=== PATIENT | male | born 1955 | race Caucasian/White ===

== ENCOUNTER 2019-04-22 21:20 | Emergency (ER) | payer MEDICARE, MEDICAID, SELFPAY ==
[2019-04-22 21:21] VITALS: BP 170/96; PULSE 80; RESP 22; TEMP 36.8; O2SAT 97; BMI 23.6
--- NOTE | 2019-04-22 21:23 | ED_ITS ---
Entered by Susana Rosario, acting as scribe for Michell Chu MD HPI - SOB/Dyspnea General: Chief Complaint: Shortness of Breath/Dyspnea Stated Complaint: COPD Time Seen by Provider: 04/22/19 21:22 Source: patient and EMS Mode of arrival: EMS History of Present Illness: HPI Narrative: 64 y/o male presents to the ED with complaint of SOB. Pt states he has chronic COPD and has recently been fighting an upper respiratory infection. He says that he was cleaning his house yesterday with some strong smelling products and today he has tightness in his chest and feels like he cant breathe. MD elicited complaint: shortness of breath Pertinent past history: COPD Onset (ago): day(s) Context: recent illness Timing: progressively worsening Severity: similar to previous episodes Exacerbating factors: strong odors Associated symptoms: Reports chest pain (tightness); Deny abdominal pain, fever(s), nausea or vomiting Review of Systems Const: Denies: fever, chills, body aches or change in appetite Eyes: Denies: blurry vision or eye discomfort ENMT: Denies: throat pain or dental pain Card: Reports: chest pain (tightness) Resp: Reports: shortness of breath GI: Denies: abdominal pain, nausea, vomiting or diarrhea : Denies: painful urination Musc: Denies: neck pain or back pain Skin/Breast: Denies: rash Neuro: Denies: headache Psych: Denies: depression Mario/Lymph: Denies: easy bruising All/Imm: Denies: hives PFS ED PFSH: Social History Smoking and tobacco status: current every day smoker Quit status (tobacco): not considering quitting Second hand smoke exposure: No Smoking risk assessment/counseling performed?: Yes Alcohol intake: never Desire information about alcohol rehabilitation?: No Counseling given: No Desire information about substance/drug rehabilitation?: No Counseling given: No Physical Exam Const: COMMON NORMALS: no apparent distress and oriented x3 HENMT: COMMON NORMALS: normocephalic and head/scalp atraumatic HEAD & SCALP: normocephalic and atraumatic Eye: COMMON NORMALS: PERRL and EOMs intact bilaterally PUPIL: Yes PERRL Neck/C-Spine: COMMON NORMALS: full ROM and supple Chest: COMMONS NORMALS: inspection of chest normal and palpation of chest normal Resp: COMMON NORMALS: normal respiratory effort, no retractions and no use of accessory muscles AUSCULTATION: wheezes (diffuse) Cardio: COMMON NORMALS: regular rate, regular rhythm and no murmurs RATE: regular rate RHYTHM: regular rhythm GI: COMMON NORMALS: normal to inspection, nondistended, normoactive bowel sounds, soft to palpation, non-tender and no masses PALPATION: Yes soft Extremity: COMMON NORMALS: normal to inspection and full ROM Neuro: COMMON NORMALS: oriented x3, moves all extremities and no focal motor deficits Psych: COMMON NORMALS: mental status grossly normal, thought process normal and cooperative THOUGHT PROCESS: normal thought process Skin: COMMON NORMALS: no rashes or lesions noted and no wounds GENERAL SKIN EXAM: no rashes or lesions noted Course Vital Signs: Vital signs: Vital Signs Temperature 98.2 F 04/22/19 21:21 Pulse Rate 62 04/22/19 23:28 Respiratory Rate 20 H 04/22/19 23:28 Blood Pressure 116/64 04/22/19 23:28 Pulse Oximetry 93 04/22/19 23:28 MDM - SOB/Dyspnea MDM Narrative: Medical decision making narrative: Patient presents with COPD exacerbation. He is well-appearing here and x-ray shows no signs of pneumonia and lab work is normal. He is in no distress here and does not require any oxygen. He is to continue steroids and is stable for discharge. Likely had exacerbation from cleaning products he use this morning. He is to return if worsening. Lab Data: Labs: Lab Results 04/22/19 04/22/19 Range/Units 21:40 21:40 WBC 7.4 (4.0-10.0) 10^3/ uL RBC 4.70 (4.1-5.3) 10^6/u L Hgb 13.2 (11.7-16.6) g/dL Hct 41.4 L (42.0-52.0) % MCV 88.1 (80-94) fL MCH 28.1 (28.0-34.0) pg MCHC 31.9 (30.0-36.0) g/dL RDW 14.5 (12.1-15.1) % Plt Count 306 (130-400) 10^3/c mm MPV 10.6 H (7.4-10.4) fL Neut % (Auto) 84.1 % Lymph % (Auto) 13.3 % Bradley % (Auto) 1.8 % Eos % (Auto) 0.0 % Baso % (Auto) 0.1 % Neut # (Auto) 6.2 (1.8-7.7) 10^3/u L Lymph # (Auto) 1.0 (0.8-4.8) 10^3/u L Bradley # (Auto) 0.1 L (0.2-0.9) 10^3/u L Eos # (Auto) 0.0 (0.0-0.8) 10^3/u L Baso # (Auto) 0.0 (0.0-0.1) 10^3/u L Nucleated RBC % (a uto) 0 % Nucleated RBCs # 0.0 /100WBC Sodium 141 (136-145) mmol/L Potassium 4.6 (3.5-5.1) mmol/L Chloride 103 (98-107) mmol/L Carbon Dioxide 25 (22-29) mmol/L Anion Gap 17.6 (5-19) BUN 18 (8-23) mg/dL Creatinine 1.0 (0.7-1.2) mg/dL GFR Calculation 74.8 L (90-130) mL/min Glucose 152 H (65-115) mg/dL Calcium 9.9 (8.5-10.5) mg/dL Total Bilirubin 0.3 (0.15-1.2) mg/dL AST 24 (0-40) U/L ALT 19 (0-41) U/L Alkaline Phosphata se 107 (40-130) IU/L Total Protein 7.3 (6.6-8.7) g/dL Albumin 4.0 (3.5-5.2) g/dL Globulin 3.3 (1.3-4.6) g/dL Imaging Data^: CXR: Radiologist's impression: Ordering Provider/Ordering MD: Michell Chu MD Date of Service: 04/22/19 Procedure(s): XR chest 1V portable [id number] Accession Number(s): [id number] Report Number: [id number] PROCEDURE INFORMATION: Exam: XR Chest, 1 View Exam date and time: 04/22/2019 9:47 PM Age: 64 years old Clinical indication: Shortness of breath; Additional info: SOB TECHNIQUE: Imaging protocol: XR of the chest Views: 1 view. COMPARISON: No relevant prior studies available. FINDINGS: Lungs: COPD/chronic bronchitis/bullous emphysema. Numerous calcified miliary nodules consistent with antecedent granulomatous disease. No radiographic evidence suggesting the presence of active or acute cardiopulmonary/cardiothoracic process. Pleural space: Unremarkable. No pleural effusion. No pneumothorax. Heart/Mediastinum: Arterial sclerosis. No cardiomegaly. Bones/joints: Unremarkable for age XR/XR chest 1V portable [id number] IMPRESSION: 1. COPD/chronic bronchitis/bullous emphysema. 2. Antecedent granulomatous disease. EKG Data^: EKG 1: Attestation: I personally reviewed and interpreted this EKG as follows: EKG Interpretation Date: 04/22/19 EKG interpretation time: 21:37 Interpretation: Normal sinus rhythm heart rate [address] or T wave abnormalities QRS 86 QTc 414 Discharge Plan Discharge Patient Disposition: Home, Self-Care Clinical Impression: COPD with exacerbation Condition: Stable Prescriptions: No Action albuterol sulfate 90 mcg/actuation HFA aerosol inhaler INHALATION RF: 0 Hold Instructions: patient has plenty at home loratadine 10 mg tablet 10 mg PO DAILY 30 Days Qty: 30 RF: 2 promethazine-codeine 6.25-10 mg/5 mL syrup 5 - 10 ml PO Q6H PRN (Reason: cough) Qty: 473 RF: 0 albuterol sulfate 2.5 mg /3 mL (0.083 %) solution for nebulization 2.5 mg continuous nebulization ONCE Qty: 1 RF: 0 ceftriaxone 1 gram recon soln 1 gm IM ONCE Qty: 1 RF: 0 budesonide 0.25 mg/2 mL suspension for nebulization 0.25 mg INHALATION ONCE Qty: 2 RF: 0 dexamethasone sodium phosphate 10 mg/mL solution 10 mg IM ONCE Qty: 1 RF: 0 prednisone 20 mg tablet 40 mg PO DAILY 5 Days Qty: 10 RF: 0 levofloxacin 500 mg tablet 500 mg PO Q24H 7 Days Qty: 7 RF: 0 albuterol sulfate [Ventolin HFA] 90 mcg/actuation HFA aerosol inhaler 2 puff INHALATION Q8H PRN (Reason: shortness of breath or wheezing) Qty: 6.7 RF: 2 aojpfmwveuw-tpqezxbew-ffhuvdzj 100-62.5-25 mcg blister with device 1 inh INHALATION DAILY Qty: 60 RF: 5 lisinopril 20 mg tablet 20 mg PO DAILY Qty: 30 RF: 5 Discharge Orders: Discharge Order (Routine); Ordered 04/22/19 Ordered By: Michell Chu Referrals: Blue Yanez, [facility] [Primary Care Provider] - 4-7 days Discharge Diet: Advance as tolerated Discharge Activity: Resume usual activity Patient Instructions: Chronic Obstructive Pulmonary Disease (ED) Discharge Date/Time: 04/22/19 23:30 Coding Level of Care Code ED Hris Administrator for g Fwd Exam Comprehensive The documentation recorded by the Abraham dominique Ashley, accurately reflects the service I personally performed and the decisions made by Vlad herrera Korby, MD
[2019-04-22 21:38] VITALS: BP 174/97; PULSE 80; RESP 17; O2SAT 96
[2019-04-22 21:50] VITALS: PULSE 66; RESP 18; O2SAT 95
[2019-04-22] MEDS: ipratropium-albuterol 3 mL Neb INHALATION (21:50)
[2019-04-22 21:51] LABS: Basophils % 0.1 %; Hematocrit 41.4 % (42.0-52.0); Hemoglobin 13.2 g/dL (11.7-16.6); Lymphocytes % 13.3 %; Mean Corpuscular HGB Conc 31.9 g/dL (30.0-36.0); Mean Corpuscular Hemoglobin 28.1 pg (28.0-34.0); Mean Corpuscular Volume 88.1 fL (80-94); Mean Platelet Volume 10.6 fL (7.4-10.4); Monocytes # 0.1 10^3/uL (0.2-0.9); Monocytes % 1.8 %; Neutrophils # 6.2 10^3/uL (1.8-7.7); Neutrophils % 84.1 %; Nucleated Red Blood Cells % 0 %; Platelet Count 306 10^3/cmm (130-400); Red Cell Distribution Width 14.5 % (12.1-15.1); White Blood Count 7.4 10^3/uL (4.0-10.0)
[2019-04-22 21:55] VITALS: PULSE 66
[2019-04-22 22:02] VITALS: BP 135/76; PULSE 77; RESP 17; O2SAT 93
[2019-04-22 22:05] LABS: Alanine Aminotransferase 19 U/L (0-41); Alkaline Phosphatase 107 IU/L (40-130); Anion Gap 17.6 (5-19); Aspartate Amino Transferase 24 U/L (0-40); Blood Urea Nitrogen 18 mg/dL (8-23); Calcium 9.9 mg/dL (8.5-10.5); Carbon Dioxide 25 mmol/L (22-29); Chloride 103 mmol/L (98-107); Globulin 3.3 g/dL (1.3-4.6); Glomerular Filtration Rate 74.8 mL/min (90-130); Glucose 152 mg/dL (65-115); Potassium 4.6 mmol/L (3.5-5.1); Sodium 141 mmol/L (136-145); Total Bilirubin 0.3 mg/dL (0.15-1.2); Total Protein 7.3 g/dL (6.6-8.7)
[2019-04-22 23:28] VITALS: BP 116/64; PULSE 62; RESP 20; O2SAT 93
== END 2019-04-22 23:30 | disposition home or self-care (01) ==
PROVIDERS: Emergency Provider Emergency Medicine; Family Provider Nurse Practitioner Family; PCP Nurse Practitioner Family
DX: J44.1 Chronic obstructive pulmonary disease with (acute) exacerbation (principal); F17.200 Nicotine dependence, unspecified, uncomplicated; Z79.51 Long term (current) use of inhaled steroids
CPT/HCPCS: 36415; 71045; 80053; 85025; 94640; 99282; 99283; J7611

== ENCOUNTER 2019-05-05 16:21 | Inpatient (IN) | payer MEDICARE, MEDICAID, SELFPAY ==
[2019-05-05] VITALS (9 sets, daily range): BP systolic 99–179; BP diastolic 60–112; PULSE 78–133; RESP 21–37; TEMP 37.6; O2SAT 91–99; BMI 23.6
--- NOTE | 2019-05-05 16:48 | ED_ITS ---
Entered by Laney Tabor, acting as scribe for Yun Redmond MD, [facility] [place]PI - [place]B/Dyspnea General: Chief Complaint: Shortness of Breath/Dyspnea Stated Complaint: RESP DISTRESS Time Seen by Provider: 05/05/19 16:46 Source: patient Mode of arrival: EMS Limitations: no limitations History of Present Illness: HPI Narrative: 64 yo Male presents to ED with complaint of respiratory distress. Pt states that he can't breathe and his pulse goes up really high. Pt states that he has a horrible pain in his back between his shoulders. Pt states that the pain started last night and got really bad. Pt states that he was seen in the ER in [place] 2 weeks ago. Pt states that his PCP gave him a prescription for steroids and breathing medication but he couldn't take the breathing medication because it makes him sick. Pt states that he would like to be admitted because he feels like he isn't getting better in an outpatient setting. MD elicited complaint: shortness of breath and cough Pertinent past history: COPD Onset (ago): day(s) Context: recent illness Timing: progressively worsening Exacerbating factors: exertion, movement and coughing Relieving factors: oxygen, rest and bronchodilators Known history of: COPD Associated symptoms: Reports chest congestion, cough, fever(s) and orthopnea; Deny abdominal pain, chest pain, nausea, palpitations, polydipsia, polyuria or vomiting Treatment prior to arrival: oxygen and bronchodilator Related Data: Home oxygen amount: none Review of Systems General: Reports: 10 or more systems reviewed and unremarkable except in HPI and below Const: Reports: fever, chills and body aches Eyes: Denies: change in vision or blurry vision ENMT: Denies: throat pain, enlarged tonsils, painful swallowing, hoarseness, mouth pain or swelling of lips/tongue Card: Reports: shortness of breath on exertion and shortness of breath when lying down; Denies: chest pain, palpitations, irregular heart rhythm, edema or swelling of feet/ankles Resp: Reports: shortness of breath, non-productive cough, pain on inspiration and chest congestion GI: Denies: abdominal pain, nausea or vomiting : Denies: flank pain, painful urination, urinary frequency, urinary urgency or urinary hesitancy Musc: Reports: back pain; Denies: neck pain or extremity swelling Skin/Breast: Denies: rash, itching or redness Neuro: Denies: headache, numbness in extremities or weakness in extremities Endo: Denies: excessive urination, excessive thirst or tired all the time PFSH ED PFSH: Medical History COPD (chronic obstructive pulmonary disease) Patient uses daily inhaler Trelegy and rescue inhaler to control symptoms of COPD Hepatitis C, chronic, with coma Patient was treated in 2018 with Epclusa. Followup Hep C viral load have been negative with no viral load. Hypertension Patient remains well controlled. Social History Smoking and tobacco status: former smoker Quit status (tobacco): not considering quitting Second hand smoke exposure: No Smoking risk assessment/counseling performed?: Yes Alcohol intake: never Desire information about alcohol rehabilitation?: No Counseling given: No Desire information about substance/drug rehabilitation?: No Counseling given: No Physical Exam Const: COMMON NORMALS: no apparent distress, average body habitus, oriented x3, no limitations, healthy appearing, alert and well nourished HENMT: COMMON NORMALS: normocephalic, head/scalp atraumatic and moist oral mucous membranes HEAD & SCALP: normocephalic and atraumatic Eye: COMMON NORMALS: PERRL, EOMs intact bilaterally, conjunctivae normal and no scleral icterus CONJUNCTIVA: Yes conjunctivae normal PUPIL: Yes PERRL Neck/C-Spine: COMMON NORMALS: full ROM, supple, no meningeal signs, no JVD and no carotid bruits Chest: COMMONS NORMALS: inspection of chest normal and palpation of chest normal Resp: COMMON NORMALS: no retractions; negative for normal respiratory effort, negative for no use of accessory muscles and negative for clear to auscultation bilaterally EFFORT & INSPECTION: No able to speak in complete sentences, Yes respiratory distress and Yes uses accessory muscles AUSCULTATION: not clear to auscultation bilaterally, diminished lung sounds diffuse and bronchovesicular breath sounds Cardio: COMMON NORMALS: no JVD, regular rate, regular rhythm, S1 normal heart sound, S2 normal heart sound, no gallops, no clicks, no murmurs, no rub and peripheral pulses 2+ throughout RATE: regular rate RHYTHM: regular rhythm HEART SOUNDS: S1 normal and S2 normal PERIPHERAL PULSES: pulses 2+ throughout GI: COMMON NORMALS: normal to inspection, nondistended, normoactive bowel sounds, soft to palpation, non-tender, no hepatosplenomegaly, no masses and no bruits PALPATION: Yes soft and Yes no hepatosplenomegaly : COMMON NORMALS: Yes no CVA tenderness BLADDER/KIDNEY EXAM: Yes no CVA tenderness Back/Pelvis: COMMON NORMALS: no CVA tenderness Extremity: COMMON NORMALS: normal to inspection, full ROM, normal capillary refill, no calf tenderness and no pedal edema Neuro: COMMON NORMALS: oriented x3 SENSORIUM/ORIENTATION: Yes alert MENINGEAL SIGNS: Yes no meningeal signs Skin: COMMON NORMALS: no rashes or lesions noted, no wounds, skin turgor normal, no jaundice, no petechiae and no mottling GENERAL SKIN EXAM: no rashes or lesions noted and turgor normal Course Consultations: Consultation #1: Dr. Galo, hospitalist. She kindly accepted patient to her service. Vital Signs: Vital signs: Vital Signs Temperature 99.7 F H 05/05/19 16:25 Pulse Rate 78 05/05/19 22:44 Respiratory Rate 21 H 05/05/19 22:44 Blood Pressure 110/64 05/05/19 22:44 Pulse Oximetry 96 05/05/19 22:44 MDM - SOB/Dyspnea MDM Narrative: Medical decision making narrative: 64-year-old male patient with a history of COPD who presents to the emergency department with complaints of worsening shortness of breath. Symptoms have been on and off for about 2 weeks but has been getting worse in the last day or 2. In the ED the patient was noted to have a significantly elevated white cell count, question whether it is reactionary from steroids or if it is secondary to pneumonia. CT scan shows bilateral pneumonia. Because he has failed outpatient therapy, he is in respiratory distress he is admitted for IV antibiotics and further work-up. Differential Diagnosis: Shortness of Breath Differential Diagnosis: Likely acute exacerbation of chronic obstructive airways disease, community acquired pneumonia and pulmonary embolism Medical Records: Attestation: I reviewed the patient's medical records. Lab Data: Attestation: I reviewed the patient's lab results. Labs: Lab Results 05/05/19 05/05/19 05/05/19 Range/Units 15:45 15:45 17:20 WBC 31.8 H* (4.0-10.0) 10^3/ uL RBC 5.36 H (4.1-5.3) 10^6/u L Hgb 15.6 (11.7-16.6) g/dL Hct 47.4 (42.0-52.0) % MCV 88.4 (80-94) fL MCH 29.1 (28.0-34.0) pg MCHC 32.9 (30.0-36.0) g/dL RDW 14.0 (12.1-15.1) % Plt Count 165 (130-400) 10^3/c mm MPV 11.7 H (7.4-10.4) fL Neut % (Auto) 86.7 % Lymph % (Auto) 8.8 % Fisher % (Auto) 3.7 % Eos % (Auto) 0.0 % Baso % (Auto) 0.2 % Neut # (Auto) 27.6 H (1.8-7.7) 10^3/u L Lymph # (Auto) 2.8 (0.8-4.8) 10^3/u L Fisher # (Auto) 1.2 H (0.2-0.9) 10^3/u L Eos # (Auto) 0.0 (0.0-0.8) 10^3/u L Baso # (Auto) 0.1 (0.0-0.1) 10^3/u L Nucleated RBC % (a uto) 0 % Nucleated RBCs # 0.0 /100WBC Specimen Type Arterial Sample Site Radial, right ABG pH 7.42 (7.35-7.45) ABG pCO2 32.6 L (35-45) mmHg ABG pO2 77.5 L (80.0-100.0) mmH g ABG HCO3 21.2 L (22-26) mmol/L ABG Base Excess -2.3 L (-2.0-2.0) mmol/ L Suraj Test Pos Hematocrit 44.3 (42-52) % Hgb O2 Saturation 95.1 (95-100) % Carboxyhemoglobin 0.9 (0.4-20.1) %THgb Methemoglobin 0.3 L (0.4-1.5) % Total Hemoglobin 14.5 (14-18) g/dL O2 Delivery Device Nc O2 Liters/Min 4.0 % Scorekeeper ID monro Sodium 135 L (136-145) mmol/L Potassium 4.7 (3.5-5.1) mmol/L Chloride 98 (98-107) mmol/L Carbon Dioxide 23 (22-29) mmol/L Anion Gap 18.7 (5-19) BUN 19 (8-23) mg/dL Creatinine 0.9 (0.7-1.2) mg/dL GFR Calculation 84.4 L (90-130) mL/min Glucose 128 H (65-115) mg/dL Calculated Osmolal ity 278 L (285-295) mOsm/k g Lactic Acid (0.5-2.2) mmol/L Calcium 9.9 (8.5-10.5) mg/dL Total Bilirubin 1.3 H (0.15-1.2) mg/dL AST 23 (0-40) U/L ALT 22 (0-41) U/L Alkaline Phosphata se 103 (40-130) IU/L Total Protein 8.2 (6.6-8.7) g/dL Albumin 4.2 (3.5-5.2) g/dL Globulin 4.0 (1.3-4.6) g/dL 05/05/19 Range/Units 17:30 WBC (4.0-10.0) 10^3/ uL RBC (4.1-5.3) 10^6/u L Hgb (11.7-16.6) g/dL Hct (42.0-52.0) % MCV (80-94) fL MCH (28.0-34.0) pg MCHC (30.0-36.0) g/dL RDW (12.1-15.1) % Plt Count (130-400) 10^3/c mm MPV (7.4-10.4) fL Neut % (Auto) % Lymph % (Auto) % Fisher % (Auto) % Eos % (Auto) % Baso % (Auto) % Neut # (Auto) (1.8-7.7) 10^3/u L Lymph # (Auto) (0.8-4.8) 10^3/u L Fisher # (Auto) (0.2-0.9) 10^3/u L Eos # (Auto) (0.0-0.8) 10^3/u L Baso # (Auto) (0.0-0.1) 10^3/u L Nucleated RBC % (a uto) % Nucleated RBCs # /100WBC Specimen Type Sample Site ABG pH (7.35-7.45) ABG pCO2 (35-45) mmHg ABG pO2 (80.0-100.0) mmH g ABG HCO3 (22-26) mmol/L ABG Base Excess (-2.0-2.0) mmol/ L Suraj Test Hematocrit (42-52) % Hgb O2 Saturation (95-100) % Carboxyhemoglobin (0.4-20.1) %THgb Methemoglobin (0.4-1.5) % Total Hemoglobin (14-18) g/dL O2 Delivery Device O2 Liters/Min % Scorekeeper ID Sodium (136-145) mmol/L Potassium (3.5-5.1) mmol/L Chloride (98-107) mmol/L Carbon Dioxide (22-29) mmol/L Anion Gap (5-19) BUN (8-23) mg/dL Creatinine (0.7-1.2) mg/dL GFR Calculation (90-130) mL/min Glucose (65-115) mg/dL Calculated Osmolal ity (285-295) mOsm/k g Lactic Acid 1.6 (0.5-2.2) mmol/L Calcium (8.5-10.5) mg/dL Total Bilirubin (0.15-1.2) mg/dL AST (0-40) U/L ALT (0-41) U/L Alkaline Phosphata se (40-130) IU/L Total Protein (6.6-8.7) g/dL Albumin (3.5-5.2) g/dL Globulin (1.3-4.6) g/dL Imaging Data^: CTA Chest: Radiologist's impression: [address] [address] [address] Scan Report Signed Patient: Parth Mccracken Jr Kashifrogelio #: [id number] : 4Acct#:[id number] Age/Sex: 64 / MADM Date: 05/05/19 Loc: ERRoom/Bed: Attending Dr: Ordering Provider/Ordering MD: Yun Redmond MD, [facility] [place] Date of Service: 05/05/19 Procedure(s): CT angio chest PE protcl [id number] Accession Number(s): [id number] Report Number: [id number] PROCEDURE INFORMATION: Exam: CT Angiography Chest With Contrast Exam date and time: 05/05/2019 8:39 PM Age: 64 years old Clinical indication: Cough and shortness of breath; Additional info: SOB TECHNIQUE: Imaging protocol: Computed tomographic angiography of the chest with intravenous contrast. 3D rendering: MIP and/or 3D reconstructed images were created by the technologist. Total DLP: 684.99 mGy-cm Radiation optimization: All CT scans at this facility use at least one of these dose optimization techniques: automated exposure control; mA and/or kV adjustment per patient size (includes targeted exams where dose is matched to clinical indication); or iterative reconstruction. Contrast material: OMNI 350; Contrast volume: 95 ml; Contrast route: 20G; COMPARISON: CR XR chest 1V portable [id number] 05/05/2019 5:43 PM FINDINGS: Pulmonary arteries: There is no evidence of filling defects within the pulmonary arterial circulation to suggest pulmonary embolism. Aorta: Unremarkable. No aortic aneurysm. No aortic dissection. Lungs: There are scattered calcifications throughout both lungs in keeping with old granulomatous disease. There are findings of severe emphysema bilaterally with upper lobe predominance. There is a 20 x 36 mm sized masslike area of pleural based consolidation in the left lower lobe such as an image number 352 of series 2. It is uncertain whether this represents infectious or inflammatory disease or is related to malignancy. There are areas of consolidation and infiltrate in the right middle lobe, medial left lower lobe and scattered areas at the right lung base which may represent some areas of acute infection such as bronchopneumonia. In view of the infectious findings elsewhere in the chest, the abnormality at the left lung base may be inflammatory. Further evaluation such as with PET CT scan may be considered, alternatively follow-up is recommended to document resolution following treatment. Pleural space: Unremarkable. No pneumothorax. No pleural effusion. Heart: Unremarkable. No cardiomegaly. No pericardial effusion. Lymph nodes: There are calcified subcarinal, paratracheal and hilar lymph nodes in keeping with old granulomatous disease. Bones/joints: Unremarkable. No acute fracture. Soft tissues: Unremarkable. CT/CT angio chest PE protcl [id number] IMPRESSION: 1. Severe COPD 2. No evidence of pulmonary embolism. 3. Bilateral areas of pneumonia 4. Masslike lesion in the left lower lobe which could represent some focal pneumonic consolidation versus malignant mass. Further evaluation, or short-term follow-up is recommended. Radiation Dose CTDIVOL = (mGy): DLP = 684.99 (mGy-cm) Dictated By:Maico Griffin Signed By:Robert Griffinigned Date/Time:05/05/192136 DD/ 35 Discharge Plan Discharge Patient Disposition: Admitted As Inpatient Admit Provider: Jacquelin Galo Clinical Impression: Pneumonia, Acute respiratory distress, Leukocytosis, COPD with exacerbation Condition: Stable Interventions: ED Discharge Assessment Last Done: 05/05/19 22:44 Discharge Date/Time: 05/05/19 23:12 Coding Level of Care Code ED Personal Injury Litigation Paralegal for Chg Fwd Exam Comprehensive The documentation recorded by the Sharona dominique Carmen, accurately reflects the service I personally performed and the decisions made by Ruy herrera Adegoke I, MD, [facility] [place] May 05, 2019 16:21
--- NOTE | 2019-05-05 17:08 | XR_ITS ---
WS: [id number] XR chest 1V portable [id number] REASON FOR EXAM: Shortness of breath FINDINGS: Patchy alveolar infiltrate in the basilar portion of the right lower lung. The lung ellis are hyper aerated. There are scattered granulomas in the lower lung ellis bilaterally. The heart was normal. XR/XR chest 1V portable [id number] IMPRESSION: Early pneumonia or basilar portion right lower lung Chronic obstructive pulmonary disease Granulomatous changes.
[2019-05-05] MEDS: sodium chloride 0.9% 1,000 ML 999 ML IV ×2 (17:21→20:02)
[2019-05-05 17:27] LABS: Basophils # 0.1 10^3/uL (0.0-0.1); Basophils % 0.2 %; Hematocrit 47.4 % (42.0-52.0); Hemoglobin 15.6 g/dL (11.7-16.6); Lymphocytes # 2.8 10^3/uL (0.8-4.8); Lymphocytes % 8.8 %; Mean Corpuscular HGB Conc 32.9 g/dL (30.0-36.0); Mean Corpuscular Hemoglobin 29.1 pg (28.0-34.0); Mean Corpuscular Volume 88.4 fL (80-94); Mean Platelet Volume 11.7 fL (7.4-10.4); Monocytes # 1.2 10^3/uL (0.2-0.9); Monocytes % 3.7 %; Neutrophils # 27.6 10^3/uL (1.8-7.7); Neutrophils % 86.7 %; Nucleated Red Blood Cells % 0 %; Platelet Count 165 10^3/cmm (130-400); Red Blood Count 5.36 10^6/uL (4.1-5.3)
[2019-05-05] MEDS: ipratropium-albuterol 3 mL Neb INHALATION (17:27)
[2019-05-05 17:33] LABS: ABG PCO2 32.6 mmHg (35-45); ABG PH Result 7.42 (7.35-7.45); Arterial Blood Gas Hematocrit 44.3 % (42-52); Base Excess ABG -2.3 mmol/L (-2.0-2.0); Blood Gas Allen Test Pos; Blood Gas Sample Site Radial, right; Blood Gas Sample Type Arterial; Carboxyhemoglobin 0.9 %THgb (0.4-20.1); HCO3 ABG 21.2 mmol/L (22-26); HGB O2 Sat 95.1 % (95-100); Methemoglobin 0.3 % (0.4-1.5); Oxygen Device NC; PO2 ABG 77.5 mmHg (80.0-100.0); Total Hemoglobin 14.5 g/dL (14-18)
[2019-05-05 17:40] LABS: White Blood Count 31.8 10^3/uL (4.0-10.0)
[2019-05-05] MEDS: morphine 4 mg/mL SDV 1 mL IVP (17:45)
[2019-05-05 17:48] LABS: Alanine Aminotransferase 22 U/L (0-41); Albumin Level 4.2 g/dL (3.5-5.2); Alkaline Phosphatase 103 IU/L (40-130); Anion Gap 18.7 (5-19); Aspartate Amino Transferase 23 U/L (0-40); Blood Urea Nitrogen 19 mg/dL (8-23); Calcium 9.9 mg/dL (8.5-10.5); Carbon Dioxide 23 mmol/L (22-29); Chloride 98 mmol/L (98-107); Glomerular Filtration Rate 84.4 mL/min (90-130); Glucose 128 mg/dL (65-115); Osmolality Calculated 278 mOsm/kg (285-295); Potassium 4.7 mmol/L (3.5-5.1); Sodium 135 mmol/L (136-145); Total Bilirubin 1.3 mg/dL (0.15-1.2); Total Protein 8.2 g/dL (6.6-8.7)
[2019-05-05 18:01] LABS: Lactic Sepsis W/Reflex 1.6 mmol/L (0.5-2.2)
[2019-05-05] MEDS: piperacillin-tazobactam 3.375 GM in sodium chloride 0.9% (plus) 50 ML IV (18:37)
--- NOTE | 2019-05-05 20:01 | CTR_ITS ---
PROCEDURE INFORMATION: Exam: CT Angiography Chest With Contrast Exam date and time: 05/05/2019 8:39 PM Age: 64 years old Clinical indication: Cough and shortness of breath; Additional info: SOB TECHNIQUE: Imaging protocol: Computed tomographic angiography of the chest with intravenous contrast. 3D rendering: MIP and/or 3D reconstructed images were created by the technologist. Total DLP: 684.99 mGy-cm Radiation optimization: All CT scans at this facility use at least one of these dose optimization techniques: automated exposure control; mA and/or kV adjustment per patient size (includes targeted exams where dose is matched to clinical indication); or iterative reconstruction. Contrast material: OMNI 350; Contrast volume: 95 ml; Contrast route: 20G; COMPARISON: CR XR chest 1V portable [id number] 05/05/2019 5:43 PM FINDINGS: Pulmonary arteries: There is no evidence of filling defects within the pulmonary arterial circulation to suggest pulmonary embolism. Aorta: Unremarkable. No aortic aneurysm. No aortic dissection. Lungs: There are scattered calcifications throughout both lungs in keeping with old granulomatous disease. There are findings of severe emphysema bilaterally with upper lobe predominance. There is a 20 x 36 mm sized masslike area of pleural based consolidation in the left lower lobe such as an image number 352 of series 2. It is uncertain whether this represents infectious or inflammatory disease or is related to malignancy. There are areas of consolidation and infiltrate in the right middle lobe, medial left lower lobe and scattered areas at the right lung base which may represent some areas of acute infection such as bronchopneumonia. In view of the infectious findings elsewhere in the chest, the abnormality at the left lung base may be inflammatory. Further evaluation such as with PET CT scan may be considered, alternatively follow-up is recommended to document resolution following treatment. Pleural space: Unremarkable. No pneumothorax. No pleural effusion. Heart: Unremarkable. No cardiomegaly. No pericardial effusion. Lymph nodes: There are calcified subcarinal, paratracheal and hilar lymph nodes in keeping with old granulomatous disease. Bones/joints: Unremarkable. No acute fracture. Soft tissues: Unremarkable. CT/CT angio chest PE protcl [id number] IMPRESSION: 1. Severe COPD 2. No evidence of pulmonary embolism. 3. Bilateral areas of pneumonia 4. Masslike lesion in the left lower lobe which could represent some focal pneumonic consolidation versus malignant mass. Further evaluation, or short-term follow-up is recommended. Radiation Dose CTDIVOL = (mGy): DLP = 684.99 (mGy-cm)
[2019-05-05] MEDS: iohexol 350 mg/mL 100 mL Btl IV (21:04)
[2019-05-05] MEDS: sodium chloride 0.9% 1,000 ML 150 ML IV (21:21)
[2019-05-05 22:29] LABS: Influenza A by IFA Negative (Negative); Influenza B by IFA Negative (Negative)
--- NOTE | 2019-05-05 23:05 | PM.HP ---
Providers/Chief Complaint Admitting Physician: Jacquelin Galo MD Primary Care Provider: EDI Cleary Chief Complaint: RESP DISTRESS History of Present Illness Parth Mccracken Jr is a 64 year old male with a past medical history of COPD and unclear history of being on oxygen in the past. He states he had pneumonia last year after which he was temporarily placed on oxygen. Subsequently underwent an home O2 evaluation with his PCP and reportedly did not qualify at the time. Albuterol and trilogy inhalers. Does not react well to ipratropium, because of tachycardia. He presents today with chief complaints of worsening cough and shortness of breath over the past 1 month. He states that he has been having more frequent coughing spells increased expectoration, especially over the last 1 week or so. Today started to experience subjective chills and diaphoresis. He states his shortness of breath is at the point where minimal movement causes him to become extremely tachypneic and is able to hear audible wheezing. Review of notes showed he had visited his primary care provider on March 03 and received a course of prednisone for 5 days. He has been presented to his primary care provider in March 2017 and the ED on April 21 planes of chest tightness and shortness of breath. He received a prescription for levofloxacin 7 days and prednisone 40 mg for 5 days which did not improve his symptoms. Since yesterday he has been feeling additional palpitations and lightheadedness. Upon presentation to the ER today he has a T-max of 99.7, was initially tachypneic with respiratory rate in the 40s. Initial blood pressure was noted to be in the 90/60 range is requiring supplemental O2 4 L/min which is reportedly new for him. Leukocytosis is at 31.8. ABG showed pH 7 four 230 2.6/70 7.5/21.2. CTA of the chest was performed to rule out PE which showed severe COPD, no evidence of PE, bilateral areas of bronchopneumonia and masslike lesion in the left lower lobe likely to represent consolidation versus mass. No prior CT of the chest to compare this to. .Last echocardiogram was performed on August 2018 which showed normal left ventricular size and function with EF of 55%. No regional wall motion abnormalities. Mild left ventricular hypertrophy and a thickened aortic valve. There is no comment on diastolic function. He does not have any personal history of travel. 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 He often visits an arcade that is frequented by multiple travelers, last visited 4 days ago and noticed several people to be sick with cough and flu . He is concerned about his risk for coronavirus. He has tested negative for flu antigen. Review of Systems General: Reports: 10 or more systems reviewed and unremarkable except in HPI and below Const: Denies: fever, chills or body aches Eyes: Denies: change in vision, blurry vision or photophobia ENMT: Reports: hoarseness; Denies: throat pain, enlarged tonsils, painful swallowing or nasal congestion Card: Denies: chest pain, palpitations, irregular heart rhythm, edema, swelling of feet/ankles, lightheadedness, pre-syncope, shortness of breath on exertion or shortness of breath when lying down Resp: Reports: shortness of breath, productive cough, wheezing and change in phlegm color; Denies: non-productive cough, stridor, pain on inspiration, coughing up blood or chest congestion GI: Denies: abdominal pain, nausea, vomiting, vomiting blood, coffee grounds in vomit, difficulty swallowing, heartburn/indigestion, diarrhea, constipation, cramping, change in stool character, blood in stool or black tarry stool : Denies: flank pain, painful urination, urinary frequency, urinary urgency, urinary hesitancy or blood in urine Musc: Denies: neck pain, back pain, extremity pain, joint swelling, joint warmth or deformity Neuro: Denies: headache, numbness in extremities, weakness in extremities, changes in sensation, difficulty walking, frequent falls, dizziness, vertigo, behavioral changes, slurred speech or seizure-like activity Psych: Denies: anxiety, depression, suicidal ideation or homicidal ideation Endo: Denies: excessive urination, excessive thirst, tired all the time, cold intolerance or hot flashes Mario/Lymph: Denies: easy bruising or easy bleeding Medications/Allergies Home Medications Medication Instructions Recorded Confirmed Last Taken Type albuterol sulfate 2.5 mg INHALATION DAILY 05/05/19 05/05/19 05/05/19 History prednisone 20 mg PO DAILY 05/05/19 05/05/19 Unknown History Allergies Allergy/AdvReac Type Severity Reaction Status Date / Time valdecoxib [From Bextra] Allergy Intermediate unknown Verified 05/05/19 16:37 escitalopram [From Lexapro] AdvReac Intermediate unknown Verified 05/05/19 16:37 PFSH Acute PFSH: Medical History COPD (chronic obstructive pulmonary disease) Patient uses daily inhaler Trelegy and rescue inhaler to control symptoms of COPD Hepatitis C, chronic, with coma Patient was treated in 2018 with Epclusa. Followup Hep C viral load have been negative with no viral load. Hypertension Patient remains well controlled. Social History Smoking and tobacco status: former smoker Quit status (tobacco): not considering quitting Second hand smoke exposure: No Smoking risk assessment/counseling performed?: Yes Alcohol intake: never Desire information about alcohol rehabilitation?: No Counseling given: No Desire information about substance/drug rehabilitation?: No Counseling given: No Vitals/I&O/Wt Last Vital Signs Temp 99.7 F H 05/05/19 16:25 Pulse 78 05/05/19 22:44 Resp 21 H 05/05/19 22:44 BP 110/64 05/05/19 22:44 Pulse Ox 96 05/05/19 22:44 05/05/19 05/05/19 05/06/19 14:59 22:59 06:59 Intake Total 1050 / 1050 Balance 1050 / 1050 Weight last 48 hrs Weight 76.657 kg Physical Exam Narrative: EXAM NARRATIVE: GEN: Awake, alert and oriented, tachypneic on exam, intermitten dry cough, attempting to expectorate without success CVS: S1S2 N RS: B/L scattered coarse crackles lower lung bases Abd: Soft, nt/nd , bs+ OCCUPATIONAL THERAPY MANAGER: no focal neuro deficits Data : 05/05/19 15:45 05/05/19 15:45 Micro: Microbiology 05/05/19 17:24 Gram Stain - Final Sputum - Expectorated Sputum 05/05/19 17:30 Blood Culture - Preliminary Blood SPECIMEN COLLECTED 05/05/19 17:30 Blood Culture - Preliminary Blood SPECIMEN COLLECTED A&P Assessment and plan (1) Pneumonia: Status: Acute Qualifiers: Laterality: bilateral Lung location: unspecified part of lung Pneumonia type: due to unspecified organism Qualified Code(s): J18.9 - Pneumonia, unspecified organism Code(s): J18.9 - Pneumonia, unspecified organism (2) Acute respiratory distress: Status: Acute Code(s): R06.03 - Acute respiratory distress (3) Leukocytosis: Status: Acute Code(s): D72.829 - Elevated white blood cell count, unspecified (4) COPD (chronic obstructive pulmonary disease): Status: Acute Code(s): J44.9 - Chronic obstructive pulmonary disease, unspecified Additional A&P Information Admit to ICU Meets sepsis criteria with fever, leukocytosis, tachycardia 1. Community-acquired pneumonia Start antibiotic empiric treatment with ceftriaxone and azithromycin Normal saline at 75 cc/h pressure is improving after IV fluid resuscitation white blood cell count of 31.8 could potentially be contributed by steroids, will continue to trend Influenza panel is negative Given findings of bronchopneumonia on CAT scan, will acute worsening over the last 3 to 4 days and history of potential exposure to unknown travelers, call was placed to [facility] hotline for covert 19 screening. The test was approved by the RN mobile application development lead. Emergency response center was called for further guidance and obtain order for testing, however they state that they will be called back in the morning hours with further details orders. Until this time we will continue to place patient in contact and droplet precautions. Airborne precautions will be taken for any respiratory specimen collection and potential aerosolization procedures. 2. COPD on multiple rounds of steroids recently without any significant improvement. ABG today without significant hypercapnia, I do not feel very confident at this time is a COPD exacerbation. We will hold off on systemic steroids for now. Duoneb Inhalation every 4 hours. Budesonide inh q12h Patient not on home 02, currently needing 4lpm via [place]. Will need home 02 evaluation 3. C/o palpitations : Obtain EKG, monitor on telemetry for arrhthmias, no h/o Afib, sinus tach on telemetry thus far Troponin baseline check Check BNP last echo 08/2018 Ef 55%, , unknown diastolic function check TSH 4. HTN: Hold lisinopril for now given Bp 90/60 DVT ppx: lovenox Full code Attestations Medical Necessity Statement*: Anticipate > 2 midnight admission for management of pneumonia Coding Level of Care Code Acute Computer Aide for [facility] Fwd Diagnoses Pneumonia J18.9 Laterality: bilateral Lung location: unspecified part of lung Pneumonia type: due to unspecified organism Acute respiratory distress R06.03 Leukocytosis D72.829 COPD (chronic obstructive pulmonary disease) J44.9
[2019-05-06] VITALS (26 sets, daily range): BP systolic 85–119; BP diastolic 48–73; PULSE 59–91; RESP 18–30; TEMP 36–36.7; O2SAT 94–99
--- NOTE | 2019-05-06 00:20 | ECG_ITS ---
Measurements Intervals [place] Rate: 71 P: 87 SD: 159 QRS: 81 QRSD: 95 T: 82 QT: 423 QTc: 461 SINUS RHYTHM ANTERIOR MYOCARDIAL INFARCTION, PROBABLY RECENT No previous ECG available for comparison Electronically Signed On 05-06-2019 13:10:38 CDT by Melissa Franco M.D. [email or web address]
[2019-05-06 00:53] LABS: Lactic Sepsis W/Reflex 1.5 mmol/L (0.5-2.2)
[2019-05-06 00:54] LABS: Troponin T (5th) Once 30 ng/mL (0-15)
[2019-05-06 01:04] LABS: NT Pro B Type Natriuretic Pept 1394 pg/mL (0-125); Thyroid Stimulating Hormone 0.78 uIU/mL (0.27-4.20)
[2019-05-06] MEDS: cefTRIAXone 1,000 MG in sodium chloride 0.9% (plus) 50 ML 100 MG IV ×2 (01:04→23:42)
[2019-05-06] MEDS: enoxaparin 30 mg/0.3 mL Syringe SUBCUT ×2 (01:04→23:42)
[2019-05-06] MEDS: sodium chloride 0.9% 1,000 ML 150 ML IV (04:10)
[2019-05-06 04:18] LABS: Basophils # 0.1 10^3/uL (0.0-0.1); Basophils % 0.2 %; Hematocrit 37.6 % (42.0-52.0); Hemoglobin 12.3 g/dL (11.7-16.6); Lymphocytes # 0.9 10^3/uL (0.8-4.8); Lymphocytes % 3.1 %; Mean Corpuscular HGB Conc 32.7 g/dL (30.0-36.0); Mean Corpuscular Hemoglobin 29.2 pg (28.0-34.0); Mean Corpuscular Volume 89.3 fL (80-94); Mean Platelet Volume 11.1 fL (7.4-10.4); Monocytes # 0.5 10^3/uL (0.2-0.9); Monocytes % 1.7 %; Neutrophils # 28.3 10^3/uL (1.8-7.7); Neutrophils % 94.1 %; Nucleated Red Blood Cells % 0 %; Platelet Count 199 10^3/cmm (130-400); Red Blood Count 4.21 10^6/uL (4.1-5.3); Red Cell Distribution Width 14.2 % (12.1-15.1)
[2019-05-06 04:40] LABS: Anion Gap 13.2 (5-19); Blood Urea Nitrogen 19 mg/dL (8-23); Calcium 8.8 mg/dL (8.5-10.5); Carbon Dioxide 23 mmol/L (22-29); Chloride 108 mmol/L (98-107); Glomerular Filtration Rate 84.4 mL/min (90-130); Glucose 201 mg/dL (65-115); Osmolality Calculated 292 mOsm/kg (285-295); Potassium 4.2 mmol/L (3.5-5.1); Sodium 140 mmol/L (136-145)
[2019-05-06 06:11] LABS: Estmated Average Glucose 120; Hemoglobin A1C 5.8 % (4.0-6.0)
[2019-05-06] MEDS: ipratropium-albuterol 3 mL Neb INHALATION ×4 (07:58→20:56)
[2019-05-06] MEDS: budesonide 0.5 mg/2 mL Neb INHALATION ×2 (07:58→20:56)
[2019-05-06 08:22] LABS: Procalcitonin 5.24 ng/mL (0-0.5)
[2019-05-06] MEDS: azithromycin 250 mg Tablet 500 MG PO (08:32)
[2019-05-06] MEDS: acetaminophen 325 mg Tablet 650 MG PO (08:39)
--- NOTE | 2019-05-06 12:17 | PC.RESP ---
Patient given Pulmonary Rehab/Smoking Cessation information.
[2019-05-06] MEDS: morphine 4 mg/mL SDV 1 mL 1 MG IVP ×3 (13:47→22:07)
--- NOTE | 2019-05-06 15:09 | PM.PN ---
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 [place], does not use oxygen at home, no pets, no recent travel Vitals/I&O/Wt Last Vital Signs Temp 98.0 F 05/06/19 12:00 Pulse 73 05/06/19 14:00 Resp 25 H 05/06/19 14:00 BP 106/67 05/06/19 14:00 Pulse Ox 97 05/06/19 14:00 05/06/19 05/06/19 05/06/19 06:59 14:59 22:59 Intake Total 1050 / 3100 540 / 540 Output Total 250 / 250 650 / 650 Balance 800 / 2850 -110 / -110 Weight last 48 hrs Weight 76.657 kg Physical Exam Const: COMMON NORMALS: no apparent distress and oriented x3 HENMT: COMMON NORMALS: normocephalic HEAD & SCALP: normocephalic Neck/C-Spine: COMMON NORMALS: no JVD Resp: COMMON NORMALS: normal respiratory effort, no retractions and no use of accessory muscles AUSCULTATION: wheezes Cardio: COMMON NORMALS: no JVD, regular rate, regular rhythm, S1 normal heart sound and S2 normal heart sound RATE: regular rate RHYTHM: regular rhythm HEART SOUNDS: S1 normal and S2 normal GI: COMMON NORMALS: normal to inspection, nondistended, normoactive bowel sounds, soft to palpation, non-tender, no hepatosplenomegaly, no masses and no bruits PALPATION: Yes soft and Yes no hepatosplenomegaly Extremity: COMMON NORMALS: normal capillary refill, no clubbing, cyanosis or edema, no calf tenderness and no pedal edema Neuro: COMMON NORMALS: oriented x3 Psych: COMMON NORMALS: mental status grossly normal Data : 05/06/19 04:05 05/06/19 04:05 Micro: Microbiology 05/06/19 09:00 MRSA Culture - Final Nose 05/06/19 09:00 Bacterial Antigens - Final Urine,Voided 05/05/19 17:24 Gram Stain - Final Sputum - Expectorated Sputum 05/05/19 17:30 Blood Culture - Preliminary Blood SPECIMEN COLLECTED 05/05/19 17:30 Blood Culture - Preliminary Blood SPECIMEN COLLECTED A&P Assessment and plan (1) Pneumonia: Status: Acute Qualifiers: Laterality: bilateral Lung location: unspecified part of lung Pneumonia type: due to unspecified organism Qualified Code(s): J18.9 - Pneumonia, unspecified organism Code(s): J18.9 - Pneumonia, unspecified organism (2) Acute respiratory distress: Status: Acute Code(s): R06.03 - Acute respiratory distress (3) Leukocytosis: Status: Acute Code(s): D72.829 - Elevated white blood cell count, unspecified (4) COPD (chronic obstructive pulmonary disease): Status: Acute Code(s): J44.9 - Chronic obstructive pulmonary disease, unspecified Additional A&P Information 1. Community-acquired pneumonia Start antibiotic empiric treatment with ceftriaxone and azithromycin Continue gentle hydration white blood cell count of 31.8, pro-Kobi 5.24,, will continue to trend Influenza panel is negative COVID19 test has been performed, results available tomorrow, continue droplet precautions Review of patient's CT scan shows multifocal bronchopneumonia, high risk of developing acute respiratory distress, high risk of intubation Follow sputum culture respiratory viral panel 2. COPD on multiple rounds of steroids recently without any significant improvement. ABG today without significant hypercapnia, not likely an exacerbation Hold off on steroids Duoneb Inhalation every 4 hours. Budesonide inh q12h Currently on 4 L oxygen Will need home 02 evaluation 3. Diastolic CHF, BNP 1394, hold off on IV hydration -We will consider diuresis 4. HTN: Hold blood pressure medications DVT ppx: lovenox Full code Attestations Medical Necessity Statement*: Patient requires continued hospitalization for pneumonia, multifocal, respiratory failure Coding Level of Care Code Acute Solid State Tester for [facility] Fwd Diagnoses Pneumonia J18.9 Laterality: bilateral Lung location: unspecified part of lung Pneumonia type: due to unspecified organism Acute respiratory distress R06.03 Leukocytosis D72.829 COPD (chronic obstructive pulmonary disease) J44.9
--- NOTE | 2019-05-06 16:59 | USCV_ITS ---
Parth Mccracken Jr Age: 64 Gender: M : 1955 Exam Date: 05/06/2019 17:40 Ordering Phys: Kieran Wiley MD Technologist: Jayda Blakely [place] [facility] [place]: SOB, ELEVATED BMP BP: 106 / 65 HR: 90 Rhythm: Sinus Technical Quality: Adequate MEASUREMENTS (Male / Female) Normal Values 2D ECHO LV Diastolic Diameter PLAX 3.6 cm 4.2 - 5.9 / 3.9 - 5.3 cm LV Systolic Diameter PLAX 2.7 cm LV Chamber Size 2.1 cm IVS Diastolic Thickness 0.8 cm 0.6 - 1.0 / 0.6 - 0.9 cm IVS Systolic Thickness 0.9 cm LVPW Diastolic Thickness 1.7 cm 0.6 - 1.0 / 0.6 - 0.9 cm LVPW Systolic Thickness 1.8 cm RV Chamber Size 2.0 cm LVOT Diameter 2.0 cm LV Ejection Fraction 2D Teich 49.3 % LV Ejection Fraction MOD 2C 54.2 % LV Ejection Fraction 2C AL 53.0 % LA Diameter 4.1 cm LA Width 2.7 cm LA Height 3.8 cm RA Width 3.1 cm RA Height 2.8 cm Aorta at Sinotubular Diameter 2.6 cm M-MODE LV Diastolic Diameter MM 6.3 cm 4.2 - 5.9 / 3.9 - 5.3 cm LV Systolic Diameter MM 3.3 cm LV Ejection Fraction MM Teich 78.2 % IVS Diastolic Thickness MM 0.8 cm 0.6 - 1.0 / 0.6 - 0.9 cm IVS Systolic Thickness MM 1.2 cm LVPW Diastolic Thickness MM 0.7 cm 0.6 - 1.0 / 0.6 - 0.9 cm LVPW Systolic Thickness MM 1.4 cm RV Diastolic Diameter MM 2.1 cm Aortic Annulus Diameter 2.6 cm LA Ao Ratio MM 1.6 MV E Point Septal Separation 0.7 cm DOPPLER AV Peak Velocity 134.0 cm/s LVOT Peak Velocity 111.0 cm/s AV Area Cont Eq vti 2.7 cm squared AV Area Cont Eq pk 2.7 cm squared MV Area PHT 3.7 cm squared Mitral E to A Ratio 1.8 MV E' Velocity 12.0 cm/s Mitral E to MV E' Ratio 8.5 Mitral E to LV E' Lateral Ratio 7.2 Mitral E to LV E' Septal Ratio 10.5 TR Peak Velocity 187.0 cm/s TR Peak Gradient 14.0 mmHg TV Peak E Velocity 42.0 cm/s Right Atrial Pressure 3.0 mmHg Pulmonary Artery Systolic Pressu 17.0 mmHg PV Peak Velocity 77.0 cm/s RV Acceleration Time 0.1 s RV Ejection Time 0.2 s RV AcT/ET 0.2 FINDINGS Left Ventricle Overall LV function appears to be normal normal LV thickness size is noted ejection fraction 65% Right Ventricle Normal right ventricular size and systolic function. Right Atrium Normal RA size Left Atrium Normal left atrial size Mitral Valve Mildly thickened mitral valve. No mitral valve regurgitation. Trace mitral valve regurgitation. Aortic Valve No aortic valve stenosis. Thickened aortic valve. Tricuspid Valve Tricuspid valve not well visualized. Trace tricuspid valve regurgitation. Pulmonic Valve No pulmonary valve stenosis. Structurally normal pulmonic valve. Pulmonic valve not well visualized. Pericardium No pericardial or pleural effusion. Aorta Normal size aortic root and proximal ascending aorta. CONCLUSIONS Amanda Yuen MD (Electronically Signed) Final Date: 07 May 2019 09:58 S
--- NOTE | 2019-05-06 19:40 | PC.NURSE ---
Pt resting in bed alert, pleasant, and oriented X 4. Breathing even and non-labored at rest on 3L NC. Reports shortness of breath with exertion and a moist non-productive cough. Denies fever/chills. Lung sounds diminished but clear throughout. Pt remains on droplet/contact precautions at this time. No concerns or needs voiced at this time, call light within reach.
[2019-05-07] VITALS (20 sets, daily range): BP systolic 89–134; BP diastolic 58–78; PULSE 64–93; RESP 16–28; TEMP 36.5–37.2; O2SAT 2–97
[2019-05-07] MEDS: ipratropium-albuterol 3 mL Neb INHALATION ×5 (04:43→20:08)
[2019-05-07] MEDS: morphine 4 mg/mL SDV 1 mL 1 MG IVP ×2 (06:25→12:20)
--- NOTE | 2019-05-07 07:00 | XR_ITS ---
WS: [id number] XR chest 1V portable [id number] REASON FOR EXAM: sob FINDINGS: Persistent infiltrate in the basilar portion of the right lower lung. Comparisons were made to May 05, 2019. There is evidence of hyperaeration with chronic obstructive pulmonary disease. We again note multiple granulomas in both lung ellis. The heart and mediastinum were normal. XR/XR chest 1V portable [id number] IMPRESSION: Unchanged right lower lung pneumonia Chronic obstructive pulmonary disease. Multiple granulomatous changes.
[2019-05-07 07:41] LABS: Basophils % 0.1 %; Hematocrit 35.1 % (42.0-52.0); Hemoglobin 11.4 g/dL (11.7-16.6); Lymphocytes # 1.6 10^3/uL (0.8-4.8); Lymphocytes % 6.9 %; Mean Corpuscular HGB Conc 32.5 g/dL (30.0-36.0); Mean Corpuscular Hemoglobin 29.5 pg (28.0-34.0); Mean Corpuscular Volume 90.7 fL (80-94); Mean Platelet Volume 11.4 fL (7.4-10.4); Monocytes # 0.6 10^3/uL (0.2-0.9); Monocytes % 2.7 %; Neutrophils # 20.6 10^3/uL (1.8-7.7); Nucleated Red Blood Cells % 0 %; Platelet Count 207 10^3/cmm (130-400); Red Blood Count 3.87 10^6/uL (4.1-5.3); Red Cell Distribution Width 14.6 % (12.1-15.1); White Blood Count 23.1 10^3/uL (4.0-10.0)
[2019-05-07 07:49] LABS: Alanine Aminotransferase 16 U/L (0-41); Albumin Level 2.7 g/dL (3.5-5.2); Alkaline Phosphatase 77 IU/L (40-130); Anion Gap 11.3 (5-19); Aspartate Amino Transferase 25 U/L (0-40); Blood Urea Nitrogen 20 mg/dL (8-23); Calcium 9.1 mg/dL (8.5-10.5); Carbon Dioxide 27 mmol/L (22-29); Chloride 107 mmol/L (98-107); Globulin 3.6 g/dL (1.3-4.6); Glomerular Filtration Rate 112.8 mL/min (90-130); Glucose 140 mg/dL (65-115); Magnesium 2.1 mg/dL (1.7-2.3); Osmolality Calculated 291 mOsm/kg (285-295); Phosphorus 2.6 mg/dL (2.5-4.5); Potassium 4.3 mmol/L (3.5-5.1); Sodium 141 mmol/L (136-145); Total Bilirubin 0.2 mg/dL (0.15-1.2); Total Protein 6.3 g/dL (6.6-8.7)
[2019-05-07] MEDS: azithromycin 250 mg Tablet 500 MG PO (08:32)
[2019-05-07] MEDS: budesonide 0.5 mg/2 mL Neb INHALATION ×2 (08:46→20:08)
--- NOTE | 2019-05-07 12:45 | P.PN_ITS ---
Subjective Subjective: Interval history: Patient states that he feels better this morning, no fevers overnight, is down to 2 L nasal cannula, but does have shortness of breath with minimal exertion, is worried about his call with covid19 testing Vitals/I&O/Wt Last Vital Signs Temp 98.0 F 05/07/19 06:00 Pulse 88 05/07/19 11:38 Resp 22 H 05/07/19 12:20 BP 100/63 05/07/19 06:00 Pulse Ox 96 05/07/19 11:38 05/06/19 05/07/19 05/07/19 22:59 06:59 14:59 Intake Total 1800 / 2340 Output Total 350 / 1000 450 / 1450 Balance 1450 / 1340 -450 / 890 Weight last 48 hrs Weight 76.657 kg Physical Exam Const: COMMON NORMALS: no apparent distress and oriented x3 HENMT: COMMON NORMALS: normocephalic HEAD & SCALP: normocephalic Neck/C-Spine: COMMON NORMALS: no JVD Resp: COMMON NORMALS: normal respiratory effort AUSCULTATION: wheezes and diminished lung sounds Cardio: COMMON NORMALS: no JVD, regular rate, regular rhythm, S1 normal heart sound and S2 normal heart sound RATE: regular rate RHYTHM: regular rhythm HEART SOUNDS: S1 normal and S2 normal GI: COMMON NORMALS: normal to inspection, nondistended, normoactive bowel sounds, soft to palpation, non-tender, no hepatosplenomegaly, no masses and no bruits PALPATION: Yes soft and Yes no hepatosplenomegaly Extremity: COMMON NORMALS: normal capillary refill, no clubbing, cyanosis or edema, no calf tenderness and no pedal edema Neuro: COMMON NORMALS: oriented x3 Psych: COMMON NORMALS: mental status grossly normal Data : 05/07/19 07:17 05/07/19 07:17 Micro: Microbiology 05/05/19 17:24 Gram Stain - Final Sputum - Expectorated Sputum Sputum Culture - Preliminary 05/05/19 17:30 Blood Culture - Preliminary Blood NEGATIVE TO DATE 05/05/19 17:30 Blood Culture - Preliminary Blood NEGATIVE TO DATE 05/06/19 09:00 MRSA Culture - Final Nose 05/06/19 09:00 Bacterial Antigens - Final Urine,Voided A&P Assessment and plan (1) Pneumonia: Status: Acute Qualifiers: Laterality: bilateral Lung location: unspecified part of lung Pneumonia type: due to unspecified organism Qualified Code(s): J18.9 - Pneumonia, unspecified organism Code(s): J18.9 - Pneumonia, unspecified organism (2) Acute respiratory distress: Status: Acute Code(s): R06.03 - Acute respiratory distress (3) Leukocytosis: Status: Acute Code(s): D72.829 - Elevated white blood cell count, unspecified (4) COPD (chronic obstructive pulmonary disease): Status: Acute Code(s): J44.9 - Chronic obstructive pulmonary disease, unspecified Additional A&P Information 1. Community-acquired pneumonia Continue ceftriaxone and azithromycin white blood cell count of 23.1, pro-Kobi 5.24,, will continue to trend Influenza panel is negative COVID19 test has been performed, results available tomorrow, continue droplet precautions Review of patient's CT scan shows multifocal bronchopneumonia, high risk of developing acute respiratory distress, high risk of intubation Follow sputum culture respiratory viral panel 2. COPD on multiple rounds of steroids recently without any significant improvement. ABG today without significant hypercapnia, not likely an exacerbation Hold off on steroids Duoneb Inhalation every 4 hours. Budesonide inh q12h Currently on 2 L oxygen Will need home 02 evaluation 3. Diastolic CHF, BNP 1394, hold off on IV hydration -We will consider diuresis -Echocardiogram shows ejection fraction of 65%, no significant valvular abnormalities 4. HTN: Hold blood pressure medications DVT ppx: lovenox Full code Attestations Medical Necessity Statement*: Requires continued hospitalization for pneumonia Coding Level of Care Code Acute Terrazzo Helper for [facility] Fwd Diagnoses Pneumonia J18.9 Laterality: bilateral Lung location: unspecified part of lung Pneumonia type: due to unspecified organism Acute respiratory distress R06.03 Leukocytosis D72.829 COPD (chronic obstructive pulmonary disease) J44.9
--- NOTE | 2019-05-07 12:45 | PC.NURSE ---
Pt denies pain or needs at this time. Isolation procedure explained. Pt indicated understanding. Pt friendly and seems in good spirits. No concerns noted at this time.
--- NOTE | 2019-05-07 17:44 | PC.OT ---
OT note: Attempted this afternoon but pt was resting and awaiting test results. Will try back again as able.
[2019-05-07] MEDS: cefTRIAXone 1,000 MG in sodium chloride 0.9% (plus) 50 ML 100 MG IV (23:56)
[2019-05-07] MEDS: enoxaparin 40 mg/0.4 mL Syringe SUBCUT (23:58)
[2019-05-08] VITALS (16 sets, daily range): BP systolic 114–178; BP diastolic 61–90; PULSE 70–102; RESP 16–22; TEMP 36.5–36.9; O2SAT 94–98
[2019-05-08] MEDS: ipratropium-albuterol 3 mL Neb INHALATION ×6 (00:13→20:43)
[2019-05-08 06:24] LABS: Basophils % 0.1 %; Eosinophils # 0.1 10^3/uL (0.0-0.8); Eosinophils % 0.6 %; Hematocrit 34.6 % (42.0-52.0); Hemoglobin 11.2 g/dL (11.7-16.6); Lymphocytes # 2.7 10^3/uL (0.8-4.8); Lymphocytes % 21.4 %; Mean Corpuscular HGB Conc 32.4 g/dL (30.0-36.0); Mean Corpuscular Hemoglobin 29.4 pg (28.0-34.0); Mean Corpuscular Volume 90.8 fL (80-94); Mean Platelet Volume 11.2 fL (7.4-10.4); Monocytes # 0.5 10^3/uL (0.2-0.9); Monocytes % 3.6 %; Neutrophils # 9.4 10^3/uL (1.8-7.7); Neutrophils % 73.9 %; Nucleated Red Blood Cells % 0 %; Platelet Count 214 10^3/cmm (130-400); Red Blood Count 3.81 10^6/uL (4.1-5.3); Red Cell Distribution Width 14.8 % (12.1-15.1); White Blood Count 12.7 10^3/uL (4.0-10.0)
[2019-05-08 06:38] LABS: Alanine Aminotransferase 25 U/L (0-41); Albumin Level 2.9 g/dL (3.5-5.2); Alkaline Phosphatase 61 IU/L (40-130); Aspartate Amino Transferase 24 U/L (0-40); Blood Urea Nitrogen 21 mg/dL (8-23); Carbon Dioxide 26 mmol/L (22-29); Chloride 108 mmol/L (98-107); Globulin 2.8 g/dL (1.3-4.6); Glomerular Filtration Rate 96.7 mL/min (90-130); Glucose 105 mg/dL (65-115); Magnesium 1.9 mg/dL (1.7-2.3); Osmolality Calculated 295 mOsm/kg (285-295); Phosphorus 3.5 mg/dL (2.5-4.5); Sodium 144 mmol/L (136-145); Total Bilirubin 0.2 mg/dL (0.15-1.2); Total Protein 5.7 g/dL (6.6-8.7)
[2019-05-08] MEDS: budesonide 0.5 mg/2 mL Neb INHALATION ×2 (07:31→20:43)
[2019-05-08] MEDS: azithromycin 250 mg Tablet 500 MG PO (08:42)
--- NOTE | 2019-05-08 13:58 | PC.OT ---
OT SCREEN COMPLETED. PATIENT DEMONSTRATES NO DEFICITS THAT WOULD REQUIRE CONTINUED SKILLED OT SERVICES. DISCHARGE OT
--- NOTE | 2019-05-08 14:54 | P.PN_ITS ---
Subjective Subjective: Interval history: This morning patient states that he still has some shortness of breath with exertion, has some wheezing, no fevers, no chills, no nausea, no vomiting, no fevers Vitals/I&O/Wt Last Vital Signs Temp 97.7 F 05/08/19 11:28 Pulse 79 05/08/19 11:28 Resp 22 H 05/08/19 11:28 BP 137/80 05/08/19 11:28 Pulse Ox 97 05/08/19 11:28 05/07/19 05/08/19 05/08/19 22:59 06:59 14:59 Intake Total 240 / 600 50 / 650 840 / 840 Output Total 420 / 660 75 / 735 200 / 200 Balance -180 / -60 -25 / -85 640 / 640 Physical Exam Const: COMMON NORMALS: no apparent distress and oriented x3 HENMT: COMMON NORMALS: normocephalic HEAD & SCALP: normocephalic Neck/C-Spine: COMMON NORMALS: no JVD Resp: COMMON NORMALS: normal respiratory effort, no retractions and no use of accessory muscles AUSCULTATION: wheezes Cardio: COMMON NORMALS: no JVD, regular rate, regular rhythm, S1 normal heart sound and S2 normal heart sound RATE: regular rate RHYTHM: regular rhythm HEART SOUNDS: S1 normal and S2 normal GI: COMMON NORMALS: normal to inspection, nondistended, normoactive bowel sounds, soft to palpation, non-tender, no hepatosplenomegaly, no masses and no bruits PALPATION: Yes soft and Yes no hepatosplenomegaly Extremity: COMMON NORMALS: normal capillary refill, no clubbing, cyanosis or edema, no calf tenderness and no pedal edema Neuro: COMMON NORMALS: oriented x3 Psych: COMMON NORMALS: mental status grossly normal Data : 05/08/19 05:59 05/08/19 05:59 Micro: Microbiology 05/05/19 17:24 Gram Stain - Final Sputum - Expectorated Sputum Sputum Culture - Final A&P Assessment and plan (1) Pneumonia: Status: Acute Qualifiers: Laterality: bilateral Lung location: unspecified part of lung Pne umonia type: due to unspecified organism Qualified Code(s): J18.9 - Pneumonia, unspecified organism Code(s): J18.9 - Pneumonia, unspecified organism (2) Acute respiratory distress: Status: Acute Code(s): R06.03 - Acute respiratory distress (3) Leukocytosis: Status: Acute Code(s): D72.829 - Elevated white blood cell count, unspecified (4) COPD (chronic obstructive pulmonary disease): Status: Acute Code(s): J44.9 - Chronic obstructive pulmonary disease, unspecified Additional A&P Information 1. Community-acquired pneumonia Continue ceftriaxone and azithromycin white blood cell count of 12.7, pro-Kobi 5.24,, will continue to trend Influenza panel is negative COVID19 test has been performed, results available tomorrow, continue droplet precautions Review of patient's CT scan shows multifocal bronchopneumonia, high risk of developing acute respiratory distress, high risk of intubation Follow sputum culture respiratory viral panel 2. COPD on multiple rounds of steroids recently without any significant improvement. ABG today without significant hypercapnia, not likely an exacerbation Start steroids today Duoneb Inhalation every 4 hours. Budesonide inh q12h Currently on 2 L oxygen Will need home 02 evaluation 3. Diastolic CHF, BNP 1394, hold off on IV hydration -We will consider diuresis -Echocardiogram shows ejection fraction of 65%, no significant valvular abnormalities 4. 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
[2019-05-09] VITALS (18 sets, daily range): BP systolic 132–144; BP diastolic 74–86; PULSE 64–89; RESP 17–22; TEMP 36.3–36.6; O2SAT 94–99
[2019-05-09] MEDS: ipratropium-albuterol 3 mL Neb INHALATION ×6 (00:43→20:50)
[2019-05-09] MEDS: cefTRIAXone 1,000 MG in sodium chloride 0.9% (plus) 50 ML 100 MG IV (01:47)
[2019-05-09] MEDS: enoxaparin 40 mg/0.4 mL Syringe SUBCUT (01:48)
[2019-05-09 06:03] LABS: Hematocrit 36.5 % (42.0-52.0); Hemoglobin 11.8 g/dL (11.7-16.6); Lymphocytes % 12.9 %; Mean Corpuscular HGB Conc 32.3 g/dL (30.0-36.0); Mean Corpuscular Hemoglobin 28.7 pg (28.0-34.0); Mean Corpuscular Volume 88.8 fL (80-94); Mean Platelet Volume 12.2 fL (7.4-10.4); Monocytes # 0.2 10^3/uL (0.2-0.9); Monocytes % 2.5 %; Neutrophils # 6.5 10^3/uL (1.8-7.7); Neutrophils % 84.2 %; Nucleated Red Blood Cells % 0 %; Platelet Count 180 10^3/cmm (130-400); Red Blood Count 4.11 10^6/uL (4.1-5.3); Red Cell Distribution Width 14.3 % (12.1-15.1); White Blood Count 7.7 10^3/uL (4.0-10.0)
[2019-05-09 06:21] LABS: Alanine Aminotransferase 27 U/L (0-41); Albumin Level 3.2 g/dL (3.5-5.2); Alkaline Phosphatase 68 IU/L (40-130); Anion Gap 15.4 (5-19); Aspartate Amino Transferase 17 U/L (0-40); Blood Urea Nitrogen 20 mg/dL (8-23); Calcium 9.6 mg/dL (8.5-10.5); Carbon Dioxide 25 mmol/L (22-29); Chloride 107 mmol/L (98-107); Glomerular Filtration Rate 96.7 mL/min (90-130); Glucose 155 mg/dL (65-115); Osmolality Calculated 296 mOsm/kg (285-295); Potassium 4.4 mmol/L (3.5-5.1); Sodium 143 mmol/L (136-145); Total Bilirubin 0.2 mg/dL (0.15-1.2); Total Protein 6.2 g/dL (6.6-8.7)
[2019-05-09 06:22] LABS: Magnesium 2.2 mg/dL (1.7-2.3)
[2019-05-09] MEDS: levoFLOXacin 750 mg Tablet PO (10:34)
[2019-05-09] MEDS: predniSONE 20 mg Tablet 40 MG PO (10:36)
[2019-05-09] MEDS: budesonide 0.5 mg/2 mL Neb INHALATION ×2 (11:13→20:50)
--- NOTE | 2019-05-09 11:57 | P.PN_ITS ---
Subjective Subjective: Interval history: Patient does state that he is doing better this morning, afebrile, still has a cough, still shortness of breath with exertion, but is down to 1.5 L, is agreeable for discharge in the next 24 hours Vitals/I&O/Wt Last Vital Signs Temp 97.4 F L 05/09/19 11:13 Pulse 77 05/09/19 11:15 Resp 20 H 05/09/19 11:13 BP 144/85 05/09/19 11:13 Pulse Ox 99 05/09/19 11:13 05/08/19 05/09/19 05/09/19 22:59 06:59 14:59 Intake Total 240 / 1080 Output Total 300 / 500 Balance -60 / 580 Physical Exam Const: COMMON NORMALS: no apparent distress and oriented x3 HENMT: COMMON NORMALS: normocephalic HEAD & SCALP: normocephalic Neck/C-Spine: COMMON NORMALS: no JVD Resp: COMMON NORMALS: normal respiratory effort, no retractions, no use of accessory muscles and clear to auscultation bilaterally AUSCULTATION: clear to auscultation bilaterally Cardio: COMMON NORMALS: no JVD, regular rate, regular rhythm, S1 normal heart sound and S2 normal heart sound RATE: regular rate RHYTHM: regular rhythm HEART SOUNDS: S1 normal and S2 normal GI: COMMON NORMALS: normal to inspection, nondistended, normoactive bowel sounds, soft to palpation, non-tender, no hepatosplenomegaly, no masses and no bruits PALPATION: Yes soft and Yes no hepatosplenomegaly Extremity: COMMON NORMALS: normal capillary refill, no clubbing, cyanosis or edema, no calf tenderness and no pedal edema Neuro: COMMON NORMALS: oriented x3 Psych: COMMON NORMALS: mental status grossly normal Data : 05/09/19 05:19 05/09/19 05:19 Micro: Microbiology 05/05/19 17:24 Gram Stain - Final Sputum - Expectorated Sputum Sputum Culture - Final A&P Assessment and plan (1) Pneumonia: Status: Acute Qualifiers: Laterality: bilateral Lung location: unspecified part of lung Pneumonia type: due to unspecified organism Qualified Code(s): J18.9 - Pneumonia, unspecified organism Code(s): J18.9 - Pneumonia, unspecified organism (2) Acute respiratory distress: Status: Acute Code(s): R06.03 - Acute respiratory distress (3) Leukocytosis: Status: Acute Code(s): D72.829 - Elevated white blood cell count, unspecified (4) COPD (chronic obstructive pulmonary disease): Status: Acute Code(s): J44.9 - Chronic obstructive pulmonary disease, unspecified (5) Mass of lower lobe of left lung: Status: Acute Code(s): R91.8 - Other nonspecific abnormal finding of lung field Additional A&P Information 1. Community-acquired pneumonia De-escalate to Levaquin covid 19 negative Review of patient's CT scan shows multifocal bronchopneumonia, high risk of developing acute respiratory distress, high risk of intubation Follow sputum culture respiratory viral panel 2. COPD on multiple rounds of steroids recently without any significant improvement. continue steroids Duoneb Inhalation every 4 hours. Budesonide inh q12h Currently on 2 L oxygen Will need home 02 evaluation 3. Diastolic CHF, BNP 1394, hold off on IV hydration -Echocardiogram shows ejection fraction of 65%, no significant valvular abnormalities -20 mg Lasix IV today 4. HTN: Hold blood pressure medications #[address] scan showed mass of lower lobe of the lung, left Masslike lesion in the left lower lobe which could represent some focal pneumonic consolidation versus malignant mass. Further evaluation, or short-term follow-up is recommended. -I reviewed scans with Dr. Puri, who agrees that this is likely a pulmonary malignancy -Patient is to follow-up with Dr. 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
[2019-05-09] MEDS: FUROsemide 10 mg/mL SDV 2mL 20 MG IVP (12:23)
[2019-05-10] VITALS (12 sets, daily range): BP systolic 124–156; BP diastolic 76–87; PULSE 63–85; RESP 16–18; TEMP 36.5–36.9; O2SAT 95–99
[2019-05-10] MEDS: ipratropium-albuterol 3 mL Neb INHALATION ×3 (00:06→11:59)
[2019-05-10 06:09] LABS: Hematocrit 34.9 % (42.0-52.0); Hemoglobin 11.4 g/dL (11.7-16.6); Lymphocytes # 2.4 10^3/uL (0.8-4.8); Lymphocytes % 22.2 %; Mean Corpuscular HGB Conc 32.7 g/dL (30.0-36.0); Mean Corpuscular Volume 88.8 fL (80-94); Mean Platelet Volume 10.9 fL (7.4-10.4); Monocytes # 0.6 10^3/uL (0.2-0.9); Neutrophils # 7.9 10^3/uL (1.8-7.7); Neutrophils % 72.4 %; Nucleated Red Blood Cells % 0 %; Platelet Count 214 10^3/cmm (130-400); Red Blood Count 3.93 10^6/uL (4.1-5.3); Red Cell Distribution Width 14.3 % (12.1-15.1); White Blood Count 10.9 10^3/uL (4.0-10.0)
[2019-05-10] MEDS: levoFLOXacin 750 mg Tablet PO (06:11)
[2019-05-10] MEDS: enoxaparin 40 mg/0.4 mL Syringe SUBCUT (06:11)
[2019-05-10 06:38] LABS: Alanine Aminotransferase 31 U/L (0-41); Albumin Level 3.3 g/dL (3.5-5.2); Alkaline Phosphatase 64 IU/L (40-130); Anion Gap 9.2 (5-19); Aspartate Amino Transferase 21 U/L (0-40); Blood Urea Nitrogen 24 mg/dL (8-23); Calcium 9.4 mg/dL (8.5-10.5); Carbon Dioxide 32 mmol/L (22-29); Chloride 104 mmol/L (98-107); Glomerular Filtration Rate 84.4 mL/min (90-130); Glucose 121 mg/dL (65-115); Osmolality Calculated 290 mOsm/kg (285-295); Potassium 4.2 mmol/L (3.5-5.1); Sodium 141 mmol/L (136-145); Total Bilirubin 0.2 mg/dL (0.15-1.2); Total Protein 6.3 g/dL (6.6-8.7)
[2019-05-10] MEDS: predniSONE 20 mg Tablet 40 MG PO (08:45)
[2019-05-10] MEDS: budesonide 0.5 mg/2 mL Neb INHALATION (09:13)
--- NOTE | 2019-05-10 11:56 | PC.SOCIAL ---
* Patient received IM from Medicare. Original is in the chart.
--- NOTE | 2019-05-10 16:22 | PM.DCS ---
Discharge Providers Date of Admission: 05/05/19 20:03 Date of Discharge: May 10, 2019 Attending Provider at Admission: Jacquelin Galo MD Attending Provider at Discharge: Kieran Wiley MD Primary Care Provider: EDI Cleary Diagnoses at Discharge Discharge Diagnosis (1) Pneumonia: Status: Acute Qualifiers: Laterality: bilateral Lung location: unspecified part of lung Pneumonia type: due to unspecified organism Qualified Code(s): J18.9 - Pneumonia, unspecified organism (2) Acute respiratory distress: Status: Acute (3) Leukocytosis: Status: Acute (4) COPD (chronic obstructive pulmonary disease): Status: Acute (5) Mass of lower lobe of left lung: Status: Acute Reason for Visit Reason for Visit: Reason For Visit: RESP DISTRESS Hospital Course Discharge Summary: This is a 64-year-old male with a past medical history of COPD, who presents to the emergency room due to complaints of cough, fever. Patient was admitted to the intensive care unit for a multifocal bronchopneumonia and COPD exacerbation, received broad-spectrum antibiotics, nebulizer treatments, steroids, he clinically improved. Was de-escalate to the general medical floors, his antibiotic therapy was de-escalated, on discharge did not require oxygen. Patient was discharged on a steroid taper, and Levaquin, with close follow-up with primary care provider as outpatient. Patient was advised to quit smoking. In addition patient was found to have a mass of the lower lobe of the left lung, patient has an appoint with Dr. Puri on May 20, 2019, I did go over the studies with Dr. Puri, who advised that patient will likely require bronchoscopy as outpatient, patient was advised of this, will keep appointment. Physical Exam Const: COMMON NORMALS: no apparent distress and oriented x3 HENMT: COMMON NORMALS: normocephalic HEAD & SCALP: normocephalic Neck/C-Spine: COMMON NORMALS: no JVD Resp: COMMON NORMALS: normal respiratory effort, no retractions, no use of accessory muscles and clear to auscultation bilaterally AUSCULTATION: clear to auscultation bilaterally Cardio: COMMON NORMALS: no JVD, regular rate, regular rhythm, S1 normal heart sound and S2 normal heart sound RATE: regular rate RHYTHM: regular rhythm HEART SOUNDS: S1 normal and S2 normal GI: COMMON NORMALS: normal to inspection, nondistended, normoactive bowel sounds, soft to palpation, non-tender, no hepatosplenomegaly, no masses and no bruits PALPATION: Yes soft and Yes no hepatosplenomegaly Extremity: COMMON NORMALS: normal capillary refill, no clubbing, cyanosis or edema, no calf tenderness and no pedal edema Neuro: COMMON NORMALS: oriented x3 Psych: COMMON NORMALS: mental status grossly normal Discharge Data Data Completed and Pending: Completed Studies During Hospitalization Category Date Time Status CT angio chest PE protcl [id number] Stat Cat Scan 05/05/19 20:01 Completed XR chest 1V yasmine ble [id number] Routine Exams 05/07/19 07:00 Completed XR chest 1V yasmine ble [id number] Urgent Exams 05/05/19 17:08 Completed CV echo complete* [id number] Routine Ultrasound 05/06/19 16:59 Completed Pending at discharge Category Date Time Status Blood Culture Sta t Lab 05/05/19 17:30 Results Respiratory Viral Panel PCR Stat Lab 05/06/19 09:00 Received Labs from last 24 hours 05/10/19 05/10/19 05:28 05:28 WBC 10.9 H RBC 3.93 L Hgb 11.4 L Hct 34.9 L MCV 88.8 MCH 29.0 MCHC 32.7 RDW 14.3 Plt Count 214 MPV 10.9 H Neut % (Auto) 72.4 Lymph % (Auto) 22.2 [place] % (Auto) 5.0 Eos % (Auto) 0.0 Baso % (Auto) 0.0 Neut # (Auto) 7.9 H Lymph # (Auto) 2.4 [place] # (Auto) 0.6 Eos # (Auto) 0.0 Baso # (Auto) 0.0 Nucleated RBC % (a uto) 0 Nucleated RBCs # 0.0 Sodium 141 Potassium 4.2 Chloride 104 Carbon Dioxide 32 H Anion Gap 9.2 BUN 24 H Creatinine 0.9 GFR Calculation 84.4 L Glucose 121 H Calculated Osmolal ity 290 Calcium 9.4 Total Bilirubin 0.2 AST 21 ALT 31 Alkaline Phosphata se 64 Total Protein 6.3 L Albumin 3.3 L Globulin 3.0 Vitals: Last Vital Signs Temp 97.8 F 05/10/19 11:45 Pulse 82 05/10/19 12:36 Resp 17 05/10/19 11:59 BP 149/77 05/10/19 11:45 Pulse Ox 95 05/10/19 11:59 Discharge Plan Discharge Patient Disposition: Home, Self-Care Condition: Stable Prescriptions: New Levaquin 750 mg tablet 750 mg PO DAILY 6 Days Qty: 6 RF: 0 prednisone 10 mg tablet See Rx Instructions .ROUTE .COMPLEX Qty: 53 RF: 0 albuterol sulfate 90 mcg/actuation HFA aerosol inhaler 1 inh INHALATION Q6H PRN (Reason: shortness of breath or wheezing) Qty: 18 RF: 0 Continued albuterol sulfate 90 mcg/actuation HFA aerosol inhaler 2 puff INHALATION Q8H PRN (Reason: Shortness Of Breath) RF: 0 Hold Instructions: patient has plenty at home loratadine 10 mg tablet 10 mg PO DAILY 30 Days Qty: 30 RF: 2 budesonide 0.25 mg/2 mL suspension for nebulization 0.25 mg INHALATION ONCE Qty: 2 RF: 0 lisinopril 20 mg tablet 20 mg PO DAILY Qty: 30 RF: 5 ipratropium bromide 0.02 % solution 1.25 ml INHALATION .Q4-6 PRN (Reason: shortness of breath or wheezing) Qty: 150 RF: 5 utluhoqkfwn-kulrcuatl-yjylywho 100-62.5-25 mcg blister with device 1 inh INHALATION DAILY 30 Days Qty: 60 RF: 5 Changed albuterol sulfate 2.5 mg /3 mL (0.083 %) solution for nebulization 2.5 mg continuous nebulization Q4-5H PRN (Reason: sob) 30 Days Qty: 45 RF: 0 Discontinued promethazine-codeine 6.25-10 mg/5 mL syrup 5 - 10 ml PO Q6H PRN (Reason: cough) Qty: 473 RF: 0 ceftriaxone 1 gram recon soln 1 gm IM ONCE Qty: 1 RF: 0 dexamethasone sodium phosphate 10 mg/mL solution 10 mg IM ONCE Qty: 1 RF: 0 methylprednisolone acetate 40 mg/mL suspension 40 mg IM ONCE Qty: 1 RF: 0 methylprednisolone [Medrol ([place])] 4 mg tablets,dose pack See Rx Instructions PO PER PKG DIR Qty: 21 RF: 0 prednisone 20 mg Tablet 20 mg PO DAILY RF: 0 albuterol sulfate 2.5 mg/0.5 mL Solution For Nebulization 2.5 mg inhalation DAILY RF: 0 Discharge Orders: Discharge Order (Routine); Ordered 05/10/19 Ordered By: Kieran Wiley Referrals: [facility] ([facility]) [Outside] [employer]ane[employer], [employer] [Primary Care Provider] - 4-7 days (Please call Sunday to set up a follow up apppointment) Sangeeta Puri MD [Physician] - 05/20/19 (Please call Sunday to confirm your appointment for left lower lung mass) Discharge Diet: Cardiac Discharge Activity: Resume usual activity Patient Instructions: Albuterol (By breathing), Prednisone (By mouth), Levofloxacin (By mouth), Emphysema (GEN), Community-acquired Pneumonia (GEN), Pneumonia Stoplight Activity Restrictions/Additional Instructions: -Please take steroids as prescribed -Please take antibiotics as prescribed -Please use nebulizer as needed -Please stay away from public places, handwashing, stay away from people who have fevers Discharge Date/Time: 05/10/19 13:09 Discharge Attestations Time Spent in Discharge Care*: less than 30 min Quality Metrics Clinical Quality Measures During this hospital stay, did patient experience: None Coding Level of Care Code Acute Artist Color Separation for g Fwd Diagnoses Pneumonia J18.9 Laterality: bilateral Lung location: unspecified part of lung Pneumonia type: due to unspecified organism Acute respiratory distress R06.03 Leukocytosis D72.829 COPD (chronic obstructive pulmonary disease) J44.9 Mass of lower lobe of left lung R91.8
[2019-05-15 12:31] LABS: Adenovirus Not Detected (Not Detected); Human Metapneumovirus Not Detected (Not Detected); Human Parainflu Virus 1 Not Detected (Not Detected); Human Parainflu Virus 2 Not Detected (Not Detected); Human Parainflu Virus 3 Not Detected (Not Detected); Human Rsv A Not Detected (Not Detected); Influenza A Not Detected (Not Detected); Influenza B Not Detected (Not Detected); Rhinovirus/Enterovirus Not Detected (Not Detected)
== END 2019-05-10 13:09 | disposition home or self-care (01) | DRG 194 ==
LOC: ER 20:00 → ICU 22:45 → MEDSURG 05-07 18:57
PROVIDERS: Admitting Provider Student in an Organized Health Care Education/Training Program; Emergency Provider Family Medicine; Family Provider Nurse Practitioner Family; PCP Nurse Practitioner Family; Visit Provider Family Medicine
DX: J18.9 Pneumonia, unspecified organism (principal); I13.0 Hypertensive heart and chronic kidney disease with heart failure and stage 1 through stage 4 chronic kidney disease, or unspecified chronic kidney disease; I50.30 Unspecified diastolic (congestive) heart failure; J44.9 Chronic obstructive pulmonary disease, unspecified; D72.829 Elevated white blood cell count, unspecified; Z87.891 Personal history of nicotine dependence; Z79.52 Long term (current) use of systemic steroids; Z79.2 Long term (current) use of antibiotics
CPT/HCPCS: 12345; 36415; 36600; 71045; 71275; 80048; 80053; 82805; 83036; 83605; 83735; 83880; 84100; 84145; 84443; 84484; 85025; 86403; 87040; 87070; 87205; 87635; 87641; 87804; 93005; 93306; 94640; 96372; 96374; 96375; 97116; 97162; 99283; J0696; J1650; J1940; J2270; J2543; J2920; J2930; J7030; J7512; J7626; Q0144; Q9967

== ENCOUNTER → 2019-10-24 11:46 | Outpatient (BNVA) | payer MEDICARE, MEDICAID, SELFPAY | PROVIDERS: Family Provider Nurse Practitioner Family; PCP Nurse Practitioner Family; Visit Provider Nurse Practitioner Family | DX: N40.0 Benign prostatic hyperplasia without lower urinary tract symptoms (principal); Z12.5 Encounter for screening for malignant neoplasm of prostate; I10 Essential (primary) hypertension; E78.2 Mixed hyperlipidemia; Z79.899 Other long term (current) drug therapy; L73.9 Follicular disorder, unspecified; E55.9 Vitamin D deficiency, unspecified | CPT/HCPCS: 80053; 80061; 81003; 82306; 83036; 84443; 85025; G0103 ==

== ENCOUNTER → 2019-10-29 11:04 | Outpatient (BNVA) | payer MEDICARE, MEDICAID, SELFPAY | PROVIDERS: Family Provider Nurse Practitioner Family; PCP Nurse Practitioner Family; Visit Provider Nurse Practitioner Family | DX: I10 Essential (primary) hypertension (principal); E78.2 Mixed hyperlipidemia; N40.1 Benign prostatic hyperplasia with lower urinary tract symptoms; R39.11 Hesitancy of micturition; R53.83 Other fatigue; E55.9 Vitamin D deficiency, unspecified; Z12.5 Encounter for screening for malignant neoplasm of prostate | CPT/HCPCS: 80053; 80061; 82306; 84443; G0103 ==

== ENCOUNTER → 2020-04-12 15:09 | Outpatient (BNVA) | payer MEDICARE, MEDICAID, SELFPAY | PROVIDERS: Family Provider Nurse Practitioner Family; PCP Nurse Practitioner Family; Visit Provider Nurse Practitioner Family | DX: R06.02 Shortness of breath (principal); J44.1 Chronic obstructive pulmonary disease with (acute) exacerbation; I10 Essential (primary) hypertension; E78.2 Mixed hyperlipidemia; Z79.899 Other long term (current) drug therapy; E55.9 Vitamin D deficiency, unspecified; R09.02 Hypoxemia | CPT/HCPCS: 71046; 80053; 80061; 81003; 82306; 83036; 84443; 85025 ==

== ENCOUNTER → 2020-05-20 09:37 | Outpatient (BNVA) | payer MEDICARE, MEDICAID, SELFPAY | PROVIDERS: Family Provider Nurse Practitioner Family; PCP Nurse Practitioner Family; Visit Provider Internal Medicine Pulmonary Disease | DX: J44.9 Chronic obstructive pulmonary disease, unspecified (principal); R06.02 Shortness of breath; R94.4 Abnormal results of kidney function studies | CPT/HCPCS: 80053; 87635 ==

== ENCOUNTER 2020-05-24 09:30 | Outpatient (CLI) | payer MEDICARE, MEDICAID, SELFPAY ==
--- NOTE | 2020-05-24 09:47 | CT_ITS ---
WS: [id number] LDCT LUNG CANCER SCREENING TECHNIQUE: Noncontrast CT of the chest with coronal and sagittal reformatted images. CLINICAL INFORMATION: HX OF TOBACCO USE COMPARISON: CTA May 05, 2019 DLP: 69.63 mGy.cm DIvol: 1.[address] scans at [facility] use at least one of these dose optimization techniques: automat ed exposure control; mA and/or kV adjustment per patient size (includes targeted exams where dose is matched to clinical indication); or iterative reconstruction. FINDINGS: Advanced chronic emphysematous changes. Bulla formation in the lung apices. Calcified granulomas. Sub segmental atelectasis in the lung bases. Noncalcified nodules in the left lower lobe posteriorly the largest measuring 8 mm. A few additional tiny satellite nodules with a small amount of infiltrate. Th ere was a larger area of irregular consolidation in this area in 2019. Recommend 3 month follow-up. Vascular calcification including coronary. Aortic calcification. Calcified hilar nodes. Calcified med iastinal lymph nodes. Adrenal glands are normal. Moderate thoracic kyphosis. Cholelithiasis. Partiall y visualized right renal cyst. CT/CT lung screening [id number] IMPRESSION: LUNG-RADS: 4A-Probably Suspicious FOLLOW UP: 3 Month LDCT
--- NOTE | 2020-05-24 10:29 | PFTS_ITS ---
Date of Study:05/24/20 Date of Dictation: MECHANICS: Forced vital capacity (FVC) is reduced. Forced expiratory volume in one second (FEV1) is reduced. FEV1/FVC is reduced. FLOW VOLUME LOOP: Reduced flow at all lung volumes with significant scooping. LUNG VOLUMES: Total lung capacity (TLC) is increased. Residual volume (RV) is increased. DIFFUSING CAPACITY FOR CARBON MONOXIDE: Mildly reduced. INTERPRETATION: The prebronchodilator spirometry is consistent with severe airflow obstruction. Lung volumes are consistent with hyperinflation and air trapping. Gas exchange (DLCO) is mildly reduced. MTDD
[2020-05-24 10:41] VITALS: BP 140/77; BP 152/98
== END 2020-05-24 09:31 | disposition home or self-care (01) ==
PROVIDERS: Family Provider Nurse Practitioner Family; PCP Nurse Practitioner Family; Visit Provider Internal Medicine Pulmonary Disease
DX: Z12.2 Encounter for screening for malignant neoplasm of respiratory organs (principal); R06.02 Shortness of breath; Z87.891 Personal history of nicotine dependence; I25.10 Atherosclerotic heart disease of native coronary artery without angina pectoris; I70.0 Atherosclerosis of aorta; M40.294 Other kyphosis, thoracic region; K80.20 Calculus of gallbladder without cholecystitis without obstruction; N28.1 Cyst of kidney, acquired
CPT/HCPCS: 71271; 94010; 94618; 94726; 94729

== ENCOUNTER 2020-09-10 10:47 | Outpatient (CLI) | payer MEDICARE, MEDICAID, SELFPAY ==
--- NOTE | 2020-09-10 11:30 | CT_ITS ---
WS: [id number] CT CHEST TECHNIQUE: Noncontrast CT of the chest with coronal and sagittal reformatted images. CLINICAL INFORMATION: J44.9 - Chronic obstructive pulmonary disease, unspecified COMPARISON: May 24, 2020 DLP: 623.[address] scans at [facility] use at least one of these dose optimization techniques: automat ed exposure control; mA and/or kV adjustment per patient size (includes targeted exams where dose is matched to clinical indication); or iterative reconstruction. FINDINGS: Previously described nodule in the left lower lobe measuring 7.1 mm is unchanged. Small amount of dez rounding micronodular infiltrate is unchanged. Numerous tiny calcified granulomas. One or 2 additiona l tiny subpleural nodules not definitely calcified. Advanced chronic emphysematous changes with paraseptal emphysema. Calcified anterior mediastinal [place] bronchial and hilar lymph nodes. Normal caliber thoracic aorta. No axillary lymphadenopathy. Adrenal glands are normal. Right renal cysts. Mild thoracic kyphosis with chronic anterior wedging in the mid thoracic spine. CT/CT chest wo con [id number] IMPRESSION: 1. Advanced chronic emphysematous changes with paraseptal emphysema and bulla formation in the lung apices. 2. Noncalcified nodule left lower lobe measuring 7 mm is unchanged. Recommend 6 month follow-up. 3. Calcified granulomatous disease. 4. No mediastinal or hilar lymphadenopathy.
[2020-09-10 11:56] VITALS: BMI 24.2
--- NOTE | 2020-09-10 12:24 | PC.NURSE ---
pt only able to hit 53 seconds of test before he said to stop. will call dr datar office to let them know
== END 2020-09-10 10:48 | disposition home or self-care (01) ==
LOC: RAD 10:54 → CDL 11:45
PROVIDERS: PCP Nurse Practitioner Family; Visit Provider Internal Medicine Pulmonary Disease
DX: J44.9 Chronic obstructive pulmonary disease, unspecified (principal); R91.1 Solitary pulmonary nodule
CPT/HCPCS: 71250

== ENCOUNTER 2020-10-06 07:50 | Outpatient (CLI) | payer MEDICARE, MEDICAID, SELFPAY ==
--- NOTE | 2020-10-06 08:00 | ECG_ITS ---
[facility] Test Date: 2020-10-06 Pat Name: Parth Mccracken Department: Room: Gender: Male Dietetic Aide: : 1955 Requested By: Trey Irizarryr Jaswinder Order Number: [id number] Elie MD: Selvin Arroyo M.D. Interpretive Statements NAME OF STUDY: LEXISCAN SESTAMIBI STRESS TEST INDICATION: [Shortness of Breath, ] Procedure: At the baseline, the blood pressure was 157/81 mmHg with a heart rate of 64 bpm. The electrocardiogram showed normal sinus rhythm, normal axis with normal ST and T's. The Lexiscan was infused over a period of 20 seconds. A total of 0.4 mg of Lexiscan was infused. The stress phase was continued for a total of 5 minutes. Heart rate was at the end of stress phase was 89 bpm and a blood pressure of 125/74 mmHg. The EKG at the peak infusion revealed since normal sinus rhythm with no significant ST-T wave changes. Sestamibi was injected 20 seconds after the Lexiscan infusion. Blood pressure at the end of recovery phase was 131/74mmHg with a heart rate of 75 bpm. Conclusion: 1. Normal EKG response to Lexiscan infusion 2. No Lexiscan induced chest pain or cardiac arrhythmia. 3. Normal blood pressure and heart rate response. 4. Sestamibi/sestamibi perfusion scan pending; see separate report. Electronically Signed On 10-31-2020 12:31:46 CDT by Selvin Arroyo M.D. [id number]
--- NOTE | 2020-10-06 08:01 | NMCV_ITS ---
NM siddharth perf SPECT r/s* [id number] Parth Mccracken Age: 65 Gender: M : 1955 Exam Date: 10/06/2020 09:04 Ordering Phys: Trey Pena MD Technologist: DARIEL Irwin Exam Location: [facility] Indications: SHORTNESS OF BREATH STRESS TEST Please see separate stress test report in [facility] for full findings IMAGE PROTOCOL Rest/Stress 1 Lexiscan Day Radiopharmaceutical Dose (mCi) Administration Site Administered by Rest: Tc-99m 11.0 IV DARIEL Christianson Sestamibi Stress:Tc-99m 32.7 IV DARIEL Christianson Sestamibi Rest: 06-Oct-2020 60 Discovery 630 Stress: 06-Oct-2020 0 Discovery 630 0.4mg Lexiscan. Images obtained in supine and prone position. SPECT RESULTS Technical Quality: Excellent Raw Data Analysis: Normal Image Corrections: No attenuation or motion correction applied Summed Stress Score: 0 Summed Rest Score: 8 Summed Difference Score: 0 PERFUSION FINDINGS There is reduced radiotracer uptake in the inferior, apical and apical inferior guerra that resolves on stress images. Likely attenuation artifact. No evidence of ischemia is noted FUNCTIONAL RESULTS (calculated via Gated SPECT) Stress Image LV EF (%): 88 Stress EDV (mL):57 TID: 1.13 Stress ESV (mL):7 FUNCTIONAL FINDINGS: There is normal left ventricular systolic function. IMPRESSIONS 1. Normal myocardial perfusion imaging with no evidence of ischemia. There is attenuation artifact noted in the inferior, apical and apical inferior guerra. 2. LV systolic function is normal Selvin Arroyo MD (Electronically Signed) Final Date: 06 October 2020 12:44 S
[2020-10-06 08:14] VITALS: BMI 23.3
[2020-10-06] MEDS: regadenoson 0.4 Mg/5 ml Syringe IVP (09:48)
[2020-10-06 10:18] VITALS: BP 131/74; PULSE 76
== END 2020-10-06 07:51 | disposition home or self-care (01) ==
LOC: CDL 07:52
PROVIDERS: PCP Nurse Practitioner Family; Visit Provider Internal Medicine Pulmonary Disease
DX: R06.02 Shortness of breath (principal)
CPT/HCPCS: 78452; 93017; A9500; J2785

== ENCOUNTER 2020-11-26 13:07 | Inpatient (IN) | payer MEDICARE, MEDICAID, SELFPAY ==
[2020-11-26] VITALS (9 sets, daily range): BP systolic 93–162; BP diastolic 61–94; PULSE 79–119; RESP 12–32; TEMP 36.4–36.8; O2SAT 93–96; BMI 23.6
--- NOTE | 2020-11-26 13:40 | XR_ITS ---
WS: [id number] XR chest 1V portable [id number] REASON FOR EXAM: dyspnea/cough FINDINGS: The heart and mediastinum are within normal limits. Extensive calcified granulomatous changes in both hemithoraces. Extensive bullous disease in the upper lungs. Compared to previous examination of 04/12/2020 there is increased density in the right lower hemithora x. This is in part due to an anterior chest wall fat density mass at the level of the right hemidiaph ragm, demonstrated on CT of the chest 09/10/2020. There also appears to be an infiltrate in the right lower lung, right lower lobe or right middle lobe. XR/XR chest 1V portable [id number] IMPRESSION: Severe bullous emphysema. Abnormal right lower hemithorax which in part is felt to indicate infiltrate in right lower lung or right middle lobe. Infiltrate would be of unknown chronici ty or was no infiltrate present on the CT of the chest 09/10/2020. Findings coul d represent acute or subacute pneumonitis.
[2020-11-26 13:54] LABS: Basophils # 0.1 10^3/uL (0.0-0.1); Basophils % 0.3 %; Eosinophils % 0.1 %; Hematocrit 44.9 % (42.0-52.0); Hemoglobin 14.7 g/dL (11.7-16.6); Lymphocytes # 2.9 10^3/uL (0.8-4.8); Lymphocytes % 15.2 %; Mean Corpuscular HGB Conc 32.7 g/dL (30.0-36.0); Mean Corpuscular Hemoglobin 29.3 pg (28.0-34.0); Mean Corpuscular Volume 89.6 fl (80-94); Mean Platelet Volume 11.4 fL (7.4-10.4); Monocytes # 0.8 10^3/uL (0.2-0.9); Monocytes % 4.3 %; Neutrophils % 79.6 %; Nucleated Red Blood Cells % 0 %; Platelet Count 273 10^3/cmm (130-400); Red Blood Count 5.01 10^6/uL (4.1-5.3); White Blood Count 18.8 10^3/uL (4.0-10.0)
[2020-11-26 14:07] LABS: Alanine Aminotransferase 9 U/L (0-41); Albumin Level 4.3 g/dL (3.5-5.2); Alkaline Phosphatase 128 IU/L (40-130); Anion Gap 19.1 (5-19); Aspartate Amino Transferase 18 U/L (0-40); Blood Urea Nitrogen 14 mg/dL (8-23); Calcium 9.4 mg/dL (8.5-10.5); Carbon Dioxide 23 mmol/L (22-29); Chloride 102 mmol/L (98-107); Creatinine Clr Calc Pharmacy 93.4517; Globulin 3.7 g/dL (1.3-4.6); Glomerular Filtration Rate 96.4 mL/min (90-130); Glucose 136 mg/dL (65-115); Osmolality Calculated 293 mOsm/kg (285-295); Potassium 4.1 mmol/L (3.5-5.1); Sodium 140 mmol/L (136-145); Total Bilirubin 0.5 mg/dL (0.15-1.2)
--- NOTE | 2020-11-26 14:22 | W.ED.SOB ---
HPI - SOB/Dyspnea General: Chief Complaint: Shortness of Breath/Dyspnea Stated Complaint: SOB X 3 DAYS Time Seen by Provider: 11/26/20 13:34 History of Present Illness: HPI Narrative: 65-year-old male with a history of severe COPD. Earlier this year he had a pneumonia after which he required home oxygen who recovered from that and improved to the point where he no longer needed the home oxygen it was stopped the last approximately 15 to 18 hours he has had increasing shortness of breath productive cough difficulty breathing is now requiring 3 L by nasal cannula to maintain sats in the low 90s. He has had low-grade fever and some diarrhea as well. MD elicited complaint: shortness of breath and cough Pertinent past history: COPD Onset (ago): hour(s) (15-18) Context: occurred during exertion Timing: constant Severity: moderate Exacerbating factors: exertion and coughing Relieving factors: oxygen and rest Associated symptoms: Reports chest congestion and cough; Deny abdominal pain, chest pain, diaphoresis, dizziness, extremity pain, fever(s), hemoptysis, lightheadedness, myalgias, nausea, orthopnea, palpitations, paresthesias, polydipsia, polyuria, rash, sense of impending doom, syncope or vomiting Treatment prior to arrival: oxygen Review of Systems Const: Denies: fever(s) or diaphoresis Eyes: Denies: change in vision or blurry vision ENMT: Denies: throat pain, oral sores, dental pain, nasal discharge or nasal congestion Card: Denies: chest pain, palpitations, lightheadedness, syncope or orthopnea Resp: Reports: chest congestion; Denies: hemoptysis GI: Denies: abdominal pain, nausea or vomiting : Denies: flank pain, difficulty urinating, dysuria, urinary frequency, urinary urgency, urinary incontinence or hematuria Musc: Denies: extremity pain Skin/Breast: Denies: rash, pruritus or erythema Neuro: Denies: dizziness Psych: Denies: anxiety, depression, loss of interest, visual hallucinations, auditory hallucinations, suicidal ideation or homicidal ideation Endo: Denies: polyuria or polydipsia Mario/Lymph: Denies: easy bruising, easy bleeding, petechiae, enlarged lymph nodes or tender lymph nodes [facility] PFSH: Medical History BPH (benign prostatic hyperplasia) COPD (chronic obstructive pulmonary disease) DDD (degenerative disc disease), lumbar Decreased GFR Essential hypertension Folliculitis Hepatitis C, chronic, with coma Patient was treated in 2018 with Epclusa. Followup Hep C viral load have been negative with no viral load. Hypertension Patient remains well controlled. Lumbar back pain with radiculopathy affecting right lower extremity Mixed hyperlipidemia Shortness of breath Vitamin D deficiency Social History Smoking and tobacco status: former smoker Quit status (tobacco): has quit using tobacco Year quit tobacco: Mar 2019 [id number] Second hand smoke exposure: No Smoking risk assessment/counseling performed?: Yes Alcohol intake: former Desire information about alcohol rehabilitation?: No Counseling given: No Desire information about substance/drug rehabilitation?: No Counseling given: No Lives independently: Yes Household members: none Marital status: service: No Current occupational status: disabled Pets and animals: No History of recent travel: No Current gender identity: Male Physical Exam Const: COMMON NORMALS: no acute distress GENERAL APPEARANCE: cooperative and comfortable ORIENTATION/CONSCIOUSNESS: Yes awake, Yes oriented to person, Yes oriented to place and Yes oriented to time HENMT: COMMON NORMALS: normocephalic, atraumatic and hearing grossly normal bilaterally HEAD & SCALP: normocephalic and atraumatic Neck/C-Spine: COMMON NORMALS: no JVD Resp: COMMON NORMALS: normal respiratory effort, No retractions, No use of accessory muscles and clear to auscultation bilaterally AUSCULTATION: clear to auscultation bilaterally Cardio: COMMON NORMALS: no JVD, regular rate, regular rhythm and No murmurs present (Cardio) RATE: regular rate RHYTHM: regular rhythm GI: COMMON NORMALS: Soft to palpation and No hepatosplenomegaly present AUSCULTATION: Yes normoactive bowel sounds PALPATION: Yes Soft to palpation, No Tenderness to palpation present (GI), No Guarding due to palpation present (GI) and Yes No hepatosplenomegaly present Extremity: COMMON NORMALS: normal to inspection, capillary refill normal, no clubbing, cyanosis or edema, no calf tenderness and no pedal edema Neuro: SENSORIUM/ORIENTATION: Yes oriented to person, Yes oriented to place and Yes oriented to time Skin: COMMON NORMALS: no rashes or lesions noted GENERAL SKIN EXAM: no rashes or lesions noted Course Vital Signs: Vital signs: Vital Signs Temperature 97.8 F 11/29/20 15:32 Pulse Rate 72 11/29/20 15:32 Respiratory Rate 18 11/29/20 15:32 Blood Pressure 115/70 11/29/20 15:32 Pulse Oximetry 98 11/29/20 15:32 MDM - SOB/Dyspnea MDM Narrative: Medical decision making narrative: Labs, EKG and imaging reviewed on the chart. Patient has acute exacerbation COPD and right lower lobe pneumonia. Will start antibiotics discussed with hospitalist orders written. Lab Data: Labs: Lab Results 11/26/20 11/26/20 11/26/20 13:35 13:35 13:35 WBC 18.8 10^3/uL H 10 ^3/uL (4.0-10.0) RBC 5.01 10^6/uL 10^6 /uL (4.1-5.3) Hgb 14.7 g/dL g/dL (11.7-16.6) Hct 44.9 % % (42.0-52.0) MCV 89.6 fl fl (80-94) MCH 29.3 pg pg (28.0-34.0) MCHC 32.7 g/dL g/dL (30.0-36.0) RDW 13.0 % % (12.1-15.1) Plt Count 273 10^3/cmm 10^3 /cmm (130-400) MPV 11.4 fL H fL (7.4-10.4) Neut % (Auto) 79.6 % % Lymph % (Auto) 15.2 % % [place] % (Auto) 4.3 % % Eos % (Auto) 0.1 % % Baso % (Auto) 0.3 % % Neut # (Auto) 15.00 10^3/uL H 1 0^3/uL (1.8-7.7) Lymph # (Auto) 2.9 10^3/uL 10^3/ uL (0.8-4.8) [place] # (Auto) 0.8 10^3/uL 10^3/ uL (0.2-0.9) Eos # (Auto) 0.0 10^3/uL 10^3/ uL (0.0-0.8) Baso # (Auto) 0.1 10^3/uL 10^3/ uL (0.0-0.1) Nucleated RBC % (a uto) 0 % % Nucleated RBCs # 0.0 /100WBC /100W BC D-Dimer 0.68 ug/mIFEU H u g/mIFEU (0-0.59) Specimen Type Sample Site ABG pH ABG pCO2 ABG pO2 ABG HCO3 ABG O2 Saturation ABG Base Excess Suraj Test A-a O2 Gradient Hematocrit Hgb O2 Saturation Carboxyhemoglobin Methemoglobin Total Hemoglobin Ionized Calcium O2 Delivery Device O2 Liters/Min FiO2 Leave Coordinator ID Sodium 140 mmol/L mmol/L (136-145) Potassium 4.1 mmol/L mmol/L (3.5-5.1) Chloride 102 mmol/L mmol/L (98-107) Carbon Dioxide 23 mmol/L mmol/L (22-29) Anion Gap 19.1 H (5-19) BUN 14 mg/dL mg/dL (8-23) Creatinine 0.8 mg/dL mg/dL (0.7-1.2) GFR Calculation 96.4 mL/min mL/mi n (90-130) Glucose 136 mg/dL H mg/dL (65-115) Calculated Osmolal ity 293 mOsm/kg mOsm/ kg (285-295) Calcium 9.4 mg/dL mg/dL (8.5-10.5) Total Bilirubin 0.5 mg/dL mg/dL (0.15-1.2) AST 18 U/L U/L (0-40) ALT 9 U/L U/L (0-41) Alkaline Phosphata se 128 IU/L IU/L (40-130) Total Protein 8.0 g/dL g/dL (6.6-8.7) Albumin 4.3 g/dL g/dL (3.5-5.2) Globulin 3.7 g/dL g/dL (1.3-4.6) Procalcitonin Nasal/Oral COVID-1 9 PCR SARS-CoV-2 RNA (RT -PCR) SARS-CoV-2 Ag (Rap id) 11/26/20 11/26/20 11/26/20 13:35 14:21 14:46 WBC RBC Hgb Hct MCV MCH MCHC RDW Plt Count MPV Neut % (Auto) Lymph % (Auto) [place] % (Auto) Eos % (Auto) Baso % (Auto) Neut # (Auto) Lymph # (Auto) [place] # (Auto) Eos # (Auto) Baso # (Auto) Nucleated RBC % (a uto) Nucleated RBCs # D-Dimer Specimen Type Arterial Sample Site Brachial, left ABG pH 7.44 (7.35-7.45) ABG pCO2 32.9 mmHg L mmHg (35-45) ABG pO2 66.6 mmHg L mmHg (80.0-100.0) ABG HCO3 22.3 mmol/L mmol/ L (22-26) ABG O2 Saturation 94.4 ABG Base Excess -1.1 mmol/L mmol/ L (-2.0-2.0) Suraj Test Pos A-a O2 Gradient 15.6 mmHg H mmHg (5-10) Hematocrit 44.1 % % (42-52) Hgb O2 Saturation 92.7 % L % (95-100) Carboxyhemoglobin 1.1 %THgb %THgb (0.4-20.1) Methemoglobin 0.6 % % (0.4-1.5) Total Hemoglobin 14.4 g/dL g/dL (14-18) Ionized Calcium 1.2 mmol/L mmol/L (1.1-1.4) O2 Delivery Device Nc O2 Liters/Min 3.0 % % FiO2 32.0 % % Leave Coordinator ID Monro Sodium 141.0 mmol/L mmol /L (131-143) Potassium 4.4 mmol/L mmol/L (3.5-5.0) Chloride Carbon Dioxide Anion Gap BUN Creatinine GFR Calculation Glucose 142.0 mg/dL H mg/ dL (70-115) Calculated Osmolal ity Calcium Total Bilirubin AST ALT Alkaline Phosphata se Total Protein Albumin Globulin Procalcitonin 0.08 ng/mL ng/mL (0-0.5) Nasal/Oral COVID-1 9 PCR Cancelled SARS-CoV-2 RNA (RT -PCR) SARS-CoV-2 Ag (Rap id) 11/26/20 11/26/20 14:46 14:46 WBC RBC Hgb Hct MCV MCH MCHC RDW Plt Count MPV Neut % (Auto) Lymph % (Auto) [place] % (Auto) Eos % (Auto) Baso % (Auto) Neut # (Auto) Lymph # (Auto) [place] # (Auto) Eos # (Auto) Baso # (Auto) Nucleated RBC % (a uto) Nucleated RBCs # D-Dimer Specimen Type Sample Site ABG pH ABG pCO2 ABG pO2 ABG HCO3 ABG O2 Saturation ABG Base Excess Suraj Test A-a O2 Gradient Hematocrit Hgb O2 Saturation Carboxyhemoglobin Methemoglobin Total Hemoglobin Ionized Calcium O2 Delivery Device O2 Liters/Min FiO2 Leave Coordinator ID Sodium Potassium Chloride Carbon Dioxide Anion Gap BUN Creatinine GFR Calculation Glucose Calculated Osmolal ity Calcium Total Bilirubin AST ALT Alkaline Phosphata se Total Protein Albumin Globulin Procalcitonin Nasal/Oral COVID-1 9 PCR SARS-CoV-2 RNA (RT -PCR) Not detected (NOT DETECTED) SARS-CoV-2 Ag (Rap id) Negative (Negative) Discharge Plan Discharge Patient Disposition: Admitted As Inpatient Admit Provider: Refugio Najera Clinical Impression: Pneumonia, COPD exacerbation Condition: Stable Discharge Diet: Cardiac Discharge Activity: Increase activity as tolerated and Oxygen as instructed Coding Level of Care Code ED Nuclear Operator for Chg Fwd Exam Comprehensive
[2020-11-26 14:33] LABS: ABG PCO2 32.9 mmHg (35-45); ABG PH Result 7.44 (7.35-7.45); Alveolar-Arterial Oxygen Gradi 15.6 mmHg (5-10); Arterial Blood Gas Hematocrit 44.1 % (42-52); Base Excess ABG -1.1 mmol/L (-2.0-2.0); Blood Gas Allen Test Pos; Blood Gas Operator Identificat MONRO; Blood Gas Sample Site Brachial, left; Blood Gas Sample Type Arterial; Carboxyhemoglobin 1.1 %THgb (0.4-20.1); HCO3 ABG 22.3 mmol/L (22-26); HGB O2 Sat 92.7 % (95-100); Ionized Calcium Level - ABG 1.2 mmol/L (1.1-1.4); Methemoglobin 0.6 % (0.4-1.5); Oxygen Device NC; Oxygen Saturation ABG 94.4; PO2 ABG 66.6 mmHg (80.0-100.0); Potassium Level - ABG 4.4 mmol/L (3.5-5.0); Total Hemoglobin 14.4 g/dL (14-18)
--- NOTE | 2020-11-26 15:08 | PC.PHAR ---
pt states he takes care of his own medications-pt states he hasnt used pulmicort,perforomist,or yupelri in months pt states he just uses his trelegy,xopenex and ventolin inhaler pt states he has another inhaler he uses but is unsure what it is called [facility] and office states they dont show another inhaler-pt states he did use the ipratropium-albuterol in the neb this am-pt states he takes 10mg po qam of lisinopril- rx was filled on 11/19/20 for 20mg daily-notes are made in the pharmacy comments-
[2020-11-26 15:12] LABS: D Dimer 0.68 ug/mIFEU (0-0.59)
[2020-11-26 15:23] LABS: Procalcitonin 0.08 ng/mL (0-0.5)
--- NOTE | 2020-11-26 16:46 | PM.HP ---
Providers/Chief Complaint Primary Care Provider: EDI Cleary Chief Complaint: SOB X 3 DAYS History of Present Illness Parth Mccracken Jr is a 65 year old male who carries a history of chronic smoking(now smokes marijuana), advanced chronic emphysematous COPD bullae formation in the lung apices calcified granuloma subsegmental atelectasis in the lung bases noncalcified nodule in the left lower lobe 8 mm , [id number] smoking history, follows up with Dr. Pena, was on oxygen in the past presented today with chief plan of worsening shortness of breath. Patient does take Yupelri, Pulmicort and Perforomist. 10/06 - stress test, 65% EF Patient is stating that his symptoms started with dry hacking cough few days ago, he has not noticed any fever, chest pain, today he woke up from his sleep around 1:30 AM with shortness of breath, he did try his inhalers which did not help relieve his symptoms, his heart rate was fluctuant between 95 to 140/min at home. He did not notice any palpitation or chest pain. No febrile episodes. He decided to call EMS because of worsening shortness of breath, in route to the hospital he was giving breathing regimen and steroids. In the ER he was saturating 92% on 3 L nasal cannula, he was tachypneic D-dimer slightly high 0.6 procalcitonin unremarkable He was given Levaquin in the ER Review of Systems Const: Reports: chills, body aches, change in weight and fatigue Eyes: Denies: change in vision ENMT: Denies: throat pain Card: Denies: chest pain Resp: Reports: dyspnea, non-productive cough and pain on inspiration GI: Denies: abdominal pain : Denies: flank pain Musc: Denies: neck pain Skin/Breast: Denies: rash Neuro: Denies: headache(s) Psych: Reports: anxiety Endo: Denies: polyuria Mario/Lymph: Denies: easy bruising All/Imm: Denies: urticaria Medications/Allergies Home Medications Medication Instructions Recorded Confirmed Last Taken Type nebulizers #1 each 05/14/19 11/26/20 Unknown Rx levalbuterol tartrate 45 2 inh INHALATION Q6H PRN #15 g 09/07/20 11/26/20 Unknown Rx mcg/actuation aerosol inhaler fluticasone fur. 100 mcg-umeclid 1 inh INHALATION DAILY #90 ea 11/23/20 11/26/20 11/26/20 09:30 Rx 62.5 mcg-vilant 25 mcg inhalat.powder Flomax 0.4 mg PO QAM 11/26/20 11/26/20 11/26/20 History Flonase Allergy Relief 1 spray INTRANASAL BID PRN 11/26/20 11/26/20 Unknown History albuterol sulfate [Ventolin HFA] 2 puff INHALATION Q4H PRN 11/26/20 11/26/20 Unknown History cyclobenzaprine 10 mg PO BEDTIME 11/26/20 11/26/20 Unknown History ipratropium-albuterol 3 ml INHALATION .Q4-6 PRN 11/26/20 11/26/20 11/26/20 History lisinopril 10 mg PO QAM 11/26/20 11/26/20 11/26/20 History 10 mg multivitamin 1 tab PO DAILY 11/26/20 11/26/20 Unknown History omega-3 fatty acids [Fish Oil] 2 cap PO DAILY 11/26/20 11/26/20 Unknown History paroxetine HCl 10 mg PO QAM 11/26/20 11/26/20 11/26/20 History Allergies Allergy/AdvReac Type Severity Reaction Status Date / Time valdecoxib [From Bextra] Allergy Intermediate unknown Verified 11/26/20 14:29 sofosbuvir [From Epclusa] Allergy Unknown Verified 11/26/20 14:29 velpatasvir [From Epclusa] Allergy Unknown Verified 11/26/20 14:29 escitalopram [From Lexapro] AdvReac Intermediate unknown Verified 11/26/20 14:29 PFSH Acute PFSH: Medical History BPH (benign prostatic hyperplasia) COPD (chronic obstructive pulmonary disease) DDD (degenerative disc disease), lumbar Decreased GFR Essential hypertension Folliculitis Hepatitis C, chronic, with coma Patient was treated in 2018 with Epclusa. Followup Hep C viral load have been negative with no viral load. Hypertension Patient remains well controlled. Lumbar back pain with radiculopathy affecting right lower extremity Mixed hyperlipidemia Shortness of breath Vitamin D deficiency Social History Smoking and tobacco status: former smoker Quit status (tobacco): has quit using tobacco Year quit tobacco: Mar 2019 [id number] Second hand smoke exposure: No Smoking risk assessment/counseling performed?: Yes Alcohol intake: former Desire information about alcohol rehabilitation?: No Counseling given: No Desire information about substance/drug rehabilitation?: No Counseling given: No Lives independently: Yes Household members: none Marital status: service: No Current occupational status: disabled Pets and animals: No History of recent travel: No Current gender identity: Male Vitals/I&O/Wt Last Vital Signs Temp 98.1 F 11/26/20 13:16 Pulse 98 11/26/20 15:05 Resp 12 11/26/20 15:05 BP 104/70 11/26/20 15:05 Pulse Ox 93 11/26/20 15:05 Weight last 48 hrs Weight 74.843 kg Physical Exam Narrative: EXAM NARRATIVE: Cachectic malnourished male, appears stated age Tachypneic Conversational dyspnea Saturating well 92% on 3 L nasal cannula No active cyanosis or gangrene S1, S2 sinus tachycardia Looks euvolemic Abdomen soft Bilateral breath sounds with crackles at the bases Nonfocal neuro exam No leg edema noted Data : 11/26/20 13:35 11/26/20 13:35 A&P Assessment and plan (1) COPD exacerbation: Status: Acute (2) Pneumonia: Status: Acute (3) Acute respiratory failure with hypoxia: Status: Acute Additional A&P Information Acute copd exacerbation Right LL Pneumonia Check Antigen Covid pcr MRSA nares Start azithromycin and cefepime Methylprednisone IV q12h Bipap at HS to decrease work of breathing CTA to rule out PE Acute hypoxia Secondary to pneumonia Underlying copd, rule out PE NO signs of chf Full code cardiac diet Dvt ppx:lovenox 40mg Attestations Medical Necessity Statement*: Anticipating stay to cross more than 2 midnight Time Spent in Patient Care: Greater than 35 minutes Coding Level of Care Code Acute Control Operator for Luke Fwd Diagnoses COPD exacerbation J44.1 Pneumonia J18.9 Acute respiratory failure with hypoxia J96.01
[2020-11-26 17:05] LABS: SARS Covid-2 Antigen Negative (Negative)
[2020-11-26] MEDS: levofloxacin-dextrose 5 % 750 MG/150 ML PREMIX 100 MG IV (17:31)
[2020-11-26] MEDS: morphine 4 mg/mL SDV 1 mL 2 MG IVP ×3 (17:59→21:48)
--- NOTE | 2020-11-26 18:03 | CTR_ITS ---
PROCEDURE INFORMATION: Exam: CTA Chest With Contrast Exam date and time: 11/26/2020 6:03 PM Age: 65 years old Clinical indication: Shortness of breath; Additional info: Hypoxia new onset TECHNIQUE: Imaging protocol: Computed tomographic angiography of the chest with contrast. 3D rendering (Not supervised by radiologist): MIP and/or 3D reconstructed images were created by the technologist. Radiation optimization: All CT scans at this facility use at least one of these dose optimization techniques: automated exposure control; mA and/or kV adjustment per patient size (includes targeted exams where dose is matched to clinical indication); or iterative reconstruction. Contrast material: OMNI 350; Contrast volume: 68 ml; Contrast route: INTRAVENOUS (IV); COMPARISON: 1. CT angio chest PE protcl [id number] 05/05/2019 9:[address] chest wo con [id number] 09/10/2020 11:12:36 AM RADIATION DOSE METRICS: Total DLP (mGy-cm): 600.81 FINDINGS: Pulmonary arteries: Normal. No pulmonary emboli. Aorta: Unremarkable. No aortic aneurysm. No aortic dissection. Lungs: Hyperinflated lungs. Calcified granulomas throughout the lung parenchyma. Mild diffuse bronchial wall thickening. Spiculated opacity in the central perihilar aspect of the right upper lobe is redemonstrated. There is convincing growth in the lesion since 05/05/2019. For example the lesion measures 1.9 cm craniocaudad height current Anahy; 1.0 cm on 05/05/2019. On the 09/10/2020 scan lesion is 1.7 cm craniocaudad height. There is a smoothly marginated noncalcified pulmonary nodule in the posterior left lower lobe measuring 7 mm which is stable from prior. Pleural spaces: Unremarkable. No pneumothorax. No pleural effusion. Heart: Unremarkable. Mediastinal space: Calcified granulomas in the subcarinal space of the mediastinum and bilateral torres. Additional calcified lymph nodes in the AP window of the mediastinum. Lymph nodes: Negative for mediastinal lymphadenopathy. Spleen: Numerous calcified granulomas in the spleen. Negative for splenomegaly. Kidneys and ureters: Simple right renal upper pole cortical cyst. No dedicated follow-up recommended. Bones/joints: Exaggerated thoracic kyphosis. No acute thoracic fractures. Soft tissues: Unremarkable. Other findings: Severe emphysema. Slightly greater volume is suspected in the lesion also conspicuous on sagittal image 50 compared with previous sagittal image 55. CT/CT angio chest PE protcl [id number] IMPRESSION: 1. Negative for pulmonary embolism. 2. Suspicious perihilar right upper lobe pulmonary nodule shows growth from prior imaging suspicious for pulmonary neoplasm. 3. No focal pneumonia identified. 4. Severe emphysema features. 5. Stable left lower lobe pulmonary nodule. 6. Healed granulomatous disease. COMMENTS: Consistent with the [employer]'s Incidental Findings Committee white paper (J Am Reena Radiol 2018): Any incidental renal lesion less than 1 cm or classified as too small to characterize, or any incidental cystic renal lesion characterized as simple-appearing, is likely benign. No follow-up imaging is recommended for these lesions per consensus recommendations based on imaging criteria. Radiation Dose CTDIVOL = (mGy): DLP = 600.81 (mGy-cm)
[2020-11-26] MEDS: iohexol 350 mg/mL 100 mL Btl IV (19:31)
[2020-11-26] MEDS: budesonide 0.5 mg/2 mL Neb INHALATION (21:16)
[2020-11-26] MEDS: ipratropium-albuterol 3 mL Neb INHALATION (21:16)
[2020-11-26] MEDS: cyclobenzaprine 10 mg Tablet PO (21:39)
[2020-11-26] MEDS: enoxaparin 40 mg/0.4 mL Syringe SUBCUT (21:40)
[2020-11-26] MEDS: cefepime 2,000 MG in sodium chloride 0.9% (plus) 50 ML 100 MG IV (21:45)
[2020-11-27] VITALS (12 sets, daily range): BP systolic 105–122; BP diastolic 63–80; PULSE 62–104; RESP 18–24; TEMP 36.4–36.9; O2SAT 93–98
[2020-11-27] MEDS: ipratropium-albuterol 3 mL Neb INHALATION ×4 (04:07→20:18)
[2020-11-27] MEDS: tamsulosin 0.4 mg Capsule PO (06:12)
[2020-11-27 06:20] LABS: Basophils % 0.1 %; Hematocrit 40.8 % (42.0-52.0); Hemoglobin 13.1 g/dL (11.7-16.6); Lymphocytes % 5.2 %; Mean Corpuscular HGB Conc 32.1 g/dL (30.0-36.0); Mean Corpuscular Hemoglobin 29.2 pg (28.0-34.0); Mean Corpuscular Volume 90.9 fl (80-94); Mean Platelet Volume 10.6 fL (7.4-10.4); Monocytes # 0.4 10^3/uL (0.2-0.9); Monocytes % 1.9 %; Neutrophils # 17.96 10^3/uL (1.8-7.7); Nucleated Red Blood Cells % 0 %; Platelet Count 292 10^3/cmm (130-400); Red Blood Count 4.49 10^6/uL (4.1-5.3); Red Cell Distribution Width 13.1 % (12.1-15.1); White Blood Count 19.5 10^3/uL (4.0-10.0)
[2020-11-27 06:46] LABS: Anion Gap 14.5 (5-19); Blood Urea Nitrogen 21 mg/dL (8-23); C Reactive Protein 93.5 mg/L (0.0-4.9); Calcium 9.2 mg/dL (8.5-10.5); Carbon Dioxide 22 mmol/L (22-29); Chloride 105 mmol/L (98-107); Creatinine Clr Calc Pharmacy 83.0681; Glomerular Filtration Rate 84.2 mL/min (90-130); Glucose 165 mg/dL (65-115); Osmolality Calculated 291 mOsm/kg (285-295); Potassium 4.5 mmol/L (3.5-5.1); Sodium 137 mmol/L (136-145)
[2020-11-27 07:31] LABS: Procalcitonin 0.15 ng/mL (0-0.5)
[2020-11-27] MEDS: budesonide 0.5 mg/2 mL Neb INHALATION ×2 (09:17→20:17)
[2020-11-27] MEDS: azithromycin 250 mg Tablet 500 MG PO (09:34)
[2020-11-27] MEDS: cefepime 2,000 MG in sodium chloride 0.9% (plus) 50 ML 100 MG IV ×2 (09:35→20:19)
--- NOTE | 2020-11-27 12:12 | PM.PN ---
Subjective Subjective: Interval history: Patient was seen and examined this morning, he was saturating well on 2 L nasal cannula, noticing slight improvement in his respiratory distress, this morning we did discuss possibility of cancer related to increasing growth size of right pulmonary nodule, he wants to discuss with his biztalk consultant outpatient regarding bronchoscopy and PET scan and does not want any aggressive intervention during this hospitalization he has been afebrile CTA rule out PE Vitals/I&O/Wt Last Vital Signs Temp 98.2 F 11/27/20 07:04 Pulse 97 11/27/20 08:52 Resp 18 11/27/20 08:45 BP 112/68 11/27/20 07:04 Pulse Ox 98 11/27/20 08:45 11/26/20 11/27/20 11/27/20 22:59 06:59 14:59 Intake Total 200 / 200 290 / 290 Output Total 150 / 150 Balance 200 / 200 -150 / 50 290 / 290 Weight last 48 hrs Weight 74.843 kg Physical Exam Narrative: EXAM NARRATIVE: male who was saturating well on 2 L nasal cannula Bilateral breath sounds with rhonchi and crackles at the bases Abdomen soft No signs of edema EOMI, PERRLA S1, S2 variable Nonfocal neuro exam Data : 11/27/20 06:05 11/27/20 06:05 Micro: Microbiology 11/27/20 04:15 Legionella Urinary Antigen - Final Urine,Voided Bacterial Antigens - Final 11/26/20 16:50 Blood Culture - Preliminary Blood SPECIMEN COLLECTED 11/26/20 16:52 Blood Culture - Preliminary Blood SPECIMEN COLLECTED A&P Assessment and plan (1) Acute respiratory failure with hypoxia: Status: Acute (2) Pneumonia: Status: Acute (3) COPD exacerbation: Status: Acute (4) Lumbar back pain with radiculopathy affecting right lower extremity: Status: Acute (5) DDD (degenerative disc disease), lumbar: Status: Acute Additional A&P Information Acute hypoxic respiratory failure COPD exacerbation Increasing right pulmonary nodule size Concern for malignancy End-stage COPD Smokes marijuana Lives alone Plan Continue empirical antibiotics for acute COPD exacerbation causing acute hypoxia currently saturating well on 2 L nasal cannula, no signs of PE, for increasing size of right-sided perihilar pulmonary nodule patient wants PET scan and bronchoscopy outpatient, does not want any histopathological diagnosis at this point during this hospitalization, plan to discharge him tomorrow with outpatient follow-up Continue Scooby Full code DVT prophylaxis Lovenox Cardiac diet Attestations Medical Necessity Statement*: Planning discharge tomorrow Time Spent in Patient Care: 16 - 35 minutes Coding Level of Care Code Acute First Aid Instructor for Chg Fwd Diagnoses Acute respiratory failure with hypoxia J96.01 Pneumonia J18.9 COPD exacerbation J44.1 Lumbar back pain with radiculopathy affecting right lower extremity M54.16 DDD (degenerative disc disease), lumbar M51.36
[2020-11-27 13:47] LABS: Quest SARS-CoV-2 RNA NOT DETECTED (NOT DETECTED)
[2020-11-27] MEDS: cyclobenzaprine 10 mg Tablet PO (20:18)
[2020-11-27] MEDS: enoxaparin 40 mg/0.4 mL Syringe SUBCUT (20:18)
[2020-11-27] MEDS: sennosides-docusate Tablet 1 TAB PO (20:18)
[2020-11-27] MEDS: morphine 4 mg/mL SDV 1 mL 2 MG IVP (20:35)
[2020-11-28] VITALS (13 sets, daily range): BP systolic 97–169; BP diastolic 62–87; PULSE 73–103; RESP 16–24; TEMP 36.4–36.6; O2SAT 88–97
[2020-11-28 05:12] LABS: Basophils % 0.2 %; Hematocrit 39.7 % (42.0-52.0); Hemoglobin 12.8 g/dL (11.7-16.6); Lymphocytes # 1.5 10^3/uL (0.8-4.8); Lymphocytes % 6.3 %; Mean Corpuscular HGB Conc 32.2 g/dL (30.0-36.0); Mean Corpuscular Hemoglobin 29.7 pg (28.0-34.0); Mean Corpuscular Volume 92.1 fl (80-94); Mean Platelet Volume 11.9 fL (7.4-10.4); Monocytes # 0.6 10^3/uL (0.2-0.9); Monocytes % 2.4 %; Neutrophils % 89.9 %; Nucleated Red Blood Cells % 0 %; Platelet Count 248 10^3/cmm (130-400); Red Blood Count 4.31 10^6/uL (4.1-5.3); Red Cell Distribution Width 13.6 % (12.1-15.1)
[2020-11-28] MEDS: lisinopril 10 mg Tablet PO (05:16)
[2020-11-28] MEDS: tamsulosin 0.4 mg Capsule PO (05:16)
[2020-11-28 05:42] LABS: Blood Urea Nitrogen 37 mg/dL (8-23); Calcium 9.3 mg/dL (8.5-10.5); Carbon Dioxide 20 mmol/L (22-29); Chloride 105 mmol/L (98-107); Creatinine Clr Calc Pharmacy 74.7613; Glomerular Filtration Rate 74.5 mL/min (90-130); Glucose 127 mg/dL (65-115); Osmolality Calculated 294 mOsm/kg (285-295); Sodium 137 mmol/L (136-145)
[2020-11-28 05:47] LABS: Anion Gap 17.3 (5-19); Potassium 5.3 mmol/L (3.5-5.1)
[2020-11-28 05:56] LABS: ABG PCO2 37.4 mmHg (35-45); ABG PH Result 7.41 (7.35-7.45); Arterial Blood Gas Hematocrit 44.3 % (42-52); Base Excess ABG -0.8 mmol/L (-2.0-2.0); Blood Gas Sample Type Arterial; HCO3 ABG 23.6 mmol/L (22-26); PO2 ABG 95.7 mmHg (80.0-100.0)
[2020-11-28 05:57] LABS: Blood Gas Sample Site Brachial, right; Oxygen Device NC
[2020-11-28] MEDS: azithromycin 250 mg Tablet 500 MG PO (08:40)
[2020-11-28] MEDS: cefepime 2,000 MG in sodium chloride 0.9% (plus) 50 ML 100 MG IV ×2 (08:46→21:13)
[2020-11-28] MEDS: ipratropium-albuterol 3 mL Neb INHALATION ×2 (09:23→20:33)
[2020-11-28] MEDS: budesonide 0.5 mg/2 mL Neb INHALATION ×2 (09:23→20:33)
--- NOTE | 2020-11-28 12:21 | PM.PN ---
Subjective Subjective: Interval history: Patient was seen and examined this morning, worsening leukocytosis on steroids, afebrile, cultures negative to date, saturating well on 2 L nasal cannula, Wants to follow-up with his pet caregiver outpatient He is not very keen to undergo any histopathological diagnosis or chemoradiotherapy We will request home O2 evaluation today Vitals/I&O/Wt Last Vital Signs Temp 97.5 F L 11/28/20 11:52 Pulse 82 11/28/20 11:52 Resp 16 11/28/20 11:52 BP 97/62 11/28/20 11:52 Pulse Ox 94 11/28/20 11:52 11/27/20 11/28/20 11/28/20 22:59 06:59 14:59 Intake Total 290 / 1060 60 / 1120 530 / 530 Output Total 800 / 800 Balance -510 / 260 60 / 320 530 / 530 Weight last 48 hrs Weight 74.843 kg Physical Exam Narrative: EXAM NARRATIVE: Patient was resting comfortably in his bed Saturating well on 2 L No active chest pain No focal deficit Bilateral breath sounds without wheezing Mild crackles at the bases No neurological focal exam Data : 11/28/20 04:10 11/28/20 04:10 Micro: Microbiology 11/27/20 19:00 Gram Stain - Final Sputum - Expectorated Sputum 11/26/20 16:50 Blood Culture - Preliminary Blood NEGATIVE TO DATE 11/26/20 16:52 Blood Culture - Preliminary Blood NEGATIVE TO DATE 11/26/20 22:45 MRSA Culture - Final Nose 11/27/20 04:15 Legionella Urinary Antigen - Final Urine,Voided Bacterial Antigens - Final A&P Assessment and plan (1) Acute respiratory failure with hypoxia: Status: Acute (2) COPD exacerbation: Status: Acute (3) Pulmonary nodule seen on imaging study: Status: Acute (4) Shortness of breath: Status: Acute (5) Acute respiratory distress: Status: Acute Additional A&P Information COPD exacerbation Acute hypoxic resp failure Concern for lung cancer Increasing pulmonary nodule size Plan Home O2 evaluation today Currently saturating well on 2 L Worsening leukocytosis however cultures negative, afebrile, discontinue steroids today no active wheezing Patient wants to follow-up with his pet caregiver outpatient, I did discuss briefly with pet caregiver who might do PET scan, patient is not keen to undergo histopathological diagnosis chemoradiotherapy Plan to discharge him tomorrow after home O2 evaluation During this hospitalization he was kept on cefepime and azithromycin however no active source of infection has been identified, his worsening shortness of breath is most likely related to possible malignancy, he is endorsing weight loss, chills Full code Recent stress test negative, preserved ejection fraction, shortness of breath is related to underlying pulmonary pathology Attestations Medical Necessity Statement*: Plan to discharge home tomorrow Time Spent in Patient Care: 16 - 35 minutes Coding Level of Care Code 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
[2020-11-28] MEDS: morphine 4 mg/mL SDV 1 mL 2 MG IVP ×2 (13:30→21:11)
[2020-11-28] MEDS: enoxaparin 40 mg/0.4 mL Syringe SUBCUT (21:11)
[2020-11-28] MEDS: cyclobenzaprine 10 mg Tablet PO (21:11)
[2020-11-29 03:00] VITALS: BP 125/65; PULSE 65; RESP 18; TEMP 36.7; O2SAT 99
[2020-11-29 05:49] LABS: Basophils % 0.1 %; Hematocrit 37.8 % (42.0-52.0); Hemoglobin 12.3 g/dL (11.7-16.6); Mean Corpuscular HGB Conc 32.5 g/dL (30.0-36.0); Mean Corpuscular Hemoglobin 29.9 pg (28.0-34.0); Mean Corpuscular Volume 91.7 fl (80-94); Monocytes # 0.8 10^3/uL (0.2-0.9); Monocytes % 4.7 %; Neutrophils # 13.67 10^3/uL (1.8-7.7); Neutrophils % 77.7 %; Nucleated Red Blood Cells % 0 %; Platelet Count 263 10^3/cmm (130-400); Red Blood Count 4.12 10^6/uL (4.1-5.3); Red Cell Distribution Width 13.5 % (12.1-15.1); White Blood Count 17.6 10^3/uL (4.0-10.0)
[2020-11-29] MEDS: lisinopril 10 mg Tablet PO (06:23)
[2020-11-29] MEDS: tamsulosin 0.4 mg Capsule PO (06:23)
[2020-11-29 06:34] LABS: Anion Gap 12.2 (5-19); Blood Urea Nitrogen 38 mg/dL (8-23); Carbon Dioxide 24 mmol/L (22-29); Chloride 110 mmol/L (98-107); Creatinine Clr Calc Pharmacy 83.0681; Glomerular Filtration Rate 84.2 mL/min (90-130); Glucose 93 mg/dL (65-115); Osmolality Calculated 303 mOsm/kg (285-295); Potassium 4.2 mmol/L (3.5-5.1); Sodium 142 mmol/L (136-145)
[2020-11-29 07:00] VITALS: BP 118/76; PULSE 67; RESP 18; TEMP 36.4; O2SAT 98
[2020-11-29 08:26] VITALS: PULSE 88; RESP 17; O2SAT 99
[2020-11-29] MEDS: budesonide 0.5 mg/2 mL Neb INHALATION (08:26)
[2020-11-29] MEDS: ipratropium-albuterol 3 mL Neb INHALATION (08:26)
[2020-11-29 08:33] VITALS: PULSE 81
[2020-11-29] MEDS: azithromycin 250 mg Tablet 500 MG PO (08:54)
[2020-11-29] MEDS: cefepime 2,000 MG in sodium chloride 0.9% (plus) 50 ML 100 MG IV (08:54)
[2020-11-29] MEDS: sennosides-docusate Tablet 1 TAB PO (08:54)
[2020-11-29 11:00] VITALS: BP 115/70; PULSE 72; RESP 18; TEMP 36.6; O2SAT 98
--- NOTE | 2020-11-29 11:10 | PC.SOCIAL ---
Pg 2 IMM Explained to pt pg 2 IMM. No questions voiced. Provided pt a copy. Initialed, dated, & timed a copy & placed in chart.
--- NOTE | 2020-11-29 13:02 | PM.DCS ---
Discharge Providers Date of Admission: 11/26/20 17:27 Date of Discharge: November 29, 2020 Attending Provider at Admission: Refugio Najera MD Attending Provider at Discharge: Grace Celis MD Primary Care Provider: EDI Cleary Diagnoses at Discharge Discharge Diagnosis (1) Acute respiratory failure with hypoxia: Status: Resolved (2) COPD exacerbation: Status: Acute (3) Pulmonary nodule seen on imaging study: Status: Acute (4) Shortness of breath: Status: Resolved (5) Acute respiratory distress: Status: Resolved Reason for Visit Reason for Visit: SOB X 3 DAYS Hospital Course Hospital Course Parth Mccracken Jr is a 65 year old male who carries a history of chronic smoking(now smokes marijuana), 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 Pena, was on oxygen in the past presented today with chief plan of worsening shortness of breath. Patient does take Yupelri, Pulmicort and Perforomist. 10/06 - stress test, 65% EF Patient is stating that his symptoms started with dry hacking cough few days ago, he has not noticed any fever, chest pain, today he woke up from his sleep around 1:30 AM with shortness of breath, he did try his inhalers which did not help relieve his symptoms, his heart rate was fluctuant between 95 to 140/min at home. He did not notice any palpitation or chest pain. No febrile episodes. He decided to call EMS because of worsening shortness of breath, in route to the hospital he was giving breathing regimen and steroids. In the ER he was saturating 92% on 3 L nasal cannula, he was tachypneic D-dimer slightly high 0.6 procalcitonin unremarkable He was given Levaquin in the ER Hospital course Patient admitted for COPD exacerbation and right lower lobe pneumonia. He was started on azithromycin and cefepime. There was concern of increasing size of right-sided perihilar pulmonary nodule. Patient wants a PET scan and bronchoscopy as an outpatient. Case was discussed briefly with measurement specialist. It was decided to give patient appointment for follow-up as an outpatient for further work-up. Patient was discharged on antibiotics for pneumonia with outpatient follow-up with pulmonology. Home O2 evaluation was done and patient did qualify for home oxygen. Patient also required a walker on discharge and that was set up for him before he left. Physical Exam Narrative: EXAM NARRATIVE: Patient was resting comfortably in his bed Saturating well on 2 L No active chest pain No focal deficit Bilateral breath sounds without wheezing Lungs clear to auscultation with very mild crackles at right lower lobe. No neurological focal exam Discharge Data Data Completed and Pending: Completed Studies During Hospitalization Category Date Time Status CT angio chest PE protcl 08135 Urge nt Cat Scan 11/26/20 18:03 Completed XR chest 1V yasmine ble [id number] Stat Exams 11/26/20 13:40 Completed Pending at discharge Category Date Time Status Blood Culture Sta t Lab 11/26/20 16:50 Results Sputum Culture an d Gram Stain Stat Lab 11/27/20 19:00 Results Labs from last 24 hours 11/29/20 11/29/20 04:05 04:05 WBC 17.6 H RBC 4.12 Hgb 12.3 Hct 37.8 L MCV 91.7 MCH 29.9 MCHC 32.5 RDW 13.5 Plt Count 263 MPV 12.0 H Neut % (Auto) 77.7 Lymph % (Auto) 17.0 [place] % (Auto) 4.7 Eos % (Auto) 0.0 Baso % (Auto) 0.1 Neut # (Auto) 13.67 H Lymph # (Auto) 3.0 [place] # (Auto) 0.8 Eos # (Auto) 0.0 Baso # (Auto) 0.0 Nucleated RBC % (a uto) 0 Nucleated RBCs # 0.0 Sodium 142 Potassium 4.2 Chloride 110 H Carbon Dioxide 24 Anion Gap 12.2 BUN 38 H Creatinine 0.9 GFR Calculation 84.2 L Glucose 93 Calculated Osmolal ity 303 H Calcium 9.0 Procalcitonin 0.10 Vitals: Last Vital Signs Temp 97.5 F L 11/29/20 07:00 Pulse 81 11/29/20 08:33 Resp 17 11/29/20 08:26 BP 118/76 11/29/20 07:00 Pulse Ox 99 11/29/20 08:26 Discharge Plan Discharge Patient Disposition: Home Condition: Stable Prescriptions: New Stool Softener-Laxative 8.6-50 mg Tablet 1 tab PO DAILY Qty: 30 RF: 0 Augmentin 875-125 mg tablet 1 tab PO BID 7 Days Qty: 14 RF: 0 Continued (DME) Aeroneb Go Nebulizer [facility] [place], [place] See Rx Instructions .ROUTE .MEDSUPPLY Qty: 1 RF: 0 levalbuterol tartrate [Xopenex HFA] 45 mcg/actuation HFA aerosol inhaler 2 inh inhalation Q6H PRN (Reason: shortness of breath or wheezing) Qty: 15 RF: 3 Trelegy Ellipta 100-62.5-25 mcg blister with device 1 inh inhalation DAILY Qty: 90 RF: 1 cyclobenzaprine 10 mg tablet 10 mg PO BEDTIME RF: 0 Flonase Allergy Relief 50 mcg/actuation spray,suspension 1 spray INTRANASAL BID PRN (Reason: Allergy Symptoms) RF: 0 multivitamin Tablet 1 tab PO DAILY RF: 0 ipratropium-albuterol 0.5 mg-3 mg(2.5 mg base)/3 mL Solution For Nebulization 3 ml INHALATION .Q4-6 PRN (Reason: Shortness Of Breath) RF: 0 Ventolin HFA 90 mcg/actuation HFA aerosol inhaler 2 puff INHALATION Q4H PRN (Reason: Shortness Of Breath) RF: 0 omega-3 fatty acids Capsule 2 cap PO DAILY RF: 0 paroxetine HCl 10 mg tablet 10 mg PO QAM RF: 0 lisinopril 20 mg tablet 10 mg PO QAM RF: 0 Flomax 0.4 mg capsule 0.4 mg PO QAM RF: 0 Discharge Orders: Discharge Order (Routine); Ordered 11/29/20 Ordered By: Grace Celis Other Ambulatory Orders: DME: Oxygen (Order) Location: None Selected Ordered By: Grace Celis DME: Walker (Order) Location: None Selected Ordered By: Grace Celis Referrals: [facility] [place] [Outside] Datar,Trey San MD [Physician] - 12/06/20 10:15 am (Follow up for Pet scan and outpatient bronchoscopy) Discharge Diet: Cardiac Discharge Activity: Increase activity as tolerated and Oxygen as instructed Patient Instructions: Laxative, Stool Softeners (By mouth), Pneumonia (GEN), Opioid Safety, Pneumonia Stoplight, Using Oxygen at Home Discharge Attestations Time Spent in Discharge Care*: less than 30 min Quality Metrics Clinical Quality Measures During this hospital stay, did patient experience: None Coding Level of Care Code Acute Chg FW DC note Diagnoses Acute respiratory failure with hypoxia J96.01 COPD exacerbation J44.1 Pulmonary nodule seen on imaging study R91.1 Shortness of breath R06.02 Acute respiratory distress R06.03
[2020-11-29 15:32] VITALS: BP 115/70; PULSE 72; RESP 18; TEMP 36.6; O2SAT 98
--- NOTE | 2020-11-29 17:43 | PC.RESP ---
PULMONARY REHAB INFORMATION SENT TO PATIENT.
--- NOTE | 2020-11-29 21:34 | P.DS_ITS ---
Discharge Providers Date of Admission: 11/26/20 17:27 Date of Discharge: November 29, 2020 Attending Provider at Admission: Refugio Najera MD Attending Provider at Discharge: Grace Celis MD Primary Care Provider: EDI Cleary Diagnoses at Discharge Discharge Diagnosis (1) Acute respiratory failure with hypoxia: Status: Acute (2) COPD exacerbation: Status: Acute (3) Pulmonary nodule seen on imaging study: Status: Acute (4) Shortness of breath: Status: Acute (5) Acute respiratory distress: Status: Acute Reason for Visit Reason for Visit: SOB X 3 DAYS Discharge Data Data Completed and Pending: Completed Studies During Hospitalization Category Date Time Status CT angio chest PE protcl 01501 Urge nt Cat Scan 11/26/20 18:03 Completed XR chest 1V yasmine ble [id number] Stat Exams 11/26/20 13:40 Completed Pending at discharge Category Date Time Status Blood Culture Sta t Lab 11/26/20 16:50 Results Sputum Culture an d Gram Stain Stat Lab 11/27/20 19:00 Results Labs from last 24 hours 11/29/20 11/29/20 04:05 04:05 WBC 17.6 H RBC 4.12 Hgb 12.3 Hct 37.8 L MCV 91.7 MCH 29.9 MCHC 32.5 RDW 13.5 Plt Count 263 MPV 12.0 H Neut % (Auto) 77.7 Lymph % (Auto) 17.0 [place] % (Auto) 4.7 Eos % (Auto) 0.0 Baso % (Auto) 0.1 Neut # (Auto) 13.67 H Lymph # (Auto) 3.0 [place] # (Auto) 0.8 Eos # (Auto) 0.0 Baso # (Auto) 0.0 Nucleated RBC % (a uto) 0 Nucleated RBCs # 0.0 Sodium 142 Potassium 4.2 Chloride 110 H Carbon Dioxide 24 Anion Gap 12.2 BUN 38 H Creatinine 0.9 GFR Calculation 84.2 L Glucose 93 Calculated Osmolal ity 303 H Calcium 9.0 Procalcitonin 0.10 Vitals: Last Vital Signs Temp 97.8 F 11/29/20 15:32 Pulse 72 11/29/20 15:32 Resp 18 11/29/20 15:32 BP 115/70 11/29/20 15:32 Pulse Ox 98 10/11/21 15:32 Discharge Plan Discharge Patient Disposition: Home Condition: Stable Prescriptions: New Stool Softener-Laxative 8.6-50 mg Tablet 1 tab PO DAILY Qty: 30 RF: 0 Augmentin 875-125 mg tablet 1 tab PO BID 7 Days Qty: 14 RF: 0 Continued (DME) Aeroneb Go Nebulizer [facility] [place] See Rx Instructions .ROUTE .MEDSUPPLY Qty: 1 RF: 0 levalbuterol tartrate [Xopenex HFA] 45 mcg/actuation HFA aerosol inhaler 2 inh inhalation Q6H PRN (Reason: shortness of breath or wheezing) Qty: 15 RF: 3 Trelegy Ellipta 100-62.5-25 mcg blister with device 1 inh inhalation DAILY Qty: 90 RF: 1 cyclobenzaprine 10 mg tablet 10 mg PO BEDTIME RF: 0 Flonase Allergy Relief 50 mcg/actuation spray,suspension 1 spray INTRANASAL BID PRN (Reason: Allergy Symptoms) RF: 0 multivitamin Tablet 1 tab PO DAILY RF: 0 ipratropium-albuterol 0.5 mg-3 mg(2.5 mg base)/3 mL Solution For Nebulization 3 ml INHALATION .Q4-6 PRN (Reason: Shortness Of Breath) RF: 0 Ventolin HFA 90 mcg/actuation HFA aerosol inhaler 2 puff INHALATION Q4H PRN (Reason: Shortness Of Breath) RF: 0 omega-3 fatty acids Capsule 2 cap PO DAILY RF: 0 paroxetine HCl 10 mg tablet 10 mg PO QAM RF: 0 lisinopril 20 mg tablet 10 mg PO QAM RF: 0 Flomax 0.4 mg capsule 0.4 mg PO QAM RF: 0 Discharge Orders: Discharge Order (Routine); Ordered 11/29/20 Ordered By: Grace Celis Other Ambulatory Orders: DME: Oxygen (Order) Location: None Selected Ordered By: Grace Celis DME: Walker (Order) Location: None Selected Ordered By: Grace Celis Referrals: [facility] [place] [Outside] Datar,Trey San MD [Physician] - 12/06/20 10:15 am (Follow up for Pet scan and outpatient bronchoscopy) Discharge Diet: Cardiac Discharge Activity: Increase activity as tolerated and Oxygen as instructed Patient Instructions: Laxative, Stool Softeners (By mouth), Pneumonia (GEN), Opioid Safety, Pneumonia Stoplight, Using Oxygen at Home Coding Level of Care Code Acute Chg DC note Diagnoses Acute respiratory failure with hypoxia J96.01 COPD exacerbation J44.1 Pulmonary nodule seen on imaging study R91.1 Shortness of breath R06.02 Acute respiratory distress R06.03
--- NOTE | 2020-12-01 15:01 | PC.SOCIAL ---
discharge follow up call made, spoke with patient. patient is taking augmentin as directed along with other home medications. patient reports diarrhea so he hasn't need the stool softener. patient is using o2 at 2L, spo2 94%, he is using he walker with ambulation. patient is aware of follow up appointment with dr. preston. patient will make his own follow up appointment with yoly mayorga. patient denies questions or concerns.
== END 2020-11-29 15:33 | disposition home or self-care (01) | DRG 190 ==
LOC: ER 17:33 → MEDSURG 18:37
PROVIDERS: Admitting Provider Internal Medicine; Emergency Provider Family Medicine; PCP Nurse Practitioner Family; Visit Provider Internal Medicine
DX: J44.1 Chronic obstructive pulmonary disease with (acute) exacerbation (principal); J96.01 Acute respiratory failure with hypoxia; Z87.01 Personal history of pneumonia (recurrent); N40.0 Benign prostatic hyperplasia without lower urinary tract symptoms; M54.16 Radiculopathy, lumbar region; I10 Essential (primary) hypertension; Z86.19 Personal history of other infectious and parasitic diseases; E78.2 Mixed hyperlipidemia; Z87.891 Personal history of nicotine dependence; F12.90 Cannabis use, unspecified, uncomplicated; R91.8 Other nonspecific abnormal finding of lung field
CPT/HCPCS: 36415; 36600; 71045; 71275; 80048; 80051; 80053; 82330; 82803; 82805; 84145; 85025; 85378; 86140; 86403; 87040; 87070; 87205; 87426; 87449; 87635; 87641; 94640; 96365; 96372; 96375; 99285; J0692; J1650; J1956; J2270; J2920; J7626; Q0144; Q9967

== ENCOUNTER → 2020-12-14 08:51 | Outpatient (BNVA) | payer MEDICARE, MEDICAID, SELFPAY | PROVIDERS: PCP Nurse Practitioner Family; Visit Provider Internal Medicine Pulmonary Disease | DX: R91.1 Solitary pulmonary nodule (principal); Z20.822 Contact with and (suspected) exposure to COVID-19 | CPT/HCPCS: 87635 ==

== ENCOUNTER → 2021-02-14 00:01 | Outpatient (BNVA) | payer MEDICARE, MEDICAID, SELFPAY | PROVIDERS: PCP Nurse Practitioner Family; Visit Provider Nurse Practitioner Family | DX: R05.9 Cough, unspecified (principal) | CPT/HCPCS: 87635 ==

== ENCOUNTER 2021-12-02 09:06 | Emergency (ER) | payer MEDICARE, MEDICAID, SELFPAY ==
[2021-12-02] VITALS (15 sets, daily range): BP systolic 93–120; BP diastolic 58–82; PULSE 77–93; RESP 12–27; TEMP 36.6–36.9; O2SAT 93–98; BMI 25.1
--- NOTE | 2021-12-02 09:20 | ECG_ITS ---
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 Measurements Intervals [place] Rate: 82 P: 78 CA: 170 QRS: 52 QRSD: 93 T: 66 QT: 361 QTc: 423 Interpretive Statements SINUS RHYTHM POSSIBLE LEFT ATRIAL ENLARGEMENT [-0.1mV P-WAVE IN V1/V2] Compared to ECG 05/06/2019 01:29:48 Myocardial infarct finding no longer present Electronically Signed On 12-02-2021 16:34:42 CDT by Davina Alcala M.D. [id number]
--- NOTE | 2021-12-02 09:20 | XR_ITS ---
WS: [id number] Portable AP upright chest, 12/02/2021 Clinical Data: chest pain Comparison: Portable chest, 11/26/2020, CTA chest for pulmonary embolus Findings: There is a poorly defined mass extending from the right hilum into the right upper lobe joe suring 2.7 cm. This mass was seen on a CT chest 11/26/2020 but was not apparent on a prior chest x-ray . There are calcified granulomas throughout the lungs. The diaphragms are flattened. The heart is nor mal. No pneumonia or pneumothorax is present. The pulmonary vascularity is not increased. Monitor jordon ds are on the chest wall. XR/XR chest 1V portable [id number] Impression: 1. Poorly defined mass with indeterminate borders consistent with cancer of the lung. 2. Hyperinflation and old granulomatous disease.
[2021-12-02 09:29] LABS: Basophils # 0.1 10^3/uL (0.0-0.1); Basophils % 0.3 %; Eosinophils % 0.1 %; Hemoglobin 13.2 g/dL (11.7-16.6); Lymphocytes # 2.2 10^3/uL (0.8-4.8); Lymphocytes % 10.6 %; Mean Corpuscular Hemoglobin 29.6 pg (28.0-34.0); Mean Corpuscular Volume 89.7 fl (80-94); Mean Platelet Volume 12.5 fL (7.4-10.4); Monocytes # 1.2 10^3/uL (0.2-0.9); Monocytes % 5.8 %; Neutrophils # 16.74 10^3/uL (1.8-7.7); Nucleated Red Blood Cells % 0 %; Platelet Count 169 10^3/cmm (130-400); Red Blood Count 4.46 10^6/uL (4.1-5.3); Red Cell Distribution Width 13.5 % (12.1-15.1); White Blood Count 20.4 10^3/uL (4.0-10.0)
[2021-12-02] MEDS: acetaminophen 500 mg Tablet 1000 MG PO (09:55)
[2021-12-02 09:56] LABS: Alanine Aminotransferase 12 U/L (0-41); Albumin Level 4.1 g/dL (3.5-5.2); Alkaline Phosphatase 111 U/L (40-130); Aspartate Amino Transferase 18 U/L (0-40); Blood Urea Nitrogen 20 mg/dL (8-23); Calcium 9.8 mg/dL (8.5-10.5); Carbon Dioxide 22 mmol/L (22-29); Chloride 97 mmol/L (98-107); Globulin 4.1 g/dL (1.3-4.6); Glomerular Filtration Rate 66.6 mL/min (90-130); Glucose 124 mg/dL (65-115); Osmolality Calculated 284 mOsm/kg (285-295); Sodium 135 mmol/L (136-145); Total Protein 8.2 g/dL (6.6-8.7)
[2021-12-02] MEDS: ketorolac 30 mg/mL INJ 15 MG IVP (09:56)
[2021-12-02 09:58] LABS: Troponin(5th) Baseline 13 ng/L (0-15)
--- NOTE | 2021-12-02 09:58 | CT_ITS ---
WS: [id number] CT CHEST ANGIOGRAPHY WITH REFORMATS HISTORY: sob, lung mass TECHNIQUE: Contiguous axial images are obtained through the chest during arterial injection of intrav enous contrast. Images are reconstructed to evaluate the pulmonary arteries. MIP imaging also reviewe d. All CT scans at [facility] use at least one of these dose optimization techniques: automat ed exposure control; mA and/or kV adjustment per patient size (includes targeted exams where dose is matched to clinical indication); or iterative reconstruction. CONTRAST: Omnipaque 350; 75 mL IV. DLP: 423.55 mGy.cm COMPARISON: 11/26/2020 and prior PET/CT 12/11/2020 Very good opacification of the pulmonary arteries. No filling defects or pulmonary embolism identifie d. Moderate atherosclerotic plaque within the thoracic aorta. Intimal thickening surface irregularity and calcification. No aneurysm. No dissection. Heart size is normal. No pericardial or pleural effus ions. Severe centrilobular emphysema. Patient has a known RIGHT hilar neoplasm which has increased in size since 11/26/2020. This mass now measures 5.6 x 4.3 and extends over a length of 3.7 cm. Encasement and partial obstruction of the RIGHT upper lobe bronchus. Additional soft tissue extends from the centra l mass towards the pylorus probably combination of tumor and atelectasis. All these findings have pro gressed since the prior study. Scattered calcifications are noted in the soft tissue mass. Additional solid mass in the anterior LEFT upper lobe measures 3.5 x 2.2 cm and extends over length of 4.1 cm. This mass was not present on the prior study. Benign bilateral calcified granulomata. Slight enlargement of the paratracheal and hilar lymph nodes. Largest paratracheal lymph node measure s 1.2 cm. Bilateral hilar lymph nodes have increased in size with the largest measuring 12 mm. Some o f the lymph nodes are partially calcified. Heart is normal size. No pericardial effusion. Partially visualized cystic mass in the RIGHT kidney m easures 2.8 cm. The visualized liver is negative. Moderate increase in thoracic kyphosis. No osteoblastic or osteolytic bone disease identified. IMPRESSION: 1. No pulmonary embolism. 2. Significant progression of the known neoplasm centered over the RIGHT hilum extending into the RI GHT upper lobe since 11/26/2020. Mass now measures 5.6 x 4.3 x 3.7 cm. 3. New masslike consolidation anterior LEFT upper lobe measuring 3.5 x 2.2 x 4.1 cm. Suspicious for additional neoplasm. 4. Slight increase in size of the paratracheal and hilar lymph nodes. 5. Severe centrilobular emphysema. 6. No adrenal mass.
[2021-12-02 10:29] LABS: Lactate (Lactic Acid level) 1.4 mmol/L (0.5-2.2)
[2021-12-02] MEDS: iohexol 350 mg/mL 100 mL Btl IV (10:34)
--- NOTE | 2021-12-02 11:01 | W.ED.CHESTPA ---
HPI - Chest Pain General: Chief Complaint: Chest Pain Stated Complaint: Chest Pain Time Seen by Provider: 12/02/21 09:20 History of Present Illness: 66-year-old male presenting today with cough productive for sputum increasing shortness of breath. Patient notes the symptoms of been getting worse for least 48 hours. Feels like he has pneumonia. Has a history of chronic bronchitis. Was an every day smoker until 3 years ago. He denies fevers or chills. He denies body aches. He is requesting antibiotics today for suspected COPD exacerbation. He denies pain or swelling in his lower extremities. He denies recent travel or recent surgeries. Review of Systems General: Reports: 10 or more systems reviewed and unremarkable except in HPI and below PFSH ED PFSH: Medical History BPH (benign prostatic hyperplasia) COPD (chronic obstructive pulmonary disease) DDD (degenerative disc disease), lumbar Decreased GFR Essential hypertension Folliculitis Hepatitis C, chronic, with coma Patient was treated in 2018 with Epclusa. Followup Hep C viral load have been negative with no viral load. Hypertension Patient remains well controlled. Lumbar back pain with radiculopathy affecting right lower extremity Mixed hyperlipidemia Shortness of breath Vitamin D deficiency Social History Smoking and tobacco status: former smoker Quit status (tobacco): has quit using tobacco Year quit tobacco: Mar 2019 [id number] Second hand smoke exposure: No Smoking risk assessment/counseling performed?: Yes Alcohol intake: former Desire information about alcohol rehabilitation?: No Counseling given: No Desire information about substance/drug rehabilitation?: No Counseling given: No Lives independently: Yes Household members: none Marital status: service: No Current occupational status: disabled Pets and animals: No History of recent travel: No Current gender identity: Male Physical Exam Const: COMMON NORMALS: no acute distress, patient oriented x3 and alert GENERAL APPEARANCE: cooperative ORIENTATION/CONSCIOUSNESS: Yes awake, Yes oriented to person, Yes oriented to place and Yes oriented to time HENMT: COMMON NORMALS: normocephalic, atraumatic, external ears normal, Normal external nose present and moist oral mucous membranes HEAD & SCALP: normal to inspection, normocephalic and atraumatic NOSE: Normal external nose present GENERAL EAR: hearing grossly impaired EXTERNAL EAR: Yes external ears normal Eye: COMMON NORMALS: Equal, round and reactive pupils present, EOMs intact bilaterally, conjunctivae normal and no scleral icterus GENERAL EYE: appearance normal, both eyes and all related structures EYELID: eyelids normal CONJUNCTIVA: Yes conjunctivae normal SCLERA: sclerae normal PUPIL: Yes Equal, round and reactive pupils present Neck/C-Spine: COMMON NORMALS: full ROM, supple and no JVD GENERAL: Yes normal visual inspection Lymph: LYMPHATIC: no lymphadenopathy noted and no lymphedema noted Chest: COMMONS NORMALS: normal inspection of the chest (Prolonged expiratory phase throughout.) Resp: COMMON NORMALS: normal respiratory effort, No retractions and No use of accessory muscles Cardio: COMMON NORMALS: no JVD, regular rate and regular rhythm RATE: regular rate RHYTHM: regular rhythm GI: COMMON NORMALS: Normal to inspection, nondistended, normoactive bowel sounds present : COMMON NORMALS: Yes no CVA tenderness BLADDER/KIDNEY EXAM: Yes no CVA tenderness Back/Pelvis: COMMON NORMALS: no CVA tenderness and thoracic and lumbar spine normal to inspection Extremity: COMMON NORMALS: normal to inspection, full ROM and capillary refill normal GENERAL: Yes normal exam except as noted Neuro: COMMON NORMALS: patient oriented x3, CN's II-XII intact bilaterally, moves all extremities, no focal motor deficits, no sensory deficits noted and gait normal SENSORIUM/ORIENTATION: Yes alert, Yes oriented to person, Yes oriented to place and Yes oriented to time Psych: COMMON NORMALS: mental status grossly normal, Normal thought process present, cooperative and normal affect THOUGHT PROCESS: Normal thought process present Skin: COMMON NORMALS: no rashes or lesions noted and no wounds GENERAL SKIN EXAM: no rashes or lesions noted Course Vital Signs: Vital signs: Vital Signs Temperature 97.9 F 12/02/21 09:09 Pulse Rate 80 12/02/21 10:15 Respiratory Rate 12 12/02/21 10:15 Blood Pressure 99/65 12/02/21 10:30 Pulse Oximetry 97 12/02/21 10:15 Oxygen Delivery Me thod 12/02/21 09:09 MDM - Chest Pain Medical Decision Making 66-year-old male presenting today with shortness of breath. X-ray with evidence of possible lung mass. CT with bilateral lung masses. This was detailed to patient. Patient requesting no referral. That he is 66 years old and does not want to undergo chemotherapy radiation or treatment. Offered referral to oncology. Patient declining. We will start patient on azithromycin, prednisone for suspected COPD exacerbation. Patient was given strict return precautions and recommended routine outpatient follow-up. Lab Data : 12/02/21 09:21 12/02/21 09:21 Radiology Impressions Chest X-Ray 12/02/21 09:20 Impression: 1. Poorly defined mass with indeterminate borders consistent with cancer of the lung. 2. Hyperinflation and old granulomatous disease. Laboratory Results WBC 20.4 10^3/uL (4.0-10.0) H 12/02/21 09:21 RBC 4.46 10^6/uL (4.1-5.3) 12/02/21 09:21 Hgb 13.2 g/dL (11.7-16.6) 12/02/21 09:21 Hct 40.0 % (42.0-52.0) L 12/02/21 09:21 MCV 89.7 fl (80-94) 12/02/21 09:21 MCH 29.6 pg (28.0-34.0) 12/02/21 09:21 MCHC 33.0 g/dL (30.0-36.0) 12/02/21 09:21 RDW 13.5 % (12.1-15.1) 12/02/21 09:21 Plt Count 169 10^3/cmm (130-400) 12/02/21 09:21 MPV 12.5 fL (7.4-10.4) H 12/02/21 09:21 Neut % (Auto) 82.0 % 12/02/21 09:21 Lymph % (Auto) 10.6 % 12/02/21 09:21 Dawson % (Auto) 5.8 % 12/02/21 09:21 Eos % (Auto) 0.1 % 12/02/21 09:21 Baso % (Auto) 0.3 % 12/02/21 09:21 Neut # (Auto) 16.74 10^3/uL (1.8-7.7) H 12/02/21 09:21 Lymph # (Auto) 2.2 10^3/uL (0.8-4.8) 12/02/21 09:21 Dawson # (Auto) 1.2 10^3/uL (0.2-0.9) H 12/02/21 09:21 Eos # (Auto) 0.0 10^3/uL (0.0-0.8) 12/02/21 09:21 Baso # (Auto) 0.1 10^3/uL (0.0-0.1) 12/02/21 09:21 Nucleated RBC % (auto) 0 % 12/02/21 09: Nucleated RBCs # 0.0 /100WBC 12/02/21 09:21 Sodium 135 mmol/L (136-145) L 12/02/21 09:21 Potassium 4.0 mmol/L (3.5-5.1) 12/02/21 09:21 Chloride 97 mmol/L (98-107) L 12/02/21 09:21 Carbon Dioxide 22 mmol/L (22-29) 12/02/21 09:21 Anion Gap 20.0 (5-19) H 12/02/21 09:21 BUN 20 mg/dL (8-23) 12/02/21 09:21 Creatinine 1.1 mg/dL (0.7-1.2) 12/02/21 09:21 GFR Calculation 66.6 mL/min (90-130) L 12/02/21 09:21 Glucose 124 mg/dL (65-115) H 12/02/21 09:21 Calculated Osmolality 284 mOsm/kg (285-295) L 12/02/21 09:21 Lactate 1.4 mmol/L (0.5-2.2) 12/02/21 10:05 Calcium 9.8 mg/dL (8.5-10.5) 12/02/21 09:21 Total Bilirubin 1.0 mg/dL (0.15-1.2) 12/02/21 09:21 AST 18 U/L (0-40) 12/02/21 09:21 ALT 12 U/L (0-41) 12/02/21 09:21 Alkaline Phosphatase 111 U/L (40-130) 12/02/21 09:21 Troponin T Baseline 13 ng/L (0-15) 12/02/21 09:21 Total Protein 8.2 g/dL (6.6-8.7) 12/02/21 09:21 Albumin 4.1 g/dL (3.5-5.2) 12/02/21 09:21 Globulin 4.1 g/dL (1.3-4.6) 12/02/21 09:21 Discharge Plan Discharge Patient Disposition: Home Clinical Impression: COPD exacerbation, Bilateral lung cancer Condition: Stable Prescriptions: New Zithromax Z-Kelby 250 mg tablet See Rx Instructions .ROUTE .COMPLEX Qty: 6 0RF Rx Instructions: For 250 mg dose pack: take 500 mg today (day 1), then 250 mg for 4 days (days 2-5) prednisone 50 mg tablet 50 mg PO DAILY 7 Days Qty: 5 0RF oxycodone 5 mg tablet 5 mg PO Q6H Qty: 20 0RF No Action (DME) Aeroneb Go Nebulizer Misc See Rx Instructions .ROUTE .MEDSUPPLY Qty: 1 0RF Rx Instructions: Q6 hours as needed cyclobenzaprine 10 mg tablet 10 mg PO BEDTIME Qty: 30 1RF Flomax 0.4 mg capsule 0.4 mg PO QAM Qty: 30 5RF fluticasone propionate [Flonase Allergy Relief] 50 mcg/actuation spray,suspension 1 spray INTRANASAL BID PRN (Reason: Allergy Symptoms) Rx Instructions: administer into each nostril multivitamin Tablet 1 tab PO QAM Aleve 220 mg Tablet 220 mg PO BEDTIME PRN (Reason: Sleep) Vitamin D3 25 mcg (1,000 unit) Capsule 2,000 unit PO QAM Fish Oil 1,000 mg (120 mg-180 mg) Capsule 1 cap PO QAM lisinopril 20 mg tablet 10 - 20 mg PO QAM paroxetine HCl 20 mg tablet 20 mg PO QAM Xopenex HFA 45 mcg/actuation HFA aerosol inhaler 2 puff inhalation Q6H PRN (Reason: shortness of breath or wheezing) Trelegy Ellipta 100-62.5-25 mcg blister with device 1 inh inhalation QAM Discharge Orders: Discharge ED (Routine); Ordered 12/02/21 Ordered By: Louis Rosen Referrals: FLACO Yanez, BLOOD BANK TECHNICIAN [Primary Care Provider] - Patient Instructions: Opioid Safety, Pain Management, Chronic Bronchitis (ED), Lung Cancer (DC) Coding Level of Care Code ED Home Health Care Provider for Luke Ward
[2021-12-02 11:57] LABS: Troponin 5 2HR 12.62 ng/L (0-15)
[2021-12-02 12:50] LABS: Troponin 5 2HR Delta -0.38 ABS# (0-10)
== END 2021-12-02 12:20 | disposition home or self-care (01) ==
PROVIDERS: Emergency Provider Emergency Medicine; PCP Nurse Practitioner Family
DX: J44.1 Chronic obstructive pulmonary disease with (acute) exacerbation (principal); C34.92 Malignant neoplasm of unspecified part of left bronchus or lung; C34.91 Malignant neoplasm of unspecified part of right bronchus or lung; I10 Essential (primary) hypertension; Z86.19 Personal history of other infectious and parasitic diseases; E78.2 Mixed hyperlipidemia; Z87.891 Personal history of nicotine dependence
CPT/HCPCS: 71045; 71275; 80053; 83605; 84484; 85025; 93005; 96374; 99285; J1885; Q9967

== ENCOUNTER → 2021-12-12 13:41 | Outpatient (BNVA) | payer MEDICARE, MEDICAID, SELFPAY | PROVIDERS: Visit Provider Nurse Practitioner | DX: J18.9 Pneumonia, unspecified organism (principal) | CPT/HCPCS: 85025 ==

== ENCOUNTER → 2022-05-24 11:09 | Outpatient (BNVA) | payer MEDICARE, MEDICAID, SELFPAY | PROVIDERS: PCP Nurse Practitioner; Visit Provider Nurse Practitioner | DX: J18.9 Pneumonia, unspecified organism (principal); C34.91 Malignant neoplasm of unspecified part of right bronchus or lung | CPT/HCPCS: 71046 ==

== ENCOUNTER → 2022-07-13 11:07 | Outpatient (BNVA) | payer MEDICARE, MEDICAID, SELFPAY | PROVIDERS: PCP Nurse Practitioner; Visit Provider Nurse Practitioner | DX: R06.02 Shortness of breath (principal) | CPT/HCPCS: 71046 ==

== ENCOUNTER → 2022-11-21 09:58 | Outpatient (BNVA) | payer MEDICARE, MEDICAID, SELFPAY | PROVIDERS: PCP Nurse Practitioner; Visit Provider Nurse Practitioner Family | DX: E78.2 Mixed hyperlipidemia (principal); I10 Essential (primary) hypertension; Z00.00 Encounter for general adult medical examination without abnormal findings; E55.9 Vitamin D deficiency, unspecified | CPT/HCPCS: 80053; 80061; 84443; 85025 ==

== ENCOUNTER 2023-10-28 08:15 | Inpatient (IN) | payer MEDICARE, MEDICAID, SELFPAY ==
[2023-10-28] VITALS (20 sets, daily range): BP systolic 101–150; BP diastolic 64–83; PULSE 75–118; RESP 15–42; TEMP 36.3–36.6; O2SAT 97–100; BMI 23.7
--- NOTE | 2023-10-28 08:17 | ECG_ITS ---
[facility] Test Date: 2023-10-28 Pat Name: Parth Mccracken Jr Department: Room: Gender: Male Program Coordinator Executive Education: : 1955 Requested By: Michell Chu Order Number: [id number] Elie MD: EMANUEL CARROLL Measurements Intervals [place] Rate: 119 P: 71 SD: 132 QRS: 54 QRSD: 88 T: 73 QT: 340 QTc: 478 Interpretive Statements SINUS TACHYCARDIA POSSIBLE LEFT ATRIAL ENLARGEMENT [-0.1mV P-WAVE IN V1/V2] SEPTAL MYOCARDIAL INFARCTION , OF INDETERMINATE AGE [40+ ms Q WAVE IN V1/V2] Compared to ECG 12/02/2021 09:28:29 Myocardial infarct finding now present Sinus rhythm no longer present Electronically Signed On 10-28-2023 18:50:18 CDT by EMANUEL CARROLL [id number]
--- NOTE | 2023-10-28 08:22 | XRR_ITS ---
PROCEDURE INFORMATION: Exam: XR Chest Exam date and time: 10/28/2023 8:33 AM Age: 68 years old Clinical indication: Shortness of breath; Additional info: SOB TECHNIQUE: Imaging protocol: Radiologic exam of the chest. Views: 1 view. COMPARISON: CR XR chest 2V* [id number] 07/13/2022 12:04 PM FINDINGS: Lungs: Increase in size of right hilar/right upper lobe mass with dense opacification of the right upper lobe. This could reflect bronchial obstruction with postobstructive atelectasis. Numerous calcified granulomata bilaterally. Pleural spaces: No pleural effusion. No pneumothorax. Heart/Mediastinum: The cardiac silhouette is approximately unchanged. No gross evidence of pneumomediastinum. Bones/joints: No gross fracture. XR/XR chest 1V portable [id number] IMPRESSION: Increase in size of right hilar/right upper lobe mass with dense opacification of the right upper lobe. This could reflect bronchial obstruction with postobstructive atelectasis. Recommend CT chest with contrast to further assess.
--- NOTE | 2023-10-28 08:23 | ED_ITS ---
HPI - SOB/Dyspnea 2 General: Chief Complaint: Shortness of Breath/Dyspnea Stated Complaint: sob; diarrhea Time Seen by Provider: 10/28/23 08:17 Source: patient and EMS Mode of arrival: EMS Limitations: no limitations History of Present Illness: HPI Narrative: 68-year-old male states he been having i ncreasing shortness of breath over the last 3 to 4 days states has had a cough with some wheezing he states he has been having to wear oxygen at all times typically is only on oxygen at night. Patient is also had some diarrhea has had some weakness denies any worsening proving factors. Associated symptoms: Deny abdominal pain, chest pain, fever(s), nausea or vomiting Related Data Home Medications Medication Instructions Recorded Confirmed omega 8-bsp-fgi-fish oil 1,000 mg 1 cap PO QAM 12/02/21 03/14/23 (120 mg-180 mg) capsule (Fish Oil) Previous Rx's Medication Instructions Recorded nebulizers (Aeroneb Go Nebulizer) #1 ea 05/14/19 cholecalciferol (vitamin D3) 25 2,000 unit PO QAM #90 caps 11/07/22 mcg (1,000 unit) capsule (Vitamin D3) fluticasone propionate 50 1 spray intranasal BID PRN Allergy 11/07/22 mcg/actuation nasal Symptoms #16 grams spray,suspension (Flonase Allergy Relief) prednisone 20 mg tablet 20 mg PO DAILY #20 tabs 03/14/23 sulfamethoxazole 800 1 tab PO BID 14 days #28 tabs 03/14/23 mg-trimethoprim 160 mg tablet (Bactrim DS) cyclobenzaprine 10 mg tablet See Rx Instructions .Route 04/12/23 .COMPLEX #30 tabs levalbuterol tartrate 45 See Rx Instructions .Route 08/22/23 mcg/actuation aerosol inhaler .COMPLEX #15 grams meloxicam 7.5 mg tablet 7.5 mg PO BID #180 tabs 08/22/23 paroxetine HCl 20 mg tablet 20 mg PO QAM #90 tabs 08/22/23 tamsulosin 0.4 mg capsule (Flomax) 0.4 mg PO QAM #90 caps 08/22/23 fluticasone fur. 100 mcg-umeclid See Rx Instructions .Route 10/26/23 62.5 mcg-vilant 25 mcg .COMPLEX #28 ea inhalat.powder (Trelegy Ellipta) Allergies Allergy/AdvReac Type Severity Reaction Status Date / Time valdecoxib [From Bextra] Allergy Intermediate unknown Verified 10/28/23 08:25 sofosbuvir [From Epclusa] Allergy Unknown Verified 10/28/23 08:25 velpatasvir [From Epclusa] Allergy Unknown Verified 10/28/23 08:25 escitalopram [From Lexapro] AdvReac Intermediate unknown Verified 10/28/23 08:25 Review of Systems 2 Const: Denies: fever(s), chills, body aches or change in appetite ENMT: Denies: throat pain or dental pain Card: Denies: chest pain Resp: Reports: dyspnea and productive cough GI: Reports: diarrhea; Denies: abdominal pain, nausea or vomiting : Denies: dysuria Musc: Denies: neck pain or back pain Skin/Breast: Denies: rash Neuro: Denies: headache(s) PFSH ED 2 PFSH: Medical History (Updated 10/28/23 @ 10:33 by Michell Chu MD) Acute lower respiratory infection Lumbar back pain with radiculopathy affecting right lower extremity DDD (degenerative disc disease), lumbar Decreased GFR Shortness of breath Folliculitis Mixed hyperlipidemia Vitamin D deficiency BPH (benign prostatic hyperplasia) Essential hypertension Hepatitis C, chronic, with coma Patient was treated in 2018 with Epclusa. Followup Hep C viral load have been negative with no viral load. Hypertension Patient remains well controlled. COPD (chronic obstructive pulmonary disease) Social History Smoking and tobacco/nicotine status: former use of tobacco/nicotine Quit status (tobacco/nicotine): has quit using Year quit tobacco: Mar 2019 1- [id number] Second hand smoke exposure: No Alcohol intake: former Substance/Drug Use: current Substance/Drug use frequency: few times a month Lives independently: Yes Household members: none Marital status: service: No Current occupational status: disabled Pets and animals: No Do you think of yourself as: Straight/Heterosexual Current gender identity: Male Physical Exam 2 Const: COMMON NORMALS: patient oriented x3 HENMT: COMMON NORMALS: normocephalic and atraumatic HEAD & SCALP: n ormocephalic and atraumatic Eye: COMMON NORMALS: Equal, round and reactive pupils present and EOMs intact bilaterally PUPIL: Yes Equal, round and reactive pupils present Neck/C-Spine: COMMON NORMALS: full ROM and supple Chest: COMMONS NORMALS: normal inspection of the chest Resp: COMMON NORMALS: No retractions and No use of accessory muscles A USCULTATION: wheezes Cardio: COMMON NORMALS: regular rhythm and No murmurs present (Cardio) R ATE: tachycardic RHYTHM: regular rhythm GI: COMMON NORMALS: Normal to inspection, nondistended, normoactive bowel sounds present, Soft to palpation, non-tender and no masses PALPATION: Yes Soft to palpation Extremity: COMMON NORMALS: normal to inspection and full ROM Neuro: COMMON NORMALS: patient oriented x3, moves all extremities and no focal motor deficits Psych: COMMON NORMALS: mental status grossly normal, Normal thought process present and cooperative THOUGHT PROCESS: Normal thought process present Skin: COMMON NORMALS: no rashes or lesions noted and no wounds GENERAL SKIN EXAM: no rashes or lesions noted Course 2 Vital Signs: Vital signs: Vital Signs Temperature 97.8 F 10/28/23 08:15 Pulse Rate 104 H 10/28/23 10:00 Respiratory Rate 22 H 10/28/23 10:00 Blood Pressure 134/66 10/28/23 10:00 Pulse Oximetry 100 10/28/23 10:00 Oxygen Delivery Me thod Nasal Cannula 10/28/23 08:15 Oxygen Flow Rate 3 10/28/23 08:15 MDM - SOB/Dyspnea Medical Decision Making Patient presents with shortness of breath he is found to have large lung mass on the right side with possible pneumonia he does have an elevated white count he is requiring oxygen here I spoke to the hospitalist will admit at this time Medical Records I reviewed the patient's medical records. Lab Data I reviewed the patient's lab results. 10/28/23 07:20 10/28/23 07:20 Labs/Radiology: Radiology Impressions Chest X-Ray 10/28/23 08:22 IMPRESSION: Increase in size of right hilar/right upper lobe mass with dense opacification of the right upper lobe. This could reflect bronchial obstruction with postobstructive atelectasis. Recommend CT chest with contrast to further assess. Chest CT 10/28/23 08:58 IMPRESSION: 1. Markedly enlarging mass in the right upper lobe extending from the hilum that is compatible with primary pulmonary malignancy until proven otherwise. 2. Occlusion of the right upper lobe bronchus. Encase of the right upper lobe pulmonary artery without alysha occlusion. 3. Satellite nodules in the right upper lobe measuring up to 6.2 mm; query metastases. Fleischner Society guidelines do not apply in the setting of malignancy. 4. Possible lymphangitic spread of tumor into the anterior right upper lobe. 5. Cholelithiasis without definite gallbladder wall thickening. 6. Severe centrilobular and paraseptal emphysema. COMMENTS: Consistent with the [place] [employer]'s Incidental Findings Committee white paper (J Am Reena Radiol 2018): Any incidental renal lesion less than 1 cm or classified as too small to characterize, or any incidental cystic renal lesion characterized as simple-appearing, is likely benign. No follow-up imaging is recommended for these lesions per consensus recommendations based on imaging criteria. Laboratory Results WBC 17.25 10^3/uL (3.29-11.43) H 10/28/23 07:20 RBC 4.08 10^6/uL (3.85-5.65) 10/28/23 07:20 Hgb 10.90 g/dL (11.27-16.99) L 10/28/23 07:20 Hct 33.9 % (37-53) L 10/28/23 07:20 MCV 83.1 fl (82-101) 10/28/23 07:20 MCH 26.7 pg (27-33) L 10/28/23 07:20 MCHC 32.2 g/dL (30-55) 10/28/23 07:20 RDW 15.6 % (12.1-15.1) H 10/28/23 07:20 Plt Count 337 10^3/cmm (157-399) 10/28/23 07:20 MPV 10.6 fL (7.4-10.4) H 10/28/23 07:20 Neut % (Auto) 83.1 % 10/28/23 07:20 Lymph % (Auto) 11.3 % 10/28/23 07:20 Dor[place] % (Auto) 4.3 % 10/28/23 07:20 Eos % (Auto) 0.5 % 10/28/23 07:20 Baso % (Auto) 0.2 % 10/28/23 07:20 Neut # (Auto) 14.34 10^3/uL (1.8-7.7) H 10/28/23 07:20 Lymph # (Auto) 2.0 10^3/uL (0.8-4.8) 10/28/23 07:20 [place] # (Auto) 0.8 10^3/uL (0.2-0.9) 10/28/23 07:20 Eos # (Auto) 0.1 10^3/uL (0.0-0.8) 10/28/23 07:20 Baso # (Auto) 0.0 10^3/uL (0.0-0.1) 10/28/23 07:20 Nucleated RBC % (auto) 0 % 10/28/23 07:20 Nucleated RBCs # 0.0 /100WBC 10/28/23 07:20 Sodium 135 mmol/L (136-145) L 10/28/23 07:20 Potassium 4.0 mmol/L (3.5-5.1) 10/28/23 07:20 Chloride 97 mmol/L (98-107) L 10/28/23 07:20 Carbon Dioxide 20 mmol/L (22-29) L 10/28/23 07:20 Anion Gap 22.0 (5-19) H 10/28/23 07:20 BUN 27 mg/dL (8-23) H 10/28/23 07:20 Creatinine 1.5 mg/dL (0.7-1.2) H 10/28/23 07:20 GFR Calculation 46.3 mL/min (90-130) L 10/28/23 07:20 Glucose 145 mg/dL (65-115) H 10/28/23 07:20 Calculated Osmolality 288 mOsm/kg (285-295) 10/28/23 07:20 Calcium 9.5 mg/dL (8.5-10.5) 10/28/23 07:20 Total Bilirubin 0.9 mg/dL (0.15-1.2) 10/28/23 07:20 AST 58 U/L (0-40) H 10/28/23 07:20 ALT 17 U/L (0-41) 10/28/23 07:20 Alkaline Phosphatase 117 U/L (40-130) 10/28/23 07:20 NT-Pro-B Natriuret Pep 607 pg/mL (0-125) H 10/28/23 07:20 Total Protein 8.3 g/dL (6.6-8.7) 10/28/23 07:20 Albumin 3.9 g/dL (3.5-5.2) 10/28/23 07:20 Globulin 4.4 g/dL (1.3-4.6) 10/28/23 07:20 SARS-CoV-2 Ag (Rapid) negative (Negative) 10/28/23 09:10 All radiology interpretation(s) finalized by discharge EKG Data EKG 1: I personally reviewed and interpreted this EKG as follows: EKG Interpretation Date: 10/28/23 EKG interpretation time: 08:17 Interpretation: sinus tach hr [address] or twave abnormalities qrs 88 qtc 410 Discharge Plan Discharge Patient Disposition: Admitted As Inpatient Clinical Impression: Mass of left lung, Pneumonia, Dyspnea Condition: Stable Prescriptions: No Action (DME) Aeroneb Go Nebulizer Misc See Rx Instructions .ROUTE .MEDSUPPLY Qty: 1 0RF Rx Instructions: Q6 hours as needed Vitamin D3 25 mcg (1,000 unit) capsule 2,000 unit PO QAM Qty: 90 3RF fluticasone propionate [Flonase Allergy Relief] 50 mcg/actuation spray,suspension 1 spray INTRANASAL BID PRN (Reason: Allergy Symptoms) Qty: 16 11RF Rx Instructions: administer into each nostril ceftriaxone 1 gram recon soln 1 g IM ONCE Qty: 1 0RF dexamethasone sodium phosphate 10 mg/mL solution 10 mg IM ONCE Qty: 1 0RF prednisone 20 mg tablet 20 mg PO DAILY Qty: 20 0RF Rx Instructions: 3 tabs a day for 3 days then 2 tabs a day for 3 days then 1 tab a day for 5 days sulfamethoxazole-trimethoprim [Bactrim DS] 800-160 mg tablet 1 tab PO BID 14 Days Qty: 28 0RF cyclobenzaprine 10 mg tablet See Rx Instructions .ROUTE .COMPLEX Qty: 30 8RF Dose Instruction: TAKE 1 TABLET BY MOUTH ONCE EVERY NIGHT AT BEDTIME Rx Instructions: TAKE 1 TABLET BY MOUTH ONCE EVERY NIGHT AT BEDTIME levalbuterol tartrate 45 mcg/actuation HFA aerosol inhaler See Rx Instructions .ROUTE .COMPLEX Qty: 15 3RF Dose Instruction: USE 2 INHALATIONS BY MOUTH EVERY 6 HOURS NEEDED FOR SHORTNESS OF BREATH OR WHEEZING Rx Instructions: USE 2 INHALATIONS BY MOUTH EVERY 6 HOURS NEEDED FOR SHORTNESS OF BREATH OR WHEEZING meloxicam 7.5 mg tablet 7.5 mg PO BID Qty: 180 3RF Rx Instructions: pt can take ibuprofen without problems paroxetine HCl 20 mg tablet 20 mg PO QAM Qty: 90 3RF Flomax 0.4 mg capsule 0.4 mg PO QAM Qty: 90 3RF Trelegy Ellipta 100-62.5-25 mcg blister with device See Rx Instructions .ROUTE .COMPLEX Qty: 28 11RF Dose Instruction: USE ONE INHALATION EVERY DAY Rx Instructions: USE ONE INHALATION EVERY DAY Fish Oil 1,000 mg (120 mg-180 mg) Capsule 1 cap PO QAM Referrals: Billie Spears FNP [Primary Care Provider] - Coding Level of Care Code ED Open End Spinning Operator for Luke Ward
[2023-10-28 08:30] LABS: Basophils % 0.2 %; Eosinophils # 0.1 10^3/uL (0.0-0.8); Eosinophils % 0.5 %; Hematocrit 33.9 % (37-53); Lymphocytes % 11.3 %; Mean Corpuscular HGB Conc 32.2 g/dL (30-55); Mean Corpuscular Hemoglobin 26.7 pg (27-33); Mean Corpuscular Volume 83.1 fl (82-101); Mean Platelet Volume 10.6 fL (7.4-10.4); Monocytes # 0.8 10^3/uL (0.2-0.9); Monocytes % 4.3 %; Neutrophils # 14.34 10^3/uL (1.8-7.7); Neutrophils % 83.1 %; Nucleated Red Blood Cells % 0 %; Platelet Count 337 10^3/cmm (157-399); Red Blood Count 4.08 10^6/uL (3.85-5.65); Red Cell Distribution Width 15.6 % (12.1-15.1); White Blood Count 17.25 10^3/uL (3.29-11.43)
[2023-10-28] MEDS: methylPREDNISolone sod succ 125 mg/2 mL INJ IV (08:53)
[2023-10-28] MEDS: azithromycin 500 MG in sodium chloride 0.9% 250 ML 250 MG IV (08:53)
--- NOTE | 2023-10-28 08:58 | CTR_ITS ---
PROCEDURE INFORMATION: Exam: CT Chest With Contrast; Diagnostic Exam date and time: 10/28/2023 9:25 AM Age: 68 years old Clinical indication: Abnormal findings; Lung mass or nodule; Not specified; Shortness of breath TECHNIQUE: Imaging protocol: Diagnostic computed tomography of the chest with contrast. Radiation optimization: All CT scans at this facility use at least one of these dose optimization techniques: automated exposure control; mA and/or kV adjustment per patient size (includes targeted exams where dose is matched to clinical indication); or iterative reconstruction. Contrast material: OMNIPAQUE 350; Contrast volume: 100 ml; Contrast route: INTRAVENOUS (IV); COMPARISON: CT angio chest PE protcl [id number] 12/02/2021 10:22 AM RADIATION DOSE METRICS: Total DLP (mGy-cm): 487.41 FINDINGS: Lungs: There are numerous scattered granulomata in the lungs, bilaterally. Severe centrilobular and paraseptal emphysema. There is an enlarging mass in the right upper lobe extending from the hilum that measures 14.4 x 9.5 x 15.1 cm. This is compatible with primary pulmonary malignancy until proven otherwise. There is occlusion of the right upper lobe bronchus. There is encasement of the right upper lobe pulmonary artery without alysha occlusion. There are satellite nodules in the right upper lobe measuring up to 6.2 mm; query metastases. Possible lymphangitic spread of tumor into the anterior right upper lobe. Pleural spaces: No pleural effusion. No pneumothorax. Heart: No pericardial effusion. Coronary arteries: Coronary arterial calcifications are noted. Lymph nodes: Partially calcified mediastinal lymph nodes appears similar to prior. Vasculature: No thoracic aortic aneurysm. No thoracic aortic dissection. No main or central pulmonary embolus. Diaphragm: No hiatal hernia. Gallbladder and biliary ducts: Cholelithiasis without definite gallbladder wall thickening. Kidneys: A simple right renal cyst measures 3 cm. Nonobstructive right renal stone. Bones/joints: No acute fracture is seen. Soft tissues: No significant subcutaneous soft tissue swelling. CT/CT chest w con* [id number] IMPRESSION: 1. Markedly enlarging mass in the right upper lobe extending from the hilum that is compatible with primary pulmonary malignancy until proven otherwise. 2. Occlusion of the right upper lobe bronchus. Encase of the right upper lobe pulmonary artery without alysha occlusion. 3. Satellite nodules in the right upper lobe measuring up to 6.2 mm; query metastases. Fleischner Society guidelines do not apply in the setting of malignancy. 4. Possible lymphangitic spread of tumor into the anterior right upper lobe. 5. Cholelithiasis without definite gallbladder wall thickening. 6. Severe centrilobular and paraseptal emphysema. COMMENTS: Consistent with the [employer]'s Incidental Findings Committee white paper (J Am Reena Radiol 2018): Any incidental renal lesion less than 1 cm or classified as too small to characterize, or any incidental cystic renal lesion characterized as simple-appearing, is likely benign. No follow-up imaging is recommended for these lesions per consensus recommendations based on imaging criteria.
[2023-10-28 09:07] LABS: Alanine Aminotransferase 17 U/L (0-41); Albumin Level 3.9 g/dL (3.5-5.2); Alkaline Phosphatase 117 U/L (40-130); Aspartate Amino Transferase 58 U/L (0-40); Blood Urea Nitrogen 27 mg/dL (8-23); Calcium 9.5 mg/dL (8.5-10.5); Carbon Dioxide 20 mmol/L (22-29); Chloride 97 mmol/L (98-107); Globulin 4.4 g/dL (1.3-4.6); Glomerular Filtration Rate 46.3 mL/min (90-130); Glucose 145 mg/dL (65-115); NT Pro B Type Natriuretic Pept 607 pg/mL (0-125); Osmolality Calculated 288 mOsm/kg (285-295); Sodium 135 mmol/L (136-145); Total Bilirubin 0.9 mg/dL (0.15-1.2); Total Protein 8.3 g/dL (6.6-8.7)
[2023-10-28 09:10] LABS: Creatinine Clr Calc Pharmacy 49.2751
[2023-10-28] MEDS: iohexol 350 mg/mL 500 mL Btl (per mL) IV (09:33)
[2023-10-28 09:51] LABS: SARS Covid-2 Antigen negative (Negative)
[2023-10-28] MEDS: cefTRIAXone 1,000 mg SDV 1000 MG IVP (10:12)
[2023-10-28] MEDS: enoxaparin 40 mg/0.4 mL Syringe SUBCUT (14:40)
[2023-10-28] MEDS: pantoprazole 40 mg SDV IVP (14:40)
[2023-10-28] MEDS: HYDROcodone-acetaminophen 5-325 mg Tablet 1 TAB PO ×2 (14:41→23:10)
--- NOTE | 2023-10-28 17:36 | P.HP_ITS ---
Providers/Chief Complaint 2 Admitting Physician: Nilton Bishop DO Primary Care Provider: Billie Spears APN Chief Complaint: sob; diarrhea History of Present Illness Parth Mccracken Jr is a 68 year old male with past medical history of hypertension, COPD, hyperlipidemia, BPH, hepatitis C s/p treatment (2018 with Epclusa), who presented to the emergency room with increasing shortness of breath over the last 3 to 4 days. Patient reports that he began having some wheezing a few days ago, and began coughing. He reports that he began wearing his oxygen at all times. He typically only wears it at night. He says that he began having episodes of nausea, vomiting, and diarrhea soon after. He says that he was trying to stay hydrated during this time, but it was difficult due to his frequent nausea and vomiting. Patient reports that he began coughing up greenish sputum, and he decided to come to the ER. Patient admits that he has had a previous history of lung nodules that were worked up by Dr. Pena. he says that on multiple occasions he was told that he had masses in his lungs and his abdomen, but all these resolved prior to biopsies. On presentation to the ER, he was noted to have an elevated respiratory rate. He also reported having some right sided chest pain, that worsened with cough. Aside from the elevated respiratory rate, his vitals were otherwise unremarkable. Chest x-ray obtained, and demonstrated a right high alar prominence, and right upper lobe mass with dense opacification. CT chest was then obtained which showed a mass in the right upper lobe. Occlusion of the right upper lobe bronchus was seen encasing the right pulmonary artery. Satellite nodules in the right upper lobe were also seen with the largest measuring up to 6.2 mm. Was also noted that patient has severe centrilobular emphysema. EKG showed sinus tach. Labs were obtained and significant for a neutrophilic leukocytosis with a white count of 17. He had an elevation of his renal markers including a BUN of 27 and a creatinine of 1.5. His baseline is usually normal. COVID testing was negative. He was given a dose of ceftriaxone and azithromycin in the ER. Hospitalist was called for admission. Review of Systems 2 General: Reports: 10 or more systems reviewed and unremarkable except in HPI and below Medications/Allergies Home Medications Medication Instructions Recorded Confirmed Last Taken Type nebulizers (Aeroneb Go Nebulizer) #1 ea 05/14/19 03/14/23 Unknown Rx omega 4-cnh-otp-fish oil 1,000 mg 1 cap PO QAM 12/02/21 03/14/23 12/01/21 History (120 mg-180 mg) capsule (Fish Oil) cholecalciferol (vitamin D3) 25 2,000 unit PO QAM #90 caps 11/07/22 03/14/23 Unknown Rx mcg (1,000 unit) capsule (Vitamin D3) fluticasone propionate 50 1 spray intranasal BID PRN Allergy 11/07/22 03/14/23 Unknown Rx mcg/actuation nasal Symptoms #16 grams spray,suspension (Flonase Allergy Relief) prednisone 20 mg tablet 20 mg PO DAILY #20 tabs 03/14/23 03/14/23 Unknown Rx sulfamethoxazole 800 1 tab PO BID 14 days #28 tabs 03/14/23 03/14/23 Unknown Rx mg-trimethoprim 160 mg tablet (Bactrim DS) cyclobenzaprine 10 mg tablet See Rx Instructions .Route 04/12/23 Unknown Rx .COMPLEX #30 tabs levalbuterol tartrate 45 See Rx Instructions .Route 08/22/23 Unknown Rx mcg/actuation aerosol inhaler .COMPLEX #15 grams meloxicam 7.5 mg tablet 7.5 mg PO BID #180 tabs 08/22/23 Unknown Rx paroxetine HCl 20 mg tablet 20 mg PO QAM #90 tabs 08/22/23 Unknown Rx tamsulosin 0.4 mg capsule (Flomax) 0.4 mg PO QAM #90 caps 08/22/23 Unknown Rx fluticasone fur. 100 mcg-umeclid See Rx Instructions .Route 10/26/23 Unknown Rx 62.5 mcg-vilant 25 mcg .COMPLEX #28 ea inhalat.powder (Trelegy Ellipta) Allergies Allergy/AdvReac Type Severity Reaction Status Date / Time valdecoxib [From Bextra] Allergy Intermediate unknown Verified 10/28/23 08:25 sofosbuvir [From Epclusa] Allergy Unknown Verified 10/28/23 08:25 velpatasvir [From Epclusa] Allergy Unknown Verified 10/28/23 08:25 escitalopram [From Lexapro] AdvReac Intermediate unknown Verified 10/28/23 08:25 PFSH Acute 2 PFSH: Medical History (Updated 10/28/23 @ 17:57 by Nilton Bishop DO) Acute lower respiratory infection Lumbar back pain with radiculopathy affecting right lower extremity DDD (degenerative disc disease), lumbar Decreased GFR Shortness of breath Folliculitis Mixed hyperlipidemia Vitamin D deficiency BPH (benign prostatic hyperplasia) Essential hypertension Hepatitis C, chronic, with coma Patient was treated in 2018 with Epclusa. Followup Hep C viral load have been negative with no viral load. Hypertension Patient remains well controlled. COPD (chronic obstructive pulmonary disease) Social History Smoking and tobacco/nicotine status: former use of tobacco/nicotine Quit status (tobacco/nicotine): has quit using Year quit tobacco: Mar 2019 1- [id number] Second hand smoke exposure: No Alcohol intake: former Substance/Drug Use: current Substance/Drug use frequency: few times a month Lives independently: Yes Household members: none Marital status: service: No Current occupational status: disabled Pets and animals: No Do you think of yourself as: Straight/Heterosexual Current gender identity: Male Vitals/I&O/Wt Last Vital Signs Temp 97.8 F 10/28/23 08:15 Pulse 79 10/28/23 16:58 Resp 31 H 10/28/23 16:00 BP 113/72 10/28/23 16:58 Pulse Ox 98 10/28/23 16:58 O2 Del Method Nasal Cannula 10/28/23 14:39 O2 Flow Rate 3 10/28/23 14:39 10/28/23 10/28/23 10/28/23 06:59 14:59 22:59 Intake Total 250 / 250 Balance 250 / 250 Weight last 48 hrs Weight 184 lb 5 oz Weight 170 lb Physical Exam 2 Narrative: General: Cooperative patient in no apparent distress. Well developed. HEENT: Normocephalic, Atraumatic. External ears normal. Nasal passages patent without drainage. MMM. Heart: RRR. Resp: Scattered wheezes and rales throughout the lung ellis. There is decreased air movement in the right middle and upper lobes. Coarse crackles are heard in the right upper lobe. Abd: Soft, non-tender. Non-distended. Extremities: No edema. Skin: No rash or lesions on exposed areas. Data 10/28/23 07:20 10/28/23 07:20 Micro: Microbiology 10/28/23 08:53 Blood Culture - Preliminary Blood SPECIMEN COLLECTED 10/28/23 08:49 Blood Culture - Preliminary Blood SPECIMEN COLLECTED A&P Assessment and plan (1) Community acquired pneumonia: (2) Mass of upper lobe of right lung: (3) Neutrophilic leukocytosis: (4) Acute kidney injury: (5) Transaminitis: (6) Hyponatremia: (7) Hyperglycemia: (8) Essential hypertension: (9) Mixed hyperlipidemia: (10) Vitamin D deficiency: (11) BPH (benign prostatic hyperplasia): Qualifiers: Lower urinary tract symptom presence: symptoms present Lower urinary tract symptom detail: urinary hesitancy Qualified Code(s): N40.1 - Benign prostatic hyperplasia with lower urinary tract symptoms; R39.11 - Hesitancy of micturition (12) COPD (chronic obstructive pulmonary disease): Qualifiers: COPD type: emphysema Emphysema type: centrilobular Qualified Code(s): J43.2 - Centrilobular emphysema (13) Anemia: Plan Mr. Alberto martinez is a 68-year-old male admitted for pneumonia and right upper lobe mass. Admit to [facility]. Patient with leukocytosis of 17.3. Chest x-ray and CT scan demonstrate right upper lobe mass and likely pneumonia. Patient does see a convention services manager in [facility]. He is unsure as to the last time he had his lung nodules evaluated, but he did undergo some workup with Dr. Pena previously. He will need pulmonology referral to have this further evaluated. No coverage available over the weekend without transfer. Will pass on to attending physician to discuss this on Sunday. Received a dose of Rocephin and azithromycin in the ER. Will continue. Received dose of solumedrol in ER. Will start oral prednisone. O2 protocol. RAAT. Duonebs q6h as needed. Recheck AM labs. Received fluid bolus prior to admission. Continue IVF's and recheck renal function in the am. Blood pressure is currently controlled. Will continue home medications. Iron studies in am. His hyponatremia is mild, sodium is at 135. Recheck in the morning. Continue IV fluids. Transaminitis may be related to the duration given that he has had nausea and vomiting. Will recheck tomorrow after he has had IV fluids. Zofran for nausea. Will continue other medications for chronic medical needs. Code Status: Full IVF: NS at 75 DVT PPx: Lovenox GI PPx: Protonix ABx: Rocephin, azithromycin Diet: Regular diet Discharge plan: Home when appropriate Attestations 2 Medical Necessity Statement*: Patient will need greater than 2 midnight stay for treatment of pneumonia, workup for right upper lobe mass, IV fluids, anemia workup, blood cultures, and correction of electrolyte discrepancies. Coding Level of Care Code Acute Code for Chg Fwd Moderate MDM includes number and complexity of problems actively addressed during encounter, amount and/or complexity of data reviewed/ordered and described risk of complication, morbidity or mortality of management as documented Diagnoses Community acquired pneumonia J18.9 Mass of upper lobe of right lung R91.8 Neutrophilic leukocytosis D72.9 Acute kidney injury N17.9 Transaminitis R74.01 Hyponatremia E87.1 Hyperglycemia R73.9 Essential hypertension I10 Mixed hyperlipidemia E78.2 Vitamin D deficiency E55.9 Benign prostatic hyperplasia with urinary hesitancy N40.1; R39.11 Lower urinary tract symptom presence: symptoms present Lower urinary tract symptom detail: urinary hesitancy Centrilobular emphysema J43.2 COPD type: emphysema Emphysema type: centrilobular Anemia D64.9
[2023-10-28] MEDS: sodium chloride 0.9% 1,000 ML 75 ML IV (18:10)
--- NOTE | 2023-10-28 18:15 | PC.NURSE ---
patient educated on SCD's and the importance of wearing them-refused.
[2023-10-29] VITALS (8 sets, daily range): BP systolic 105–145; BP diastolic 60–86; PULSE 70–93; RESP 14–18; TEMP 36.4–36.8; O2SAT 96–100
[2023-10-29 04:11] LABS: Basophils # 0.1 10^3/uL (0.0-0.1); Basophils % 0.3 %; Hematocrit 36.2 % (37-53); Lymphocytes # 1.1 10^3/uL (0.8-4.8); Lymphocytes % 5.4 %; Mean Corpuscular HGB Conc 31.2 g/dL (30-55); Mean Corpuscular Hemoglobin 26.3 pg (27-33); Mean Corpuscular Volume 84.4 fl (82-101); Mean Platelet Volume 11.1 fL (7.4-10.4); Monocytes # 0.7 10^3/uL (0.2-0.9); Monocytes % 3.6 %; Neutrophils # 17.26 10^3/uL (1.8-7.7); Neutrophils % 89.6 %; Nucleated Red Blood Cells % 0 %; Platelet Count 366 10^3/cmm (157-399); Red Blood Count 4.29 10^6/uL (3.85-5.65); White Blood Count 19.28 10^3/uL (3.29-11.43)
[2023-10-29 04:41] LABS: Alanine Aminotransferase 38 U/L (0-41); Albumin Level 3.9 g/dL (3.5-5.2); Alkaline Phosphatase 125 U/L (40-130); Anion Gap 23.1 (5-19); Aspartate Amino Transferase 78 U/L (0-40); Blood Urea Nitrogen 33 mg/dL (8-23); Carbon Dioxide 21 mmol/L (22-29); Chloride 101 mmol/L (98-107); Creatinine Clr Calc Pharmacy 58.0007; Globulin 3.6 g/dL (1.3-4.6); Glomerular Filtration Rate 54.6 mL/min (90-130); Glucose 125 mg/dL (65-115); Magnesium 2.5 mg/dL (1.7-2.3); Osmolality Calculated 301 mOsm/kg (285-295); Phosphorus 2.5 mg/dL (2.5-4.5); Potassium 4.1 mmol/L (3.5-5.1); Sodium 141 mmol/L (136-145); Total Bilirubin 0.3 mg/dL (0.15-1.2); Total Protein 7.5 g/dL (6.6-8.7)
[2023-10-29 04:47] LABS: Procalcitonin 3.16 ng/mL (0-0.5)
[2023-10-29 05:02] LABS: Ferritin 544 ng/mL (30-400); Iron 17 ug/dL (59-158); Percent Saturation 10.4 % (20-50); Total Iron Binding Capacity 163 mcg/dl; Unsaturated Iron Binding 146 ug/dL (112-347)
[2023-10-29] MEDS: sodium chloride 0.9% 1,000 ML 75 ML IV (05:55)
[2023-10-29] MEDS: PARoxetine 20 mg Tablet PO (05:55)
[2023-10-29] MEDS: HYDROcodone-acetaminophen 5-325 mg Tablet 1 TAB PO ×2 (05:56→18:05)
[2023-10-29] MEDS: tamsulosin 0.4 mg Capsule PO (05:56)
[2023-10-29] MEDS: predniSONE 20 mg Tablet 40 MG PO (08:27)
[2023-10-29] MEDS: azithromycin 500 MG in sodium chloride 0.9% 250 ML 250 MG IV (08:27)
--- NOTE | 2023-10-29 10:09 | PC.CHAP ---
Pastoral Care Encounter/Spiritual Assessment Type of Contact [] Declined carpet cutter visit [] Patient/Family/Request visit [] Outpatient visit [] Follow-up visit [] Physician referral [] Code/Alert [x] Routine visit [] Staff referral [] Actively dying [] Patient sleeping [] Family support [] [] Out of room [] Palliative care [] [] Receiving care in room [] Pre-surgical visit [] Trauma [] Long length of stay [] ICU visit [] Other: Relational/Emotional Strength [] Patient feels connected with others/family/visitors/staff [] Distress [] Loneliness/isolation [] Abandonment Spirituality of Patient [x] Person of Fabi [] Attends Mandaeism of their Fabi [x] Believes in Prayer [] Reads Bible or Lutheran materials [] There are Spiritual issues to be addressed Cutlery Grinder Interventions [x] Prayer [x] Active listening [] Non-anxious presence [] Spiritual/emotional support [] Crisis/trauma care [] Spiritual counseling [] Bereavement support [] Provided bereavement packet [x] Provided Bible/devotional materials [] Provided toy/stuffed animal, coloring book to patient or family member [] Provided Communion [] Anointing/[place] [] Salvation [x] Completed spiritual assessment [] Other: Impact on Illness or Injury [] Angry [] Fearful [] Anxious [] Often cries [] Exhaustion [] Unable to work [] Unable to attend holiness [] Unable to walk/stand [] Unable to read [] Unable to drive [] Unable to eat/drink [] Unable to sleep [] Unable to be with family [] Patient intubated [] Other: Summary Time spent with patient 5 min
[2023-10-29] MEDS: cefTRIAXone 1,000 mg SDV 1000 MG IVP (11:03)
--- NOTE | 2023-10-29 11:46 | P.PN_ITS ---
Subjective 2 Subjective: Patient is stating that he would not pursue any chemotherapy or radiotherapy in case he gets diagnosis of cancer He is willing to stay 1 more day for treatment of pneumonia He is not requiring oxygen No fever at this point Complaining of shortness of breath on minimal exertion At this point he is thinking going home Vitals/I&O/Wt Last Vital Signs Temp 97.7 F 10/29/23 11:05 Pulse 93 10/29/23 11:05 Resp 18 10/29/23 11:05 BP 137/77 10/29/23 11:05 Pulse Ox 100 10/29/23 11:05 O2 Del Method Room Air 10/29/23 11:05 O2 Flow Rate 2 10/28/23 20:00 10/28/23 10/29/23 10/29/23 22:59 06:59 14:59 Intake Total 75 / 325 881.25 / 1206.25 608 / 608 Balance 75 / 325 881.25 / 1206.25 608 / 608 Weight last 48 hrs Weight 80.938 kg Weight 83.603 kg Weight 77.111 kg Physical Exam 2 Narrative: Currently on room air No active wheezing Bilateral breath sounds with rhonchi Abdomen soft No active sign of heart failure Pleasant cooperative Nonfocal neuroexam Dyspnea on exertion Data 10/29/23 02:52 10/29/23 02:52 Micro: Microbiology 10/28/23 08:53 Blood Culture - Preliminary Blood NEGATIVE TO DATE 10/28/23 08:49 Blood Culture - Preliminary Blood NEGATIVE TO DATE A&P Assessment and plan (1) Essential hypertension: (2) Anemia: (3) Neutrophilic leukocytosis: (4) BPH (benign prostatic hyperplasia): Qualifiers: Lower urinary tract symptom presence: symptoms present Lower urinary tract symptom detail: urinary hesitancy Qualified Code(s): N40.1 - Benign prostatic hyperplasia with lower urinary tract symptoms; R39.11 - Hesitancy of micturition (5) Pneumonia: (6) Right upper lobe pulmonary nodule: (7) Mass of upper lobe of right lung: Plan Continue antibiotic treatment for pneumonia Patient is not interested in histopathological diagnosis of bronchoscopy Patient is stating that he is well aware that his COPD is advanced today to get him before cancer takes and affect he is stating that he was diagnosed with possible lung cancer 6 years ago but no lesion was biopsied will he has history of histoplasmosis in the past I have counseled my ultrasound related biopsy request Family was present in the room Patient is wanting to go home with hospice referral Will do home oxygen evaluation before discharge tomorrow Patient is also stating that in case of cardiac or respiratory arrest he does not want aggressive resuscitative measures changes CODE STATUS DNR/DNI, his brother and [id number] were present in the room Attestations 2 Medical Necessity Statement*: Discharge likely tomorrow Diagnoses Essential hypertension I10 Anemia D64.9 Neutrophilic leukocytosis D72.9 Benign prostatic hyperplasia with urinary hesitancy N40.1; R39.11 Lower urinary tract symptom presence: symptoms present Lower urinary tract symptom detail: urinary hesitancy Pneumonia J18.9 Right upper lobe pulmonary nodule R91.1 Mass of upper lobe of right lung R91.8
[2023-10-29] MEDS: enoxaparin 40 mg/0.4 mL Syringe SUBCUT (15:25)
[2023-10-29] MEDS: pantoprazole 40 mg SDV IVP (15:26)
[2023-10-29] MEDS: doxycycline 100 mg Tablet PO (18:04)
[2023-10-30 06:00] VITALS: PULSE 81
[2023-10-30] MEDS: PARoxetine 20 mg Tablet PO (06:54)
[2023-10-30] MEDS: acetaminophen 325 mg Tablet 650 MG PO (06:54)
[2023-10-30] MEDS: tamsulosin 0.4 mg Capsule PO (06:55)
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
[2023-10-30 07:44] VITALS: BP 150/85; PULSE 87; RESP 17; TEMP 36.5; O2SAT 97
[2023-10-30 09:09] LABS: Basophils % 0.1 %; Hematocrit 35.8 % (37-53); Lymphocytes % 5.1 %; Mean Corpuscular HGB Conc 31.8 g/dL (30-55); Mean Corpuscular Hemoglobin 26.6 pg (27-33); Mean Corpuscular Volume 83.6 fl (82-101); Monocytes # 0.6 10^3/uL (0.2-0.9); Neutrophils # 17.64 10^3/uL (1.8-7.7); Neutrophils % 91.3 %; Nucleated Red Blood Cells % 0 %; Platelet Count 472 10^3/cmm (157-399); Red Blood Count 4.28 10^6/uL (3.85-5.65); Red Cell Distribution Width 16.3 % (12.1-15.1); White Blood Count 19.32 10^3/uL (3.29-11.43)
--- NOTE | 2023-10-30 09:17 | PM.DCS ---
Discharge Providers Date of Admission: 10/28/23 10:19 Date of Discharge: October 30, 2023 Attending Provider at Admission: Nilton Bishop DO Attending Provider at Discharge: Refugio Najera MD Primary Care Provider: Billie Spears APN Diagnoses at Discharge Discharge Diagnosis (1) Essential hypertension: Status: Acute (2) Anemia: Status: Acute (3) Neutrophilic leukocytosis: Status: Acute (4) BPH (benign prostatic hyperplasia): Status: Acute Qualifiers: Lower urinary tract symptom detail: urinary hesitancy Lower urinary tract symptom presence: symptoms present Qualified Code(s): N40.1 - Benign prostatic hyperplasia with lower urinary tract symptoms; R39.11 - Hesitancy of micturition (5) Pneumonia: Status: Acute (6) Right upper lobe pulmonary nodule: Status: Acute (7) Mass of upper lobe of right lung: Status: Acute Reason for Visit Reason for Visit: sob; diarrhea Hospital Course Hospital Course Parth Mccracken Jr is a 68 year old male who carries a history of, hepatitis C s/p treatment (2018 with Epclusa) chronic smoking advanced chronic emphysematous COPD bullae formation in the lung apices calcified granuloma subsegmental atelectasis in the lung bases noncalcified nodule in the left lower lobe, [id number] smoking history, who presented to hospital with chief complaint of worsening shortness of breath. In the ER CT scan showed changes concerning to lung cancer with mets CT/CT chest w con IMPRESSION: 1. Markedly enlarging mass in the right upper lobe extending from the hilum that is compatible with primary pulmonary malignancy until proven otherwise. 2. Occlusion of the right upper lobe bronchus. Encase of the right upper lobe pulmonary artery without alysha occlusion. 3. Satellite nodules in the right upper lobe measuring up to 6.2 mm; query metastases. Fleischner Society guidelines do not apply in the setting of malignancy. 4. Possible lymphangitic spread of tumor into the anterior right upper lobe. 5. Cholelithiasis without definite gallbladder wall thickening. 6. Severe centrilobular and paraseptal emphysema Patient was admitted to the hospital, he was put on antibiotics for pneumonia, patient is stating that he would not pursue any chemo or radiotherapy for his cancer, he also decided against histopathological diagnosis and biopsy. Stating that he would like to go home and get hospice referral in case he gets worse. He is DNR/DNI. CODE STATUS was changed during this hospitalization. His brother and [id number] are present in the room. Patient remained on room air at rest requires oxygen only on exertion. He has Inogen at home. Physical Exam Narrative: Sarcopenia Awake and alert GCS 15 Currently room air No audible stridor or wheezing Discharge Data Studies Completed and Pending Completed Studies During Hospitalization Category Date Time Status CT chest w con* [id number] Stat Cat Scan 10/28/23 08:58 Completed XR chest 1V portable [id number] Stat Exams 10/28/23 08:22 Completed Pending at discharge Category Date Time Status Blood Culture Stat Lab 10/28/23 08:53 Results C.Diff PCR (Lab) Routine Lab 10/28/23 08:21 Uncollected Complete Blood Count w/Auto AM LABS Lab 10/31/23 04:00 Ordered Comprehensive Metabolic Panel AM LABS Lab 10/30/23 08:43 Received Comprehensive Metabolic Panel AM LABS Lab 10/31/23 04:00 Ordered Immunochemical Fecal OCB Routine Lab 10/28/23 08:21 Uncollected Lactoferrin Routine Lab 10/28/23 08:21 Uncollected OVA and Parasites, Conc and PE Routine Lab 10/28/23 08:21 Uncollected Salmonella / Shigella / Campy Routine Lab 10/28/23 08:21 Uncollected Radiology Impressions Chest X-Ray 10/28/23 08:22 IMPRESSION: Increase in size of right hilar/right upper lobe mass with dense opacification of the right upper lobe. This could reflect bronchial obstruction with postobstructive atelectasis. Recommend CT chest with contrast to further assess. Chest CT 10/28/23 08:58 IMPRESSION: 1. Markedly enlarging mass in the right upper lobe extending from the hilum that is compatible with primary pulmonary malignancy until proven otherwise. 2. Occlusion of the right upper lobe bronchus. Encase of the right upper lobe pulmonary artery without alysha occlusion. 3. Satellite nodules in the right upper lobe measuring up to 6.2 mm; query metastases. Fleischner Society guidelines do not apply in the setting of malignancy. 4. Possible lymphangitic spread of tumor into the anterior right upper lobe. 5. Cholelithiasis without definite gallbladder wall thickening. 6. Severe centrilobular and paraseptal emphysema. COMMENTS: Consistent with the [employer]'s Incidental Findings Committee white paper (J Am Reena Radiol 2018): Any incidental renal lesion less than 1 cm or classified as too small to characterize, or any incidental cystic renal lesion characterized as simple-appearing, is likely benign. No follow-up imaging is recommended for these lesions per consensus recommendations based on imaging criteria. Laboratory Results WBC 19.32 10^3/uL (3.29-11.43) H 10/30/23 08:43 RBC 4.28 10^6/uL (3.85-5.65) 10/30/23 08:43 Hgb 11.40 g/dL (11.27-16.99) 10/30/23 08:43 Hct 35.8 % (37-53) L 10/30/23 08:43 MCV 83.6 fl (82-101) 10/30/23 08:43 MCH 26.6 pg (27-33) L 10/30/23 08:43 MCHC 31.8 g/dL (30-55) 10/30/23 08:43 RDW 16.3 % (12.1-15.1) H 10/30/23 08:43 Plt Count 472 10^3/cmm (157-399) H 10/30/23 08:43 MPV 10.0 fL (7.4-10.4) 10/30/23 08:43 Neut % (Auto) 91.3 % 10/30/23 08:43 Lymph % (Auto) 5.1 % 10/30/23 08:43 [place] % (Auto) 3.0 % 10/30/23 08:43 Eos % (Auto) 0.0 % 10/30/23 08:43 Baso % (Auto) 0.1 % 10/30/23 08:43 Neut # (Auto) 17.64 10^3/uL (1.8-7.7) H 10/30/23 08:43 Lymph # (Auto) 1.0 10^3/uL (0.8-4.8) 10/30/23 08:43 [place] # (Auto) 0.6 10^3/uL (0.2-0.9) 10/30/23 08:43 Eos # (Auto) 0.0 10^3/uL (0.0-0.8) 10/30/23 08:43 Baso # (Auto) 0.0 10^3/uL (0.0-0.1) 10/30/23 08:43 Nucleated RBC % (auto) 0 % 10/30/23 08:43 Nucleated RBCs # 0.0 /100WBC 10/30/23 08:43 Sodium 141 mmol/L (136-145) 10/29/23 02:52 Potassium 4.1 mmol/L (3.5-5.1) 10/29/23 02:52 Chloride 101 mmol/L (98-107) 10/29/23 02:52 Carbon Dioxide 21 mmol/L (22-29) L 10/29/23 02:52 Anion Gap 23.1 (5-19) H 10/29/23 02:52 BUN 33 mg/dL (8-23) H 10/29/23 02:52 Creatinine 1.3 mg/dL (0.7-1.2) H 10/29/23 02:52 GFR Calculation 54.6 mL/min (90-130) L 10/29/23 02:52 Glucose 125 mg/dL (65-115) H 10/29/23 02:52 Calculated Osmolality 301 mOsm/kg (285-295) H 10/29/23 02:52 Calcium 10.0 mg/dL (8.5-10.5) 10/29/23 02:52 Phosphorus 2.5 mg/dL (2.5-4.5) 10/29/23 02:52 Magnesium 2.5 mg/dL (1.7-2.3) H 10/29/23 02:52 Iron 17 ug/dL (59-158) L 10/29/23 02:52 TIBC 163 mcg/dl 10/29/23 02:52 % Saturation 10.4 % (20-50) L 10/29/23 02:52 Unsat Iron Binding 146 ug/dL (112-347) 10/29/23 02:52 Ferritin 544 ng/mL (30-400) H 10/29/23 02:52 Total Bilirubin 0.3 mg/dL (0.15-1.2) 10/29/23 02:52 AST 78 U/L (0-40) H 10/29/23 02:52 ALT 38 U/L (0-41) 10/29/23 02:52 Alkaline Phosphatase 125 U/L (40-130) 10/29/23 02:52 NT-Pro-B Natriuret Pep 607 pg/mL (0-125) H 10/28/23 07:20 Total Protein 7.5 g/dL (6.6-8.7) 10/29/23 02:52 Albumin 3.9 g/dL (3.5-5.2) 10/29/23 02:52 Globulin 3.6 g/dL (1.3-4.6) 10/29/23 02:52 Procalcitonin 3.16 ng/mL (0-0.5) H 10/29/23 02:52 SARS-CoV-2 Ag (Rapid) negative (Negative) 10/28/23 09:10 Vitals Last Vital Signs Temp 97.7 F 10/30/23 07:44 Pulse 87 10/30/23 07:44 Resp 17 10/30/23 07:44 BP 150/85 10/30/23 07:44 Pulse Ox 97 10/30/23 07:44 O2 Del Method Room Air 10/30/23 07:44 O2 Flow Rate 2 10/28/23 20:00 Discharge Plan Discharge Patient Disposition: Home Condition: Stable Prescriptions: New doxycycline monohydrate 100 mg Tablet 100 mg PO BID Qty: 10 0RF amoxicillin-pot clavulanate 875-125 mg tablet 1 tab PO BID Qty: 10 0RF Ativan 0.5 mg tablet 0.25 mg PO Q8H PRN (Reason: dyspnea) Qty: 14 0RF morphine 15 mg tablet 15 mg PO BID PRN (Reason: pain) Qty: 10 0RF Continued (DME) Aeroneb Go Nebulizer [facility] See Rx Instructions .ROUTE .MEDSUPPLY Qty: 1 0RF Rx Instructions: Q6 hours as needed Vitamin D3 25 mcg (1,000 unit) capsule 2,000 unit PO QAM Qty: 90 3RF fluticasone propionate [Flonase Allergy Relief] 50 mcg/actuation spray,suspension 1 spray INTRANASAL BID PRN (Reason: Allergy Symptoms) Qty: 16 11RF Rx Instructions: administer into each nostril cyclobenzaprine 10 mg tablet See Rx Instructions .ROUTE .COMPLEX Qty: 30 8RF Dose Instruction: TAKE 1 TABLET BY MOUTH ONCE EVERY NIGHT AT BEDTIME Rx Instructions: TAKE 1 TABLET BY MOUTH ONCE EVERY NIGHT AT BEDTIME levalbuterol tartrate 45 mcg/actuation HFA aerosol inhaler See Rx Instructions .ROUTE .COMPLEX Qty: 15 3RF Dose Instruction: USE 2 INHALATIONS BY MOUTH EVERY 6 HOURS NEEDED FOR SHORTNESS OF BREATH OR WHEEZING Rx Instructions: USE 2 INHALATIONS BY MOUTH EVERY 6 HOURS NEEDED FOR SHORTNESS OF BREATH OR WHEEZING paroxetine HCl 20 mg tablet 20 mg PO QAM Qty: 90 3RF Flomax 0.4 mg capsule 0.4 mg PO QAM Qty: 90 3RF Trelegy Ellipta 100-62.5-25 mcg blister with device See Rx Instructions .ROUTE .COMPLEX Qty: 28 11RF Dose Instruction: USE ONE INHALATION EVERY DAY Rx Instructions: USE ONE INHALATION EVERY DAY omega 4-ibu-nht-fish oil [Fish Oil] 1,000 mg (120 mg-180 mg) Capsule 1 cap PO QAM Discontinued meloxicam 7.5 mg tablet 7.5 mg PO BID Qty: 180 3RF Rx Instructions: pt can take ibuprofen without problems Discharge Orders: Discharge Order (Routine); Ordered 10/30/23 Ordered By: Refugio Najera Referrals: Billie Spears FNP [Primary Care Provider] - 4-7 days (We have notified your physician's clinic of the need for a follow-up appointment to be scheduled. If you have not heard from them within the next 2 business days, please call them directly. ) Patient Instructions: COPD, Doxycycline (By mouth), Lorazepam (By mouth), Amoxicillin/Clavulanate Potassium (By mouth), Acute Kidney Injury (GEN), Pneumonia (GEN), COPD Stoplight, Opioid Safety, Pneumonia Stoplight Discharge Attestations Time Spent in Discharge Care*: greater than 30 min Quality Metrics Clinical Quality Measures [ No reported AMI, CVA or VTE this stay] Coding Level of Care Code Acute Code for Chg Fwd Diagnoses Essential hypertension I10 Anemia D64.9 Neutrophilic leukocytosis D72.9 Benign prostatic hyperplasia with urinary hesitancy N40.1; R39.11 Lower urinary tract symptom detail: urinary hesitancy Lower urinary tract symptom presence: symptoms present Pneumonia J18.9 Right upper lobe pulmonary nodule R91.1 Mass of upper lobe of right lung R91.8
[2023-10-30 09:24] LABS: Alanine Aminotransferase 65 U/L (0-41); Albumin Level 3.5 g/dL (3.5-5.2); Alkaline Phosphatase 112 U/L (40-130); Aspartate Amino Transferase 70 U/L (0-40); Blood Urea Nitrogen 41 mg/dL (8-23); Calcium 9.8 mg/dL (8.5-10.5); Carbon Dioxide 24 mmol/L (22-29); Chloride 102 mmol/L (98-107); Creatinine Clr Calc Pharmacy 68.5463; Globulin 4.4 g/dL (1.3-4.6); Glomerular Filtration Rate 66.2 mL/min (90-130); Glucose 140 mg/dL (65-115); Osmolality Calculated 300 mOsm/kg (285-295); Sodium 139 mmol/L (136-145); Total Bilirubin 0.2 mg/dL (0.15-1.2); Total Protein 7.9 g/dL (6.6-8.7)
[2023-10-30] MEDS: doxycycline 100 mg Tablet PO (09:48)
[2023-10-30 10:00] VITALS: PULSE 84; RESP 24; O2SAT 96
[2023-10-30 10:50] VITALS: O2SAT 82; O2SAT 92
[2023-10-30 11:39] VITALS: BP 140/83; PULSE 98; RESP 20; TEMP 36.5; O2SAT 95
[2023-10-30 11:55] VITALS: BP 140/83; PULSE 98; RESP 20; TEMP 36.5; O2SAT 95
== END 2023-10-30 11:45 | disposition home or self-care (01) | DRG 194 ==
LOC: ER 10:33 → MEDSURG 15:46
PROVIDERS: Admitting Provider Family Medicine; Emergency Provider Emergency Medicine; PCP Nurse Practitioner; Visit Provider Internal Medicine
DX: J18.9 Pneumonia, unspecified organism (principal); E87.1 Hypo-osmolality and hyponatremia; N17.9 Acute kidney failure, unspecified; I10 Essential (primary) hypertension; D64.9 Anemia, unspecified; N40.0 Benign prostatic hyperplasia without lower urinary tract symptoms; R91.8 Other nonspecific abnormal finding of lung field; R73.9 Hyperglycemia, unspecified; E78.2 Mixed hyperlipidemia; E55.9 Vitamin D deficiency, unspecified; J43.2 Centrilobular emphysema; Z66 Do not resuscitate; Z87.891 Personal history of nicotine dependence; Z99.81 Dependence on supplemental oxygen
CPT/HCPCS: 36415; 71045; 71260; 80053; 82728; 83540; 83550; 83735; 83880; 84100; 84145; 85025; 87040; 87077; 87205; 87426; 93005; 94664; 94760; 96365; 96372; 96375; 97161; 99285; J0456; J0696; J1650; J2470; J2919; J7030; J7050; J7512

== ENCOUNTER 2024-03-09 10:28 | Inpatient (IN) | payer MEDICARE, MEDICAID, SELFPAY ==
[2024-03-09] VITALS (32 sets, daily range): BP systolic 133–188; BP diastolic 76–110; PULSE 87–122; RESP 10–37; TEMP 36.4–36.8; O2SAT 87–98; BMI 25.7
--- NOTE | 2024-03-09 10:30 | ECG_ITS ---
[email or web address] Test Date: 2024-03-09 Pat Name: Parth Mccracken Jr Department: Room: Gender: Male Residential Counselor: : 1955 Requested By: Kehinde Gamez Order Number: [id number] Elie MD: EMANUEL CARROLL Measurements Intervals [place] Rate: 103 P: 74 GA: 155 QRS: 47 QRSD: 93 T: 74 QT: 337 QTc: 443 Interpretive Statements SINUS TACHYCARDIA RIGHT ATRIAL ENLARGEMENT [0.3mV P-WAVE] POSSIBLE LEFT ATRIAL ENLARGEMENT [-0.1mV P-WAVE IN V1/V2] POSSIBLE ANTERIOR MYOCARDIAL INFARCTION , OF INDETERMINATE AGE [30 ms Q WAVE IN V3/V4, OR R < 0.2 mV IN V4] Compared to ECG 10/28/2023 08:17:28 No significant changes Electronically Signed On 03-10-2024 23:13:45 MOBILE APPLICATION TESTER by EMANUEL CARROLL [email or web address]
--- NOTE | 2024-03-09 10:46 | XRR_ITS ---
PROCEDURE INFORMATION: Exam: XR Chest Exam date and time: 03/09/2024 11:07 AM Age: 68 years old Clinical indication: Shortness of breath; Additional info: SOB TECHNIQUE: Imaging protocol: Radiologic exam of the chest. Views: 1 view. COMPARISON: CT chest w con* [id number] 10/28/2023 9:25 AM FINDINGS: Lungs: Right apical opacity persists. This does appear to be smaller on today's exam when compared to prior chest x-ray. Lungs are otherwise hyperinflated. No focal consolidation is appreciated. Pleural spaces: Unremarkable. No pleural effusion. No pneumothorax. Heart/Mediastinum: The heart is slightly enlarged. Vasculature: There is calcified plaque involving the aorta. Bones/joints: Unremarkable. XR/XR chest 1V portable [id number] IMPRESSION: 1. Right apical opacity/lung mass slightly smaller on today's exam. 2. Lung hyperinflation.
[2024-03-09 10:50] LABS: Basophils # 0.1 10^3/uL (0.0-0.1); Basophils % 0.4 %; Eosinophils # 0.3 10^3/uL (0.0-0.8); Hematocrit 41.9 % (37-53); Lymphocytes % 17.8 %; Mean Corpuscular HGB Conc 30.8 g/dL (30-55); Mean Corpuscular Hemoglobin 26.5 pg (27-33); Monocytes # 0.8 10^3/uL (0.2-0.9); Monocytes % 4.9 %; Neutrophils % 74.1 %; Nucleated Red Blood Cells % 0 %; Platelet Count 425 10^3/cmm (157-399); Red Blood Count 4.87 10^6/uL (3.85-5.65); Red Cell Distribution Width 15.3 % (12.1-15.1); White Blood Count 16.87 10^3/uL (3.29-11.43)
[2024-03-09 11:27] LABS: Anion Gap 20.3 (5-19); Blood Urea Nitrogen 20 mg/dL (8-23); Calcium 9.8 mg/dL (8.5-10.5); Carbon Dioxide 24 mmol/L (22-29); Chloride 97 mmol/L (98-107); Creatinine Clr Calc Pharmacy 58.8912; Glomerular Filtration Rate 54.6 mL/min (90-130); Glucose 108 mg/dL (65-115); NT Pro B Type Natriuretic Pept 6982 pg/mL (0-125); Osmolality Calculated 287 mOsm/kg (285-295); Potassium 4.3 mmol/L (3.5-5.1); Sodium 137 mmol/L (136-145)
[2024-03-09] MEDS: morphine 4 mg/mL SDV 1 mL 2 MG IVP ×2 (12:24→20:26)
[2024-03-09] MEDS: ondansetron 2 mg/ML SDV 2 mL 4 MG IVP (12:25)
--- NOTE | 2024-03-09 12:54 | ED_ITS ---
HPI - SOB/Dyspnea 2 General: Chief Complaint: Shortness of Breath/Dyspnea Stated Complaint: sob Time Seen by Provider: 03/09/24 10:32 History of Present Illness: HPI Narrative: This patient is a 68-year-old white male who presents to the emergency department with shortness of breath and cough. Patient has been coughing up copious amounts of mucus which has been occasionally blood-tinged. Patient does have a history of COPD and a right lung mass. Patient states he has declined having the lung mass worked up stating that he does not want to be treated for cancer due to his severe COPD. Patient is normally on 2 L of oxygen at home. He does have a home nebulizer with albuterol and did use it once yesterday. He was brought in by EMS and they did administer a DuoNeb and gave him 125 mg of Solu-Medrol IV. Upon arrival we were able to decrease his oxygen down to 2 L and he is satting 94% on the 2 L at this point feeling much better. He has not had a fever. Patient states when he does get up and walk he becomes dizzy and very tachycardic. States he lives alone and does not have any help and does not think he can take care of himself at home. Associated symptoms: Reports dizziness Related Data Home Medications Medication Instructions Recorded Confirmed cyclobenzaprine 10 mg tablet 10 mg PO QPM 03/09/24 03/09/24 fluticasone fur. 100 mcg-umeclid 1 inh inhalation DAILY 03/09/24 03/09/24 62.5 mcg-vilant 25 mcg inhalat.powder (Trelegy Ellipta) levalbuterol tartrate 45 2 inh inhalation Q6H 03/09/24 03/09/24 mcg/actuation aerosol inhaler meloxicam 7.5 mg tablet 7.5 mg PO BID 03/09/24 03/09/24 Previous Rx's Medication Instructions Recorded nebulizers (Aeroneb Go Nebulizer) #1 ea 05/14/19 paroxetine HCl 20 mg tablet 20 mg PO QAM #90 tabs 08/22/23 tamsulosin 0.4 mg capsule (Flomax) 0.4 mg PO QAM #90 caps 08/22/23 fluticasone propionate 50 1 spray intranasal BID PRN Allergy 11/20/23 mcg/actuation nasal Symptoms #16 grams spray,suspension (Flonase Allergy Relief) Allergies Allergy/AdvReac Type Severity Reaction Status Date / Time valdecoxib [From Bextra] Allergy Intermediate unknown Verified 02/26/24 14:40 sofosbuvir [From Epclusa] Allergy Unknown Verified 02/26/24 14:40 velpatasvir [From Epclusa] Allergy Unknown Verified 02/26/24 14:40 escitalopram [From Lexapro] AdvReac Intermediate unknown Verified 02/26/24 14:40 Review of Systems 2 General: Reports: 10 or more systems reviewed and unremarkable except in HPI and below Resp: Reports: dyspnea and productive cough Neuro: Reports: dizziness PFS ED 2 PFSH: Medical History (Updated 03/09/24 @ 12:53 by Kehinde Gamez MD) Encounter for screening for cardiovascular disorders Medication management Lung cancer Right upper lobe pulmonary nodule Medicare annual wellness visit, subsequent Right-sided chest pain COPD exacerbation Mass of right lung Anemia Hyperglycemia Hyponatremia Transaminitis Acute kidney injury Neutrophilic leukocytosis Mass of upper lobe of right lung Community acquired pneumonia Dyspnea Pneumonia Mass of left lung Acute lower respiratory infection Lumbar back pain with radiculopathy affecting right lower extremity DDD (degenerative disc disease), lumbar Decreased GFR Shortness of breath Folliculitis Mixed hyperlipidemia Vitamin D deficiency BPH (benign prostatic hyperplasia) Essential hypertension Hepatitis C, chronic, with coma Patient was treated in 2018 with Epclusa. Followup Hep C viral load have been negative with no viral load. Hypertension Patient remains well controlled. COPD (chronic obstructive pulmonary disease) Social History Smoking and tobacco/nicotine status: former use of tobacco/nicotine Quit status (tobacco/nicotine): has quit using Year quit tobacco: Mar 2019 1- [id number] Second hand smoke exposure: No Alcohol intake: former Substance/Drug Use: current Substance/Drug use frequency: few times a month Lives independently: Yes Household members: none Marital status: service: No Current occupational status: disabled Pets and animals: No Do you think of yourself as: Straight/Heterosexual Current gender identity: Male Physical Exam 2 Const: COMMON NORMALS: no acute distress, patient oriented x3 and no limitations GENERAL APPEARANCE: cooperative and comfortable OTHER: Cachectic HENMT: COMMON NORMALS: normocephalic, atraumatic, Normal nasal mucous membranes and turbinates present, moist oral mucous membranes and oropharynx normal HEAD & SCALP: normal to inspection, normocephalic and atraumatic F SHAYNE & SINUS: normal facial exam NOSE: Normal nasal mucous membranes and turbinates present Eye: COMMON NORMALS: Equal, round and reactive pupils present, EOMs intact bilaterally and conjunctivae normal GENERAL EYE: appearance normal, both eyes and all related structures CONJUNCTIVA: Yes conjunctivae normal PUPIL: Yes Equal, round and reactive pupils present Neck/C-Spine: COMMON NORMALS: supple and no JVD Chest: COMMONS NORMALS: normal inspection of the chest Resp: COMMON NORMALS: normal respiratory effort AUSCULTATION: rhonchi and wheezes Cardio: COMMON NORMALS: no JVD, regular rate, regular rhythm, No gallops present (Cardio), No murmurs present (Cardio) and No rub (Cardio) RATE: r egular rate RHYTHM: regular rhythm GI: COMMON NORMALS: Normal to inspection, nondistended, normoactive bowel sounds present, Soft to palpation and non-tender AUSCULTATION: Yes normoactive bowel sounds PALPATION: Yes Soft to palpation : COMMON NORMALS: Yes no CVA tenderness BLADDER/KIDNEY EXAM: Yes no CVA tenderness Back/Pelvis: COMMON NORMALS: no CVA tenderness and thoracic and lumbar spine normal to inspection Extremity: COMMON NORMALS: normal to inspection Neuro: COMMON NORMALS: patient oriented x3 and CN's II-XII intact bilaterally Psych: COMMON NORMALS: mental status grossly normal, Normal thought process present and cooperative THOUGHT PROCESS: Normal thought process present Skin: COMMON NORMALS: no rashes or lesions noted, turgor normal and no jaundice GENERAL SKIN EXAM: no rashes or lesions noted and turgor normal Course 2 Vital Signs: Vital signs: Vital Signs Temperature 97.6 F 03/09/24 10:29 Pulse Rate 96 03/09/24 12:15 Respiratory Rate 17 03/09/24 12:24 Blood Pressure 165/93 03/09/24 12:15 Pulse Oximetry 93 03/09/24 12:24 Oxygen Delivery Me thod Nasal Cannula 03/09/24 10:29 Oxygen Flow Rate 2 03/09/24 10:29 MDM - SOB/Dyspnea Medical Decision Making Patient remained stable throughout his ER stay satting 94% on 2 L of oxygen. His EKG did not reveal any acute ST segment abnormalities. He is in sinus tach at 103. CBC reveals an elevated white blood cell count of 16.9. BMP was normal. BNP was 6982. Chest x-ray does reveal a mass in the right upper lobe which does appear aggressive. Radiologist read states that that has decreased somewhat in size from previous exam. Patient was given a walk test by respiratory therapy and his heart rate did increase to 130 with short walk. He did become dizzy as well. I did discuss this case with Dr. Wiley, hospitalist. We will admit the patient. Patient did request some pain medication for back pain so I did give him 2 mg of morphine and 4 mg of Zofran. I also gave him 500 mg of Levaquin IV for presumed pneumonia. Patient will be admitted shortly. He is stable. Lab Data 03/09/24 09:36 03/09/24 09:36 Labs/Radiology: Radiology Impressions Chest X-Ray 03/09/24 10:46 IMPRESSION: 1. Right apical opacity/lung mass slightly smaller on today's exam. 2. Lung hyperinflation. Laboratory Results WBC 16.87 10^3/uL (3.29-11.43) H 03/09/24 09:36 RBC 4.87 10^6/uL (3.85-5.65) 03/09/24 09:36 Hgb 12.90 g/dL (11.27-16.99) 03/09/24 09:36 Hct 41.9 % (37-53) 03/09/24 09:36 MCV 86.0 fl (82-101) 03/09/24 09:36 MCH 26.5 pg (27-33) L 03/09/24 09:36 MCHC 30.8 g/dL (30-55) 03/09/24 09:36 RDW 15.3 % (12.1-15.1) H 03/09/24 09:36 Plt Count 425 10^3/cmm (157-399) H 03/09/24 09:36 MPV 11.0 fL (7.4-10.4) H 03/09/24 09:36 Neut % (Auto) 74.1 % 03/09/24 09:36 Lymph % (Auto) 17.8 % 03/09/24 09:36 [place] % (Auto) 4.9 % 03/09/24 09:36 Eos % (Auto) 2.0 % 03/09/24 09:36 Baso % (Auto) 0.4 % 03/09/24 09:36 Neut # (Auto) 12.50 10^3/uL (1.8-7.7) H 03/09/24 09:36 Lymph # (Auto) 3.0 10^3/uL (0.8-4.8) 03/09/24 09:36 [place] # (Auto) 0.8 10^3/uL (0.2-0.9) 03/09/24 09:36 Eos # (Auto) 0.3 10^3/uL (0.0-0.8) 03/09/24 09:36 Baso # (Auto) 0.1 10^3/uL (0.0-0.1) 03/09/24 09:36 Nucleated RBC % (auto) 0 % 03/09/24 09:36 Nucleated RBCs # 0.0 /100WBC 03/09/24 09:36 Sodium 137 mmol/L (136-145) 03/09/24 09:36 Potassium 4.3 mmol/L (3.5-5.1) 03/09/24 09:36 Chloride 97 mmol/L (98-107) L 03/09/24 09:36 Carbon Dioxide 24 mmol/L (22-29) 03/09/24 09:36 Anion Gap 20.3 (5-19) H 03/09/24 09:36 BUN 20 mg/dL (8-23) 03/09/24 09:36 Creatinine 1.3 mg/dL (0.7-1.2) H 03/09/24 09:36 GFR Calculation 54.6 mL/min (90-130) L 03/09/24 09:36 Glucose 108 mg/dL (65-115) 03/09/24 09:36 Calculated Osmolality 287 mOsm/kg (285-295) 03/09/24 09:36 Calcium 9.8 mg/dL (8.5-10.5) 03/09/24 09:36 NT-Pro-B Natriuret Pep 6982 pg/mL (0-125) H 03/09/24 09:36 All radiology interpretation(s) finalized by discharge Discharge Plan Discharge Patient Disposition: Admitted As Inpatient Clinical Impression: COPD exacerbation, Mass of right lung Pneumonia Qualifiers: Pneumonia type: due to unspecified organism Laterality: right Lung location: u pper lobe of lung Qualified Code(s): J18.9 - Pneumonia, unspecified organism Condition: Stable Coding Level of Care Code ED Yard Clerk for Luke Ward
[2024-03-09] MEDS: levofloxacin-dextrose 5 % 500 MG/100 ML PREMIX 100 MG IV (12:57)
--- NOTE | 2024-03-09 14:25 | CTR_ITS ---
PROCEDURE INFORMATION: Exam: CT Abdomen And Pelvis Without Contrast Exam date and time: 03/09/2024 2:34 PM Age: 68 years old Clinical indication: Abdominal pain; Generalized; Additional info: Swelling TECHNIQUE: Imaging protocol: Computed tomography of the abdomen and pelvis without contrast. Radiation optimization: All CT scans at this facility use at least one of these dose optimization techniques: automated exposure control; mA and/or kV adjustment per patient size (includes targeted exams where dose is matched to clinical indication); or iterative reconstruction. COMPARISON: CT chest w con* [id number] 10/28/2023 9:25 AM RADIATION DOSE METRICS: Total DLP (mGy-cm): 565.26 FINDINGS: Liver: Normal. No mass. Gallbladder and biliary ducts: Multiple calcified gallstones are present. Pancreas: Normal. No ductal dilation. Spleen: There are multiple calcified granulomas of the spleen. Adrenal glands: Normal. No mass. Kidneys and ureters: There are multiple right renal collecting system calcifications. Simple cyst in the interpolar region of the right kidney measuring 2.7 cm. There is no evidence of hydronephrosis. Stomach and bowel: Unremarkable. No obstruction. No mucosal thickening. Appendix: No evidence of appendicitis. Intraperitoneal space: Unremarkable. No free air. No significant fluid collection. Vasculature: Calcified atheromas of the visualized arteries. There are numerous benign phleboliths in the pelvis. Lymph nodes: Unremarkable. No enlarged lymph nodes. Urinary bladder: Over distended bladder. Reproductive: Unremarkable as visualized. Bones/joints: There are mild degenerative changes of the hip joints. The pubic symphysis demonstrates mild degenerative changes. There are mild degenerative changes of the sacroiliac joints. The lumbar spine demonstrates mild degenerative changes at multiple levels. Soft tissues: Left fat containing inguinal hernias. Right inguinal hernia containing a segment of the ileum with no bowel obstruction. There is a fat-containing umbilical hernia. CT/CT abdomen pelvis wo con [id number] IMPRESSION: 1. Over distended bladder suggestive of urinary retention. 2. Cholelithiasis with no changes of acute cholecystitis. 3. Nonobstructive right renal stones. 4. Right inguinal hernia containing a segment of the terminal ileum with no bowel obstruction. COMMENTS: Consistent with the [employer]'s Incidental Findings Committee white paper (J Am Reena Radiol 2018): Any incidental renal lesion less than 1 cm or classified as too small to characterize, or any incidental cystic renal lesion characterized as simple-appearing, is likely benign. No follow-up imaging is recommended for these lesions per consensus recommendations based on imaging criteria.
--- NOTE | 2024-03-09 14:25 | CTR_ITS ---
PROCEDURE INFORMATION: Exam: CTA Chest With Contrast Exam date and time: 03/09/2024 2:38 PM Age: 68 years old Clinical indication: Shortness of breath; Additional info: SOB TECHNIQUE: Imaging protocol: Computed tomographic angiography of the chest with contrast. Exam focused on the arteries. 3D rendering (Not supervised by radiologist): MIP and/or 3D reconstructed images were created by the technologist. Radiation optimization: All CT scans at this facility use at least one of these dose optimization techniques: automated exposure control; mA and/or kV adjustment per patient size (includes targeted exams where dose is matched to clinical indication); or iterative reconstruction. Contrast material: OMNI 350; Contrast volume: 66 ml; Contrast route: INTRAVENOUS (IV); COMPARISON: CT angio chest PE protcl [id number] 12/02/2021 10:22 AM RADIATION DOSE METRICS: Total DLP (mGy-cm): 465.81 FINDINGS: Pulmonary arteries: Similar encasement of the right upper lobe pulmonary artery branch. Aorta: Unremarkable. No aortic aneurysm. No aortic dissection. Lungs: Emphysema severe scattered bilateral pulmonary calcified granulomas. Mild decrease in the size of the right hilar mass measuring 9.5 x 5.5 cm with central calcifications encasing the right upper lobe bronchus with postobstructive right upper lobe collapse. Pleural spaces: Unremarkable. No pneumothorax. No pleural effusion. Heart: Unremarkable. No cardiomegaly. No pericardial effusion. Lymph nodes: Calcified bilateral hilar and mediastinal lymph nodes. Bones/joints: The thoracic spine demonstrates moderate degenerative changes at multiple levels. Soft tissues: Unremarkable. CT/CT angio chest PE protcl [id number] IMPRESSION: 1. Mild decrease in the size of the right hilar mass with decrease in the right upper lobe postobstructive collapse. 2. No pulmonary embolism. COMMENTS: The presence of pulmonary emphysema on CT is an independent risk factor for lung cancer. In the absence of a history or active diagnosis of lung cancer, it is recommended that this patient with emphysema be evaluated for enrollment in a low dose CT lung cancer screening program.
--- NOTE | 2024-03-09 14:26 | ECG_ITS ---
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1955 Requested By: Kieran Wiley Order Number: [id number] Reading MD: EMANUEL CARROLL Measurements Intervals [place] Rate: 106 P: 79 [place]: 161 QRS: 43 QRSD: 88 T: 63 QT: 345 QTc: 458 Interpretive Statements SINUS TACHYCARDIA RIGHT ATRIAL ENLARGEMENT [0.3mV P-WAVE] POSSIBLE LEFT ATRIAL ENLARGEMENT [-0.1mV P-WAVE IN V1/V2] POSSIBLE ANTERIOR MYOCARDIAL INFARCTION , OF INDETERMINATE AGE [30 ms Q WAVE IN V3/V4, OR R < 0.2 mV IN V4] Compared to ECG 03/09/2024 10:30:50 No significant changes Electronically Signed On 03-10-2024 23:13:31 SENIOR FIRE PROTECTION ENGINEER by EMANUEL CARROLL [id number]
--- NOTE | 2024-03-09 14:31 | P.HP_ITS ---
Providers/Chief Complaint 2 Admitting Physician: Kieran Wiley MD Primary Care Provider: EDI Cleary Chief Complaint: sob History of Present Illness Parth Mccracken Jr is a 68 year old male with a past medical history of COPD, hypertension, BPH, hyperlipidemia history of right upper lobe lung mass suspicious for malignancy patient declines any interventions or biopsy, hepatitis C s/p treatment, smoking, who presents [facility] due to progressive shortness of breath, productive cough, denies any falls, no nausea, no vomiting, no lightheadedness, dizziness, does report his cough has become having scant hemoptysis, does report fatigue, malaise, chills, Review of Systems 2 Const: Reports: chills, fatigue and malaise; Denies: fever(s) Card: Denies: chest pain Resp: Reports: dyspnea GI: Denies: abdominal pain : Denies: flank pain Neuro: Denies: headache(s) Medications/Allergies Home Medications Medication Instructions Recorded Confirmed Last Taken Type nebulizers (Aeroneb Go Nebulizer) #1 ea 05/14/19 03/09/24 Unknown Rx paroxetine HCl 20 mg tablet 20 mg PO QAM #90 tabs 08/22/23 03/09/24 Unknown Rx tamsulosin 0.4 mg capsule (Flomax) 0.4 mg PO QAM #90 caps 08/22/23 03/09/24 10/24/23 Rx fluticasone propionate 50 1 spray intranasal BID PRN Allergy 11/20/23 03/09/24 Unknown Rx mcg/actuation nasal Symptoms #16 grams spray,suspension (Flonase Allergy Relief) cyclobenzaprine 10 mg tablet 10 mg PO QPM 03/09/24 03/09/24 Unknown History fluticasone fur. 100 mcg-umeclid 1 inh inhalation DAILY 03/09/24 03/09/24 Unknown History 62.5 mcg-vilant 25 mcg inhalat.powder (Trelegy Ellipta) levalbuterol tartrate 45 2 inh inhalation Q6H 03/09/24 03/09/24 Unknown History mcg/actuation aerosol inhaler meloxicam 7.5 mg tablet 7.5 mg PO BID 03/09/24 03/09/24 Unknown History Allergies Allergy/AdvReac Type Severity Reaction Status Date / Time valdecoxib [From Bextra] Allergy Intermediate unknown Verified 02/26/24 14:40 sofosbuvir [From Epclusa] Allergy Unknown Verified 02/26/24 14:40 velpatasvir [From Epclusa] Allergy Unknown Verified 02/26/24 14:40 escitalopram [From Lexapro] AdvReac Intermediate unknown Verified 02/26/24 14:40 PFSH Acute 2 PFSH: Medical History Encounter for screening for cardiovascular disorders Medication management Lung cancer Right upper lobe pulmonary nodule Medicare annual wellness visit, subsequent Right-sided chest pain COPD exacerbation Mass of right lung Anemia Hyperglycemia Hyponatremia Transaminitis Acute kidney injury Neutrophilic leukocytosis Mass of upper lobe of right lung Community acquired pneumonia Dyspnea Pneumonia Mass of left lung Acute lower respiratory infection Lumbar back pain with radiculopathy affecting right lower extremity DDD (degenerative disc disease), lumbar Decreased GFR Shortness of breath Folliculitis Mixed hyperlipidemia Vitamin D deficiency BPH (benign prostatic hyperplasia) Essential hypertension Hepatitis C, chronic, with coma Patient was treated in 2018 with Epclusa. Followup Hep C viral load have been negative with no viral load. Hypertension Patient remains well controlled. COPD (chronic obstructive pulmonary disease) Social History Smoking and tobacco/nicotine status: former use of tobacco/nicotine Quit status (tobacco/nicotine): has quit using Year quit tobacco: Mar 2019 1- [id number] Second hand smoke exposure: No Alcohol intake: former Substance/Drug Use: current Substance/Drug use frequency: few times a month Lives independently: Yes Household members: none Marital status: service: No Current occupational status: disabled Pets and animals: No Do you think of yourself as: Straight/Heterosexual Current gender identity: Male Vitals/I&O/Wt Last Vital Signs Temp 97.6 F 03/09/24 10:29 Pulse 105 H 03/09/24 12:45 Resp 19 H 03/09/24 12:45 BP 159/83 03/09/24 12:45 Pulse Ox 96 03/09/24 12:45 O2 Del Method Nasal Cannula 03/09/24 10:29 O2 Flow Rate 2 03/09/24 12:40 Weight last 48 hrs Weight 83.915 kg Physical Exam 2 Const: COMMON NORMALS: patient oriented x3 ORIENTATION/CONSCIOUSNESS: Yes awake, Yes oriented to person, Yes oriented to place and Yes oriented to time OTHER: Appears short of breath, mild respiratory distress HENMT: COMMON NORMALS: normocephalic HEAD & SCALP: normocephalic Eye: COMMON NORMALS: Equal, round and reactive pupils present Neck/C-Spine: COMMON NORMALS: no JVD Lymph: LYMPHATIC: no lymphadenopathy noted Resp: OTHER: Tachypnea, tachycardia, nasal flaring, intercostal retractions short of breath after a few words, mild respiratory distress Cardio: COMMON NORMALS: no JVD, regular rate, regular rhythm, S1 normal heart sound present and S2 normal heart sound present RATE: tachycardic RHYTHM: regular rhythm HEART SOUNDS: S1 normal heart sound present and S2 normal heart sound present GI: COMMON NORMALS: Normal to inspection, nondistended, normoactive bowel sounds present, Soft to palpation and non-tender PALPATION: Yes Soft to palpation and Yes No hepatosplenomegaly present : COMMON NORMALS: Yes no CVA tenderness Extremity: COMMON NORMALS: no calf tenderness and no pedal edema Neuro: COMMON NORMALS: patient oriented x3, CN's II-XII intact bilaterally and moves all extremities Psych: COMMON NORMALS: mental status grossly normal Data 03/09/24 09:36 03/09/24 09:36 A&P Assessment and plan (1) Acute respiratory failure with hypoxia: (2) Pneumonia: Qualifiers: Laterality: right Lung location: upper lobe of lung Pneumonia type: d ue to unspecified organism Qualified Code(s): J18.9 - Pneumonia, unspecified organism (3) Sepsis: (4) COPD exacerbation: (5) Mass of right lung: (6) Acute respiratory distress: (7) Acute kidney injury: Plan Acute hypoxic respiratory failure ? With evidence of acute respiratory distress ? Likely sec to pneumonia, concerns for postobstructive morning with right upper lung mass ? With COPD exacerbation - with concerns for CHF ? Plan ? Patient is DNR/DNI, he does not want to have interventions for his lung cancer, does not want any aggressive interventions, wants medical interventions for now, ? Monitor on MedSurg closely -Will consider BiPAP based on clinical progress ? DuoNeb ?budesonide -Sputum cultures ? Blood cultures ? Respiratory viral panel ? Vancomycin ? Zosyn ? Solu-Medrol 125 followed by 40 mg IV every 8 hours ? Monitor respiratory status closely -Will consider Lasix based on clinical progress -CT angiogram of the chest -ABG -CT abdomen pelvis -CRP, Pro-Kobi Sepsis -Sepsis features met given pneumonia, leukocytosis, MICHAEL, respiratory distress, sinus tachycardia MICHAEL, likely sec to sepsis, monitor History of mass of right lung with -Patient declines any interventions -He is DNR/DNI -Tells me that he wants to be an organ donor -Lovenox for DVT prophylaxis Attestations 2 Medical Necessity Statement*: Patient requires hospitalization, inpatient, greater than 2 midnights, for acute respiratory distress, acute hypoxic respiratory failure, pneumonia, sepsis, MICHAEL, COPD exacerbation Diagnoses Acute respiratory failure with hypoxia J96.01 Pneumonia J18.9 Laterality: right Lung location: upper lobe of lung Pneumonia type: due to unspecified organism Sepsis A41.9 COPD exacerbation J44.1 Mass of right lung R91.8 Acute respiratory distress R06.03 Acute kidney injury N17.9
--- NOTE | 2024-03-09 14:37 | PHA.VACGOAL ---
Vancomycin Goal - Goal Vancomycin Goal:: 15-20 mg/L Vancomycin Indication:: Pneumonia - Therapy Current therapy:: Pip/Tazo Day of therpy:: Day []of [] . Actual body weight (kg): 185 lb - Data Labs: WBC 16.87 10^3/uL (3.29-11.43) H 03/09/24 09:36 RBC 4.87 10^6/uL (3.85-5.65) 03/09/24 09:36 Hgb 12.90 g/dL (11.27-16.99) 03/09/24 09:36 Hct 41.9 % (37-53) 03/09/24 09:36 MCV 86.0 fl (82-101) 03/09/24 09:36 MCH 26.5 pg (27-33) L 03/09/24 09:36 MCHC 30.8 g/dL (30-55) 03/09/24 09:36 RDW 15.3 % (12.1-15.1) H 03/09/24 09:36 Sodium 137 mmol/L (136-145) 03/09/24 09:36 Potassium 4.3 mmol/L (3.5-5.1) 03/09/24 09:36 Chloride 97 mmol/L (98-107) L 03/09/24 09:36 Carbon Dioxide 24 mmol/L (22-29) 03/09/24 09:36 Anion Gap 20.3 (5-19) H 03/09/24 09:36 BUN 20 mg/dL (8-23) 03/09/24 09:36 Creatinine 1.3 mg/dL (0.7-1.2) H 03/09/24 09:36 GFR Calculation 54.6 mL/min (90-130) L 03/09/24 09:36 Last dialysis session:: N/A Treatment plan:: new consult Regimen:: LOADING DOSE 2500 MG ONCE PER DOSING PROTOCOL. MAINTENANCE DOSE 750 MG Q12H Follow up:: WILL CONTINUE TO MONITOR AND FOLLOW UP DAILY
[2024-03-09] MEDS: iohexol 350 mg/mL 500 mL Btl (per mL) IV (14:40)
[2024-03-09 14:54] LABS: ABG PCO2 36.3 mmHg (35-45); ABG PH Result 7.42 (7.35-7.45); Arterial Blood Gas Hematocrit 37.6 % (42-52); Base Excess ABG -0.3 mmol/L (-2.0-2.0); Blood Gas Allen Test Pos; Blood Gas Sample Type Arterial; HCO3 ABG 23.8 mmol/L (22-26); PO2 ABG 78.5 mmHg (80.0-100.0)
[2024-03-09 14:55] LABS: Blood Gas Operator Identificat MONRO; Blood Gas Sample Site Radial, left; Oxygen Device NC; PO2 FiO2 Ratio Arterial Blood 280
[2024-03-09 15:23] LABS: INR 1.01 (0.8-1.2)
[2024-03-09 15:24] LABS: Partial Thromboplastin Time 27.9 SECONDS (23.9-36.7)
[2024-03-09 15:29] LABS: Troponin(5th) Baseline 63 ng/L (0-15)
[2024-03-09 15:35] LABS: Estmated Average Glucose 126
[2024-03-09 15:39] LABS: Procalcitonin 0.07 ng/mL (0-0.5)
[2024-03-09 15:50] LABS: C Reactive Protein 54.3 mg/L (0.0-4.9); Chol HDL Ratio 3.51 mg/dL (1.0-5.00); Cholesterol 200 mg/dL (0-200); HDL Cholesterol 57 mg/dL (60-100); LDL Cholesterol Calculated 121 mg/dL (50-129); LDL HDL Ratio 2.12 RATIO (0.00-3.22); Triglycerides 112 mg/dL (0-150)
--- NOTE | 2024-03-09 16:26 | ECG_ITS ---
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1955 Requested By: Kieran Wiley Order Number: [id number] Elie MD: EMANUEL CARROLL Measurements Intervals [place] Rate: 99 P: 74 GA: 156 QRS: 56 QRSD: 90 T: 71 QT: 346 QTc: 444 Interpretive Statements SINUS RHYTHM RIGHT ATRIAL ENLARGEMENT [0.3mV P-WAVE] POSSIBLE LEFT ATRIAL ENLARGEMENT [-0.1mV P-WAVE IN V1/V2] POSSIBLE ANTERIOR MYOCARDIAL INFARCTION , OF INDETERMINATE AGE [30 ms Q WAVE IN V3/V4, OR R < 0.2 mV IN V4] Compared to ECG 03/09/2024 14:50:50 Sinus tachycardia no longer present Myocardial infarct finding still present Electronically Signed On 03-10-2024 23:21:04 PEARL GLUE DRIER by EMANUEL CARROLL [id number]
[2024-03-09] MEDS: enoxaparin 40 mg/0.4 mL Syringe SUBCUT (16:55)
[2024-03-09] MEDS: pantoprazole 40 mg SDV IVP (16:56)
[2024-03-09] MEDS: piperacillin-tazobactam 3.375 GM in sodium chloride 0.9% (plus) 50 ML IV ×2 (16:56→22:55)
[2024-03-09 17:35] LABS: Troponin 5 2HR 55.21 ng/L (0-15); Troponin 5 2HR Delta -7.79 ABS# (0-10)
[2024-03-09 18:01] LABS: Bilirubin Urine Negative (Negative); Blood Urine Negative (Negative); Glucose Urine UA Negative (Normal); Ketones Urine 1+ (Negative); Leukocyte Esterase Urine Negative (Negative); Nitrate Urine Negative (Negative); Protein Urine Trace (Negative); Specific Gravity, Urine 1.022 (1.005-1.030); Urine Appearance Cloudy (CLEAR); Urine Color Yellow (Yellow); Urobilinogen Urine 0.2 mg/dL (Negative); pH Urine 7.5 (5-7)
[2024-03-09 18:04] LABS: Add Urine Microscopic? YES; Bacteria Urine None Seen /hpf; RBC Urine 0-2 /hpf (0-2); Squamous Epithelial Cell Urine 0-5 /hpf (0-5); WBC Urine 0-5 /hpf (0-5)
[2024-03-09 18:49] LABS: Covid PCR NEGATIVE (Negative); Influenza A NEGATIVE (Negative); Influenza B NEGATIVE (Negative); Respiratory Syncytial Virus Ce NEGATIVE (Negative)
[2024-03-09] MEDS: methylPREDNISolone sod succ 125 mg/2 mL INJ IVP (19:41)
[2024-03-09] MEDS: trazodone 50 mg Tablet 25 MG PO (21:06)
[2024-03-09 21:49] LABS: Troponin 5 6HR 99.44 ng/L (0-15)
[2024-03-09 21:52] LABS: Troponin 5 6HR Delta 36.44 ng/L (0-12)
[2024-03-10] VITALS (13 sets, daily range): BP systolic 118–166; BP diastolic 63–92; PULSE 81–110; RESP 16–20; TEMP 36.4–36.8; O2SAT 93–98
[2024-03-10] MEDS: ipratropium-albuterol 3 mL Neb INHALATION ×4 (00:29→20:50)
[2024-03-10] MEDS: VANCOMYCIN ADD-Vantage 750 MG in 0.9% NaCl ADD-Vantage 250 ML 250 MG IV ×2 (03:06→15:31)
[2024-03-10 05:11] LABS: Basophils % 0.1 %; Hematocrit 39.2 % (37-53); Lymphocytes # 1.2 10^3/uL (0.8-4.8); Lymphocytes % 8.1 %; Mean Corpuscular HGB Conc 29.6 g/dL (30-55); Mean Corpuscular Hemoglobin 26.6 pg (27-33); Mean Corpuscular Volume 89.9 fl (82-101); Mean Platelet Volume 9.8 fL (7.4-10.4); Monocytes # 0.2 10^3/uL (0.2-0.9); Neutrophils # 13.04 10^3/uL (1.8-7.7); Neutrophils % 90.2 %; Nucleated Red Blood Cells % 0 %; Platelet Count 371 10^3/cmm (157-399); Red Blood Count 4.36 10^6/uL (3.85-5.65); Red Cell Distribution Width 15.2 % (12.1-15.1); White Blood Count 14.48 10^3/uL (3.29-11.43)
[2024-03-10 05:30] LABS: Alanine Aminotransferase 17 U/L (0-41); Albumin Level 3.5 g/dL (3.5-5.2); Alkaline Phosphatase 84 U/L (40-130); Anion Gap 15.8 (5-19); Aspartate Amino Transferase 29 U/L (0-40); Blood Urea Nitrogen 27 mg/dL (8-23); Calcium 9.2 mg/dL (8.5-10.5); Carbon Dioxide 23 mmol/L (22-29); Chloride 103 mmol/L (98-107); Creatinine Clr Calc Pharmacy 58.4841; Globulin 3.5 g/dL (1.3-4.6); Glomerular Filtration Rate 54.6 mL/min (90-130); Glucose 151 mg/dL (65-115); Magnesium 2.2 mg/dL (1.7-2.3); Osmolality Calculated 292 mOsm/kg (285-295); Phosphorus 3.3 mg/dL (2.5-4.5); Potassium 4.8 mmol/L (3.5-5.1); Sodium 137 mmol/L (136-145); Total Bilirubin 0.3 mg/dL (0.15-1.2)
[2024-03-10 05:42] LABS: NT Pro B Type Natriuretic Pept 4861 pg/mL (0-125)
--- NOTE | 2024-03-10 05:52 | PC.RESP ---
At 0029 when neb was given, pt was asked to allow me to do an ekg. he said to do it in the morning.
[2024-03-10] MEDS: piperacillin-tazobactam 3.375 GM in sodium chloride 0.9% (plus) 50 ML IV ×2 (06:15→17:09)
[2024-03-10] MEDS: methylPREDNISolone sod succ 40 mg/mL INJ IVP ×3 (06:15→21:46)
[2024-03-10] MEDS: budesonide 0.5 mg/2 mL Neb INHALATION ×2 (08:20→20:50)
--- NOTE | 2024-03-10 08:29 | USCV_ITS ---
Mccracken Parth Milton Age: 68 Gender: M : 1955 Exam Date: 03/10/2024 09:46 Ordering Phys: Kieran Wiley MD Technologist: CT Exam Location: [facility] [place] Indication: nstemi BP: 140 / 82 HR: 100 Rhythm: Sinus Technical Quality: Technically difficult study, poor acoustic windows MEASUREMENTS (Male / Female) Normal Values 2D ECHO LVOT Diameter 2.0 cm LV Ejection Fraction MOD 4C 67.8 % LV Ejection Fraction MOD 2C 58.3 % LV Ejection Fraction 2C AL 59.5 % LA Diameter 4.2 cm RA Systolic Volume 4C AL 57.1 ml RA Systolic Volume 4C MOD 56.4 ml LA Sys Volume AL 35.0 cm cubed LA Sys Volume Index AL 17.0 cm cubed/m squared Aorta at Sinotubular Diameter 2.8 cm M-MODE LA Ao Ratio MM 0.9 AV Cusp Separation MM 1.6 cm DOPPLER AV Peak Velocity 132.0 cm/s LVOT Peak Velocity 136.0 cm/s AV Area Cont Eq vti 4.8 cm squared AV Area Cont Eq pk 3.3 cm squared MV Peak Velocity 99.0 cm/s MV Area PHT 4.6 cm squared Mitral E to A Ratio 0.7 TV Peak E Velocity 45.0 cm/s PV Peak Velocity 80.5 cm/s FINDINGS Left Ventricle Normal left ventricular size, systolic function and wall thickness, with no regional wall motion abnormalities. Left ventricular ejection fraction is estimated at 60 %. Grade I/IV diastolic dysfunction (abnormal relaxation filling pattern), normal to mildly elevated filling pressures. Right Ventricle The right ventricle is normal in size and function. Right Atrium The right atrium is normal in size. Left Atrium The left atrium is normal in size. Mitral Valve Structurally normal mitral valve without significant stenosis or prolapse. There is no mitral regurgitation. Aortic Valve Structurally normal aortic valve without significant sclerosis or stenosis. There is no aortic regurgitation. Tricuspid Valve Structurally normal tricuspid valve without significant stenosis or regurgitation. Pulmonary artery systolic pressure is normal. Pulmonic Valve Structurally normal pulmonic valve without significant stenosis. There is no pulmonic regurgitation. Pericardium Normal pericardium without effusion. Aorta Normal ascending aorta dimension. IVC The inferior vena cava appears normal. CONCLUSIONS Normal left ventricular size, systolic function and wall thickness, with no regional wall motion abnormalities. Left ventricular ejection fraction is estimated at 60 %. Grade I/IV diastolic dysfunction (abnormal relaxation filling pattern), normal to mildly elevated filling pressures. No significant valve abnormalities. There is no pericardial effusion. Right atrial pressure is around 5 mm of mercury. Refugio Yuen MD (Electronically Signed) Final Date: 10 March 2024 23:07 S
--- NOTE | 2024-03-10 09:21 | PC.CHAP ---
Pastoral Care Encounter/Spiritual Assessment Type of Contact [] Declined welding equipment repairer visit [] Patient/Family/Request visit [] Outpatient visit [] Follow-up visit [] Physician referral [] Code/Alert [x] Routine visit [] Staff referral [] Actively dying [] Patient sleeping [] Family support [] [] Out of room [] Palliative care [] [] Receiving care in room [] Pre-surgical visit [] Trauma [] Long length of stay [] ICU visit [] Other: Relational/Emotional Strength [] Patient feels connected with others/family/visitors/staff [] Distress [] Loneliness/isolation [] Abandonment Spirituality of Patient [x] Person of Fabi [] Attends Taoist of their Fabi [x] Believes in Prayer [] Reads Bible or Sikh materials [] There are Spiritual issues to be addressed Community Support Worker Interventions [x] Prayer [x] Active listening [] Non-anxious presence [] Spiritual/emotional support [] Crisis/trauma care [] Spiritual counseling [] Bereavement support [] Provided bereavement packet [x] Provided Bible/devotional materials [] Provided toy/stuffed animal, coloring book to patient or family member [] Provided Communion [] Anointing/[place] [] Salvation [x] Completed spiritual assessment [] Other: Impact on Illness or Injury [] Angry [] Fearful [] Anxious [] Often cries [] Exhaustion [] Unable to work [] Unable to attend advent [] Unable to walk/stand [] Unable to read [] Unable to drive [] Unable to eat/drink [] Unable to sleep [] Unable to be with family [] Patient intubated [] Other: Summary Time spent with patient 10 min
[2024-03-10] MEDS: morphine 4 mg/mL SDV 1 mL 2 MG IVP (10:02)
[2024-03-10 11:00] LABS: Lactate Dehydrogenase 199 U/L (135-225)
[2024-03-10 11:25] LABS: HIV 1 & 2 Antibody Non-Reactive (Non-Reactiv); HIV 1 & 2 Antigen Non-Reactive (Non-Reactiv); Hepatitis A Antibody IgM Non-Reactive (Nonreactive); Hepatitis B Core IgM Non-Reactive (Nonreactive); Hepatitis B Surface Antigen Non-Reactive (Nonreactive)
[2024-03-10 12:18] LABS: Hepatitis C Virus Antibody Reactive (Nonreactive)
[2024-03-10] MEDS: pantoprazole 40 mg SDV IVP (13:30)
[2024-03-10] MEDS: enoxaparin 40 mg/0.4 mL Syringe SUBCUT (13:31)
--- NOTE | 2024-03-10 17:23 | P.PN_ITS ---
Subjective 2 Subjective: Patient was seen this morning, does report shortness of breath and wheezing does complain of pain in his upper back, does have a cough, does report intermittent chronic scant hemoptysis, recurrent infections, recurrent cough, recurrent steroid use for pneumonias, and cough throughout the last few years, we discussed his CT scan findings, given the persistence of this right upper lobe mass, and it has been there since at least November 2020, there significant suspicion that this might be a latent infection rather than a malignancy, however he will need to have further testing which currently is pending, even possibly a bronchoscopy unfortunately was capabilities are not available here, he is agreeable to bronchoscopy and biopsy if needed, discussed continued IV antibiotics monitoring his respiratory status, he is agreeable, Vitals/I&O/Wt Last Vital Signs Temp 98.2 F 03/10/24 16:00 Pulse 99 03/10/24 16:00 Resp 17 03/10/24 16:00 BP 136/78 03/10/24 16:00 Pulse Ox 97 03/10/24 16:00 O2 Del Method Nasal Cannula 03/10/24 16:00 O2 Flow Rate 3 03/10/24 15:20 03/10/24 03/10/24 03/10/24 06:59 14:59 22:59 Intake Total 300 / 950 770 / 770 250 / 1020 Output Total 400 / 1000 350 / 350 Balance -100 / -50 420 / 420 250 / 670 Weight last 48 hrs Weight 82.554 kg Weight 83.915 kg Physical Exam 2 Const: COMMON NORMALS: no acute distress and patient oriented x3 Resp: COMMON NORMALS: normal respiratory effort, No retractions, No use of accessory muscles and clear to auscultation bilaterally AUSCULTATION: clear to auscultation bilaterally Cardio: COMMON NORMALS: regular rate, regular rhythm, S1 normal heart sound present and S2 normal heart sound present RATE: regular rate RHYTHM: r egular rhythm HEART SOUNDS: S1 normal heart sound present and S2 normal heart sound present GI: COMMON NORMALS: Normal to inspection, nondistended, normoactive bowel sounds present Extremity: COMMON NORMALS: no pedal edema Neuro: COMMON NORMALS: patient oriented x3 Psych: COMMON NORMALS: mental status grossly normal Data 03/10/24 04:33 03/10/24 04:33 Micro: Microbiology 03/09/24 15:01 Blood Culture - Preliminary Blood NEGATIVE TO DATE 03/09/24 14:58 Blood Culture - Preliminary Blood NEGATIVE TO DATE A&P Assessment and plan (1) Acute respiratory failure with hypoxia: (2) Pneumonia: Qualifiers: Laterality: right Lung location: upper lobe of lung Pneumonia type: d ue to unspecified organism Qualified Code(s): J18.9 - Pneumonia, unspecified organism (3) Sepsis: (4) COPD exacerbation: (5) Mass of right lung: (6) Acute respiratory distress: (7) Acute kidney injury: Plan Acute hypoxic respiratory failure ? With evidence of acute respiratory distress ? Likely sec to pneumonia, concerns for postobstructive morning with right upper lung mass, concerning for postobstructive pneumonia ? With COPD exacerbation - with concerns for CHF CT lung FINDINGS: Pulmonary arteries: Similar encasement of the right upper lobe pulmonary artery branch. Aorta: Unremarkable. No aortic aneurysm. No aortic dissection. Lungs: Emphysema severe scattered bilateral pulmonary calcified granulomas. Mild decrease in the size of the right hilar mass measuring 9.5 x 5.5 cm with central calcifications encasing the right upper lobe bronchus with postobstructive right upper lobe collapse. Pleural spaces: Unremarkable. No pneumothorax. No pleural effusion. Heart: Unremarkable. No cardiomegaly. No pericardial effusion. Lymph nodes: Calcified bilateral hilar and mediastinal lymph nodes. ? Plan ? Patient is DNR/DNI, this morning he said he would consider a biopsy ? Monitor on MedSurg closely -Will consider BiPAP based on clinical progress ? DuoNeb ?budesonide -Sputum cultures ? Blood cultures ? Respiratory viral panel ? Vancomycin ? Zosyn ? Solu-Medrol 125 followed by 40 mg IV every 8 hours ? Monitor respiratory status closely -Elevated BNP, 1 dose IV Lasix today 40 mg IV push Sepsis -Sepsis features met given pneumonia, leukocytosis, MICHAEL, respiratory distress, sinus tachycardia MICHAEL, likely sec to sepsis, monitor NSTEMI -Serial EKGs, short troponins, telemetry monitoring -Aspirin, statin, beta-christie History of mass of right lung -Patient initially has declined interventions -He is DNR/DNI FINDINGS: Pulmonary arteries: Similar encasement of the right upper lobe pulmonary artery branch. Aorta: Unremarkable. No aortic aneurysm. No aortic dissection. Lungs: Emphysema severe scattered bilateral pulmonary calcified granulomas. Mild decrease in the size of the right hilar mass measuring 9.5 x 5.5 cm with central calcifications encasing the right upper lobe bronchus with postobstructive right upper lobe collapse. Pleural spaces: Unremarkable. No pneumothorax. No pleural effusion. Heart: Unremarkable. No cardiomegaly. No pericardial effusion. Lymph nodes: Calcified bilateral hilar and mediastinal lymph nodes. -He has a history of mass of lower lobe of left lung back in April 2019, largest measuring 8 mm -Underwent PET/CT 12/13/2020 showed FDG +6 x 3.2 cm right upper lobe nodule suv 20 likely suspicious for malignancy, suspicious intake right hilar nodes consistent with local metastatic disease, more equivocal activity mediastinal nodes -Patient declined bronchoscopy, biopsy at that time roughly 01/10/2021 -Imaging findings as above -Given his complaints of chronic cough, intermittent chronic hemoptysis, -Question is is this slow-growing malignancy versus a latent infection such as mycobacterial infection or fungal infection -Patient is agreeable on biopsy Plan -Placed on airborne precautions -Order 3 AFB smears -Fungal sputum smears -QuantiFERON gold -Mycobacterium PCR -LD H -Beta-1 3D glucan -Aspergillus -Blastomycosis -Coccidioidomycosis -Monitor respiratory status closely Intermittent hemoptysis complaints monitor closely Attestations 2 Medical Necessity Statement*: Patient requires hospitalization for acute hypoxic respiratory failure, sepsis, pneumonia, CHF Diagnoses Acute respiratory failure with hypoxia J96.01 Pneumonia J18.9 Laterality: right Lung location: upper lobe of lung Pneumonia type: due to unspecified organism Sepsis A41.9 COPD exacerbation J44.1 Mass of right lung R91.8 Acute respiratory distress R06.03 Acute kidney injury N17.9
--- NOTE | 2024-03-10 17:42 | CTR_ITS ---
PROCEDURE INFORMATION: Exam: CT Thoracic Spine Without Contrast Exam date and time: 03/10/2024 9:12 PM Age: 68 years old Clinical indication: Pain in thoracic spine; With radiculopathy; Bilateral TECHNIQUE: Imaging protocol: Computed tomography of the thoracic spine without contrast. Radiation optimization: All CT scans at this facility use at least one of these dose optimization techniques: automated exposure control; mA and/or kV adjustment per patient size (includes targeted exams where dose is matched to clinical indication); or iterative reconstruction. COMPARISON: CT angio chest PE protcl [id number] 03/09/2024 2:38 PM RADIATION DOSE METRICS: Total DLP (mGy-cm): 605.25 FINDINGS: Bones/joints: No acute fracture. Normal alignment. No significant disc bulge or herniation. No severe spinal canal stenosis. No significant neural foraminal narrowing. Fvec-fv-zmyqoler thoracic degenerative change with loss of disc space and osteophyte formation and facet arthropathy. Exaggerated kyphosis. No aggressive bone lesion. Mild osteopenia. If pain persists, an MRI should be considered. Soft tissues: See the prior day chest CT for those details. CT/CT thoracic spin wo con* [id number] IMPRESSION: 1. No acute fracture or other acute process identified. 2. Cvwj-iy-cnccatgl thoracic degenerative change. A few other chronic/incidental findings above. 3. See the prior day chest CT for those details including known RUL large mass.
[2024-03-10] MEDS: potassium chloride ER 20 mEq Tablet PO (18:01)
[2024-03-10] MEDS: FUROsemide 10 mg/mL SDV 4mL 40 MG IVP (18:01)
[2024-03-10] MEDS: atorvastatin 40 mg Tablet PO (21:46)
[2024-03-11] VITALS (15 sets, daily range): BP systolic 119–177; BP diastolic 54–90; PULSE 85–118; RESP 16–22; TEMP 36.5–36.7; O2SAT 95–99
[2024-03-11] MEDS: piperacillin-tazobactam 3.375 GM in sodium chloride 0.9% (plus) 50 ML IV ×3 (01:31→17:46)
[2024-03-11] MEDS: morphine 4 mg/mL SDV 1 mL 2 MG IVP ×2 (01:31→21:37)
[2024-03-11] MEDS: VANCOMYCIN ADD-Vantage 750 MG in 0.9% NaCl ADD-Vantage 250 ML 250 MG IV (05:10)
[2024-03-11] MEDS: methylPREDNISolone sod succ 40 mg/mL INJ IVP ×3 (05:10→20:28)
[2024-03-11 05:24] LABS: Basophils % 0.1 %; Hematocrit 36.5 % (37-53); Lymphocytes # 1.3 10^3/uL (0.8-4.8); Lymphocytes % 5.7 %; Mean Corpuscular HGB Conc 31.2 g/dL (30-55); Mean Corpuscular Hemoglobin 27.1 pg (27-33); Mean Corpuscular Volume 86.7 fl (82-101); Mean Platelet Volume 9.3 fL (7.4-10.4); Monocytes # 0.6 10^3/uL (0.2-0.9); Monocytes % 2.8 %; Neutrophils # 20.09 10^3/uL (1.8-7.7); Neutrophils % 90.8 %; Nucleated Red Blood Cells % 0 %; Platelet Count 411 10^3/cmm (157-399); Red Blood Count 4.21 10^6/uL (3.85-5.65); Red Cell Distribution Width 15.6 % (12.1-15.1); White Blood Count 22.13 10^3/uL (3.29-11.43)
[2024-03-11 05:58] LABS: Alanine Aminotransferase 33 U/L (0-41); Albumin Level 3.7 g/dL (3.5-5.2); Alkaline Phosphatase 82 U/L (40-130); Anion Gap 18.1 (5-19); Aspartate Amino Transferase 54 U/L (0-40); Blood Urea Nitrogen 39 mg/dL (8-23); Calcium 9.5 mg/dL (8.5-10.5); Carbon Dioxide 24 mmol/L (22-29); Chloride 103 mmol/L (98-107); Creatinine Clr Calc Pharmacy 41.9445; Globulin 3.2 g/dL (1.3-4.6); Glomerular Filtration Rate 37.5 mL/min (90-130); Glucose 150 mg/dL (65-115); Magnesium 2.3 mg/dL (1.7-2.3); Osmolality Calculated 304 mOsm/kg (285-295); Phosphorus 3.6 mg/dL (2.5-4.5); Potassium 4.1 mmol/L (3.5-5.1); Sodium 141 mmol/L (136-145); Total Bilirubin 0.2 mg/dL (0.15-1.2); Total Protein 6.9 g/dL (6.6-8.7)
[2024-03-11 06:01] LABS: NT Pro B Type Natriuretic Pept 2166 pg/mL (0-125); Procalcitonin 0.07 ng/mL (0-0.5)
[2024-03-11 06:03] LABS: C Reactive Protein 16.1 mg/L (0.0-4.9)
[2024-03-11] MEDS: budesonide 0.5 mg/2 mL Neb INHALATION ×2 (07:27→19:44)
[2024-03-11] MEDS: ipratropium-albuterol 3 mL Neb INHALATION ×4 (07:27→19:44)
[2024-03-11] MEDS: aspirin 81 mg EC Tablet PO (09:57)
[2024-03-11] MEDS: polyethylene glycol 3350 Pkt 17 gm PO (12:07)
[2024-03-11 13:11] LABS: Anion Gap 20.4 (5-19); Blood Urea Nitrogen 42 mg/dL (8-23); Calcium 9.6 mg/dL (8.5-10.5); Carbon Dioxide 23 mmol/L (22-29); Chloride 102 mmol/L (98-107); Creatinine Clr Calc Pharmacy 44.4118; Glucose 122 mg/dL (65-115); Osmolality Calculated 304 mOsm/kg (285-295); Potassium 4.4 mmol/L (3.5-5.1); Sodium 141 mmol/L (136-145)
[2024-03-11] MEDS: pantoprazole 40 mg SDV IVP (14:51)
[2024-03-11] MEDS: enoxaparin 40 mg/0.4 mL Syringe SUBCUT (14:52)
[2024-03-11 15:46] LABS: Vancomycin Trough 25.7 ug/mL (10-15)
--- NOTE | 2024-03-11 15:52 | P.PN_ITS ---
Subjective 2 Subjective: Patient was seen this morning, he is sitting up beside the bed, reports that he feels constipated, denies any fevers, no chills, continues to have scant hemoptysis and productive cough Vitals/I&O/Wt Last Vital Signs Temp 98.0 F 03/11/24 12:00 Pulse 117 H 03/11/24 15:28 Resp 20 H 03/11/24 15:28 BP 143/63 03/11/24 12:00 Pulse Ox 95 03/11/24 15:28 O2 Del Method Nasal Cannula 03/11/24 15:28 O2 Flow Rate 2 03/11/24 15:28 03/11/24 03/11/24 03/11/24 06:59 14:59 22:59 Intake Total 416.458 / 2186.458 1010 / 1010 Output Total 725 / 2575 200 / 200 Balance -308.542 / -388.542 810 / 810 Weight last 48 hrs Weight 81.193 kg Weight 82.554 kg Physical Exam 2 Const: COMMON NORMALS: no acute distress and patient oriented x3 Resp: COMMON NORMALS: normal respiratory effort, No retractions and No use of accessory muscles AUSCULTATION: crackles and wheezes Cardio: COMMON NORMALS: regular rate, regular rhythm, S1 normal heart sound present and S2 normal heart sound present RATE: regular rate RHYTHM: r egular rhythm HEART SOUNDS: S1 normal heart sound present and S2 normal heart sound present GI: COMMON NORMALS: Normal to inspection, nondistended, normoactive bowel sounds present and non-tender Extremity: COMMON NORMALS: no pedal edema Neuro: COMMON NORMALS: patient oriented x3 Psych: COMMON NORMALS: mental status grossly normal Data 03/11/24 05:07 03/11/24 12:02 Micro: Microbiology 03/11/24 10:03 Gram Stain - Final Sputum - Expectorated Sputum 03/09/24 15:01 Blood Culture - Preliminary Blood NEGATIVE TO DATE 03/09/24 14:58 Blood Culture - Preliminary Blood NEGATIVE TO DATE A&P Assessment and plan (1) Acute respiratory failure with hypoxia: (2) Pneumonia: Qualifiers: Laterality: right Lung location: upper lobe of lung Pneumonia type: d ue to unspecified organism Qualified Code(s): J18.9 - Pneumonia, unspecified organism (3) Sepsis: (4) COPD exacerbation: (5) Mass of right lung: (6) Acute respiratory distress: (7) Acute kidney injury: Plan Acute hypoxic respiratory failure ? With evidence of acute respiratory distress ? Likely sec to pneumonia, concerns for postobstructive morning with right upper lung mass, concerning for postobstructive pneumonia ? With COPD exacerbation - with concerns for CHF CT lung FINDINGS: Pulmonary arteries: Similar encasement of the right upper lobe pulmonary artery branch. Aorta: Unremarkable. No aortic aneurysm. No aortic dissection. Lungs: Emphysema severe scattered bilateral pulmonary calcified granulomas. Mild decrease in the size of the right hilar mass measuring 9.5 x 5.5 cm with central calcifications encasing the right upper lobe bronchus with postobstructive right upper lobe collapse. Pleural spaces: Unremarkable. No pneumothorax. No pleural effusion. Heart: Unremarkable. No cardiomegaly. No pericardial effusion. Lymph nodes: Calcified bilateral hilar and mediastinal lymph nodes. ? Plan ? Patient is DNR/DNI, this morning he said he would consider a biopsy ? Monitor on MedSurg closely -Will consider BiPAP based on clinical progress ? DuoNeb ?budesonide -Sputum cultures ? Blood cultures ? Respiratory viral panel ? Vancomycin ? Zosyn ? Solu-Medrol 125 followed by 40 mg IV every 8 hours ? Monitor respiratory status closely -Hold Lasix therapy for now Sepsis -Sepsis features met given pneumonia, leukocytosis, MICHAEL, respiratory distress, sinus tachycardia MICHAEL, likely sec to sepsis, monitor NSTEMI -Serial EKGs, short troponins, telemetry monitoring -Aspirin, statin, beta-christie History of mass of right lung -Patient initially has declined interventions -He is DNR/DNI FINDINGS: Pulmonary arteries: Similar encasement of the right upper lobe pulmonary artery branch. Aorta: Unremarkable. No aortic aneurysm. No aortic dissection. Lungs: Emphysema severe scattered bilateral pulmonary calcified granulomas. Mild decrease in the size of the right hilar mass measuring 9.5 x 5.5 cm with central calcifications encasing the right upper lobe bronchus with postobstructive right upper lobe collapse. Pleural spaces: Unremarkable. No pneumothorax. No pleural effusion. Heart: Unremarkable. No cardiomegaly. No pericardial effusion. Lymph nodes: Calcified bilateral hilar and mediastinal lymph nodes. -He has a history of mass of lower lobe of left lung back in April 2019, largest measuring 8 mm -Underwent PET/CT 12/13/2020 showed FDG +6 x 3.2 cm right upper lobe nodule suv 20 likely suspicious for malignancy, suspicious intake right hilar nodes consistent with local metastatic disease, more equivocal activity mediastinal nodes -Patient declined bronchoscopy, biopsy at that time roughly 01/10/2021 -Imaging findings as above -Given his complaints of chronic cough, intermittent chronic hemoptysis, -Question is is this slow-growing malignancy versus a latent infection such as mycobacterial infection or fungal infection -Patient is agreeable on biopsy if needed Plan -Placed on airborne precautions -Order 3 AFB smears -Fungal sputum smears -QuantiFERON gold -Mycobacterium PCR -LD H -Beta-1 3D glucan -Aspergillus -Blastomycosis -Coccidioidomycosis -Monitor respiratory status closely Intermittent hemoptysis complaints monitor closely Attestations 2 Medical Necessity Statement*: Patient requires hospitalization for pneumonia, lung mass, Diagnoses Acute respiratory failure with hypoxia J96.01 Pneumonia J18.9 Laterality: right Lung location: upper lobe of lung Pneumonia type: due to unspecified organism Sepsis A41.9 COPD exacerbation J44.1 Mass of right lung R91.8 Acute respiratory distress R06.03 Acute kidney injury N17.9
[2024-03-11] MEDS: atorvastatin 40 mg Tablet PO (20:28)
[2024-03-11] MEDS: trazodone 50 mg Tablet PO (21:37)
--- NOTE | 2024-03-11 22:37 | ECG_ITS ---
[facility]: 2024-03-11 Pat Name: Parth Mccracken Jr Department: Room: 271 Gender: Male Access Services Representative: : 1955 Requested By: Hailey Benavidez Order Number: [id number] Elie MD: Selvin Arroyo M.D. Measurements Intervals [place] Rate: 138 P: 0 VT: 0 QRS: 54 QRSD: 87 T: 88 QT: 295 QTc: 447 Interpretive Statements ATRIAL FIBRILLATION WITH RAPID VENTRICULAR RESPONSE NONSPECIFIC ST & T-WAVE ABNORMALITY Compared to ECG 03/09/2024 17:55:44 T-wave abnormality now present Sinus rhythm no longer present Atrial abnormality no longer present Myocardial infarct finding no longer present Electronically Signed On 03-15-2024 23:16:00 MANAGER IMAGE by Selvin Arroyo M.D. [email or web address]
[2024-03-11] MEDS: metoprolol tartrate 1 mg/1 mL SDV 5 mL 5 MG IVP (22:59)
[2024-03-12] VITALS (16 sets, daily range): BP systolic 100–211; BP diastolic 50–105; PULSE 81–127; RESP 16–29; TEMP 36.7–37.3; O2SAT 93–99
[2024-03-12] MEDS: dilTIAZem 5 mg/mL SDV 5 mL 15 MG IVP (00:08)
[2024-03-12] MEDS: piperacillin-tazobactam 3.375 GM in sodium chloride 0.9% (plus) 50 ML IV ×3 (00:08→16:57)
[2024-03-12] MEDS: dilTIAZem 100 MG in sodium chloride 0.9% (add-van) 100 ML IV (02:56)
[2024-03-12 03:08] LABS: Basophils % 0.1 %; Eosinophils % 0.1 %; Hematocrit 34.5 % (37-53); Lymphocytes # 1.1 10^3/uL (0.8-4.8); Mean Corpuscular HGB Conc 31.3 g/dL (30-55); Mean Corpuscular Hemoglobin 27.6 pg (27-33); Mean Platelet Volume 10.1 fL (7.4-10.4); Monocytes # 0.5 10^3/uL (0.2-0.9); Monocytes % 2.9 %; Neutrophils % 90.3 %; Nucleated Red Blood Cells % 0 %; Platelet Count 373 10^3/cmm (157-399); Red Blood Count 3.92 10^6/uL (3.85-5.65); Red Cell Distribution Width 15.7 % (12.1-15.1); White Blood Count 17.81 10^3/uL (3.29-11.43)
--- NOTE | 2024-03-12 03:42 | PC.NURSE ---
Approximately 22:30, patient noted to be in A-fib with RVR on telemetry. EKG obtained. Dr. Noble notified. IVP Metoprolol x1 ordered. Heart rate improved some, but patient was still in A-fib with RVR. Dr. Noble notified. IVP Cardizem x1 ordered. Heart rate improved some, but patient was still in A-fib with RVR. Dr. Noble notified and ordered Cardizem drip and transfer to [facility]. Report given to nurse Cervantes and patient transferred to [facility].
[2024-03-12 03:45] LABS: Alanine Aminotransferase 40 U/L (0-41); Albumin Level 3.6 g/dL (3.5-5.2); Alkaline Phosphatase 74 U/L (40-130); Anion Gap 15.4 (5-19); Aspartate Amino Transferase 45 U/L (0-40); Blood Urea Nitrogen 41 mg/dL (8-23); Calcium 9.4 mg/dL (8.5-10.5); Carbon Dioxide 27 mmol/L (22-29); Chloride 104 mmol/L (98-107); Creatinine Clr Calc Pharmacy 47.1875; Globulin 2.7 g/dL (1.3-4.6); Glomerular Filtration Rate 42.9 mL/min (90-130); Glucose 151 mg/dL (65-115); Magnesium 2.4 mg/dL (1.7-2.3); Osmolality Calculated 307 mOsm/kg (285-295); Phosphorus 3.3 mg/dL (2.5-4.5); Potassium 4.4 mmol/L (3.5-5.1); Sodium 142 mmol/L (136-145); Total Bilirubin 0.2 mg/dL (0.15-1.2); Total Protein 6.3 g/dL (6.6-8.7)
[2024-03-12 03:55] LABS: Procalcitonin 0.06 ng/mL (0-0.5)
[2024-03-12 03:56] LABS: NT Pro B Type Natriuretic Pept 1314 pg/mL (0-125)
[2024-03-12 04:08] LABS: C Reactive Protein 7.2 mg/L (0.0-4.9)
[2024-03-12] MEDS: methylPREDNISolone sod succ 40 mg/mL INJ IVP (05:22)
[2024-03-12] MEDS: vancomycin 1,250 MG/250 ML PIGGYBACK 166.67 MG IV (05:24)
[2024-03-12] MEDS: ipratropium-albuterol 3 mL Neb INHALATION ×4 (07:39→21:23)
[2024-03-12] MEDS: budesonide 0.5 mg/2 mL Neb INHALATION ×2 (07:39→21:23)
[2024-03-12] MEDS: aspirin 81 mg EC Tablet PO (09:32)
[2024-03-12] MEDS: dilTIAZem 30 mg Tablet PO ×3 (09:50→22:01)
[2024-03-12] MEDS: bisacodyl 10 mg Supp PR (11:18)
--- NOTE | 2024-03-12 11:43 | PC.SOCIAL ---
IMM Update pg 2 of IMM updated and reviewed w/ patient. Copy provided and copy dated, initialed and placed in chart.
--- NOTE | 2024-03-12 14:27 | P.PN_ITS ---
Subjective 2 Subjective: Patient was seen this morning, he reports that his abdomen feels distended as he has not had a bowel movement, no nausea, no vomiting he is passing gas Vitals/I&O/Wt Last Vital Signs Temp 98.5 F 03/12/24 12:00 Pulse 92 03/12/24 12:00 Resp 16 03/12/24 12:00 BP 154/98 03/12/24 12:00 Pulse Ox 96 03/12/24 12:00 O2 Del Method Nasal Cannula 03/12/24 12:00 O2 Flow Rate 2 03/12/24 12:00 03/11/24 03/12/24 03/12/24 22:59 06:59 14:59 Intake Total 410 / 1420 50 / 1470 610 / 610 Output Total 1200 / 1400 800 / 2200 Balance -790 / 20 -750 / -730 610 / 610 Weight last 48 hrs Weight 81.193 kg Weight 81.193 kg Physical Exam 2 Const: COMMON NORMALS: no acute distress and patient oriented x3 Resp: COMMON NORMALS: normal respiratory effort, No retractions, No use of accessory muscles and clear to auscultation bilaterally AUSCULTATION: clear to auscultation bilaterally Cardio: COMMON NORMALS: regular rate, regular rhythm, S1 normal heart sound present and S2 normal heart sound present RATE: regular rate RHYTHM: r egular rhythm HEART SOUNDS: S1 normal heart sound present and S2 normal heart sound present GI: COMMON NORMALS: Normal to inspection, nondistended, normoactive bowel sounds present and non-tender Extremity: COMMON NORMALS: no pedal edema Neuro: COMMON NORMALS: patient oriented x3 Psych: COMMON NORMALS: mental status grossly normal Data 03/12/24 02:34 03/12/24 02:34 Micro: Microbiology 03/11/24 10:03 Gram Stain - Final Sputum - Expectorated Sputum A&P Assessment and plan (1) Acute respiratory failure with hypoxia: (2) Pneumonia: Qualifiers: Laterality: right Lung location: upper lobe of lung Pneumonia type: d ue to unspecified organism Qualified Code(s): J18.9 - Pneumonia, unspecified organism (3) Sepsis: (4) COPD exacerbation: (5) Mass of right lung: (6) Acute respiratory distress: (7) Acute kidney injury: Plan Acute hypoxic respiratory failure ? With evidence of acute respiratory distress ? Likely sec to pneumonia, concerns for postobstructive pneumonia with right upper lung mass ? With COPD exacerbation - with concerns for CHF CT lung FINDINGS: Pulmonary arteries: Similar encasement of the right upper lobe pulmonary artery branch. Aorta: Unremarkable. No aortic aneurysm. No aortic dissection. Lungs: Emphysema severe scattered bilateral pulmonary calcified granulomas. Mild decrease in the size of the right hilar mass measuring 9.5 x 5.5 cm with central calcifications encasing the right upper lobe bronchus with postobstructive right upper lobe collapse. Pleural spaces: Unremarkable. No pneumothorax. No pleural effusion. Heart: Unremarkable. No cardiomegaly. No pericardial effusion. Lymph nodes: Calcified bilateral hilar and mediastinal lymph nodes. ? Plan ? Patient is DNR/DNI, ? Monitor on MedSurg closely -Will consider BiPAP based on clinical progress ? DuoNeb ?budesonide -Sputum cultures ? Blood cultures ? Respiratory viral panel ? Vancomycin ? Zosyn ? Prednisone 40 mg daily ? Monitor respiratory status closely -Hold Lasix therapy for now Sepsis -Sepsis features met given pneumonia, leukocytosis, MICHAEL, respiratory distress, sinus tachycardia MICHAEL, likely sec to sepsis, monitor NSTEMI -Serial EKGs, short troponins, telemetry monitoring -Aspirin, statin, beta-christie History of mass of right lung -Patient initially has declined interventions -He is DNR/DNI FINDINGS: Pulmonary arteries: Similar encasement of the right upper lobe pulmonary artery branch. Aorta: Unremarkable. No aortic aneurysm. No aortic dissection. Lungs: Emphysema severe scattered bilateral pulmonary calcified granulomas. Mild decrease in the size of the right hilar mass measuring 9.5 x 5.5 cm with central calcifications encasing the right upper lobe bronchus with postobstructive right upper lobe collapse. Pleural spaces: Unremarkable. No pneumothorax. No pleural effusion. Heart: Unremarkable. No cardiomegaly. No pericardial effusion. Lymph nodes: Calcified bilateral hilar and mediastinal lymph nodes. -He has a history of mass of lower lobe of left lung back in April 2019, largest measuring 8 mm -Underwent PET/CT 12/13/2020 showed FDG +6 x 3.2 cm right upper lobe nodule suv 20 likely suspicious for malignancy, suspicious intake right hilar nodes consistent with local metastatic disease, more equivocal activity mediastinal nodes -Patient declined bronchoscopy, biopsy at that time roughly 01/10/2021 -Imaging findings as above -Given his complaints of chronic cough, intermittent chronic hemoptysis, -Question is is this slow-growing malignancy versus a latent infection such as mycobacterial infection or fungal infection -Patient is agreeable on biopsy if needed Plan -Placed on airborne precautions -Order 3 AFB smears -Fungal sputum smears -QuantiFERON gold -Mycobacterium PCR -LD H -Beta-1 3D glucan -Aspergillus -Blastomycosis -Coccidioidomycosis -Monitor respiratory status closely Intermittent hemoptysis complaints monitor closely Attestations 2 Medical Necessity Statement*: Patient requires hospitalization for pneumonia, right lung mass requiring IV antibiotics Diagnoses Acute respiratory failure with hypoxia J96.01 Pneumonia J18.9 Laterality: right Lung location: upper lobe of lung Pneumonia type: due to unspecified organism Sepsis A41.9 COPD exacerbation J44.1 Mass of right lung R91.8 Acute respiratory distress R06.03 Acute kidney injury N17.9
[2024-03-12] MEDS: bisacodyl 5 mg Tablet 10 MG PO (16:56)
[2024-03-12] MEDS: pantoprazole 40 mg SDV IVP (16:56)
[2024-03-12] MEDS: enoxaparin 40 mg/0.4 mL Syringe SUBCUT (16:56)
[2024-03-12] MEDS: Fleet Enema 133 mL Enema PR (16:57)
[2024-03-12] MEDS: atorvastatin 40 mg Tablet PO (22:01)
[2024-03-13] VITALS (11 sets, daily range): BP systolic 146–180; BP diastolic 85–99; PULSE 70–104; RESP 16–29; TEMP 36.5–37.2; O2SAT 94–97
[2024-03-13] MEDS: piperacillin-tazobactam 3.375 GM in sodium chloride 0.9% (plus) 50 ML IV ×3 (00:44→17:11)
[2024-03-13 04:15] LABS: Basophils % 0.1 %; Eosinophils % 0.2 %; Hematocrit 37.3 % (37-53); Lymphocytes # 2.1 10^3/uL (0.8-4.8); Lymphocytes % 16.1 %; Mean Corpuscular HGB Conc 31.4 g/dL (30-55); Mean Corpuscular Hemoglobin 27.1 pg (27-33); Mean Corpuscular Volume 86.3 fl (82-101); Mean Platelet Volume 9.8 fL (7.4-10.4); Monocytes # 0.9 10^3/uL (0.2-0.9); Monocytes % 6.4 %; Neutrophils % 76.7 %; Nucleated Red Blood Cells % 0 %; Platelet Count 336 10^3/cmm (157-399); Red Blood Count 4.32 10^6/uL (3.85-5.65); Red Cell Distribution Width 15.5 % (12.1-15.1); White Blood Count 13.29 10^3/uL (3.29-11.43)
[2024-03-13] MEDS: dilTIAZem 30 mg Tablet PO ×2 (04:18→08:27)
[2024-03-13 04:38] LABS: Alanine Aminotransferase 42 U/L (0-41); Albumin Level 3.7 g/dL (3.5-5.2); Alkaline Phosphatase 79 U/L (40-130); Anion Gap 13.9 (5-19); Aspartate Amino Transferase 39 U/L (0-40); Blood Urea Nitrogen 33 mg/dL (8-23); Calcium 9.2 mg/dL (8.5-10.5); Carbon Dioxide 29 mmol/L (22-29); Chloride 101 mmol/L (98-107); Creatinine Clr Calc Pharmacy 53.9286; Globulin 2.9 g/dL (1.3-4.6); Glomerular Filtration Rate 50.1 mL/min (90-130); Glucose 120 mg/dL (65-115); Magnesium 2.2 mg/dL (1.7-2.3); Osmolality Calculated 298 mOsm/kg (285-295); Phosphorus 2.6 mg/dL (2.5-4.5); Potassium 3.9 mmol/L (3.5-5.1); Sodium 140 mmol/L (136-145); Total Bilirubin 0.5 mg/dL (0.15-1.2); Total Protein 6.6 g/dL (6.6-8.7)
[2024-03-13 04:51] LABS: NT Pro B Type Natriuretic Pept 1661 pg/mL (0-125); Procalcitonin 0.08 ng/mL (0-0.5)
[2024-03-13] MEDS: vancomycin 1,250 MG/250 ML PIGGYBACK 166.67 MG IV (05:06)
--- NOTE | 2024-03-13 08:24 | XR_ITS ---
WS: [id number] KUB, AP portable supine view, 03/13/2024 Clinical Data: constipation Comparison: IVP, 09/20/2007. Findings: No abnormal intraabdominal masses or calcifications are seen. There is no dilatated small bowel or ev idence of obstruction. There is a large amount of fecal material throughout the colon. 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 XR/XR KUB portable [id number] Impression: Large amount of fecal material throughout the colon.
[2024-03-13] MEDS: aspirin 81 mg EC Tablet PO (08:27)
[2024-03-13] MEDS: predniSONE 20 mg Tablet 40 MG PO (08:28)
[2024-03-13] MEDS: morphine 4 mg/mL SDV 1 mL 2 MG IVP (08:46)
[2024-03-13] MEDS: bisacodyl 5 mg Tablet 10 MG PO (08:47)
--- NOTE | 2024-03-13 08:59 | PC.NURSE ---
Patient is still c/o constipation. and he is refusing the breathing treatments. He says the tx are making him feel worse. Informed Dr Wiley. placed orders.
[2024-03-13] MEDS: magnesium citrate Btl 296 mL 150 ML PO (09:35)
[2024-03-13] MEDS: CLONazepam 0.5 mg Tablet PO ×2 (09:35→20:15)
--- NOTE | 2024-03-13 14:45 | P.PN_ITS ---
Subjective 2 Subjective: Patient was seen this morning, he tells me that he has not had a bowel movement this morning, he is passing gas, no nausea, no vomiting, no fevers, no chills he feels constipated, does report shortness of breath with exertion did report episode of palpitations elevated heart rate during the night Vitals/I&O/Wt Last Vital Signs Temp 98.0 F 03/13/24 11:13 Pulse 85 03/13/24 14:00 Resp 29 H 03/13/24 11:13 BP 159/99 03/13/24 11:13 Pulse Ox 97 03/13/24 11:13 O2 Del Method Nasal Cannula 03/13/24 11:13 O2 Flow Rate 4 03/13/24 11:04 03/12/24 03/13/24 03/13/24 22:59 06:59 14:59 Intake Total 1270 / 1912.833 50 / 1962.833 780 / 780 Output Total 900 / 900 750 / 1650 Balance 370 / 1012.833 -700 / 312.833 780 / 780 Weight last 48 hrs Weight 81.193 kg Weight 81.193 kg Physical Exam 2 Const: COMMON NORMALS: no acute distress and patient oriented x3 Resp: COMMON NORMALS: normal respiratory effort, No retractions and No use of accessory muscles AUSCULTATION: crackles and wheezes Cardio: COMMON NORMALS: regular rate, regular rhythm, S1 normal heart sound present and S2 normal heart sound present RATE: regular rate RHYTHM: r egular rhythm HEART SOUNDS: S1 normal heart sound present and S2 normal heart sound present GI: COMMON NORMALS: Normal to inspection, nondistended, normoactive bowel sounds present and non-tender Extremity: COMMON NORMALS: no pedal edema Neuro: COMMON NORMALS: patient oriented x3 Psych: COMMON NORMALS: mental status grossly normal Data 03/13/24 03:53 03/13/24 03:53 Micro: Microbiology 03/12/24 14:08 Mycobacterial Smear - Preliminary Sputum - Expectorated Sputum 03/11/24 10:03 Gram Stain - Final Sputum - Expectorated Sputum Sputum Culture - Final 03/11/24 09:30 Fungal Smear - Preliminary Sputum - Expectorated Sputum A&P Assessment and plan (1) Acute respiratory failure with hypoxia: (2) Pneumonia: Qualifiers: Laterality: right Lung location: upper lobe of lung Pneumonia type: d ue to unspecified organism Qualified Code(s): J18.9 - Pneumonia, unspecified organism (3) Sepsis: (4) COPD exacerbation: (5) Mass of right lung: (6) Acute respiratory distress: (7) Acute kidney injury: (8) Atrial fibrillation with RVR: Plan Acute hypoxic respiratory failure ? With evidence of acute respiratory distress ? Likely sec to pneumonia, concerns for postobstructive pneumonia with right upper lung mass ? With COPD exacerbation - with concerns for CHF CT lung FINDINGS: Pulmonary arteries: Similar encasement of the right upper lobe pulmonary artery branch. Aorta: Unremarkable. No aortic aneurysm. No aortic dissection. Lungs: Emphysema severe scattered bilateral pulmonary calcified granulomas. Mild decrease in the size of the right hilar mass measuring 9.5 x 5.5 cm with central calcifications encasing the right upper lobe bronchus with postobstructive right upper lobe collapse. Pleural spaces: Unremarkable. No pneumothorax. No pleural effusion. Heart: Unremarkable. No cardiomegaly. No pericardial effusion. Lymph nodes: Calcified bilateral hilar and mediastinal lymph nodes. ? Plan ? Patient is DNR/DNI, ? Monitor on MedSurg closely -Will consider BiPAP based on clinical progress ? DuoNeb ?budesonide -Sputum cultures ? Blood cultures ? Respiratory viral panel ? Vancomycin ? Zosyn ? Prednisone 40 mg daily ? Monitor respiratory status closely -Hold Lasix therapy for now A-fib with RVR, -Converted to normal sinus rhythm -Increase Cardizem to 60 every 6h -Will start Eliquis tonight Sepsis -Sepsis features met given pneumonia, leukocytosis, MICHAEL, respiratory distress, sinus tachycardia MICHAEL, likely sec to sepsis, monitor NSTEMI -Serial EKGs, short troponins, telemetry monitoring -Aspirin, statin, beta-christie History of mass of right lung -Patient initially has declined interventions -He is DNR/DNI FINDINGS: Pulmonary arteries: Similar encasement of the right upper lobe pulmonary artery branch. Aorta: Unremarkable. No aortic aneurysm. No aortic dissection. Lungs: Emphysema severe scattered bilateral pulmonary calcified granulomas. Mild decrease in the size of the right hilar mass measuring 9.5 x 5.5 cm with central calcifications encasing the right upper lobe bronchus with postobstructive right upper lobe collapse. Pleural spaces: Unremarkable. No pneumothorax. No pleural effusion. Heart: Unremarkable. No cardiomegaly. No pericardial effusion. Lymph nodes: Calcified bilateral hilar and mediastinal lymph nodes. -He has a history of mass of lower lobe of left lung back in April 2019, largest measuring 8 mm -Underwent PET/CT 12/13/2020 showed FDG +6 x 3.2 cm right upper lobe nodule suv 20 likely suspicious for malignancy, suspicious intake right hilar nodes consistent with local metastatic disease, more equivocal activity mediastinal nodes -Patient declined bronchoscopy, biopsy at that time roughly 01/10/2021 -Imaging findings as above -Given his complaints of chronic cough, intermittent chronic hemoptysis, -Question is is this slow-growing malignancy versus a latent infection such as mycobacterial infection or fungal infection -Patient is agreeable on biopsy if needed Plan -Placed on airborne precautions -Order 3 AFB smears -Fungal sputum smears -QuantiFERON gold -Mycobacterium PCR -LD H -Beta-1 3D glucan -Aspergillus -Blastomycosis -Coccidioidomycosis -Monitor respiratory status closely Intermittent hemoptysis complaints monitor closely, resolved Patient requires hospitalization for acute hypoxic respiratory failure secondary pneumonia, no bowel movement as of yet constipation, start bowel regimen, start Eliquis tonight, monitor fungal studies continue IV antibiotics Attestations 2 Medical Necessity Statement*: Patient requires hospitalization for acute hypoxic respiratory failure secondary pneumonia, concerns for mass of right lung, concern for infectious etiology Diagnoses Acute respiratory failure with hypoxia J96.01 Pneumonia J18.9 Laterality: right Lung location: upper lobe of lung Pneumonia type: due to unspecified organism Sepsis A41.9 COPD exacerbation J44.1 Mass of right lung R91.8 Acute respiratory distress R06.03 Acute kidney injury N17.9 Atrial fibrillation with RVR I48.91
[2024-03-13] MEDS: lactulose oral liq 20 gm/30 mL UDC 10 GM PO (15:09)
[2024-03-13] MEDS: pantoprazole 40 mg SDV IVP (15:09)
[2024-03-13] MEDS: dilTIAZem 30 mg Tablet 60 MG PO ×2 (15:10→20:15)
[2024-03-13 18:32] LABS: Aspergillus AG,EIA,Serum NOT DETECTED; Aspergillus Galactomannan Inde <0.50
[2024-03-13] MEDS: apixaban 5 mg Tablet PO (20:15)
[2024-03-13] MEDS: trazodone 50 mg Tablet PO (20:15)
[2024-03-13] MEDS: atorvastatin 40 mg Tablet PO (20:15)
[2024-03-14] VITALS (9 sets, daily range): BP systolic 143–184; BP diastolic 82–99; PULSE 83–116; RESP 17–25; TEMP 36.6–37; O2SAT 94–99
[2024-03-14] MEDS: piperacillin-tazobactam 3.375 GM in sodium chloride 0.9% (plus) 50 ML IV ×3 (01:24→16:00)
[2024-03-14 02:29] LABS: Basophils % 0.1 %; Eosinophils % 0.1 %; Lymphocytes # 2.2 10^3/uL (0.8-4.8); Lymphocytes % 17.2 %; Mean Corpuscular HGB Conc 30.9 g/dL (30-55); Mean Corpuscular Hemoglobin 26.6 pg (27-33); Mean Corpuscular Volume 86.2 fl (82-101); Mean Platelet Volume 10.4 fL (7.4-10.4); Monocytes # 0.8 10^3/uL (0.2-0.9); Neutrophils # 9.72 10^3/uL (1.8-7.7); Neutrophils % 76.1 %; Nucleated Red Blood Cells % 0 %; Platelet Count 280 10^3/cmm (157-399); Red Blood Count 4.06 10^6/uL (3.85-5.65); Red Cell Distribution Width 14.9 % (12.1-15.1); White Blood Count 12.76 10^3/uL (3.29-11.43)
[2024-03-14 02:51] LABS: Alanine Aminotransferase 39 U/L (0-41); Albumin Level 3.6 g/dL (3.5-5.2); Alkaline Phosphatase 77 U/L (40-130); Anion Gap 15.1 (5-19); Aspartate Amino Transferase 26 U/L (0-40); Blood Urea Nitrogen 29 mg/dL (8-23); Calcium 9.2 mg/dL (8.5-10.5); Carbon Dioxide 28 mmol/L (22-29); Chloride 101 mmol/L (98-107); Globulin 2.4 g/dL (1.3-4.6); Glomerular Filtration Rate 54.6 mL/min (90-130); Glucose 128 mg/dL (65-115); Magnesium 2.5 mg/dL (1.7-2.3); Osmolality Calculated 297 mOsm/kg (285-295); Phosphorus 2.6 mg/dL (2.5-4.5); Potassium 4.1 mmol/L (3.5-5.1); Sodium 140 mmol/L (136-145); Total Bilirubin 0.3 mg/dL (0.15-1.2)
[2024-03-14 03:02] LABS: NT Pro B Type Natriuretic Pept 821 pg/mL (0-125)
[2024-03-14] MEDS: dilTIAZem 30 mg Tablet 60 MG PO ×4 (03:49→20:45)
[2024-03-14] MEDS: vancomycin 1,250 MG/250 ML PIGGYBACK 166.67 MG IV (05:04)
[2024-03-14] MEDS: aspirin 81 mg EC Tablet PO (08:10)
[2024-03-14] MEDS: predniSONE 20 mg Tablet 40 MG PO (08:10)
[2024-03-14] MEDS: apixaban 5 mg Tablet PO ×2 (08:13→20:45)
--- NOTE | 2024-03-14 09:14 | PC.SOCIAL ---
IMM Update pg 2 of IMM Updated and reviewed w/ patient. Copy provided and copy dated, initialed and placed in chart.
[2024-03-14 09:56] LABS: HEP C RNA Viral Load Quant <1.18 NOT DETECTED Log IU/mL (NOT DETECTED); HEP C RNA Viral Load Quant <15 NOT DETECTED IU/mL (NOT DETECTED)
[2024-03-14 09:56] LABS: Quantiferon Mitogen 9.65 IU/mL; Quantiferon Nil 0.01 IU/mL; Quantiferon TB Gold NEGATIVE (NEGATIVE)
--- NOTE | 2024-03-14 10:23 | PC.NURSE ---
Bowden catheter removed per protocol as per Dr Wiley. 10ml of NS removed. Bowden removed intact. Patient tolerated fair.
[2024-03-14 14:30] LABS: Blastomyces Antigen Interpret NEGATIVE; Blastomyces Antigen Result NONE DETECTED; Histoplasma Antigen (Quant) NONE DETECTED; Histoplasma Antigen Interpreta NEGATIVE; Histoplasma Antigen Specimen SERUM
--- NOTE | 2024-03-14 15:35 | P.PN_ITS ---
Subjective 2 Subjective: Patient was seen this morning, he is alert oriented x 3, following all commands, does report a cough, does report that his cough is slightly blood-tinged, no nausea, no vomiting, no abdominal pain he did have a bowel movement yesterday Vitals/I&O/Wt Last Vital Signs Temp 98.5 F 03/14/24 12:00 Pulse 84 03/14/24 12:00 Resp 25 H 03/14/24 12:00 BP 168/90 03/14/24 12:00 Pulse Ox 94 03/14/24 12:00 O2 Del Method Nasal Cannula 03/14/24 12:00 O2 Flow Rate 3 03/14/24 08:02 03/14/24 03/14/24 03/14/24 06:59 14:59 22:59 Intake Total 452.778 / 1902.778 957.222 / 957.222 Output Total 400 / 1700 350 / 350 Balance 52.778 / 202.778 607.222 / 607.222 Weight last 48 hrs Weight 81.193 kg Weight 81.193 kg Physical Exam 2 Const: COMMON NORMALS: no acute distress and patient oriented x3 Resp: COMMON NORMALS: normal respiratory effort, No retractions, No use of accessory muscles and clear to auscultation bilaterally AUSCULTATION: clear to auscultation bilaterally Cardio: COMMON NORMALS: regular rate, regular rhythm, S1 normal heart sound present and S2 normal heart sound present RATE: regular rate RHYTHM: r egular rhythm HEART SOUNDS: S1 normal heart sound present and S2 normal heart sound present GI: COMMON NORMALS: Normal to inspection, nondistended, normoactive bowel sounds present and non-tender Extremity: COMMON NORMALS: no pedal edema Neuro: COMMON NORMALS: patient oriented x3 Psych: COMMON NORMALS: mental status grossly normal Data 03/14/24 01:50 03/14/24 01:50 Micro: Microbiology 03/09/24 15:01 Blood Culture - Final Blood NO GROWTH AFTER 5 DAYS 03/09/24 14:58 Blood Culture - Final Blood NO GROWTH AFTER 5 DAYS 03/13/24 03:24 Mycobacterial Smear - Preliminary Sputum - Expectorated Sputum 03/11/24 09:30 Fungal Smear - Preliminary Sputum - Expectorated Sputum 03/12/24 14:08 Mycobacterial Smear - Preliminary Sputum - Expectorated Sputum 03/11/24 10:03 Gram Stain - Final Sputum - Expectorated Sputum Sputum Culture - Final A&P Assessment and plan (1) Acute respiratory failure with hypoxia: (2) Pneumonia: Qualifiers: Laterality: right Lung location: upper lobe of lung Pneumonia type: d ue to unspecified organism Qualified Code(s): J18.9 - Pneumonia, unspecified organism (3) Sepsis: (4) COPD exacerbation: (5) Mass of right lung: (6) Acute respiratory distress: (7) Acute kidney injury: (8) Atrial fibrillation with RVR: Plan Acute hypoxic respiratory failure ? With evidence of acute respiratory distress ? Likely sec to pneumonia, concerns for postobstructive pneumonia with right upper lung mass ? With COPD exacerbation - with concerns for CHF CT lung FINDINGS: Pulmonary arteries: Similar encasement of the right upper lobe pulmonary artery branch. Aorta: Unremarkable. No aortic aneurysm. No aortic dissection. Lungs: Emphysema severe scattered bilateral pulmonary calcified granulomas. Mild decrease in the size of the right hilar mass measuring 9.5 x 5.5 cm with central calcifications encasing the right upper lobe bronchus with postobstructive right upper lobe collapse. Pleural spaces: Unremarkable. No pneumothorax. No pleural effusion. Heart: Unremarkable. No cardiomegaly. No pericardial effusion. Lymph nodes: Calcified bilateral hilar and mediastinal lymph nodes. ? Plan ? Patient is DNR/DNI, ? Monitor on MedSurg closely -Will consider BiPAP based on clinical progress ? DuoNeb ?budesonide -Sputum cultures ? Blood cultures ? Respiratory viral panel ? Vancomycin ? Zosyn ? Prednisone 40 mg daily ? Monitor respiratory status closely -Hold Lasix therapy for now A-fib with RVR, converted to normal sinus rhythm -Converted to normal sinus rhythm -Increase Cardizem to 60 every 6h -Will start Eliquis tonight Sepsis, resolved -Sepsis features met given pneumonia, leukocytosis, MICHAEL, respiratory distress, sinus tachycardia MICHAEL, likely sec to sepsis, monitor NSTEMI -Serial EKGs, short troponins, telemetry monitoring -Aspirin, statin, beta-christie History of mass of right lung -Patient initially has declined interventions -He is DNR/DNI FINDINGS: Pulmonary arteries: Similar encasement of the right upper lobe pulmonary artery branch. Aorta: Unremarkable. No aortic aneurysm. No aortic dissection. Lungs: Emphysema severe scattered bilateral pulmonary calcified granulomas. Mild decrease in the size of the right hilar mass measuring 9.5 x 5.5 cm with central calcifications encasing the right upper lobe bronchus with postobstructive right upper lobe collapse. Pleural spaces: Unremarkable. No pneumothorax. No pleural effusion. Heart: Unremarkable. No cardiomegaly. No pericardial effusion. Lymph nodes: Calcified bilateral hilar and mediastinal lymph nodes. -He has a history of mass of lower lobe of left lung back in April 2019, largest measuring 8 mm -Underwent PET/CT 12/13/2020 showed FDG +6 x 3.2 cm right upper lobe nodule suv 20 likely suspicious for malignancy, suspicious intake right hilar nodes consistent with local metastatic disease, more equivocal activity mediastinal nodes -Patient declined bronchoscopy, biopsy at that time roughly 01/10/2021 -Imaging findings as above -Given his complaints of chronic cough, intermittent chronic hemoptysis, -Question is is this slow-growing malignancy versus a latent infection such as mycobacterial infection or fungal infection -Patient is agreeable on biopsy if needed Plan -Placed on airborne precautions -Order 3 AFB smears -Fungal sputum smears -QuantiFERON gold -Mycobacterium PCR -LD H 199 -Beta-1 3D glucan -Aspergillus -Blastomycosis -Coccidioidomycosis -Monitor respiratory status closely Intermittent hemoptysis complaints monitor closely, resolved Plan for today follow-up fungal studies, continue Eliquis, monitor respiratory status, stop vancomycin Attestations 2 Medical Necessity Statement*: Patient requires hospitalization for pneumonia requiring IV antibiotics, atrial fibrillation Diagnoses Acute respiratory failure with hypoxia J96.01 Pneumonia J18.9 Laterality: right Lung location: upper lobe of lung Pneumonia type: due to unspecified organism Sepsis A41.9 COPD exacerbation J44.1 Mass of right lung R91.8 Acute respiratory distress R06.03 Acute kidney injury N17.9 Atrial fibrillation with RVR I48.91
[2024-03-14] MEDS: phenyleph-mineral oil-petrolat Oint 28 gm 1 APPLIC PR ×2 (15:59→22:21)
[2024-03-14] MEDS: pantoprazole 40 mg SDV IVP (16:00)
[2024-03-14] MEDS: atorvastatin 40 mg Tablet PO (20:44)
[2024-03-14] MEDS: trazodone 50 mg Tablet PO (20:45)
[2024-03-14] MEDS: CLONazepam 0.5 mg Tablet PO (20:45)
[2024-03-15] VITALS (13 sets, daily range): BP systolic 150–181; BP diastolic 82–96; PULSE 79–103; RESP 18–28; TEMP 36.6–37; O2SAT 90–98
[2024-03-15 00:53] LABS: MTB Complex Respiratory PCR NOT DETECTED; MTB Source SPUTUM
[2024-03-15 00:53] LABS: MTB Complex Respiratory PCR NOT DETECTED; MTB Source SPUTUM
[2024-03-15] MEDS: piperacillin-tazobactam 3.375 GM in sodium chloride 0.9% (plus) 50 ML IV ×3 (01:46→16:32)
[2024-03-15 03:06] LABS: Basophils % 0.1 %; Eosinophils % 0.1 %; Hematocrit 37.6 % (37-53); Lymphocytes # 2.1 10^3/uL (0.8-4.8); Lymphocytes % 15.6 %; Mean Corpuscular HGB Conc 30.3 g/dL (30-55); Mean Corpuscular Volume 88.9 fl (82-101); Mean Platelet Volume 10.1 fL (7.4-10.4); Monocytes # 0.7 10^3/uL (0.2-0.9); Monocytes % 5.4 %; Neutrophils # 10.29 10^3/uL (1.8-7.7); Neutrophils % 78.3 %; Nucleated Red Blood Cells % 0 %; Platelet Count 344 10^3/cmm (157-399); Red Blood Count 4.23 10^6/uL (3.85-5.65); White Blood Count 13.13 10^3/uL (3.29-11.43)
[2024-03-15 03:31] LABS: Vancomycin Trough 11.6 ug/mL (10-15)
[2024-03-15 03:33] LABS: Alanine Aminotransferase 35 U/L (0-41); Albumin Level 3.8 g/dL (3.5-5.2); Alkaline Phosphatase 78 U/L (40-130); Anion Gap 17.1 (5-19); Aspartate Amino Transferase 22 U/L (0-40); Blood Urea Nitrogen 32 mg/dL (8-23); Carbon Dioxide 25 mmol/L (22-29); Chloride 100 mmol/L (98-107); Globulin 2.5 g/dL (1.3-4.6); Glomerular Filtration Rate 54.6 mL/min (90-130); Glucose 123 mg/dL (65-115); Magnesium 2.5 mg/dL (1.7-2.3); NT Pro B Type Natriuretic Pept 530 pg/mL (0-125); Osmolality Calculated 294 mOsm/kg (285-295); Phosphorus 2.4 mg/dL (2.5-4.5); Potassium 4.1 mmol/L (3.5-5.1); Sodium 138 mmol/L (136-145); Total Bilirubin 0.2 mg/dL (0.15-1.2); Total Protein 6.3 g/dL (6.6-8.7)
[2024-03-15] MEDS: dilTIAZem 30 mg Tablet 60 MG PO ×4 (03:35→21:55)
[2024-03-15] MEDS: aspirin 81 mg EC Tablet PO (08:15)
[2024-03-15] MEDS: predniSONE 20 mg Tablet 40 MG PO (08:15)
[2024-03-15] MEDS: phenyleph-mineral oil-petrolat Oint 28 gm 1 APPLIC PR (08:16)
[2024-03-15] MEDS: apixaban 5 mg Tablet PO (08:16)
[2024-03-15] MEDS: CLONazepam 0.5 mg Tablet PO ×3 (08:20→21:59)
[2024-03-15] MEDS: levalbuterol 1.25 mg/3 mL Neb INHALATION (11:12)
[2024-03-15] MEDS: pantoprazole 40 mg SDV IVP (16:32)
--- NOTE | 2024-03-15 17:22 | P.PN_ITS ---
Subjective 2 Subjective: Patient was seen this morning, he is alert oriented x 3, following commands does report shortness of breath with exertion, no fevers, no chills does have a persistent cough no abdominal pain he does report that after his enema and he has had several bowel movements he has a history of hemorrhoids the hemorrhoids have been bleeding more frequently now, Vitals/I&O/Wt Last Vital Signs Temp 97.8 F 03/15/24 16:00 Pulse 86 03/15/24 16:00 Resp 24 H 03/15/24 16:00 BP 181/95 03/15/24 16:00 Pulse Ox 96 03/15/24 16:00 O2 Del Method Nasal Cannula 03/15/24 16:00 O2 Flow Rate 5 03/15/24 16:00 03/15/24 03/15/24 03/15/24 06:59 14:59 22:59 Intake Total 150 / 1457.222 470 / 470 Output Total 400 / 400 200 / 600 Balance 150 / 682.222 70 / 70 -200 / -130 Weight last 48 hrs Weight 81.193 kg Weight 81.193 kg Physical Exam 2 Const: COMMON NORMALS: no acute distress and patient oriented x3 Resp: COMMON NORMALS: normal respiratory effort, No retractions and No use of accessory muscles AUSCULTATION: crackles and wheezes Cardio: COMMON NORMALS: regular rate, regular rhythm, S1 normal heart sound present and S2 normal heart sound present RATE: regular rate RHYTHM: r egular rhythm HEART SOUNDS: S1 normal heart sound present and S2 normal heart sound present GI: COMMON NORMALS: Normal to inspection, nondistended, normoactive bowel sounds present and non-tender Extremity: COMMON NORMALS: no pedal edema Neuro: COMMON NORMALS: patient oriented x3 Psych: COMMON NORMALS: mental status grossly normal Data 03/15/24 02:08 03/15/24 02:08 Micro: Microbiology 03/09/24 15:01 Blood Culture - Final Blood NO GROWTH AFTER 5 DAYS 03/09/24 14:58 Blood Culture - Final Blood NO GROWTH AFTER 5 DAYS 03/13/24 03:24 Mycobacterial Smear - Preliminary Sputum - Expectorated Sputum 03/11/24 09:30 Fungal Smear - Preliminary Sputum - Expectorated Sputum A&P Assessment and plan (1) Acute respiratory failure with hypoxia: (2) Pneumonia: Qualifiers: Laterality: right Lung location: upper lobe of lung Pneumonia type: d ue to unspecified organism Qualified Code(s): J18.9 - Pneumonia, unspecified organism (3) Sepsis: (4) COPD exacerbation: (5) Mass of right lung: (6) Acute respiratory distress: (7) Acute kidney injury: (8) Atrial fibrillation with RVR: Plan Acute hypoxic respiratory failure ? With evidence of acute respiratory distress ? Likely sec to pneumonia, concerns for postobstructive pneumonia with right upper lung mass ? With COPD exacerbation - with concerns for CHF CT lung FINDINGS: Pulmonary arteries: Similar encasement of the right upper lobe pulmonary artery branch. Aorta: Unremarkable. No aortic aneurysm. No aortic dissection. Lungs: Emphysema severe scattered bilateral pulmonary calcified granulomas. Mild decrease in the size of the right hilar mass measuring 9.5 x 5.5 cm with central calcifications encasing the right upper lobe bronchus with postobstructive right upper lobe collapse. Pleural spaces: Unremarkable. No pneumothorax. No pleural effusion. Heart: Unremarkable. No cardiomegaly. No pericardial effusion. Lymph nodes: Calcified bilateral hilar and mediastinal lymph nodes. ? Plan ? Patient is DNR/DNI, ? Monitor on MedSurg closely -Will consider BiPAP based on clinical progress ? DuoNeb ?budesonide -TB QuantiFERON gold so far negative -Sputum cultures so far negative ? Blood cultures so far negative ? Respiratory viral panel so far negative ? Vancomycin ? Zosyn ? Prednisone 40 mg daily ? Monitor respiratory status closely -Hold Lasix therapy for now Bleeding hemorrhoids -Hold Eliquis A-fib with RVR, converted to normal sinus rhythm -Converted to normal sinus rhythm -Increase Cardizem to 60 every 6h -Holding Eliquis Sepsis, resolved -Sepsis features met given pneumonia, leukocytosis, MICHAEL, respiratory distress, sinus tachycardia MICHAEL, likely sec to sepsis, monitor NSTEMI -Serial EKGs, short troponins, telemetry monitoring -Aspirin, statin, beta-christie History of mass of right lung -Patient initially has declined interventions -He is DNR/DNI FINDINGS: Pulmonary arteries: Similar encasement of the right upper lobe pulmonary artery branch. Aorta: Unremarkable. No aortic aneurysm. No aortic dissection. Lungs: Emphysema severe scattered bilateral pulmonary calcified granulomas. Mild decrease in the size of the right hilar mass measuring 9.5 x 5.5 cm with central calcifications encasing the right upper lobe bronchus with postobstructive right upper lobe collapse. Pleural spaces: Unremarkable. No pneumothorax. No pleural effusion. Heart: Unremarkable. No cardiomegaly. No pericardial effusion. Lymph nodes: Calcified bilateral hilar and mediastinal lymph nodes. -He has a history of mass of lower lobe of left lung back in April 2019, largest measuring 8 mm -Underwent PET/CT 12/13/2020 showed FDG +6 x 3.2 cm right upper lobe nodule suv 20 likely suspicious for malignancy, suspicious intake right hilar nodes consistent with local metastatic disease, more equivocal activity mediastinal nodes -Patient declined bronchoscopy, biopsy at that time roughly 01/10/2021 -Imaging findings as above -Given his complaints of chronic cough, intermittent chronic hemoptysis, -Question is is this slow-growing malignancy versus a latent infection such as mycobacterial infection or fungal infection -Patient is agreeable on biopsy if needed Plan -Placed on airborne precautions -Order 3 AFB smears, so far no growth -Fungal sputum smears, so far no growth -QuantiFERON gold, negative -Mycobacterium PCR -LD H 199 -Beta-1 3D glucan, pending -Aspergillus -Blastomycosis -Coccidioidomycosis -Monitor respiratory status closely Intermittent hemoptysis complaints monitor closely, resolved Plan for today follow-up fungal studies, hold Eliquis, monitor respiratory status, continue IV Zosyn Attestations 2 Medical Necessity Statement*: Patient requires hospitalization for acute hypoxic respiratory failure secondary to pneumonia, lung mass Diagnoses Acute respiratory failure with hypoxia J96.01 Pneumonia J18.9 Laterality: right Lung location: upper lobe of lung Pneumonia type: due to unspecified organism Sepsis A41.9 COPD exacerbation J44.1 Mass of right lung R91.8 Acute respiratory distress R06.03 Acute kidney injury N17.9 Atrial fibrillation with RVR I48.91
[2024-03-15] MEDS: budesonide 0.5 mg/2 mL Neb INHALATION (20:38)
[2024-03-15 21:10] LABS: Coccidioides IgG Antibody NEGATIVE; Coccidioides IgM Antibody NEGATIVE
[2024-03-15] MEDS: chlorthalidone 25 mg Tablet PO (21:55)
[2024-03-15] MEDS: atorvastatin 40 mg Tablet PO (21:55)
[2024-03-15] MEDS: trazodone 50 mg Tablet PO (21:59)
[2024-03-16] VITALS (14 sets, daily range): BP systolic 127–177; BP diastolic 72–97; PULSE 62–106; RESP 18–30; TEMP 36.4–36.8; O2SAT 82–99
[2024-03-16] MEDS: piperacillin-tazobactam 3.375 GM in sodium chloride 0.9% (plus) 50 ML IV ×2 (02:05→09:27)
[2024-03-16] MEDS: dilTIAZem 30 mg Tablet 60 MG PO ×4 (02:05→20:57)
[2024-03-16 02:49] LABS: Basophils % 0.1 %; Eosinophils % 0.1 %; Hematocrit 34.6 % (37-53); Lymphocytes # 2.1 10^3/uL (0.8-4.8); Lymphocytes % 15.1 %; Mean Corpuscular HGB Conc 29.8 g/dL (30-55); Mean Corpuscular Hemoglobin 26.8 pg (27-33); Mean Corpuscular Volume 89.9 fl (82-101); Mean Platelet Volume 10.2 fL (7.4-10.4); Monocytes # 0.7 10^3/uL (0.2-0.9); Monocytes % 4.8 %; Neutrophils # 10.87 10^3/uL (1.8-7.7); Neutrophils % 79.5 %; Nucleated Red Blood Cells % 0 %; Platelet Count 321 10^3/cmm (157-399); Red Blood Count 3.85 10^6/uL (3.85-5.65); Red Cell Distribution Width 15.2 % (12.1-15.1); White Blood Count 13.67 10^3/uL (3.29-11.43)
[2024-03-16 03:06] LABS: Anion Gap 14.6 (5-19); Blood Urea Nitrogen 28 mg/dL (8-23); Calcium 8.8 mg/dL (8.5-10.5); Carbon Dioxide 28 mmol/L (22-29); Chloride 101 mmol/L (98-107); Glomerular Filtration Rate 54.6 mL/min (90-130); Glucose 122 mg/dL (65-115); Osmolality Calculated 295 mOsm/kg (285-295); Potassium 4.6 mmol/L (3.5-5.1); Sodium 139 mmol/L (136-145)
[2024-03-16 03:08] LABS: C Reactive Protein 20.7 mg/L (0.0-4.9)
[2024-03-16] MEDS: budesonide 0.5 mg/2 mL Neb INHALATION ×2 (08:07→20:31)
[2024-03-16] MEDS: ipratropium 0.5 mg/2.5 mL Neb INHALATION (08:08)
[2024-03-16] MEDS: levalbuterol 1.25 mg/3 mL Neb INHALATION ×2 (08:08→15:33)
[2024-03-16] MEDS: predniSONE 20 mg Tablet 40 MG PO (09:27)
[2024-03-16] MEDS: aspirin 81 mg EC Tablet PO (09:27)
[2024-03-16] MEDS: CLONazepam 0.5 mg Tablet PO ×2 (14:15→20:57)
[2024-03-16 14:50] LABS: ABG PCO2 35.9 mmHg (35-45); ABG PH Result 7.43 (7.35-7.45); Arterial Blood Gas Hematocrit 38.9 % (42-52); Blood Gas Allen Test Pos; Blood Gas Operator Identificat MONRO; Blood Gas Sample Site Radial, left; Blood Gas Sample Type Arterial; HGB O2 Sat 92.4 % (95-100); Ionized Calcium Level - ABG 1.2 mmol/L (1.1-1.4); Methemoglobin 0.2 % (0.4-1.5); Oxygen Device NC; Oxygen Saturation ABG 93.5; PO2 ABG 63.3 mmHg (80.0-100.0); PO2 FiO2 Ratio Arterial Blood 140; Potassium Level - ABG 4.1 mmol/L (3.5-5.0); Total Hemoglobin 12.7 g/dL (14-18)
--- NOTE | 2024-03-16 15:09 | P.PN_ITS ---
Subjective 2 Subjective: Patient was seen this morning, sitting up beside the bed he continues to have episodes of shortness of breath, he tells me that with exertion he suddenly become short of breath, no chest pain, no palpitations -This afternoon patient had episode of s udden onset shortness of breath when exerting himself, put back to bed, given 1 dose of Klonopin, repeat ABG, given breathing treatment, 1 dose IV Lasix Vitals/I&O/Wt Last Vital Signs Temp 97.7 F 03/16/24 12:00 Pulse 80 03/16/24 12:00 Resp 20 H 03/16/24 12:00 BP 165/89 03/16/24 12:00 Pulse Ox 94 03/16/24 12:00 O2 Del Method Room Air 03/16/24 12:00 O2 Flow Rate 4 03/16/24 08:08 03/16/24 03/16/24 03/16/24 06:59 14:59 22:59 Intake Total 50 / 1290 730 / 730 Output Total 1050 / 1650 600 / 600 Balance -1000 / -360 130 / 130 Weight last 48 hrs Weight 79.469 kg Weight 81.193 kg Physical Exam 2 Const: COMMON NORMALS: no acute distress and patient oriented x3 Resp: COMMON NORMALS: normal respiratory effort, No retractions and No use of accessory muscles AUSCULTATION: crackles and wheezes Cardio: COMMON NORMALS: regular rate, regular rhythm, S1 normal heart sound present and S2 normal heart sound present RATE: regular rate RHYTHM: r egular rhythm HEART SOUNDS: S1 normal heart sound present and S2 normal heart sound present GI: COMMON NORMALS: Normal to inspection, nondistended, normoactive bowel sounds present and non-tender Extremity: COMMON NORMALS: no pedal edema Neuro: COMMON NORMALS: patient oriented x3 Psych: COMMON NORMALS: mental status grossly normal Data 03/16/24 01:33 03/16/24 01:33 A&P Assessment and plan (1) Acute respiratory failure with hypoxia: (2) Pneumonia: Qualifiers: Laterality: right Lung location: upper lobe of lung Pneumonia type: d ue to unspecified organism Qualified Code(s): J18.9 - Pneumonia, unspecified organism (3) Sepsis: (4) COPD exacerbation: (5) Mass of right lung: (6) Acute respiratory distress: (7) Acute kidney injury: (8) Atrial fibrillation with RVR: Plan Acute hypoxic respiratory failure ? With evidence of acute respiratory distress ? Likely sec to pneumonia, concerns for postobstructive pneumonia with right upper lung mass ? With COPD exacerbation - with concerns for CHF CT lung FINDINGS: Pulmonary arteries: Similar encasement of the right upper lobe pulmonary artery branch. Aorta: Unremarkable. No aortic aneurysm. No aortic dissection. Lungs: Emphysema severe scattered bilateral pulmonary calcified granulomas. Mild decrease in the size of the right hilar mass measuring 9.5 x 5.5 cm with central calcifications encasing the right upper lobe bronchus with postobstructive right upper lobe collapse. Pleural spaces: Unremarkable. No pneumothorax. No pleural effusion. Heart: Unremarkable. No cardiomegaly. No pericardial effusion. Lymph nodes: Calcified bilateral hilar and mediastinal lymph nodes. ? Plan ? Patient is DNR/DNI, ? Monitor on cardiac stepdown unit -Will consider BiPAP based on clinical progress ? DuoNeb ?budesonide -TB QuantiFERON gold so far negative -Sputum cultures showed budding yeast ? Blood cultures so far negative ? Respiratory viral panel so far negative ? Discontinued vancomycin ? Discontinued Zosyn ? Transition to Augmentin ? Prednisone 40 mg daily ? Monitor respiratory status closely -1 dose IV Lasix today Bleeding hemorrhoids -Resume Eliquis today A-fib with RVR, converted to normal sinus rhythm -Converted to normal sinus rhythm -Increase Cardizem to 60 every 6h -Resume Eliquis Sepsis, resolved -Sepsis features met given pneumonia, leukocytosis, MICHAEL, respiratory distress, sinus tachycardia MICHAEL, likely sec to sepsis, monitor NSTEMI -Serial EKGs, short troponins, telemetry monitoring -Aspirin, statin, beta-christie History of mass of right lung -Patient initially has declined interventions -He is DNR/DNI FINDINGS: Pulmonary arteries: Similar encasement of the right upper lobe pulmonary artery branch. Aorta: Unremarkable. No aortic aneurysm. No aortic dissection. Lungs: Emphysema severe scattered bilateral pulmonary calcified granulomas. Mild decrease in the size of the right hilar mass measuring 9.5 x 5.5 cm with central calcifications encasing the right upper lobe bronchus with postobstructive right upper lobe collapse. Pleural spaces: Unremarkable. No pneumothorax. No pleural effusion. Heart: Unremarkable. No cardiomegaly. No pericardial effusion. Lymph nodes: Calcified bilateral hilar and mediastinal lymph nodes. -He has a history of mass of lower lobe of left lung back in April 2019, largest measuring 8 mm -Underwent PET/CT 12/13/2020 showed FDG +6 x 3.2 cm right upper lobe nodule suv 20 likely suspicious for malignancy, suspicious intake right hilar nodes consistent with local metastatic disease, more equivocal activity mediastinal nodes -Patient declined bronchoscopy, biopsy at that time roughly 01/10/2021 -Imaging findings as above -Given his complaints of chronic cough, intermittent chronic hemoptysis, -Question is is this slow-growing malignancy versus a latent infection such as mycobacterial infection or fungal infection -Patient is agreeable on biopsy if needed Plan -Placed on airborne precautions -Order 3 AFB smears, so far no growth -Fungal sputum smears, so far no growth -QuantiFERON gold, negative -Mycobacterium PCR -LD H 199 -Beta-1 3D glucan, pending -Aspergillus so far negative -Blastomycosis so far negative -Coccidioidomycosis so far negative -Monitor respiratory status closely Intermittent hemoptysis complaints monitor closely, resolved Plan for today follow-up fungal studies, resume Eliquis, monitor respiratory status Attestations 2 Medical Necessity Statement*: Patient requires hospitalization for acute hypoxic respiratory failure, pneumonia, mass of right lung Diagnoses Acute respiratory failure with hypoxia J96.01 Pneumonia J18.9 Laterality: right Lung location: upper lobe of lung Pneumonia type: due to unspecified organism Sepsis A41.9 COPD exacerbation J44.1 Mass of right lung R91.8 Acute respiratory distress R06.03 Acute kidney injury N17.9 Atrial fibrillation with RVR I48.91
[2024-03-16] MEDS: FUROsemide 10 mg/mL SDV 4mL 40 MG IVP (15:56)
[2024-03-16] MEDS: pantoprazole 40 mg SDV IVP (15:56)
[2024-03-16] MEDS: chlorthalidone 25 mg Tablet PO (15:56)
[2024-03-16] MEDS: amoxicillin-clav 875-125 mg Tablet 1 TAB PO (18:16)
[2024-03-16] MEDS: atorvastatin 40 mg Tablet PO (20:57)
[2024-03-16] MEDS: trazodone 50 mg Tablet PO (20:57)
[2024-03-16] MEDS: apixaban 5 mg Tablet PO (20:57)
[2024-03-17] VITALS (12 sets, daily range): BP systolic 142–159; BP diastolic 73–94; PULSE 68–97; RESP 16–22; TEMP 36.7–36.9; O2SAT 88–95
[2024-03-17 03:20] LABS: Basophils % 0.1 %; Eosinophils % 0.1 %; Hematocrit 37.2 % (37-53); Lymphocytes # 2.4 10^3/uL (0.8-4.8); Lymphocytes % 14.8 %; Mean Corpuscular HGB Conc 32.3 g/dL (30-55); Mean Corpuscular Volume 83.6 fl (82-101); Mean Platelet Volume 10.2 fL (7.4-10.4); Monocytes # 0.8 10^3/uL (0.2-0.9); Monocytes % 4.9 %; Neutrophils # 12.91 10^3/uL (1.8-7.7); Neutrophils % 79.4 %; Nucleated Red Blood Cells % 0 %; Platelet Count 384 10^3/cmm (157-399); Red Blood Count 4.45 10^6/uL (3.85-5.65); Red Cell Distribution Width 15.1 % (12.1-15.1); White Blood Count 16.26 10^3/uL (3.29-11.43)
[2024-03-17 03:34] LABS: C Reactive Protein 27.2 mg/L (0.0-4.9)
[2024-03-17 03:44] LABS: Anion Gap 18.6 (5-19); Blood Urea Nitrogen 27 mg/dL (8-23); Calcium 9.5 mg/dL (8.5-10.5); Carbon Dioxide 28 mmol/L (22-29); Chloride 95 mmol/L (98-107); Creatinine Clr Calc Pharmacy 57.5612; Glomerular Filtration Rate 54.6 mL/min (90-130); Glucose 139 mg/dL (65-115); NT Pro B Type Natriuretic Pept 553 pg/mL (0-125); Osmolality Calculated 293 mOsm/kg (285-295); Potassium 3.6 mmol/L (3.5-5.1); Sodium 138 mmol/L (136-145)
[2024-03-17] MEDS: dilTIAZem 30 mg Tablet 60 MG PO ×4 (03:53→20:38)
--- NOTE | 2024-03-17 07:00 | XR_ITS ---
WS: [id number] Exam: XR chest 1V portable [id number] Date/Time of Exam: 03/17/2024 7:11 AM Reason For Exam: sob Comparison 03/09/2024. Again noted is large masslike density in the RIGHT upper lobe unchanged. The leif ngs are fully expanded. Heart size top limits normal. Scattered calcified granulomas. No pleural effu sions. Bony structures are intact. Rightward deviation of the trachea. Degenerative change and levosc oliosis of the T-spine. Hyperinflation. XR/XR chest 1V portable [id number] IMPRESSION: 1. Large RIGHT upper lobe pulmonary mass unchanged in appearance. 2. Pulmonary hyperinflation as well as chronic changes.
[2024-03-17] MEDS: azithromycin 250 mg Tablet 500 MG PO (08:51)
[2024-03-17] MEDS: CLONazepam 0.5 mg Tablet PO ×2 (08:52→15:04)
[2024-03-17] MEDS: aspirin 81 mg EC Tablet PO (08:52)
[2024-03-17] MEDS: amoxicillin-clav 875-125 mg Tablet 1 TAB PO (08:52)
[2024-03-17] MEDS: predniSONE 20 mg Tablet 40 MG PO (08:52)
[2024-03-17] MEDS: chlorthalidone 25 mg Tablet PO (08:52)
[2024-03-17] MEDS: apixaban 5 mg Tablet PO ×2 (09:23→20:38)
[2024-03-17] MEDS: budesonide 0.5 mg/2 mL Neb INHALATION ×2 (10:00→20:54)
[2024-03-17] MEDS: levalbuterol 1.25 mg/3 mL Neb INHALATION ×2 (10:00→20:55)
[2024-03-17] MEDS: morphine 4 mg/mL SDV 1 mL 2 MG IVP ×2 (13:24→18:15)
[2024-03-17] MEDS: lactulose oral liq 20 gm/30 mL UDC 10 GM PO (15:04)
[2024-03-17] MEDS: pantoprazole 40 mg SDV IVP (15:05)
[2024-03-17] MEDS: meropenem 1,000 mg SDV 1000 MG IVP ×2 (15:05→20:38)
[2024-03-17] MEDS: PARoxetine 20 mg Tablet PO (15:05)
[2024-03-17] MEDS: fluticasone nasal spray 16gm Btl 1 SPRAY INTRANASAL (15:11)
[2024-03-17] MEDS: vancomycin 2,000 MG/400 ML PIGGYBACK 200 MG IV (15:31)
--- NOTE | 2024-03-17 15:54 | PM.PN ---
Subjective Subjective: - Patient was seen this morning, he is alert oriented x 3, following all commands continues to complain of shortness of breath with minimal exertion, productive cough, no fevers, no chills, does complain of right upper chest wall pain, no fevers overnight, he tells me he is short of breath with minimal exertion not any better than when he came in, we discussed his leukocytosis worsening to 16,000, discussed broadening his antibiotic coverage back up to vancomycin meropenem, he he is agreeable we discussed transferring him to a tertiary level center for bronchoscopy and biopsy of his right upper lobe lung mass, after discussing the risk and benefits, he voices understanding, all questions agreed to proceed -Spoke to [facility], spoke to the bronc breaker, accepted in transfer spoke to the hospitalist accepted in transfer, awaiting bed -Spoke to patient, he is agreeable to transfer to [facility] in [place] continues to have episodes of shortness of breath throughout the day will monitor his respiratory status closely currently on 5 L Vitals/I&O/Wt Last Vital Signs Temp 98.3 F 03/17/24 15:29 Pulse 80 03/17/24 15:29 Resp 21 H 03/17/24 15:29 BP 159/81 03/17/24 15:29 Pulse Ox 94 03/17/24 15:29 O2 Del Method Nasal Cannula 03/17/24 15:29 O2 Flow Rate 4 03/17/24 10:00 03/17/24 03/17/24 03/17/24 06:59 14:59 22:59 Intake Total 360 / 360 Output Total 525 / 2275 200 / 200 Balance -525 / -1185 160 / 160 Weight last 48 hrs Weight 75.841 kg Weight 79.469 kg Physical Exam Const: COMMON NORMALS: no acute distress and patient oriented x3 Resp: COMMON NORMALS: normal respiratory effort, No retractions and No use of accessory muscles AUSCULTATION: crackles and wheezes Cardio: COMMON NORMALS: regular rate, regular rhythm, S1 normal heart sound present and S2 normal heart sound present RATE: regular rate RHYTHM: regular rhythm HEART SOUNDS: S1 normal heart sound present and S2 normal heart sound present GI: COMMON NORMALS: Normal to inspection, nondistended, normoactive bowel sounds present and non-tender Extremity: COMMON NORMALS: no pedal edema Neuro: COMMON NORMALS: patient oriented x3 Psych: COMMON NORMALS: mental status grossly normal Data 03/17/24 02:14 03/17/24 02:14 Micro: Microbiology 03/13/24 18:15 Mycobacterial Smear - Preliminary Sputum - Expectorated Sputum A&P Assessment and plan (1) Acute respiratory failure with hypoxia: (2) Pneumonia: Qualifiers: Laterality: right Lung location: upper lobe of lung Pneumonia type: due to unspecified organism Qualified Code(s): J18.9 - Pneumonia, unspecified organism (3) Sepsis: (4) COPD exacerbation: (5) Mass of right lung: (6) Acute respiratory distress: (7) Acute kidney injury: (8) Atrial fibrillation with RVR: Plan Acute hypoxic respiratory failure ? With evidence of acute respiratory distress ? Likely sec to pneumonia, concerns for postobstructive pneumonia with right upper lung mass ? With COPD exacerbation - with concerns for CHF CT lung FINDINGS: Pulmonary arteries: Similar encasement of the right upper lobe pulmonary artery branch. Aorta: Unremarkable. No aortic aneurysm. No aortic dissection. Lungs: Emphysema severe scattered bilateral pulmonary calcified granulomas. Mild decrease in the size of the right hilar mass measuring 9.5 x 5.5 cm with central calcifications encasing the right upper lobe bronchus with postobstructive right upper lobe collapse. Pleural spaces: Unremarkable. No pneumothorax. No pleural effusion. Heart: Unremarkable. No cardiomegaly. No pericardial effusion. Lymph nodes: Calcified bilateral hilar and mediastinal lymph nodes. ? Plan ? Patient is DNR/DNI, ? Monitor on cardiac stepdown unit -Will consider BiPAP based on clinical progress ? DuoNeb ?budesonide -TB QuantiFERON gold so far negative -Sputum cultures showed budding yeast ? Blood cultures so far negative ? Respiratory viral panel so far negative ? Due to persistent shortness of breath today, productive cough with increased leukocytosis broaden antibiotic coverage back to vancomycin, meropenem ? Continue Zithromycin ? Prednisone 40 mg daily ? Monitor respiratory status closely - hold Lasix for today Bleeding hemorrhoids -Monitor A-fib with RVR, converted to normal sinus rhythm -Converted to normal sinus rhythm - Cardizem to 60 every 6h - Eliquis Sepsis, resolved -Sepsis features met given pneumonia, leukocytosis, MICHAEL, respiratory distress, sinus tachycardia MICHAEL, likely sec to sepsis, monitor NSTEMI -Serial EKGs, short troponins, telemetry monitoring -Aspirin, statin, beta-christie History of mass of right lung -Patient initially has declined interventions -He is DNR/DNI FINDINGS: Pulmonary arteries: Similar encasement of the right upper lobe pulmonary artery branch. Aorta: Unremarkable. No aortic aneurysm. No aortic dissection. Lungs: Emphysema severe scattered bilateral pulmonary calcified granulomas. Mild decrease in the size of the right hilar mass measuring 9.5 x 5.5 cm with central calcifications encasing the right upper lobe bronchus with postobstructive right upper lobe collapse. Pleural spaces: Unremarkable. No pneumothorax. No pleural effusion. Heart: Unremarkable. No cardiomegaly. No pericardial effusion. Lymph nodes: Calcified bilateral hilar and mediastinal lymph nodes. -He has a history of mass of lower lobe of left lung back in April 2019, largest measuring 8 mm -Underwent PET/CT 12/13/2020 showed FDG +6 x 3.2 cm right upper lobe nodule suv 20 likely suspicious for malignancy, suspicious intake right hilar nodes consistent with local metastatic disease, more equivocal activity mediastinal nodes -Patient declined bronchoscopy, biopsy at that time roughly 01/10/2021 -Imaging findings as above -Given his complaints of chronic cough, intermittent chronic hemoptysis, -Question is is this slow-growing malignancy versus a latent infection such as mycobacterial infection or fungal infection -Patient is agreeable on biopsy if needed Plan -Placed on airborne precautions -Order 3 AFB smears, so far no growth -Fungal sputum smears, so far no growth -MAC PCR pending -QuantiFERON gold, negative -Mycobacterium PCR -LD H 199 -Beta-1 3D glucan, pending -Aspergillus so far negative -Blastomycosis so far negative -Coccidioidomycosis so far negative -Monitor respiratory status closely -Transfer to tertiary level center for pulmonary evaluation, bronchoscopy, biopsy Intermittent hemoptysis complaints monitor closely, resolved Plan for today broaden antibiotic coverage to vancomycin, meropenem, continue Eliquis, continue PT OT, work on transferring to tertiary level [place] for right upper lung mass, persistent shortness of breath Attestations Medical Necessity Statement*: Patient requires hospitalization for shortness of breath, postobstructive pneumonia, with persistent shortness of breath requiring transfer to tertiary level center Diagnoses Acute respiratory failure with hypoxia J96.01 Pneumonia J18.9 Laterality: right Lung location: upper lobe of lung Pneumonia type: due to unspecified organism Sepsis A41.9 COPD exacerbation J44.1 Mass of right lung R91.8 Acute respiratory distress R06.03 Acute kidney injury N17.9 Atrial fibrillation with RVR I48.91
--- NOTE | 2024-03-17 16:02 | PC.SOCIAL ---
IMM updated IMM dated and initialed, copy given to patient and copy placed in chart.
[2024-03-17 17:36] LABS: Fungitell 1-3-B Glucan Assay 49 pg/ml; Interpretation Negative (Negative)
--- NOTE | 2024-03-17 18:12 | P.TS_ITS ---
Transfer Summary Providers Date of Admission: 03/09/24 12:53 Date of Discharge/Transfer: 03/28/24 Attending Provider at Admission: Kieran Wiley MD Attending Provider at Transfer: Kieran Wiley MD Primary Care Provider: EDI Cleary Transfer Plans: Anticipated date of transfer: 03/28/24 . Diagnoses at Discharge Discharge Diagnosis (1) Acute respiratory failure with hypoxia: Status: Resolved (2) Pneumonia: Status: Acute Qualifiers: Laterality: right Lung location: upper lobe of lung Pneumonia type: due to unspecified organism Qualified Code(s): J18.9 - Pneumonia, unspecified organism (3) Sepsis: Status: Acute (4) COPD exacerbation: Status: Acute (5) Mass of right lung: Status: Chronic (6) Acute respiratory distress: Status: Resolved (7) Acute kidney injury: Status: Inactive (8) Atrial fibrillation with RVR: Status: Acute Reason for Visit Reason for Visit sob Hospital Course Hospital Course Parth Mccracken Jr is a 68 year old male with a past medical history of COPD, hypertension, BPH, hyperlipidemia history of right upper lobe lung mass suspicious for malignancy patient declines any interventions or biopsy, hepatitis C s/p treatment, smoking, who presents [facility] due to progressive shortness of breath, productive cough, denies any falls, no nausea, no vomiting, no lightheadedness, dizziness, does report his cough has become having scant hemoptysis, does report fatigue, malaise, chills, Patient was admitted to [facility] for acute hypoxic respiratory failure secondary to postobstructive pneumonia with right upper lung mass received broad-spectrum antibiotic therapy, had A-fib with RVR, NSTEMI, sepsis during his hospitalization. For his atrial fibrillation, converted to normal sinus rhythm, transition to to p.o. Cardizem. For sepsis, has resolved on transfer. He had episodes of hemoptysis throughout his hospitalization, which have resolved on transfer. For his right lung mass, patient had a broad spectrum workup, however results are pending. Due to persistent leukocytosis, shortness of breath, cough, lag in diagnosis of right upper lung mass patient was transferred to [facility] in [place] for more rapid diagnosis of right lung mass, concerns for persistent postobstructive pneumonia needing bronchoscopy, needing pulmonary evaluation Acute hypoxic respiratory failure ? With evidence of acute respiratory distress ? Likely sec to pneumonia, concerns for postobstructive pneumonia with right upper lung mass ? With COPD exacerbation - with concerns for CHF CT lung FINDINGS: Pulmonary arteries: Similar encasement of the right upper lobe pulmonary artery branch. Aorta: Unremarkable. No aortic aneurysm. No aortic dissection. Lungs: Emphysema severe scattered bilateral pulmonary calcified granulomas. Mild decrease in the size of the right hilar mass measuring 9.5 x 5.5 cm with central calcifications encasing the right upper lobe bronchus with postobstructive right upper lobe collapse. Pleural spaces: Unremarkable. No pneumothorax. No pleural effusion. Heart: Unremarkable. No cardiomegaly. No pericardial effusion. Lymph nodes: Calcified bilateral hilar and mediastinal lymph nodes. ? Plan ? Patient is DNR/DNI, ? Monitor on cardiac stepdown unit -Will consider BiPAP based on clinical progress ? DuoNeb ?budesonide -TB QuantiFERON gold so far negative -Sputum cultures showed budding yeast ? Blood cultures so far negative ? Respiratory viral panel so far negative ? Due to persistent shortness of breath today, productive cough with increased leukocytosis broaden antibiotic coverage back to vancomycin, meropenem ? Continue Zithromycin ? Prednisone 40 mg daily ? Mon itor respiratory status closely - hold Lasix for today Bleeding hemorrhoids -Monitor A-fib with RVR, converted to normal sinus rhythm -Converted to normal sinus rhythm - Cardizem to 60 every 6h - Eliquis Sepsis, resolved -Sepsis features met given pneumonia, leukocytosis, MICHAEL, respiratory distress, sinus tachycardia MICHAEL, likely sec to sepsis, monitor NSTEMI -Serial EKGs, short troponins, telemetry monitoring -Aspirin, statin, beta-christie History of mass of right lung -Patient initially has declined interventions -He is DNR/DNI FINDINGS: Pulmonary arteries: Similar encasement of the right upper lobe pulmonary artery branch. Aorta: Unremarkable. No aortic aneurysm. No aortic dissection. Lungs: Emphysema severe scattered bilateral pulmonary calcified granulomas. Mild decrease in the size of the right hilar mass measuring 9.5 x 5.5 cm with central calcifications encasing the right upper lobe bronchus with postobstructive right upper lobe collapse. Pleural spaces: Unremarkable. No pneumothorax. No pleural effusion. Heart: Unremarkable. No cardiomegaly. No pericardial effusion. Lymph nodes: Calcified bilateral hilar and mediastinal lymph nodes. -He has a history of mass of lower lobe of left lung back in April 2019, largest measuring 8 mm -Underwent PET/CT 12/13/2020 showed FDG +6 x 3.2 cm right upper lobe nodule suv 20 likely suspicious for malignancy, suspicious intake right hilar nodes consistent with local metastatic disease, more equivocal activity mediastinal nodes -Patient declined bronchoscopy, biopsy at that time roughly 01/10/2021 -Imaging findings as above -Given his complaints of chronic cough, intermittent chronic hemoptysis, -Question is is this slow-growing malignancy versus a latent infection such as mycobacterial infection or fungal infection -Patient is agreeable on biopsy if needed Plan -Placed on airborne precautions -Order 3 AFB smears, so far no growth -Fungal sputum smears, so far no growth -MAC PCR pending -QuantiFERON gold, negative -Mycobacterium PCR -LD H 199 -Beta-1 3D glucan, pending -Aspergillus so far negative -Blastomycosis so far negative -Coccidioidomycosis so far negative -Monitor respiratory status closely -Transfer to tertiary level center for pulmonary evaluation, bronchoscopy, biopsy Intermittent hemoptysis complaints monitor closely, resolved Physical Exam Const: COMMON NORMALS: no acute distress and patient oriented x3 Neck/C-Spine: COMMON NORMALS: no JVD Resp: COMMON NORMALS: normal respiratory effort, No retractions, No use of accessory muscles and clear to auscultation bilaterally AUSCULTATION: clear to auscultation bilaterally Cardio: COMMON NORMALS: no JVD, regular rate, regular rhythm, S1 normal heart sound present and S2 normal heart sound present RATE: regular rate RHYTHM: regular rhythm HEART SOUNDS: S1 normal heart sound present and S2 normal heart sound present GI: COMMON NORMALS: Normal to inspection, nondistended, normoactive bowel sounds present and non-tender Extremity: COMMON NORMALS: no pedal edema Neuro: COMMON NORMALS: patient oriented x3 Psych: COMMON NORMALS: mental status grossly normal TS Data Studies Completed and Pending Pending at discharge Category Date Time Status AFB [Mycobacteria, Culture w/Fluor] Stat Lab 03/10/24 08:30 Results AFB [Mycobacteria, Culture w/Fluor] Stat Lab 03/10/24 08:31 Results AFB [Mycobacteria, Culture w/Fluor] Stat Lab 03/10/24 17:36 Results Basic Metabolic Panel AM LABS Lab 03/18/24 04:00 Ordered C Reactive Protein AM LABS Lab 03/18/24 04:00 Ordered Complete Blood Count w/Auto AM LABS Lab 03/18/24 04:00 Ordered Fungal Culture not HR/SK/BL Routine Lab 03/10/24 09:40 Results Histoplasma Galactomannan Ag Routine Lab 03/10/24 08:33 Received Miscellaneous Test Routine Lab 03/13/24 13:20 Received Miscellaneous Test Routine Lab 03/14/24 16:17 Received Mycobacteria, Culture w/Fluor Stat Lab 03/10/24 08:33 Received NT Pro B Type Natriuretic Pept QAM Lab 03/18/24 06:00 Ordered NT Pro B Type Natriuretic Pept QAM Lab 03/19/24 06:00 Ordered Completed Studies During Hospitalization Category Date Time Status CT abdomen pelvis wo con [id number] Stat Cat Scan 03/09/24 14:[address] angio chest PE protcl [id number] Stat Cat Scan 03/09/24 14:[address] thoracic spin wo con* [id number] Routine Cat Scan 03/10/24 17:42 Completed XR KUB portable [id number] Routine Exams 03/13/24 08:24 Completed XR chest 1V portable [id number] Routine Exams 03/17/24 07:00 Completed XR chest 1V portable [id number] Stat Exams 03/09/24 10:46 Completed CV. echo complete* [id number] Routine Ultrasound 03/10/24 08:29 Completed Laboratory Last Values WBC 16.26 10^3/uL (3.29-11.43) H 03/17/24 02:14 RBC 4.45 10^6/uL (3.85-5.65) 03/17/24 02:14 Hgb 12.00 g/dL (11.27-16.99) 03/17/24 02:14 Hct 37.2 % (37-53) 03/17/24 02:14 MCV 83.6 fl (82-101) 03/17/24 02:14 MCH 27.0 pg (27-33) 03/17/24 02:14 MCHC 32.3 g/dL (30-55) D 03/17/24 02:14 RDW 15.1 % (12.1-15.1) 03/17/24 02:14 Plt Count 384 10^3/cmm (157-399) 03/17/24 02:14 MPV 10.2 fL (7.4-10.4) 03/17/24 02:14 Neut % (Auto) 79.4 % 03/17/24 02:14 Lymph % (Auto) 14.8 % 03/17/24 02:14 [place] % (Auto) 4.9 % 03/17/24 02:14 Eos % (Auto) 0.1 % 03/17/24 02:14 Baso % (Auto) 0.1 % 03/17/24 02:14 Neut # (Auto) 12.91 10^3/uL (1.8-7.7) H 03/17/24 02:14 Lymph # (Auto) 2.4 10^3/uL (0.8-4.8) 03/17/24 02:14 [place] # (Auto) 0.8 10^3/uL (0.2-0.9) 03/17/24 02:14 Eos # (Auto) 0.0 10^3/uL (0.0-0.8) 03/17/24 02:14 Baso # (Auto) 0.0 10^3/uL (0.0-0.1) 03/17/24 02:14 Nucleated RBC % (auto) 0 % 03/17/24 02:14 Nucleated RBCs # 0.0 /100WBC 03/17/24 02:14 PT 14.00 SECONDS (12.1-14.9) 03/09/24 14:58 INR 1.01 (0.8-1.2) 03/09/24 14:58 APTT 27.9 SECONDS (23.9-36.7) 03/09/24 14:58 Specimen Type Arterial 03/16/24 14:37 Sample Site Radial, left 03/16/24 14:37 ABG pH 7.43 (7.35-7.45) 03/16/24 14:37 ABG pCO2 35.9 mmHg (35-45) 03/16/24 14:37 ABG pO2 63.3 mmHg (80.0-100.0) L 03/16/24 14:37 ABG PO2/FiO2 Ratio 140 03/16/24 14:37 ABG HCO3 24.0 mmol/L (22-26) 03/16/24 14:37 ABG O2 Saturation 93.5 03/16/24 14:37 ABG Base Excess 0.0 mmol/L (-2.0-2.0) 03/16/24 14:37 Suraj Test Pos 03/16/24 14:37 A-a O2 Gradient 28.0 mmHg (5-10) H 03/16/24 14:37 Hematocrit 38.9 % (42-52) L 03/16/24 14:37 Hgb O2 Saturation 92.4 % (95-100) L 03/16/24 14:37 Carboxyhemoglobin 1.0 %THgb (0.4-20.1) 03/16/24 14:37 Methemoglobin 0.2 % (0.4-1.5) L 03/16/24 14:37 Total Hemoglobin 12.7 g/dL (14-18) L 03/16/24 14:37 Sodium 139.0 mmol/L (131-143) 03/16/24 14:37 Potassium 4.1 mmol/L (3.5-5.0) 03/16/24 14:37 Glucose 212.0 mg/dL (70-115) H 03/16/24 14:37 Ionized Calcium 1.2 mmol/L (1.1-1.4) 03/16/24 14:37 O2 Delivery Device Nc 03/16/24 14:37 O2 Liters/Min 6.0 % 03/16/24 14:37 FiO2 45.0 % 03/16/24 14:37 Supervisor [employer] ID [place] 03/16/24 14:37 Sodium 138 mmol/L (136-145) 03/17/24 02:14 Potassium 3.6 mmol/L (3.5-5.1) 03/17/24 02:14 Chloride 95 mmol/L (98-107) L 03/17/24 02:14 Carbon Dioxide 28 mmol/L (22-29) 03/17/24 02:14 Anion Gap 18.6 (5-19) 03/17/24 02:14 BUN 27 mg/dL (8-23) H 03/17/24 02:14 Creatinine 1.3 mg/dL (0.7-1.2) H 03/17/24 02:14 GFR Calculation 54.6 mL/min (90-130) L 03/17/24 02:14 Glucose 139 mg/dL (65-115) H 03/17/24 02:14 Estimat Average Glucose 126 03/09/24 14:58 Hemoglobin A1c 6.0 % (4.0-6.0) 03/09/24 14:58 Calculated Osmolality 293 mOsm/kg (285-295) 03/17/24 02:14 Lactic Acid 2.0 mmol/L (0.5-2.2) 03/09/24 14:58 Calcium 9.5 mg/dL (8.5-10.5) 03/17/24 02:14 Phosphorus 2.4 mg/dL (2.5-4.5) L 03/15/24 02:08 Magnesium 2.5 mg/dL (1.7-2.3) H 03/15/24 02:08 Total Bilirubin 0.2 mg/dL (0.15-1.2) 03/15/24 02:08 AST 22 U/L (0-40) 03/15/24 02:08 ALT 35 U/L (0-41) 03/15/24 02:08 Alkaline Phosphatase 78 U/L (40-130) 03/15/24 02:08 Lactate Dehydrogenase 199 U/L (135-225) 03/10/24 10:32 Troponin T Baseline 63 ng/L (0-15) H 03/09/24 14:58 Troponin T 120 Minute 55.21 ng/L (0-15) H 03/09/24 16:51 Delta Troponin T -7.79 ABS# (0-10) L 03/09/24 16:51 Troponin T Hi Sens 6Hr 99.44 ng/L (0-15) H 03/09/24 21:20 Troponin T Hi Sens 6Hr Delta 36.44 ng/L (0-12) H* 03/09/24 21:20 C-Reactive Protein 27.2 mg/L (0.0-4.9) H 03/17/24 02:14 NT-Pro-B Natriuret Pep 553 pg/mL (0-125) H 03/17/24 02:14 Total Protein 6.3 g/dL (6.6-8.7) L 03/15/24 02:08 Albumin 3.8 g/dL (3.5-5.2) 03/15/24 02:08 Globulin 2.5 g/dL (1.3-4.6) 03/15/24 02:08 Triglycerides 112 mg/dL (0-150) 03/09/24 14:58 Cholesterol 200 mg/dL (0-200) 03/09/24 14:58 LDL Cholesterol, Calc 121 mg/dL (50-129) 03/09/24 14:58 HDL Cholesterol 57 mg/dL (60-100) L 03/09/24 14:58 LDL/HDL Ratio 2.12 RATIO (0.00-3.22) 03/09/24 14:58 Cholesterol/HDL Ratio 3.51 mg/dL (1.0-5.00) 03/09/24 14:58 Procalcitonin 0.08 ng/mL (0-0.5) 03/13/24 03:53 TSH 0.90 uIU/mL (0.27-4.20) 03/09/24 14:58 Urine Color Yellow (Yellow) 03/09/24 17:55 Urine Appearance Cloudy (CLEAR) A 03/09/24 17:55 Urine pH 7.5 (5-7) 03/09/24 17:55 Ur Specific [place] 1.022 (1.005-1.030) 03/09/24 17:55 Urine Protein Trace (Negative) A 03/09/24 17:55 Urine Glucose (UA) Negative (Normal) 03/09/24 17:55 Urine Ketones 1+ (Negative) H 03/09/24 17:55 Urine Blood Negative (Negative) 03/09/24 17:55 Urine Nitrate Negative (Negative) 03/09/24 17:55 Urine Bilirubin Negative (Negative) 03/09/24 17:55 Urine Urobilinogen 0.2 mg/dL (Negative) 03/09/24 17:55 Ur Leukocyte Esterase Negative (Negative) 03/09/24 17:55 Urine RBC 0-2 /hpf (0-2) 03/09/24 17:55 Urine WBC 0-5 /hpf (0-5) 03/09/24 17:55 Ur Squamous Epith Cells 0-5 /hpf (0-5) 03/09/24 17:55 Amorphous Sediment Not Reportable 03/09/24 17:55 Urine Bacteria None seen /hpf (NONE) 03/09/24 17:55 Hyaline Casts 0.40 /lpf 03/09/24 17:55 Vancomycin Trough 11.6 ug/mL (10-15) 03/15/24 02:08 Blastomyces Ag Result None detected ng/mL 03/10/24 10:32 Blastomyces Ag Interp Negative 03/10/24 10:32 Coccidioides IgG Ab Negative 03/10/24 10:32 Coccidioides IgM Ab Negative 03/10/24 10:32 Coronavirus (PCR) Negative (Negative) 03/09/24 18:03 Hepatitis A IgM Ab Non-reactive (Nonreactive) 03/10/24 10:32 Hep Bs Antigen Non-reactive (Nonreactive) 03/10/24 10:32 Hep B Core IgM Ab Non-reactive (Nonreactive) 03/10/24 10:32 Hepatitis C Antibody Reactive (Nonreactive) H 03/10/24 10:32 HCV RNA (PCR) IUs/ml <1.18 not detected Log IU/mL (NOT DETECTED) 03/10/24 12:18 HCV RNA (PCR) IU log10 <15 not detected IU/mL (NOT DETECTED) 03/10/24 12:18 Histoplasma Antigen Serum 03/10/24 10:32 Histoplasma Ag (Qnt) None detected ng/mL 03/10/24 10:32 Histoplasma Ag Interp Negative 03/10/24 10:32 HIV 1&2 Ab & HIV 1 Ag Non-reactive (Non-Reactiv) 03/10/24 10:32 HIV 1&2 Antibody Non-reactive (Non-Reactiv) 03/10/24 10:32 Influenza A (PCR) Negative (Negative) 03/09/24 18:03 Influenza Type B (PCR) Negative (Negative) 03/09/24 18:03 Myco Comp PCR Spec Srce Sputum 03/12/24 14:08 A. galactomannan Ag EIA Not detected 03/10/24 10:32 A. galactomannan Ag Idx <0.50 03/10/24 10:32 RSV (PCR) Negative (Negative) 03/09/24 18:03 TB (QFT) Gold In Tube Negative (NEGATIVE) 03/10/24 10:31 TB Test (QFT) Nil 0.01 IU/mL 03/10/24 10:31 TB Test (QFT) Mitogen 9.65 IU/mL 03/10/24 10:31 TB Test Mitogen - Nil 0.00 IU/mL 03/10/24 10:31 TB Test TB -Nil 0.00 IU/mL 03/10/24 10:31 Beta-(1,3)-D-Glucan 49 pg/ml 03/10/24 10:32 B-(1,3)-D-Glucan Intrp Negative (Negative) 03/10/24 10:32 M.tuberculosis Cmplx PCR Not detected 03/12/24 14:08 Radiology Impressions Abdomen/Pelvis CT 03/09/24 14:25 IMPRESSION: 1. Over distended bladder suggestive of urinary retention. 2. Cholelithiasis with no changes of acute cholecystitis. 3. Nonobstructive right renal stones. 4. Right inguinal hernia containing a segment of the terminal ileum with no bowel obstruction. COMMENTS: Consistent with the [employer]'s Incidental Findings Committee white paper (J Am Reena Radiol 2018): Any incidental renal lesion less than 1 cm or classified as too small to characterize, or any incidental cystic renal lesion characterized as simple-appearing, is likely benign. No follow-up imaging is recommended for these lesions per consensus recommendations based on imaging criteria. Chest CTA 03/09/24 14:25 IMPRESSION: 1. Mild decrease in the size of the right hilar mass with decrease in the right upper lobe postobstructive collapse. 2. No pulmonary embolism. COMMENTS: The presence of pulmonary emphysema on CT is an independent risk factor for lung cancer. In the absence of a history or active diagnosis of lung cancer, it is recommended that this patient with emphysema be evaluated for enrollment in a low dose CT lung cancer screening program. Thoracic Spine CT 03/10/24 17:42 IMPRESSION: 1. No acute fracture or other acute process identified. 2. [id number] thoracic degenerative change. A few other chronic/incidental findings above. 3. See the prior day chest CT for those details including known RUL large mass. KUB X-Ray 03/13/24 08:24 Impression: Large amount of fecal material throughout the colon. Chest X-Ray 03/17/24 07:00 IMPRESSION: 1. Large RIGHT upper lobe pulmonary mass unchanged in appearance. 2. Pulmonary hyperinflation as well as chronic changes. Recent Clincial Data Last Vital Signs Temp 98.3 F 03/17/24 15:29 Pulse 80 03/17/24 15:29 Resp 21 H 03/17/24 15:29 BP 159/81 03/17/24 15:29 Pulse Ox 94 03/17/24 15:29 O2 Del Method Nasal Cannula 03/17/24 15:29 O2 Flow Rate 4 03/17/24 10:00 Vital Signs Temp Pulse Resp BP Pulse Ox O2 Del Method O2 Flow Rate 03/17/24 15:29 98.3 F 80 21 H 159/81 94 Nasal Cannula 03/17/24 13:24 20 H 88 L 03/17/24 11:21 98.5 F 83 20 H 143/73 89 L Nasal Cannula 03/17/24 10:10 93 03/17/24 10:00 89 18 92 Nasal Cannula 4 03/17/24 07:18 98.0 F 83 19 H 142/78 89 L Nasal Cannula Intake & Output/Weight 03/15/24 03/16/24 03/17/24 03/18/24 06:59 06:59 06:59 06:59 Intake Total 1457.222 / 4587.855 6749 / 1290 1090 / 1090 760 / 760 Output Total 775 / 775 1650 / 1650 2275 / 2275 300 / 300 Balance 682.222 / 682.222 -360 / -360 -1185 / -1185 460 / 460 Weight 81.193 kg 79.469 kg 75.841 kg Vitals Last Vital Signs Temp 98.3 F 03/17/24 15:29 Pulse 80 03/17/24 15:29 Resp 21 H 03/17/24 15:29 BP 159/81 03/17/24 15:29 Pulse Ox 94 03/17/24 15:29 O2 Del Method Nasal Cannula 03/17/24 15:29 O2 Flow Rate 4 03/17/24 10:00 TS Medications Medications Acetaminophen (Acetaminophen 325 Mg Tablet) 650 mg PO Q6H PRN PRN Reason: Mild/Mod Pain Or Temp >/= 101 Apixaban (Apixaban 5 Mg Tablet) 5 mg PO BID@0900,2100 [facility] Last Admin: 03/17/24 09:23 Dose: 5 mg Aspirin (Aspirin 81 Mg Ec Tablet) 81 mg PO DAILY [facility] Last Admin: 03/17/24 08:52 Dose: 81 mg Atorvastatin Calcium (Atorvastatin 40 Mg Tablet) 40 mg PO BEDTIME [facility] Last Admin: 03/16/24 20:57 Dose: 40 mg Azithromycin (Azithromycin 250 Mg Tablet) 500 mg PO DAILY [facility]; Protocol Last Admin: 03/17/24 08:51 Dose: 500 mg Budesonide (Budesonide 0.5 Mg/2 Ml Neb) 0.5 mg INHALATION BID.RESPIRATORY [facility]Y Last Admin: 03/17/24 10:00 Dose: 0.5 mg Chlorthalidone (Chlorthalidone 25 Mg Tablet) 25 mg PO DAILY [facility] Last Admin: 03/17/24 08:52 Dose: 25 mg Clonazepam (Clonazepam 0.5 Mg Tablet) 0.5 mg PO TID PRN PRN Reason: ANXIETY Last Admin: 03/17/24 15:04 Dose: 0.5 mg Cyclobenzaprine HCl (Cyclobenzaprine 10 Mg Tablet) 10 mg PO QPM PRN PRN Reason: muscle spasm Diltiazem HCl (Diltiazem 30 Mg Tablet) 60 mg PO Q6H [facility] Last Admin: 03/17/24 15:04 Dose: 60 mg Fluticasone Propionate (Fluticasone Nasal [place] 16gm Btl) 1 spray INTRANASAL BID PRN PRN Reason: Allergy Symptoms Last Admin: 03/17/24 15:11 Dose: 1 spray Vancomycin HCl 1,000 mg/ (Sodium Chloride) 250 mls @ 250 mls/hr IV Q18H [facility] Ipratropium [place] (Ipratropium 0.5 Mg/2.5 Ml Neb) 0.5 mg INHALATION Q4H.RESPIRATORY PRN PRN Reason: SHORTNESS OF BREATH Last Admin: 03/16/24 08:08 Dose: 0.5 mg Lactulose (Lactulose Oral Liq 20 Gm/30 Ml Udc) 10 gm PO DAILY PRN PRN Reason: CONSTIPATION Last Admin: 03/17/24 15:04 Dose: 10 gm Levalbuterol HCl (Levalbuterol 1.25 Mg/3 Ml Neb) 1.25 mg INHALATION QID.RESPIRATORY SANDY Meropenem (Meropenem 1,000 Mg Sdv) 1,000 mg IVP Q8H [facility]; Protocol Last Admin: 03/17/24 15:05 Dose: 1,000 mg Morphine Sulfate (Morphine 4 Mg/Ml Sdv 1 Ml) 2 mg IVP Q4H PRN PRN Reason: SEVERE PAIN Last Admin: 03/17/24 13:24 Dose: 2 mg Naloxone HCl (Naloxone 0.4 Mg/Ml Sdv) 0.1 mg IVP Q2M PRN PRN Reason: OPIATERV Ondansetron HCl (Ondansetron 2 Mg/Ml Sdv 2 Ml) 4 mg IVP Q8H PRN PRN Reason: vomiting, or N/V if npo Pantoprazole Sodium (Pantoprazole 40 Mg Sdv) 40 mg IVP Q24H [facility] Last Admin: 03/17/24 15:05 Dose: 40 mg Paroxetine HCl (Paroxetine 20 Mg Tablet) 20 mg PO QAM [facility] Last Admin: 03/17/24 15:05 Dose: 20 mg Phenyleph/Shark Oil/Min Oil/Petrol (Phenyleph-Mineral Oil-Petrolat Oint 28 Gm) 1 applic OR QID [facility] Last Admin: 03/17/24 17:29 Dose: Not Given Prednisone (Prednisone 20 Mg Tablet) 40 mg PO DAILY [facility] Last Admin: 03/17/24 08:52 Dose: 40 mg Tamsulosin HCl (Tamsulosin 0.4 Mg Capsule) [facility] Trazodone HCl (Trazodone 50 Mg Tablet) 50 mg PO BEDTIME PRN PRN Reason: INSOMNIA Last Admin: 03/16/24 20:57 Dose: 50 mg Discontinued Medications Albuterol/Ipratropium (Ipratropium-Albuterol 3 Ml Neb) 3 ml INHALATION QID.RESPIRATORY [facility] Last Admin: 03/13/24 11:05 Dose: Not Given Albuterol/Ipratropium (Ipratropium-Albuterol 3 Ml Neb) 3 ml INHALATION QID.RESPIRATORY [facility] Amoxicillin/Clavulanate Potassium (Amoxicillin-Clav 875-125 Mg Tablet) 1 tab PO BID [facility]; Protocol Last Admin: 03/17/24 08:52 Dose: 1 tab Bisacodyl (Bisacodyl 10 Mg Supp) 10 mg OR ONCE ONE Stop: 03/12/24 09:36 Last Admin: 03/12/24 11:18 Dose: 10 mg Bisacodyl (Bisacodyl 5 Mg Tablet) 10 mg PO NOW ONE Stop: 03/12/24 14:28 Last Admin: 03/12/24 16:56 Dose: 10 mg Bisacodyl (Bisacodyl 5 Mg Tablet) 10 mg PO NOW ONE Stop: 03/13/24 08:26 Last Admin: 03/13/24 08:47 Dose: 10 mg Chlorthalidone (Chlorthalidone 25 Mg Tablet) 25 mg PO DAILY [facility] Last Admin: 03/15/24 18:26 Dose: Not Given Chlorthalidone (Chlorthalidone 25 Mg Tablet) 25 mg PO 2100 [facility] Last Admin: 03/15/24 21:55 Dose: 25 mg Diltiazem HCl (Diltiazem 5 Mg/Ml Sdv 5 Ml) 15 mg IVP ONCE ONE Stop: 03/11/24 23:49 Last Admin: 03/12/24 00:08 Dose: 15 mg Diltiazem HCl (Diltiazem 30 Mg Tablet) 30 mg PO Q6H [facility] Last Admin: 03/13/24 08:27 Dose: 30 mg Enoxaparin Sodium (Enoxaparin 40 Mg/0.4 Ml Syringe) 40 mg SUBCUT Q24H [facility] Last Admin: 03/13/24 15:07 Dose: Not Given Furosemide (Furosemide 10 Mg/Ml Sdv 4ml) 40 mg IVP ONCE ONE Stop: 03/10/24 17:40 Last Admin: 03/10/24 18:01 Dose: 40 mg Furosemide (Furosemide 10 Mg/Ml Sdv 4ml) 40 mg IVP ONCE ONE Stop: 03/16/24 15:08 Last Admin: 03/16/24 15:56 Dose: 40 mg Levofloxacin/Dextrose (Levaquin-D5w) 500 mg in 100 mls @ 100 mls/hr IV ONCE ONE; Protocol Stop: 03/09/24 13:36 Last Infusion: 03/09/24 19:47 Dose: Infused Vancomycin HCl / Sodium (Chloride) 250 mls @ 0 mls/hr [id number] PROTOCOL [facility]ANDY; Protocol Piperacillin Sod/Tazobactam (Sod / Sodium Chloride) 50 mls @ 0 mls/hr [id number] [facility]; Protocol Piperacillin Sod/Tazobactam (Sod 3.375 gm/ Sodium Chloride) 50 mls @ 12.5 mls/hr IV Q8H [facility] Last Infusion: 03/16/24 13:49 Dose: Infused Vancomycin HCl (Vancocin) 2,500 mg in 500 mls @ 166.667 mls/hr IV ONCE ONE Stop: 03/09/24 17:59 Last Infusion: 03/09/24 22:54 Dose: Infused Vancomycin HCl 750 mg/ Sodium (Chloride) 250 mls @ 250 mls/hr IV Q12H [facility] Last Admin: 03/11/24 17:23 Dose: Not Given Methylprednisolone Sodium Succinate 125 mg/ Sterile Water 2 mls @ 24 mls/hr IVP ONCE ONE Stop: 03/09/24 18:47 Last Admin: 03/09/24 18:49 Dose: Not Given Vancomycin HCl (Vancocin) 1,250 mg in 250 mls @ 166.667 mls/hr IV Q24H [facility] Last Infusion: 03/14/24 07:22 Dose: Infused Diltiazem HCl 100 mg/ Sodium (Chloride) 100 mls @ 5 mls/hr IV .Q20H [facility] Last Infusion: 03/12/24 09:30 Dose: 0 mg/hr, 0 mls/hr Vancomycin HCl (Vancocin) 2,000 mg in 400 mls @ 200 mls/hr IV ONCE ONE Stop: 03/17/24 16:14 Last Infusion: 03/17/24 17:56 Dose: Infused Influenza Virus Vacc Trival Recomb (Flu Vacc Pf 24-25 (6 Mos+) Syringe) 45 mcg IM .ONCE ONE Stop: 03/10/24 10:01 Last Admin: 03/10/24 11:03 Dose: Not Given Iohexol (Iohexol 350 Mg/Ml 500 Ml Btl (Per Ml)) 0 ml IV ONCE ONE Stop: 03/09/24 14:40 Last Admin: 03/09/24 14:40 Dose: 66 ml Levalbuterol HCl (Levalbuterol 1.25 Mg/3 Ml Neb) 1.25 mg INHALATION Q4H.RESPIRATORY PRN PRN Reason: SHORTNESS OF BREATH Last Admin: 03/17/24 10:00 Dose: 1.25 mg Magnesium Citrate (Magnesium Citrate Btl 296 Ml) 150 ml PO ONCE ONE Stop: 03/13/24 08:24 Last Admin: 03/13/24 09:35 Dose: 150 ml Methylprednisolone Sodium Succinate (Methylprednisolone Sod Succ 125 Mg/2 Ml Inj) 125 mg IVP ONCE ONE Stop: 03/09/24 14:26 Last Admin: 03/09/24 18:48 Dose: Not Given Methylprednisolone Sodium Succinate (Methylprednisolone Sod Succ 40 Mg/Ml Inj) 40 mg IVP Q8H [facility] Last Admin: 03/12/24 05:22 Dose: 40 mg Methylprednisolone Sodium Succinate (Methylprednisolone Sod Succ 125 Mg/2 Ml Inj) 125 mg IVP ONCE ONE Stop: 03/09/24 18:50 Last Admin: 03/09/24 19:41 Dose: 125 mg Metoprolol Tartrate (Metoprolol Tartrate 1 Mg/1 Ml Sdv 5 Ml) 5 mg IVP ONCE ONE Stop: 03/11/24 22:45 Last Admin: 03/11/24 22:59 Dose: 5 mg Morphine Sulfate (Morphine 4 Mg/Ml Sdv 1 Ml) 2 mg IVP ONCE ONE Stop: 03/09/24 12:17 Last Admin: 03/09/24 12:24 Dose: 2 mg Ondansetron HCl (Ondansetron 2 Mg/Ml Sdv 2 Ml) 4 mg IVP ONCE ONE Stop: 03/09/24 12:17 Last Admin: 03/09/24 12:25 Dose: 4 mg Pneumococcal Polyvalent Vaccine (Pneumococcal (23 Valent) Sdv 0.5 Ml) 0.5 ml IM .ONCE ONE Stop: 03/10/24 10:01 Last Admin: 03/10/24 11:03 Dose: Not Given Polyethylene Glycol (Polyethylene Glycol 3350 Pkt 17 Gm) 17 gm PO ONCE ONE Stop: 03/11/24 10:08 Last Admin: 03/11/24 12:07 Dose: 17 gm Polyethylene Glycol (Polyethylene Glycol 3350 Pkt 17 Gm) 17 gm PO DAILY SANDY Potassium Chloride (Potassium Chloride Er 20 Meq Tablet) 20 meq PO ONCE ONE Stop: 03/10/24 17:40 Last Admin: 03/10/24 18:01 Dose: 20 meq Sodium Phosphate (Fleet Enema 133 Ml Enema) 133 ml OR ONCE ONE Stop: 03/12/24 14:28 Last Admin: 03/12/24 16:57 Dose: 133 ml Trazodone HCl (Trazodone 50 Mg Tablet) 25 mg PO ONCE ONE Stop: 03/09/24 20:25 Last Admin: 03/09/24 21:06 Dose: 25 mg Allergies valdecoxib [From Bextra] Allergy (Intermediate, Verified 02/26/24 14:40) unknown sofosbuvir [From Epclusa] Allergy (Verified 02/26/24 14:40) Unknown velpatasvir [From Epclusa] Allergy (Verified 02/26/24 14:40) Unknown escitalopram [From Lexapro] Adverse Reaction (Intermediate, Verified 02/26/24 14:40) unknown Home Medications nebulizers (Aeroneb Go Nebulizer) #1 ea 05/14/19 [Rx Confirmed 03/09/24] paroxetine HCl 20 mg tablet 20 mg PO QAM #90 tabs 08/22/23 [Rx Confirmed 03/09/24] tamsulosin 0.4 mg capsule (Flomax) 0.4 mg PO QAM #90 caps 08/22/23 [Rx Confirmed 03/09/24] fluticasone propionate 50 mcg/actuation nasal spray,suspension (Flonase Allergy Relief) 1 spray intranasal BID PRN Allergy Symptoms #16 grams 11/20/23 [Rx Confirmed 03/09/24] cyclobenzaprine 10 mg tablet 10 mg PO QPM 03/09/24 [History Confirmed 03/09/24] fluticasone fur. 100 mcg-umeclid 62.5 mcg-vilant 25 mcg inhalat.powder (Trelegy Ellipta) 1 inh inhalation DAILY 03/09/24 [History Confirmed 03/09/24] levalbuterol tartrate 45 mcg/actuation aerosol inhaler 2 inh inhalation Q6H 03/09/24 [History Confirmed 03/09/24] meloxicam 7.5 mg tablet 7.5 mg PO BID 03/09/24 [History Confirmed 03/09/24] Discharge Plan Discharge Patient Disposition: Xfer Short-Term Hosp Condition: Stable Prescriptions: No Action (DME) Aeroneb Go Nebulizer Misc See Rx Instructions .ROUTE .MEDSUPPLY Qty: 1 0RF Rx Instructions: Q6 hours as needed paroxetine HCl 20 mg tablet 20 mg PO QAM Qty: 90 3RF Flomax 0.4 mg capsule 0.4 mg PO QAM Qty: 90 3RF fluticasone propionate [Flonase Allergy Relief] 50 mcg/actuation spray,suspension 1 spray INTRANASAL BID PRN (Reason: Allergy Symptoms) Qty: 16 11RF Rx Instructions: administer into each nostril meloxicam 7.5 mg tablet 7.5 mg PO BID cyclobenzaprine 10 mg tablet 10 mg PO QPM Rx Instructions: TAKE 1 TABLET BY MOUTH ONCE EVERY NIGHT AT BEDTIME levalbuterol tartrate 45 mcg/actuation HFA aerosol inhaler 2 inh inhalation Q6H Rx Instructions: USE 2 INHALATIONS BY MOUTH EVERY 6 HOURS NEEDED FOR SHORTNESS OF BREATH OR WHEEZING Trelegy Ellipta 100-62.5-25 mcg blister with device 1 inh inhalation DAILY Rx Instructions: USE ONE INHALATION EVERY DAY Discharge Orders: Transfer Out of Facility (Order); Ordered 03/17/24 Ordered By: Kieran Wiley Referrals: [facility] [Other] (Call this number to apply for in home services. ) FLACO Yanez, BALANCING MACHINE SET UP WORKER [Primary Care Provider] - 03/21/24 10:00 am Everardo Chance MD, MBBS, MPH [Referring] - 3 weeks (Provider to Provider contact for this patient. Patient needs a new patient appointment within 3 weeks. Please fax DC summary, face sheet, Image reports, and any other infor mation needed for request. Please delete this text proir to prnting discharge. ) Patient Instructions: COPD, Prevent Infections (GEN), Respiratory Care (GEN), Chronic Respiratory Failure (GEN), How Your Lungs Work (GEN), Breathing Techniques (DC), Shortness of Breath (GEN), COPD Stoplight, Opioid Safety, Pneumonia Stoplight Transfer Attestations Time Spent in Transfer Care: greater than 30 min Quality Metrics Clinical Quality Measures [ No reported AMI, CVA or VTE this stay] Coding Level of Care Code Acute Code for Chg Fwd Diagnoses Acute respiratory failure with hypoxia J96.01 Pneumonia J18.9 Laterality: right Lung location: upper lobe of lung Pneumonia type: due to unspecified organism Sepsis A41.9 COPD exacerbation J44.1 Mass of right lung R91.8 Acute respiratory distress R06.03 Acute kidney injury N17.9 Atrial fibrillation with RVR I48.91
[2024-03-17] MEDS: atorvastatin 40 mg Tablet PO (20:38)
[2024-03-17] MEDS: trazodone 50 mg Tablet PO (21:42)
[2024-03-19 00:49] LABS: Histoplasma Galactomannan Ag <0.2 ng/mL
== END 2024-03-17 22:00 | disposition short-term general hospital (02) | DRG 871 ==
LOC: ER 12:53 → MEDSURG 14:27 → CSU 03-12 03:29
PROVIDERS: Admitting Provider Family Medicine; Emergency Provider Emergency Medicine; PCP Nurse Practitioner Family; Visit Provider Family Medicine
DX: A41.9 Sepsis, unspecified organism (principal); I21.4 Non-ST elevation (NSTEMI) myocardial infarction; J96.01 Acute respiratory failure with hypoxia; J18.9 Pneumonia, unspecified organism; J44.0 Chronic obstructive pulmonary disease with (acute) lower respiratory infection; J44.1 Chronic obstructive pulmonary disease with (acute) exacerbation; N17.9 Acute kidney failure, unspecified; R04.2 Hemoptysis; R65.20 Severe sepsis without septic shock; Z87.01 Personal history of pneumonia (recurrent); R91.8 Other nonspecific abnormal finding of lung field; I48.91 Unspecified atrial fibrillation; N40.0 Benign prostatic hyperplasia without lower urinary tract symptoms; Z66 Do not resuscitate; K64.9 Unspecified hemorrhoids; I50.9 Heart failure, unspecified; K59.00 Constipation, unspecified; Z87.891 Personal history of nicotine dependence
CPT/HCPCS: 36415; 36600; 71045; 71275; 72128; 74018; 74176; 80048; 80051; 80053; 80061; 80074; 80202; 81001; 82330; 82803; 82805; 83036; 83605; 83615; 83735; 83880; 84100; 84145; 84443; 84484; 85025; 85610; 85730; 86140; 86480; 86635; 87015; 87040; 87070; 87102; 87116; 87205; 87206; 87305; 87385; 87449; 87522; 87556; 87637; 87801; 87806; 93005; 93306; 94640; 94760; 96365; 96366; 96367; 96372; 96375; 96376; 99285; J1650; J1940; J1956; J2185; J2270; J2405; J2470; J2543; J2919; J3370; J3372; J3490; J7050; J7512; J7614; J7626; J7644; Q0144